=== PATIENT | female | born 1950 | race Caucasian/White ===

== ENCOUNTER 2017-02-08 12:56 | Emergency (ER) | payer MEDICARE, BC ==
[2017-02-08 13:14] VITALS: BP 122/64
--- NOTE | 2017-02-08 15:05 | UC ---
Nunu Hernandez Anna, scribed for Sumit Araujo MD on 02/08/17 at 1440 . Complaint Female HPI - HPI Summary HPI Summary: Patient is a 66 y/o female coming to [facility] presenting with pruritis that began several weeks ago. The pruritic area extends from her vulva to her navel. This has been accompanied by erythema, dryness, and pain. Per triage notes, she describes the severity of the symptoms as 4/10. The symptoms are somewhat alleviated by the use of Atarax, which she reports she has run out of. She was dx with a yeast infection in [place] when she was seen for these symptoms on 01/17. She had a vulvar biopsy on 01/17/2017, which revealed chronic perifolliculitis. It was negative for dysplasia, CA, fungal infections. She has had Diflucan before, most recently the beginning of this month. She additionally has an area of rough skin on her back. Patient medications were reviewed this visit. - History Of Current Complaint Chief Complaint: UCGeneralIllness Stated Complaint: UTI Time Seen by Provider: 02/08/17 13:44 Hx Obtained From: Patient ?: No Onset/Duration: Lasting Weeks, Still Present - Allergies/Home Medications Allergies/Adverse Reactions: Allergies Allergy/AdvReac Type Severity Reaction Status Date / Time Amoxicillin [From Augmentin] Allergy Intermediate Unknown Verified 02/08/17 13: 32 Reaction Details Bisacodyl Allergy Intermediate Headache Verified 02/08/17 13:32 [From HalfLytely Bowel Prep Kit] Clavulanic Acid Allergy Intermediate Unknown Verified 02/08/17 13:32 [From Augmentin] Reaction Details Dust Mite Extract Allergy Intermediate Sneezing Verified 02/08/17 13:32 Polyethylene Glycol Allergy Intermediate Headache Verified 02/08/17 13:32 [From HalfLytely Bowel Prep Kit] Sulfa Antibiotics Allergy Intermediate Hives Verified 02/08/17 13:32 Terconazole [From Terazol] Allergy Intermediate Rash Verified 02/08/17 13:32 Home Medications: Home Medications Canagliflozin (NF) [Invokana (NF)] 1 tab PO DAILY 02/08/17 [History Confirmed ] Cephalexin 500MG #6 TAB PREPAK 1 tab PO BID 02/08/17 [History Confirmed 02/08/17 ] Clobetasol 0.05% OINT* 1 applic TOPICAL SEE INSTRUCTIONS 02/08/17 [History Confirmed 02/08/17] Clotrimazole 1% CREAM* [Clotrimazole 1%*] 1 applic TOPICAL SEE INSTRUCTIONS [History Confirmed 02/08/17] Conjugated Estrogens VAG CM* [Premarin VAG CREAM*] 1 applic TOPICAL SEE INSTRUCTIONS 02/08/17 [History Confirmed 02/08/17] Cyanocobalamin TAB* [Vitamin B12 TAB*] 1 tab PO DAILY 02/08/17 [History Confirmed 02/08/17] Fluconazole 150 MG (NF) [Diflucan 150 mg (NF)] 1 tab PO ONCE 02/08/17 [History Confirmed 02/08/17] Lansoprazole [Prevacid] 1 tab PO DAILY 02/08/17 [History Confirmed 02/08/17] Omeprazole 1 tab PO DAILY 02/08/17 [History Confirmed 02/08/17] Pantoprazole Sodium [Protonix] 40 mg PO BID 02/08/17 [History Confirmed 02/08/17 ] Potassium Citrate (Alkalinizer [Potassium Citrate ER] 10 meq PO BID 02/08/17 [ History Confirmed 02/08/17] hydrOXYzine HCL TAB* [Atarax TAB 50 MG *] 1 tab PO DAILY 02/08/17 [History Confirmed 02/08/17] PMH/Surg Hx/FS Hx/Imm Hx Endocrine History: Diabetes Respiratory History: Asthma - Surgical History Surgical History: Yes Surgery Procedure, Year, and Place: PARTIAL HYSTERECTOMY - Family History Known Family History: Positive: Cardiac Disease, Hypertension, Diabetes - Social History Occupation: Retired Alcohol Use: Daily Alcohol Amount: 1 drink/day Substance Use Type: None Smoking Status (MU): Former Smoker Review of Systems Constitutional: Negative Skin: Other - Pruritic, erythematous area. See HPI. Area of rough skin on her back. Eyes: Negative ENT: Negative Respiratory: Negative Cardiovascular: Negative Gastrointestinal: Negative Genitourinary: Negative Motor: Negative Neurovascular: Negative Musculoskeletal: Negative Neurological: Negative Psychological: Negative All Other Systems Reviewed And Are Negative: Yes Physical Exam Triage Information Reviewed: Yes Appearance: Well-Appearing, No Pain Distress Vital Signs: Initial Vital Signs Temp 98.8 F 02/08/17 13:10 Pulse 78 02/08/17 13:10 Resp 16 02/08/17 13:10 BP 122/64 05/30/17 13:10 Pulse Ox 100 02/08/17 13:10 Elevated blood pressure noted. Vital Signs Reviewed: Yes Eyes: Positive: Other: - EOMI, VAMSI ENT Exam: Normal Neck: Positive: Supple, Nontender Respiratory: Positive: No respiratory distress Cardiovascular: Positive: RRR Musculoskeletal Exam: Normal Musculoskeletal: Positive: Strength Intact, ROM Intact Neurological Exam: Normal Neurological: Positive: Alert - & Ox3, Other: - sensory/motor intact, Psychological Exam: Other - affect/mood appropriate Skin Exam: Other - Mid-back over T4 one cm raised rough area, nonpigmented - Additional Comments Given extensive workup that the patient brought with her, she opted not to have a thorough examination. Complaint Female Dx - Differential Dx/Diagnosis Provider Diagnoses: RASH PERINEAL AND BACK Discharge - Discharge Plan Condition: Stable Disposition: HOME Prescriptions: Fluconazole 150 MG (NF) [Diflucan 150 mg (NF)] 150 mg PO ONCE #1 tab hydrOXYzine HCL TAB* [Atarax TAB 50 MG *] 50 mg PO QID PRN #30 tab PRN Reason: Itching Patient Education Materials: Acute Rash (ED) Referrals: [facility] [Provider Group] Haim Messer MD [Medical Doctor] - No Primary Care Phys,NOPCP [Primary Care Provider] - Additional Instructions: FOLLOW UP WITH YOUR DOCTOR. FOLLOW UP WITH DERMATOLOGY FOR YOU PERINEAL AND BACK RASH. GET REEVALUATED FOR ANY WORSENING OF YOUR CONDITION OR QUESTIONS OR CONCERNS. The documentation as recorded by the Nunu lin Anna accurately reflects the service I personally performed and the decisions made by me, Sumit Araujo MD.
== END 2017-02-08 15:24 | disposition home or self-care (01) ==
LOC: UCEAST 12:56
DX: R21 Rash and other nonspecific skin eruption (principal); L29.9 Pruritus, unspecified; Z87.891 Personal history of nicotine dependence
CPT/HCPCS: 99213; G0463

== ENCOUNTER 2018-02-08 12:36 | Emergency (ER) | payer MEDICARE, BC ==
[2018-02-08] MEDS ORDERED: Ondansetron ODT TAB* 4 MG PO ONE (13:26)
[2018-02-08] MEDS ORDERED: Morphine VIAL* 4 MG/ML VIAL (1 ml vial) IV ONE ×3 (13:26→15:19)
[2018-02-08 14:31] LABS: ABS Basophils 0 10^3/ul (0-0.2); ABS Eosinophils 0.4 10^3/ul (0-0.6); ABS Lymphocytes 1.1 10^3/ul (1.0-4.8); ABS Monocytes 0.2 10^3/ul (0-0.8); ABS Neutrophils 1.7 10^3/ul (1.5-7.7); ABS Nucleated RBC 0 10^3/ul; Eosinophil % 12.3 % (0-6); Hematocrit 33 % (35-47); Lymphocyte % 31.8 % (25-47); Mean Corpuscular HGB Conc 34 g/dl (31-36); Mean Corpuscular Hemoglobin 31 pg (27-31); Mean Corpuscular Volume 91 fL (80-97); Mean Platelet Volume 7.6 um3 (7.4-10.4); Nucleated Red Blood Cells % 0.1; Platelet Count 72 10^3/ul (150-450); Red Blood Count 3.57 10^6/ul (4.0-5.4); Red Cell Distribution Width 15 % (10.5-15); White Blood Count 3.5 10^3/ul (3.5-10.8)
--- NOTE | 2018-02-08 14:35 | RAD ---
INDICATION: Head injury. COMPARISON: Comparison is made with a prior CT of the brain from August 04, 2016. TECHNIQUE: Contiguous axial sections of the brain were obtained from the skull base to the vertex without contrast. FINDINGS: The ventricles, cisterns and sulci are enlarged consistent with age-related atrophy. No significant focal abnormality or mass effect is seen. There is no evidence for hemorrhage. There is a large hematoma in the scalp measuring approximately 9.6 x 1.7 cm in size adjacent to the left frontal bone. No fracture is seen. The visualized portion of the paranasal sinuses and mastoid air cells appear clear. IMPRESSION: 1. NO EVIDENCE FOR ACUTE INTRACRANIAL ABNORMALITY. 2. LARGE HEMATOMA IN THE SCALP ADJACENT TO THE LEFT FRONTAL BONE.
--- NOTE | 2018-02-08 14:37 | RAD ---
INDICATION: Fall with abrasion to the LEFT shoulder. Neck pain. Previous C6-C7 fusion. COMPARISON: No relevant prior exams available on the [facility] PACS for comparison. TECHNIQUE: Multidetector CT images foramen magnum to lung apices without contrast. Multiplanar reformation. REPORT: Normal vertebral alignment accounting for exam positioning without spondylolisthesis or subluxation at any level. Negative for cervical vertebral body or posterior element fracture. Negative for paravertebral hematoma. Post C6-C7 fusion with anterior cortical plate, screws, and bone graft at the disc space with solid osseous fusion. There is also solid osseous fusion at C5-C6 likely from a previous fusion procedure with subsequent removal of the fixation hardware. At C3-C4 there is a moderate dorsal disc osteophyte complex with only mild resulting impression on the ventral margin of the thecal sac. Uncinate process spurring and facet joint osteoarthritis results in only slight LEFT foraminal stenosis. Atherosclerotic calcification noted at the carotid bifurcations. IMPRESSION: No CT evidence for traumatic cervical spine injury.
[2018-02-08 14:47] LABS: EGFR Non-African American 80.3 (>60)
--- NOTE | 2018-02-08 15:17 | RAD ---
HISTORY: Left shoulder pain, injury COMPARISONS: None VIEWS: 4, Frontal internal rotation, external rotation, outlet, and axillary views of the left shoulder FINDINGS: BONE DENSITY: There is diffuse osteopenia. BONES: There is no displaced fracture. JOINTS: There is mild osteoarthritis of the a.c. and glenohumeral joints. ALIGNMENT: There is no dislocation. SOFT TISSUES: Unremarkable. OTHER FINDINGS: The patient is status post anterior cervical fusion. IMPRESSION: OSTEOPENIA. NO ACUTE OSSEOUS INJURY. THE DEGREE OF OSTEOPENIA MAY MAKE A NONDISPLACED FRACTURE RADIOGRAPHICALLY OCCULT. IF SYMPTOMS PERSIST, RECOMMEND REPEAT IMAGING.
--- NOTE | 2018-02-08 15:18 | RAD ---
Indication: Left knee injury. 4 views of left knee demonstrates internal fixation of the left knee patella. No joint effusion is noted. There is soft tissue swelling superficial to the patella which may represent superficial prepatellar bursitis. IMPRESSION: Internal fixation patellar fracture. Soft tissue swelling superficial to the patella is noted.
--- NOTE | 2018-02-08 15:19 | RAD ---
INDICATION: Left hand injury. TECHNIQUE: 2 views of the left hand were obtained. FINDINGS: The bones appear osteopenic in are in normal alignment. There is a faint radiolucent line which projects over the distal diaphysis of the fourth metacarpal possibly representing a nondisplaced fracture. This is best seen on the lateral image. IMPRESSION: POSSIBLE NONDISPLACED FRACTURE OF THE FOURTH METACARPAL. RECOMMEND CLINICAL CORRELATION FOR POINT TENDERNESS.
[2018-02-08 17:14] VITALS: BP 183/78
--- NOTE | 2018-02-08 17:29 | ED ---
Complex/Multi-Sys Presentation - HPI Summary HPI Summary: Patient is a 67-year-old female who presents emergency department for numerous injuries after fall that occurred is prior to arrival. Patient is present in the ER with her and family. Patient states that she was walking on the patio when she tripped on uneven ground and fell. She struck her head, left shoulder and left knee. She denies loss of consciousness. Patient's helped her off the ground immediately. Prior to falling she denies chest pain, shortness of breath, lightheadedness, dizziness, recent illness. Patient notes she broke her left patella several months ago and just finished a rehabilitation. She is not anticoagulated. Symptoms are moderate in severity. Movement makes symptoms worse. Nothing makes symptoms better. Patient and state her tetanus is up-to-date. - History Of Current Complaint Chief Complaint: EDTraumaMultiple Time Seen by Provider: 02/08/18 12:51 Hx Obtained From: Patient, Family/Renal Case Manager - Allergies/Home Medications Allergies/Adverse Reactions: Allergies Allergy/AdvReac Type Severity Reaction Status Date / Time amoxicillin Allergy Rash Verified 02/08/18 12:50 polyethylene glycol Allergy Headache Verified 02/08/18 12:50 Sulfa (Sulfonamide Allergy Rash Verified 02/08/18 12:50 Antibiotics) terconazole [From Terazol 3] Allergy Rash Verified 02/08/18 12:50 Home Medications: Home Medications Colesevelam(NF) [Welchol(NF)] 625 mg PO BID 02/08/18 [History Confirmed 02/08/18 ] Pantoprazole TAB (NF) [Protonix TAB (NF)] 40 mg PO BID 02/08/18 [History Confirmed 02/08/18] Potassium Citrate (NF) [Urocit-K 10 (NF)] 10 meq PO TID 02/08/18 [History Confirmed 02/08/18] SitaGLIPtin (NF) [Januvia (NF)] 100 mg PO DAILY 02/08/18 [History Confirmed ] PMH/Surg Hx/FS Hx/Imm Hx Previously Healthy: Yes Endocrine/Hematology History: Reports: Hx Diabetes Cardiovascular History: Denies: Hx Hypertension Respiratory History: Reports: Hx Asthma Denies: Hx Chronic Obstructive Pulmonary Disease (COPD) GI History: Denies: Hx Ulcer - Surgical History Surgery Procedure, Year, and Place: PARTIAL HYSTERECTOMY. Inner stem device for bladder incontinence. Knee surgery L. Cervical spine fusion - Immunization History Date of Influenza Vaccine: MAY 2013 Infectious Disease History: No Infectious Disease History: Denies: Hx Clostridium Difficile, Hx Hepatitis, Hx Human Immunodeficiency Virus (HIV), Hx of Known/Suspected MRSA, Hx Shingles, Hx Tuberculosis, Hx Known/ Suspected VRE, Hx Known/Suspected VRSA, History Other Infectious Disease, Traveled Outside the [place] in Last 30 Days - Family History Known Family History: Positive: Cardiac Disease, Hypertension, Diabetes - Social History Occupation: Retired Lives: With Family Alcohol Use: None Alcohol Amount: 1 drink/day Substance Use Type: Reports: None Hx Tobacco Use: No Smoking Status (MU): Former Smoker Review of Systems Constitutional: Negative Eyes: Negative ENT: Negative Cardiovascular: Negative Negative: Palpitations, Chest Pain Respiratory: Negative Negative: Shortness Of Breath, Cough Negative: Abdominal Pain, Vomiting, Diarrhea, Nausea Genitourinary: Negative Positive: Other - Left shoulder, hand and knee pain. Positive: Bruising Positive: Headache. Negative: Weakness, Paresthesia, Numbness, Syncope, Slurred Speech All Other Systems Reviewed And Are Negative: Yes Physical Exam Triage Information Reviewed: Yes Vital Signs On Initial Exam: Initial Vitals Temp Pulse Resp BP Pulse Ox 98.2 F 93 18 173/81 99 02/08/18 12:45 02/08/18 12:45 02/08/18 12:45 02/08/18 12:45 02/08/18 12:45 Vital Signs Reviewed: Yes Appearance: Positive: Pain Distress - Pt. sitting up in bed, appears uncomfortable but nontoxic. Family present. Skin: Positive: Warm, Dry Head/Face: Positive: Other - Large hematoma noted to the left side of anterior scalp with superficial abrasion. No active bleeding. Eyes: Positive: Normal, EOMI, VAMSI, Conjunctiva Clear ENT: Positive: Hearing grossly normal Neck: Positive: Supple, Nontender Respiratory/Lung Sounds: Positive: Clear to Auscultation, Breath Sounds Present Cardiovascular: Positive: Normal, RRR, Murmur Abdomen Description: Positive: Nontender, Soft Musculoskeletal: Positive: Other - Large contusion with superficial abrasion noted to the anterior aspect of the left shoulder with pain. Pain and bruising to the lateral aspect of the left hand. Arm is neurovascularly intact. Moderate edema and ecchymosis noted over the left patella with pain. No proximal hip or distal ankle or foot pain. Extremity is neurovascularly intact. Neurological: Positive: Normal, CN Intact II-III Psychiatric: Positive: Affect/Mood Appropriate Diagnostics - Vital Signs Vital Signs Temp Pulse Resp BP Pulse Ox 02/08/18 17:12 98.1 F 93 18 183/78 99 02/08/18 15:22 20 02/08/18 14:09 20 02/08/18 12:45 98.2 F 93 18 173/81 99 - Laboratory Lab Results: Lab Results 02/08/18 02/08/18 02/08/18 Range/Units 12:59 14:16 14:16 WBC 3.5 (3.5-10.8) 10^3/ul RBC 3.57 L (4.0-5.4) 10^6/ul Hgb 11.0 L (12.0-16.0) g/dl Hct 33 L (35-47) % MCV 91 (80-97) fL MCH 31 (27-31) pg MCHC 34 (31-36) g/dl RDW 15 (10.5-15) % Plt Count 72 L (150-450) 10^3/ul MPV 7.6 (7.4-10.4) um3 Neut % (Auto) 48.8 (38-83) % Lymph % (Auto) 31.8 (25-47) % Owsley % (Auto) 6.6 (0-7) % Eos % (Auto) 12.3 H (0-6) % Baso % (Auto) 0.5 (0-2) % Absolute Neuts (auto) 1.7 (1.5-7.7) 10^3/ul Absolute Lymphs (auto) 1.1 (1.0-4.8) 10^3/ul Absolute Monos (auto) 0.2 (0-0.8) 10^3/ul Absolute Eos (auto) 0.4 (0-0.6) 10^3/ul Absolute Basos (auto) 0 (0-0.2) 10^3/ul Absolute Nucleated RBC 0 10^3/ul Nucleated RBC % 0.1 APTT 32.3 (26.0-36.3) seconds Sodium (139-145) mmol/L Potassium (3.5-5.0) mmol/L Chloride (101-111) mmol/L Carbon Dioxide (22-32) mmol/L Anion Gap (2-11) mmol/L BUN (6-24) mg/dL Creatinine (0.51-0.95) mg/dL Est GFR ( Amer) (>60) Est GFR (Non-Af Amer) (>60) BUN/Creatinine Ratio (8-20) Glucose (70-100) mg/dL POC Glucose (mg/dL) 219 H (70-100) mg/dL Calcium (8.6-10.3) mg/dL Total Bilirubin (0.2-1.0) mg/dL AST (13-39) U/L ALT (7-52) U/L Alkaline Phosphatase (34-104) U/L Troponin I (<0.04) ng/mL Total Protein (6.4-8.9) g/dL Albumin (3.2-5.2) g/dL Globulin (2-4) g/dL Albumin/Globulin Ratio (1-3) 05//18 Range/Units 14:16 WBC (3.5-10.8) 10^3/ul RBC (4.0-5.4) 10^6/ul Hgb (12.0-16.0) g/dl Hct (35-47) % MCV (80-97) fL MCH (27-31) pg MCHC (31-36) g/dl RDW (10.5-15) % Plt Count (150-450) 10^3/ul MPV (7.4-10.4) um3 Neut % (Auto) (38-83) % Lymph % (Auto) (25-47) % Owsley % (Auto) (0-7) % Eos % (Auto) (0-6) % Baso % (Auto) (0-2) % Absolute Neuts (auto) (1.5-7.7) 10^3/ul Absolute Lymphs (auto) (1.0-4.8) 10^3/ul Absolute Monos (auto) (0-0.8) 10^3/ul Absolute Eos (auto) (0-0.6) 10^3/ul Absolute Basos (auto) (0-0.2) 10^3/ul Absolute Nucleated RBC 10^3/ul Nucleated RBC % APTT (26.0-36.3) seconds Sodium 143 (139-145) mmol/L Potassium 3.2 L (3.5-5.0) mmol/L Chloride 107 (101-111) mmol/L Carbon Dioxide 30 (22-32) mmol/L Anion Gap 6 (2-11) mmol/L BUN 5 L (6-24) mg/dL Creatinine 0.72 (0.51-0.95) mg/dL Est GFR ( Amer) 103.3 (>60) Est GFR (Non-Af Amer) 80.3 (>60) BUN/Creatinine Ratio 6.9 L (8-20) Glucose 139 H (70-100) mg/dL POC Glucose (mg/dL) (70-100) mg/dL Calcium 8.6 (8.6-10.3) mg/dL Total Bilirubin 0.90 (0.2-1.0) mg/dL AST 50 H (13-39) U/L ALT 23 (7-52) U/L Alkaline Phosphatase 115 H (34-104) U/L Troponin I 0.01 (<0.04) ng/mL Total Protein 6.0 L (6.4-8.9) g/dL Albumin 3.3 (3.2-5.2) g/dL Globulin 2.7 (2-4) g/dL Albumin/Globulin Ratio 1.2 (1-3) Result Diagrams: 02/08/18 14:16 02/08/18 14:16 Lab Statement: Any lab studies that have been ordered have been reviewed, and results considered in the medical decision making process. Complex Multi-Symp Course/Dx Course Of Treatment: Patient presenting for numerous injuries after a mechanical fall. She is afebrile with stable vital signs. Basic labs were ordered as well as imaging. Patient was given IV morphine for pain control. She scan of the brain shows a large hematoma without intracranial bleed or acute changes, reading per radiology. Cervical spine is negative for acute findings, reading per radiology. Hand x-ray shows questionable nondisplaced fracture of the left fourth metacarpal. Left knee x-ray shows surgical changes and soft tissue edema without acute fracture dislocation, reading per radiology. Left shoulder x-ray shows no obvious fracture by radiologist is concerned with the amount of osteoporosis there could be an occult fracture. Given patient's exam and direct impact suspect occult fracture. Results were discussed with patient and family. Hand was splinted and shoulder sling was placed. Patient has seen Dr. Hernandez in the past for orthopedics and the like to follow-up with him again. Advised to call orthopedics and family doctor today to schedule a close follow-up appointment. Patient for pain medication sent to pharmacy. MANUFACTURING SHIFT SUPERVISOR was queried and no red flags noted. Advised to ice and elevate areas intermittently. To return to the ER symptoms change or worsen. Pt. and family understand and agree with plan. She is discharged home stable with her family. - Diagnoses Provider Diagnoses: Fall, Scalp hematoma, Shoulder fracture, Metacarpal bone fracture, Knee contusion Discharge - Sign-Out/Discharge Documenting (check all that apply): Discharge/Admit/Transfer - Discharge Plan Condition: Good Disposition: HOME Prescriptions: oxyCODONE/Acetamin 5/325 MG* [Percocet 5/325 TAB*] 1 tab PO Q6H PRN #12 tab MDD 4 tablets PRN Reason: Pain Patient Education Materials: Hand Fracture (ED), Head Injury (ED), Knee Pain ( ED), Scalp Contusion in Adults (ED), Proximal Humerus Fracture (ED) Referrals: Haim Messer MD [Primary Care Provider] - Bakari Hernandez MD [Medical Doctor] - Additional Instructions: Schedule a close follow up appointment with orthopedics and your PCP Keep splint in place Ice and elevate Pain medication as directed Return to ER if symptoms change or worsen - Billing Disposition and Condition Condition: GOOD Disposition: HOME
== END 2018-02-08 17:12 | disposition home or self-care (01) ==
LOC: ED 12:36
DX: S00.03XA Contusion of scalp, initial encounter (principal); S42.92XA Fracture of left shoulder girdle, part unspecified, initial encounter for closed fracture; S62.305A Unspecified fracture of fourth metacarpal bone, left hand, initial encounter for closed fracture; S80.02XA Contusion of left knee, initial encounter; W01.0XXA Fall on same level from slipping, tripping and stumbling without subsequent striking against object, initial encounter; Y93.01 Activity, walking, marching and hiking; Y92.9 Unspecified place or not applicable; Z88.3 Allergy status to other anti-infective agents; Z88.8 Allergy status to other drugs, medicaments and biological substances; Z88.2 Allergy status to sulfonamides; Z87.891 Personal history of nicotine dependence
CPT/HCPCS: 36415; 70450; 72125; 80053; 84484; 85025; 85730; 96374; 96376; 99282; A9270-GY; J2270

== ENCOUNTER 2018-07-03 14:57 | Emergency (ER) | payer MEDICARE, BC ==
[2018-07-03 15:18] VITALS: BP 134/64
--- NOTE | 2018-07-03 15:23 | UC ---
Respiratory Complaint HPI - HPI Summary HPI Summary: 68 yo female presents accompanied by with complaints of a fever, fatigue , body aches, weakness, and generalized abdominal pain for the last 5 days. has been giving her ibuprofen with decrease of the fever, but her other symptoms have persisted. She has vomited once, but has no diarrhea. She endorses some mild non-specific chest "discomfort" and a decreased appetite. She is able to eat and drink, but her intake is significantly decreased. Denies sinus symptoms, cough, SOB, chest pain, diarrhea, constipation, dysuria, flank pain. Of note she did have a pessary inserted at her PCP's office 1.5-2 weeks ago. - History of Current Complaint Chief Complaint: UCGeneralIllness Stated Complaint: ACHES, FEVER, AND ABDOMINAL PAINS Time Seen by Provider: 07/03/18 15:23 Hx Obtained From: Patient Hx Last Menstrual Period: partial Hysterectomy Onset/Duration: Sudden Onset Severity Initially: Moderate Severity Currently: Severe Pain Intensity: 8 Pain Scale Used: 0-10 Numeric - Allergies/Home Medications Allergies/Adverse Reactions: Allergies Allergy/AdvReac Type Severity Reaction Status Date / Time amoxicillin Allergy Rash Verified 07/03/18 15:18 polyethylene glycol Allergy Headache Verified 07/03/18 15:18 Sulfa (Sulfonamide Allergy Rash Verified 07/03/18 15:18 Antibiotics) terconazole [From Terazol 3] Allergy Rash Verified 07/03/18 15:18 PMH/Surg Hx/FS Hx/Imm Hx - Additional Past Medical History Additional PMH: Heart murmur Endocrine History: Diabetes, Dyslipidemia Cardiovascular History: Cardiac Disease, Hypertension GI/ History: Gastroesophageal Reflux Psychological History: Anxiety, Depression - Surgical History Surgical History: Yes Surgery Procedure, Year, and Place: PARTIAL HYSTERECTOMY. Inner stem device for bladder incontinence. Knee surgery L. Cervical spine fusion - Family History Known Family History: Positive: Cardiac Disease, Hypertension, Diabetes - Social History Occupation: Retired Lives: With Family Alcohol Use: Daily Alcohol Amount: 1 drink/day Substance Use Type: None Smoking Status (MU): Former Smoker - Immunization History Most Recent Influenza Vaccination: fall 2016 Review of Systems Constitutional: Fatigue, Other - Body aches Skin: Negative Eyes: Negative ENT: Negative Respiratory: Negative Cardiovascular: Negative Gastrointestinal: Abdominal Pain Genitourinary: Negative Motor: Negative Neurovascular: Negative Musculoskeletal: Negative Neurological: Negative Psychological: Negative All Other Systems Reviewed And Are Negative: Yes Physical Exam - Summary Physical Exam Summary: GENERAL: NAD. Mildly ill appearing. Appears fatigued. SKIN: No rashes, sores, or open wounds. HEENT: Head: AT/NC Eyes: PERRLA. EOM intact. Conjunctiva clear without inflammation or discharge. Ears: Hearing grossly normal. TMs intact, no bulging, erythema, or edema. Nose: Nasal mucosa pink and moist. NTTP maxillary and frontal sinus. Throat: Posterior oropharynx without exudates, erythema, or tonsillar enlargement. Uvula midline. NECK: Supple. Nontender. No lymphadenopathy. CHEST: CTAB. No r/r/w. No accessory muscle use. Breathing comfortably and in no distress. CV: RRR. Audible murmur. Pulses intact. Brisk cap refill. ABDOMEN: Soft. Mild generalized TTP. No distention or guarding. No CVA tenderness. Bowel sounds present MSK: FROM and 5/5 strength throughout. No edema. NEURO: Alert. PSYCH: Age appropriate behavior. Triage Information Reviewed: Yes Vital Signs: Initial Vital Signs Temp 98.5 F 07/03/18 15:09 Pulse 85 07/03/18 15:09 Resp 16 07/03/18 15:09 BP 134/64 07/03/18 15:09 Pulse Ox 100 07/03/18 15:09 Laboratory Tests 07/03/18 07/03/18 15:41 15:51 POC Urine Color Yellow POC Urine Clarity Clear POC Urine pH 7.0 POC Ur Specif [place] 1.010 POC Urine Protein Negative POC Ur Glucose (UA) Negative POC Urine Ketones Negative POC Urine Blood 1+ A POC Urine Nitrite Negative POC Urine Bilirubin Negative POC Urine Urobilinogen 0.2 POC U Leukocyte Esteras 2+ A Influenza A (Rapid) Negative Influenza B (Rapid) Negative Vital Signs Reviewed: Yes UC Diagnostic Evaluation - Laboratory Result Diagrams: 07/03/18 16:41 O2 Sat by Pulse Oximetry: 100 Re-Evaluation - Re-Evaluation First Eval Re-Evaluation Time: 17:59 Change: Worse Comment: Now with headache, increased fatigue, and "I just dont feel well". Respiratory Course/Dx - Course Course Of Treatment: CXR: IMPRESSION: PATCHY AIRSPACE DISEASE OF THE RIGHT UPPER LUNG. RECOMMEND FOLLOW-UP UNTIL RESOLUTION TO. EXCLUDE UNDERLYING PULMONARY PARENCHYMAL PATHOLOGY. UA with signs of infection. At this time, discussed going to the ED with pt and as there is a suspicion of sepsis given her persistent fever, PNA, and UTI. They did not want to go to the ED. At this point a CBC and CMP was drawn and she was given 1L NS and 1gm of Ceftriaxone. On recheck after fluids and anbx, pt reported feeling worse. Now has a headache, increased fatigue, and increased weakness. Her exam remained unremarkable. I again discussed going to the ED for a further workup and pt and were agreeable to this. They elected to go by ambulance. They were transferred in stable condition. Report called to Felipa NICHOLS in the ED - Differential Dx/Diagnosis Provider Diagnoses: RUL PNA. UTI. Weakness. Fatigue Discharge - Sign-Out/Discharge Documenting (check all that apply): Patient Departure All imaging exams completed and their final reports reviewed: Yes - Discharge Plan Condition: Stable Disposition: TRANS HIGHER LVL OF CARE FAC - Billing Disposition and Condition Condition: STABLE Disposition: Trans Higher Lvl of Care Fac
--- NOTE | 2018-07-03 16:09 | RAD ---
HISTORY: cough COMPARISONS: CT dated June 17, 2013 VIEWS: 4: Frontal dual-energy and lateral views of the chest. FINDINGS: CARDIOMEDIASTINAL SILHOUETTE: The cardiomediastinal silhouette is normal. JUAN CARLOS: The juan carlos are normal. PLEURA: The costophrenic angles are sharp. No pleural abnormalities are noted. LUNG PARENCHYMA: There is patchy alveolar opacification of the right upper lung on the frontal view. ABDOMEN: The upper abdomen is clear. There is no subphrenic gas. BONES AND SOFT TISSUES: The patient is status post anterior cervical fusion. OTHER: None. IMPRESSION: PATCHY AIRSPACE DISEASE OF THE RIGHT UPPER LUNG. RECOMMEND FOLLOW-UP UNTIL RESOLUTION TO EXCLUDE UNDERLYING PULMONARY PARENCHYMAL PATHOLOGY.
[2018-07-03] MEDS ORDERED: cefTRIAXone VIAL(*) 1,000 MG VIAL IVPB ONE (16:30)
[2018-07-03] MEDS ORDERED: NS 0.9% 1000 ML* 1,000 ML IV ONE (16:30)
[2018-07-03 19:01] LABS: EGFR Non-African American 63.5 (>60)
[2018-07-03 19:23] LABS: Hematocrit 31 % (35-47); Hemoglobin 10.8 g/dl (12.0-16.0); Mean Corpuscular HGB Conc 35 g/dl (31-36); Mean Corpuscular Hemoglobin 32 pg (27-31); Mean Corpuscular Volume 93 fL (80-97); Red Blood Count 3.33 10^6/ul (4.00-5.40); Red Cell Distribution Width 14 % (10.5-15); White Blood Count 3.7 10^3/ul (3.5-10.8)
[2018-07-03 19:29] LABS: ABS Basophils 0 10^3/ul (0-0.2); ABS Eosinophils 0.1 10^3/ul (0-0.6); ABS Lymphocytes 0.7 10^3/ul (1.0-4.8); ABS Monocytes 0.3 10^3/ul (0-0.8); ABS Neutrophils 2.6 10^3/ul (1.5-7.7); ABS Nucleated RBC 0 10^3/ul; Eosinophil % 3.1 % (0-6); Lymphocyte % 18.2 % (25-47); Mean Platelet Volume 8.5 um3 (7.4-10.4); Nucleated Red Blood Cells % 0.1; Platelet Count 66 10^3/ul (150-450)
== END 2018-07-03 18:36 | disposition short-term general hospital (02) ==
LOC: UCEAST 14:57
DX: J18.9 Pneumonia, unspecified organism (principal); N39.0 Urinary tract infection, site not specified; R53.1 Weakness; E11.9 Type 2 diabetes mellitus without complications; E78.5 Hyperlipidemia, unspecified; I10 Essential (primary) hypertension; R53.83 Other fatigue; R10.9 Unspecified abdominal pain; Z88.0 Allergy status to penicillin; Z88.2 Allergy status to sulfonamides; Z88.8 Allergy status to other drugs, medicaments and biological substances; Z87.891 Personal history of nicotine dependence
CPT/HCPCS: 36415; 71046; 80053; 81003; 85025; 87086; 93005; 96360; 96365; 99213; G0463; J0696

== ENCOUNTER 2018-07-03 19:11 | Inpatient (IN) | payer MEDICARE, BC ==
[2018-07-03] MEDS ORDERED: NS 0.9% 1000 ML* 1,000 ML IV ONE ×2 (19:46→21:19)
[2018-07-03] MEDS ORDERED: Ketorolac INJ* 30 MG/ML 1 ML VIAL IV PUSH ONE (19:46)
[2018-07-03] MEDS ORDERED: Azithromycin IV(*) 500 MG in NS 0.9% 250 ML* 250 ML IVPB ONE (19:46)
--- NOTE | 2018-07-03 19:55 | ED ---
Sepsis HPI - HPI Summary HPI Summary: Pt is a 68 y/o female sent from the brought in by EMS who presents to the ED c/o fever. As per her , she began to have symptoms 5 days ago. It began with a mild fever of 99 degrees F and vomiting 1x with sharp RLQ pain. Her symptoms began to worsen, and she now c/o fever, body aches, chills, arthralgia , mild cough, sore throat, decreased appetite, nausea, and abdominal pain. This morning her fever spiked 102 degrees F so they went to the . There she was given 1 L fluids and 1 g of IV Rocephin, and was diagnosed with UTI and PNA with concern for sepsis. She felt worse after these treatments. As per she has lost 6 lbs in the past few days, and her sugar was 147 this morning. Pt denies any joint swelling, runny nose, SOB, or dysuria. PMHx DM, HLD, kidney stones, anemia, heart murmur. - History of Current Complaint Time Seen by Provider: 07/03/18 19:25 Stated Complaint: ACHES/FEVER/ABD PAIN Hx Obtained From: Patient, Family/Iron Assorter - Hx Last Menstrual Period: partial Hysterectomy Onset/Duration: Started Days Ago - 5, Worse Since Timing: Constant Current Severity: Severe Pain Intensity: 9 Pain Scale Used: 0-10 Numeric Alleviating Factor(s): Nothing Associated Signs & Symptoms: Cough, Nausea, Vomiting, Chills, Arthralgia - Allergy/Home Medications Allergies/Adverse Reactions: Allergies Allergy/AdvReac Type Severity Reaction Status Date / Time amoxicillin Allergy Rash Verified 07/03/18 15:18 polyethylene glycol Allergy Headache Verified 07/03/18 15:18 Sulfa (Sulfonamide Allergy Rash Verified 07/03/18 15:18 Antibiotics) terconazole [From Terazol 3] Allergy Rash Verified 07/03/18 15:18 Home Medications: Home Medications clonazePAM [Clonazepam] 0.25 mg PO BEDTIME 07/03/18 [History Confirmed 07/03/18] PMH/Surg Hx/FS Hx/Imm Hx Endocrine/Hematology History: Reports: Hx Diabetes, Hx Anemia Cardiovascular History: Reports: Hx Hypercholesterolemia, Other Cardiovascular Problems/Disorders - heart murmur Denies: Hx Hypertension Respiratory History: Reports: Hx Asthma Denies: Hx Chronic Obstructive Pulmonary Disease (COPD) GI History: Reports: Hx Gastroesophageal Reflux Disease Denies: Hx Ulcer History: Reports: Hx Kidney Stones Musculoskeletal History: Reports: Hx Back Problems, Other Musculoskeletal History - Neck problems - Surgical History Surgery Procedure, Year, and Place: PARTIAL HYSTERECTOMY. Inner stem device for bladder incontinence. Knee surgery L. Cervical spine fusion - Immunization History Date of Influenza Vaccine: MAY 2013 Infectious Disease History: No Infectious Disease History: Denies: Hx Clostridium Difficile, Hx Hepatitis, Hx Human Immunodeficiency Virus (HIV), Hx of Known/Suspected MRSA, Hx Shingles, Hx Tuberculosis, Hx Known/ Suspected VRE, Hx Known/Suspected VRSA, History Other Infectious Disease, Traveled Outside the [place] in Last 30 Days - Family History Known Family History: Positive: Cardiac Disease, Hypertension, Diabetes - Social History Alcohol Use: Daily Alcohol Amount: 1 drink/day Hx Substance Use: No Substance Use Type: Reports: None Hx Tobacco Use: Yes Smoking Status (MU): Former Smoker Review of Systems Positive: Fever, Chills, Other - Body aches Positive: Sore Throat. Negative: Nasal Discharge Positive: Cough. Negative: Shortness Of Breath Positive: Abdominal Pain, Vomiting, Nausea, Other - Decreased appetite Negative: dysuria Positive: Arthralgia. Negative: Edema All Other Systems Reviewed And Are Negative: Yes Physical Exam - Summary Physical Exam Summary: Appearance: Well appearing, moderate pain distress with rigors Skin: hot, dry, reflects adequate perfusion, no rash or lesions Head/face: normal Eyes: EOMI, VAMSI ENT: mucous membranes moist Neck: supple, non-tender Respiratory: CTA, breath sounds present Cardiovascular: tachycardic but regular rhythm, pulses symmetrical, 3-4/6 systolic murmur Abdomen: non-tender, soft, no CVA tenderness Bowel Sounds: hypoactive Musculoskeletal: normal, strength/ROM intact Neuro: normal, sensory motor intact, A&Ox3 Triage Information Reviewed: Yes Vital Signs On Initial Exam: Initial Vitals Pulse Pulse Ox 107 93 07/03/18 19:19 07/03/18 19:19 Vital Signs Reviewed: Yes Diagnostics - Vital Signs Vital Signs Temp Pulse Resp BP Pulse Ox 07/03/18 19:26 100.6 F 108 18 168/89 97 07/03/18 19:20 110 143/81 93 07/03/18 19:19 107 93 - Laboratory Result Diagrams: 07/03/18 20:44 07/03/18 20:44 Lab Statement: Any lab studies that have been ordered have been reviewed, and results considered in the medical decision making process. Course/Dx - Course Course Of Treatment: Patient with laboratories, IV Rocephin and IV fluids 1 L given prior to arrival at the urgent care. She has a right upper lobe pneumonia. Her urine does not appear infected. O2 sats around 94%. Placed on oxygen. Additional IV fluids, IV Zithromax given for this community-acquired pneumonia. She will require admission for severe sepsis syndrome. - Differential Dx/Clinical Impression Differential Diagnosis/HQI/PQRI: Other - Sepsis, severe sepsis, pneumonia, hypoxia Provider Diagnosis: Right upper lobe pneumonia, Severe sepsis - Provider Notifications Discussed Care Of Patient With: Ken Ivan Time Discussed With Above Provider: 17:55 Instructed by Provider To: Admit As Inpatient - [facility] accepts pt for admission. Discharge - Sign-Out/Discharge Documenting (check all that apply): Patient Departure - Admit - Discharge Plan Condition: Stable Disposition: ADMITTED TO [facility] Referrals: Haim Messer MD [Primary Care Provider] - - Billing Disposition and Condition Condition: STABLE Disposition: Admitted to [facility] - Attestation Statements Document Initiated by Scribe: Yes Documenting Scribe: Candi Alarcon Provider For Whom Ghassan is Documenting (Include Credential): Dillon Martin MD Scribe Attestation: Candi Hernandez, scribed for Dillon Martin MD on 07/03/18 at 2116. Scribe Documentation Reviewed: Yes Provider Attestation: The documentation as recorded by the Candi lin accurately reflects the service I personally performed and the decisions made by me, Dillon Martin MD
[2018-07-03 20:27] LABS: Urine Appearance Clear; Urine Blood Negative (Negative); Urine Color Yellow; Urine Ketones Negative (Negative); Urine Protein Negative (Negative); Urine Specific Gravity 1.006 (1.010-1.030); Urine Urobilinogen Negative (Negative)
[2018-07-03] MEDS ORDERED: Ondansetron INJ* 2 MG/ML VIAL IV PRN (20:46)
[2018-07-03] MEDS ORDERED: Dextrose 50% Syringe 50 ML* 25 GM/50 ML SYRINGE IV PUSH PRN (20:46)
[2018-07-03] MEDS ORDERED: cefTRIAXone(*) 1 GM in NS 0.9% 50 ML* 50 ML IVPB SCH (20:48)
[2018-07-03 20:56] LABS: ABS Basophils 0 10^3/ul (0-0.2); ABS Eosinophils 0.1 10^3/ul (0-0.6); ABS Lymphocytes 0.4 10^3/ul (1.0-4.8); ABS Monocytes 0.3 10^3/ul (0-0.8); ABS Neutrophils 2.7 10^3/ul (1.5-7.7); ABS Nucleated RBC 0 10^3/ul; Eosinophil % 3.1 % (0-6); Hematocrit 31 % (35-47); Hemoglobin 10.5 g/dl (12.0-16.0); Lymphocyte % 12.4 % (25-47); Mean Corpuscular HGB Conc 34 g/dl (31-36); Mean Corpuscular Hemoglobin 32 pg (27-31); Mean Corpuscular Volume 93 fL (80-97); Mean Platelet Volume 7.5 um3 (7.4-10.4); Nucleated Red Blood Cells % 0.1; Platelet Count 58 10^3/ul (150-450); Red Blood Count 3.28 10^6/ul (4.00-5.40); Red Cell Distribution Width 14 % (10.5-15); White Blood Count 3.6 10^3/ul (3.5-10.8)
[2018-07-03] MEDS ORDERED: NS 0.9% 1000 ML*IV.FLUID IV ONE (20:56)
[2018-07-03 21:00] LABS: INR 1.26 (0.77-1.02)
[2018-07-03] MEDS ORDERED: Azithromycin IV(*) 500 MG in NS 0.9% 250 ML* 250 ML IVPB SCH (21:00)
[2018-07-03] MEDS ORDERED: Acetaminophen TAB* 325 MG PO ONE (21:19)
[2018-07-03] MEDS: NS 0.9% 1000 ML* 1,000 ML IV SCH (22:39)
[2018-07-03] MEDS: cefTRIAXone(*) 1 GM in NS 0.9% 50 ML* 50 ML IVPB SCH (23:02)
[2018-07-03] MEDS: Heparin VIAL(*) 5000 UNITS/ML VIAL (FIVE THOUSAND) SUBCUT SCH (23:09)
[2018-07-03] MEDS: clonazePAM TAB(*) 0.5 MG PO SCH (23:11)
[2018-07-03] MEDS: predniSONE TAB* 20 MG PO SCH (23:12)
[2018-07-03] MEDS: traZODone TAB* 50 MG TAB PO SCH (23:13)
[2018-07-03] MEDS: Sucralfate TAB* 1 GM PO SCH (23:13)
[2018-07-03] MEDS: Sertraline* 50 MG TAB PO SCH (23:13)
[2018-07-03] MEDS: oxyCODONE/Acetamin 5/325 MG* TAB PO PRN (23:14)
[2018-07-03] MEDS: Venlafaxine EXT RELEASE CAP* 75 MG PO SCH (23:14)
[2018-07-03] MEDS: COLESEVELAM 625 MG PO SCH (23:15)
[2018-07-03] MEDS: Potassium Citrate (NF) 10 MEQ TAB PO SCH (23:15)
[2018-07-03] MEDS: Albuterol/Ipratropium NEB.SOL* Albuterol 2.5 MG/Ipratropium 0.5 MG 3 ML INH SCH (23:36)
[2018-07-03] MEDS: Mometasone/Formoter 200/5 MDI INH SCH (23:42)
[2018-07-04] MEDS: KCL 10 MEQ/50 ML IVPREMIX* 10 MEQ/50 ML BAG IV SCH ×3 (00:10→02:48)
[2018-07-04] MEDS: Albuterol/Ipratropium NEB.SOL* Albuterol 2.5 MG/Ipratropium 0.5 MG 3 ML INH SCH ×2 (03:20→06:08)
--- NOTE | 2018-07-04 04:42 | HP ---
AMENDED REPORT NOW INCLUDES DESIGNATED COSIGNER CC: Dr. Haim Messer * HISTORY AND PHYSICAL: DATE OF ADMISSION: 07/03/18 PRIMARY CARE PROVIDER: Dr. Haim Messer. ATTENDING PHYSICIAN WHILE IN THE HOSPITAL: Dr. Idalia Moody * (report dictated by Ken Ivan NP). CHIEF COMPLAINT: 1. Cough. 2. Weakness. 3. Fever. HISTORY OF PRESENT ILLNESS: Ms. Rodríguez is a 68-year-old female patient. She carries a history of diabetes, hyperlipidemia, depression, history of GERD, history of DVT in the left lower extremity, retinopathy, history of asthma, hypertension, and cervical spinal stenosis. She is coming into the ED today stating that since last week her , Quirino, has noted that she has not been eating well. Her appetite has been getting worse and worse. She has had temperature of 99. She was kind of aching all over. She was feeling fatigued, tired, slightly more confused than at her baseline. He was concerned though today because she spiked fever of 102. She has had a cough, which really has not been all that productive with the exception in the last 24 hours bringing up some clear sputum, although in the ED, she did bring up some mucopurulent- type sputum. She has been having some nausea, vomiting, and just overall not feeling well. She came into the Urgent Care. There was concern on chest x-ray there that she appeared to have pneumonia and was transferred to the ER. While here, it was noted that she had a fever of 100.6. She was tachycardic. There was concern for pneumonia and sepsis. We were asked to evaluate for admission. PAST MEDICAL HISTORY: Significant for: 1. Diabetes. 2. Hyperlipidemia. 3. Depression. 4. GERD. 5. Left lower extremity DVT. 6. Diabetic retinopathy. 7. Dementia. 8. Asthma. 9. Hypertension. 10. Cervical spinal stenosis. PAST SURGICAL HISTORY: She has had: 1. spinal surgery x2. 2. Patellar fracture repair. 3. Eye surgery. 4. Humerus fracture. 5. Carpal tunnel. 6. Knee arthroscopy. 7. Lumbar spinal surgery, which is a kyphoplasty. HOME MEDICATIONS: This is reviewed with the patient's include: 1. Clonazepam 0.25 mg at bedtime. 2. Effexor 75 mg p.o. t.i.d. 3. Protonix 40 mg p.o. b.i.d. 4. Ferrous sulfate 325 mg daily. 5. Aspirin 81 mg daily. 6. Trazodone 100 mg at bedtime. 7. Percocet 1 tablet every 6 hours as needed. 8. Carafate 1 g p.o. b.i.d. 9. Januvia 100 mg p.o. daily. 10. Simvastatin 40 mg daily. 11. Zoloft 50 mg at bedtime. 12. Potassium citrate 10 mEq p.o. t.i.d. 13. B12 1000 mcg p.o. daily. 14. WelChol 625 mg p.o. b.i.d. ALLERGIES TO MEDICATION: Include AMOXICILLIN, MIRALAX, SULFA, and TERCONAZOLE. FAMILY HISTORY: Her mother had COPD and CHF. Father had a history of Marfan's. SOCIAL HISTORY: She is a former smoker. She quit about 10 years ago. She does drink 7 and 7 daily one at night. Surrogate decision maker is her , Quirino. REVIEW OF SYSTEMS: There is a documented fever. She denied any significant weight change. There is no double vision. She denies having any ear discharge. There was no rhinorrhea. There was no sore throat, no thyroid enlargement. She denied having any chest pain. There is shortness of breath particularly with exertion. There is a cough. There is no dysuria, no frequency. There was nausea, 1 episode of vomiting. There is no abdominal discomfort reported. No chest pain. No loss of consciousness. No pruritus, and no skin ulcerations. Review of 14 systems completed, all others negative. PHYSICAL EXAMINATION GENERAL: At this time, Ms. Rodríguez is a 68-year-old female patient. She is sitting in the ED stretcher. She does not appear to be in any acute distress. VITAL SIGNS: Blood pressure 147/73, pulse of 109, respirations were 18, O2 sat 95%, temperature of 100.6. HEENT: Head: Atraumatic, normocephalic. Eyes: EOMs are intact. Sclerae were anicteric and not pale. Throat mucosa appears to be dry. No oropharyngeal erythema. NECK: Supple. LUNGS: She had rhonchi noted in the right upper and right middle lobe with wheezing as well. She had no rales. She had equal diaphragmatic expansion. HEART: Sounds S1, S2. She is tachycardic. She does have a grade 2 to 3 systolic murmur. ABDOMEN: Soft, flat, nontender. Bowel sounds are present. EXTREMITIES: Pulses are 2+ throughout. She had no peripheral edema. NEUROLOGIC: She is awake, she is alert, she is oriented x3. Her tongue is midline. Assistant Produce Manager were equal. She had no gross focal deficits. SKIN: Intact. DIAGNOSTIC STUDIES/LAB DATA: WBCs these were done over at urgent care of 3.7, RBC 3.33, hemoglobin 10.8, hematocrit of 31, platelet count of 66, baseline platelets are right around 80,000. She had INR on 06/19/18 of 1.03. Her sodium was 136, potassium of 3.4, chloride of 101, bicarb was 29, BUN 7, creatinine of 0.88, glucose 105, lactate is pending. Urine today was essentially negative. She had a chest x-ray done over at Urgent Care revealing patchy airspace disease in the right upper lung. Recommend followup until resolution to exclude underlying pulmonary parenchymal pathology. She had an EKG over at Urgent Care as well, which showed normal sinus rhythm, rate of 82. She had no ST elevations or T-wave inversions. Old medical records were reviewed. ASSESSMENT AND PLAN: Ms. Rodríguez is a 68-year-old female patient coming into the ED today with complaints of cough, fatigue, not feeling well. In evaluation , there was concern for sepsis and pneumonia. We were asked to evaluate for admission. She will be admitted under inpatient status for: 1. Sepsis secondary to pneumonia. Again, she has an elevated tachycardia. She is febrile. She is not showing signs of severe sepsis just yet, but she certainly does have significant infection. I am going to go ahead and put her on Rocephin and azithromycin. We will get legionella and Streptococcus pneumoniae antigens. We will, in addition to this, get sputum cultures and possible blood cultures. Lactic acid has been sent. I am going to go ahead and do a 30 cc/kg fluid bolus given the tachycardia and we will continue to follow her closely and await cultures. We will continue with flutter valve and pulmonary toileting. I did order nebs because of the wheezing and also her steroids as well. I will continue to monitor. 2. Thrombocytopenia. It is slightly worse than her baseline. This is probably secondary to the septic picture. We will monitor this. I have placed her on heparin and continue to follow if her counts drop consider stopping this. 3. Hyperlipidemia. Continue statin therapy. 4. Depression. Continue meds as prescribed. 5. Gastroesophageal reflux disease. Continue Carafate and PPI therapy. 6. History of DVT. Again, she is high risk of reoccurrence. I have her on prophylactic dosing. 7. History of retinopathy. Follow with PCP. 8. History of asthma. Again, I have her on nebs, steroids, and inhaled steroids as well, pulmonary toileting. 9. Hypertension. Her blood pressure here is 147/73. We will monitor this. If it is persistently elevated, we may consider adding an agent but in the setting with acute illness, I am going to let her run on the higher side. 10. Diabetes. She will be placed on lispro sliding scale. 11. DVT prophylaxis. Again, she will be placed on heparin subcu. 12. Code status. She actually wishes to be a DNR; however, she would be open to intubation should she need that in the setting of pneumonia. We will try to track down her DNR or we can always fill out. 13. Fluids, electrolytes, and nutrition. I will go ahead and place her on a consistent carb diet. TIME SPENT: Time spent on the admission 60 minutes, greater than half the time spent [id number] with the patient obtaining my history and physical, other half the time spent going over the plan of care with the patient and implementing plan of care. I did discuss the plan of care with my attending, Dr. Moody; she is in agreement. KEN IVAN, SHERI [id number]/[facility] #: [id number] JAKE
[2018-07-04] MEDS: Heparin VIAL(*) 5000 UNITS/ML VIAL (FIVE THOUSAND) SUBCUT SCH ×3 (05:32→20:26)
[2018-07-04 06:57] LABS: ABS Basophils 0 10^3/ul (0-0.2); ABS Eosinophils 0 10^3/ul (0-0.6); ABS Lymphocytes 0.6 10^3/ul (1.0-4.8); ABS Monocytes 0.1 10^3/ul (0-0.8); ABS Nucleated RBC 0 10^3/ul; Eosinophil % 0 % (0-6); Hematocrit 31 % (35-47); Hemoglobin 10.5 g/dl (12.0-16.0); Lymphocyte % 16.8 % (25-47); Mean Corpuscular HGB Conc 34 g/dl (31-36); Mean Corpuscular Hemoglobin 32 pg (27-31); Mean Corpuscular Volume 94 fL (80-97); Mean Platelet Volume 8.2 um3 (7.4-10.4); Nucleated Red Blood Cells % 0.1; Platelet Count 57 10^3/ul (150-450); Red Cell Distribution Width 14 % (10.5-15); White Blood Count 3.7 10^3/ul (3.5-10.8)
[2018-07-04 06:59] LABS: INR 1.29 (0.77-1.02)
[2018-07-04 07:01] LABS: EGFR Non-African American 66.1 (>60)
[2018-07-04] MEDS: Cyanocobalamin TAB* 500 MCG PO SCH (07:52)
[2018-07-04] MEDS: Venlafaxine EXT RELEASE CAP* 75 MG PO SCH ×3 (07:52→20:26)
[2018-07-04] MEDS: predniSONE TAB* 20 MG PO SCH (07:52)
[2018-07-04] MEDS: Omeprazole CAP* 20 MG PO SCH ×2 (07:53→17:01)
[2018-07-04] MEDS: Potassium Citrate (NF) 10 MEQ TAB PO SCH ×2 (07:53→12:53)
[2018-07-04] MEDS: oxyCODONE/Acetamin 5/325 MG* TAB PO PRN ×2 (07:53→17:01)
[2018-07-04] MEDS: Ferrous Sulfate TAB* 325 MG PO SCH (07:53)
[2018-07-04] MEDS: Sucralfate TAB* 1 GM PO SCH ×2 (07:53→20:26)
[2018-07-04] MEDS: Aspirin 81 mg CHEW TAB* 81 MG TAB.CHEW PO SCH (07:53)
[2018-07-04] MEDS: COLESEVELAM 625 MG PO SCH ×2 (07:53→20:27)
[2018-07-04] MEDS: Mometasone/Formoter 200/5 MDI INH SCH ×2 (08:07→20:45)
[2018-07-04] MEDS: Insulin LISPRO* 1 UNITS UNIT SUBCUT SCH ×3 (08:18→17:20)
[2018-07-04] MEDS: NS 0.9% 1000 ML* 1,000 ML IV SCH (09:58)
--- NOTE | 2018-07-04 15:28 | ECHO ---
Patient: KIMBERLEY KILLIAN [facility] Rec#: [id number] : 1950 Date: 07/04/2018 Age: 68y Height: 163 cm / 64.2 in Weight: 64.05 kg / 141.2 lbs Sex: F BSA: 1.69 Room#: [facility] Admit Date#: 07/03/2018 Type: Inpatient Referring: Zari Jolly MD Reading: Ady Morris MD Polisher Aluminum: Maribeth GreenwoodALIX CC: Haim Messer MD Transthoracic Echocardiogram Indication: Murmur, sepsis BP: 106/53 HR: 104 Rhythm: Tachycardia Findings History: DM, HLD, anemia, heart murmur, former smoker, dementia. Technical Comments: The study quality is fair. Completed at 1230. Left Ventricle: The left ventricular chamber size is normal. There is no left ventricular hypertrophy. Global left ventricular wall motion and contractility are within normal limits. There is normal left ventricular systolic function. The estimated ejection fraction is 55-60%. Abnormal left ventricular diastolic function is observed. Abnormal left ventricular diastolic filling is observed, consistent with impaired relaxation. Left Atrium: The left atrium is severely dilated. Right Ventricle: Moderator Band present. The right ventricular cavity size is normal. The right ventricular global systolic function is normal. Right Atrium: The right atrium is moderately dilated. Aortic Valve: The aortic valve is trileaflet. Mild aortic leaflet calcification is visualized. Systolic excursion of the aortic valve cusps is reduced. There is a trace of aortic regurgitation. There is mild aortic stenosis. The mean gradient of the aortic valve is 13 mmHg. The peak instantaneous gradient of the aortic valve is 23 mmHg. The aortic valve area, by peak velocities, is calculated at 1.6 cm2. Mitral Valve: Mild mitral annular calcification present. The mitral valve leaflets are mildly thickened. There is mild to moderate mitral regurgitation. There is mild mitral stenosis. Tricuspid Valve: The tricuspid valve leaflets are normal. There is mild tricuspid regurgitation. The right ventricular systolic pressure is estimated at 28 mmHg. No pulmonary hypertension is noted. There is no tricuspid stenosis. Pulmonic Valve: The pulmonic valve appears normal. There is a trace pulmonic regurgitation. There is no pulmonic stenosis. Pericardium: There is no significant pericardial effusion. A pericardial fat pad is visualized. Aorta: There is no dilatation of the ascending aorta. There is no dilatation of the aortic arch. The aortic root is normal in size. Pulmonary Artery: The main pulmonary artery is not well visualized. Venous: The inferior vena cava appears normal in size. There is a greater than 50% respiratory change in the inferior vena cava dimension. Summary: There was not any prior study for comparison. Conclusions Global left ventricular wall motion and contractility are within normal limits. There is normal left ventricular systolic function. The estimated ejection fraction is 55-60%. The right ventricular global systolic function is normal. Mild aortic leaflet calcification is visualized. There is a trace of aortic regurgitation. There is mild aortic stenosis. The mean gradient of the aortic valve is 13 mmHg. There is mild to moderate mitral regurgitation. There is mild tricuspid regurgitation. No pulmonary hypertension is noted. There is no significant pericardial effusion. Measurements Name Value Normal Range RVIDd (AP) 2D 2.8 cm (0.9 - 2.6) RVDdMajor (2D) 3.9 cm (2.2 - 4.4) RAd ISD 4CH 5.6 cm (3.4 - 4.9) RA (A4C)W 3.8 cm (2.9 - 4.6) IVSd (2D) 0.8 cm (0.6 - 1) LVPWd (2D) 0.9 cm (0.6 - 1) LVIDd (2D) 4.7 cm (3.6 - 5.4) LVIDs (2D) 3 cm - LV FS (2D) 37 % (25 - 45) Aortic Annulus 1.9 cm (1.4 - 2.6) Ao root diameter (2D) 3 cm (2.1 - 3.5) Ascending Ao 3.1 cm (2.1 - 3.4) Aortic arch 2.2 cm (1.8 - 3.4) LA dimension (AP) 2D 4.2 cm (2.3 - 3.8) LAd ISD 4CH 5.4 cm (2.9 - 5.3) LA ISD 4CH W 5.2 cm (2.5 - 4.5) Name Value Normal Range LA ESV BP (A/L) index 56 ml/m2 - Name Value Normal Range MV E-wave Vmax 1.4 m/sec - MV deceleration time 70 msec - MV A-wave Vmax 2 m/sec - MV E:A ratio 0.7 ratio - LV septal e' Vmax 0.08 m/sec - LV lateral e' Vmax 0.07 m/sec - LV E:e' septal ratio 17.5 ratio - LV E:e' lateral ratio 20 ratio - Name Value Normal Range AV Vmax 2.4 m/sec - AV VTI 50 cm - AV peak gradient 23 mmHg - AV mean gradient 13 mmHg - LVOT diameter 2 cm - LVOT Vmax 1.2 m/sec - LVOT VTI 24.9 cm - LVOT peak gradient 5 mmHg - LVOT mean gradient 3 mmHg - DOI (VTI) 0.5 ratio - CHARLES (continuity Vmax) 1.6 cm2 - CHARLES (continuity VTI) 1.6 cm2 - ANGELLA Vmax 1.7 m/sec - Name Value Normal Range MV Vmax 1.8 m/sec - MV VTI 34.3 cm - MV peak gradient 13 mmHg - MV mean gradient 6 mmHg - MV PHT 66 msec - MVA (PHT) 3.3 cm2 - MVA (continuity VTI) 2.2 cm2 - Name Value Normal Range TR Vmax 2.5 m/sec - TR peak gradient 25 mmHg - RAP 3 mmHg - RVSP 28 mmHg - IVC diameter 1.9 cm - Name Value Normal Range PV Vmax 1.4 m/sec - PV peak gradient 7 mmHg -
[2018-07-04] MEDS: Atorvastatin* 20 MG TAB PO SCH (17:01)
[2018-07-04] MEDS: Azithromycin IV(*) 500 MG in NS 0.9% 250 ML* 250 ML IVPB SCH (20:03)
[2018-07-04] MEDS: Acetaminophen TAB* 325 MG PO PRN (20:25)
[2018-07-04] MEDS: traZODone TAB* 50 MG TAB PO SCH (20:26)
[2018-07-04] MEDS: Sertraline* 50 MG TAB PO SCH (20:26)
[2018-07-04] MEDS: clonazePAM TAB(*) 0.5 MG PO SCH (20:29)
[2018-07-04] MEDS: POTASSIUM CITRATE 15 MEQ PO SCH (20:29)
[2018-07-04] MEDS: cefTRIAXone(*) 1 GM in NS 0.9% 50 ML* 50 ML IVPB SCH (23:54)
[2018-07-05] MEDS: oxyCODONE/Acetamin 5/325 MG* TAB PO PRN ×3 (02:00→18:26)
[2018-07-05] MEDS: Heparin VIAL(*) 5000 UNITS/ML VIAL (FIVE THOUSAND) SUBCUT SCH ×3 (05:33→21:13)
[2018-07-05] MEDS: Acetaminophen TAB* 325 MG PO PRN (05:36)
[2018-07-05 07:30] LABS: Hematocrit 29 % (35-47); Hemoglobin 10.3 g/dl (12.0-16.0); Mean Corpuscular HGB Conc 35 g/dl (31-36); Mean Corpuscular Hemoglobin 33 pg (27-31); Mean Corpuscular Volume 92 fL (80-97); Red Blood Count 3.18 10^6/ul (4.00-5.40); Red Cell Distribution Width 14 % (10.5-15); White Blood Count 5.7 10^3/ul (3.5-10.8)
[2018-07-05 07:48] LABS: EGFR Non-African American 82.7 (>60)
[2018-07-05 07:54] LABS: ABS Basophils 0 10^3/ul (0-0.2); ABS Eosinophils 0 10^3/ul (0-0.6); ABS Monocytes 0.3 10^3/ul (0-0.8); ABS Neutrophils 4.4 10^3/ul (1.5-7.7); ABS Nucleated RBC 0 10^3/ul; Eosinophil % 0.3 % (0-6); Lymphocyte % 18.3 % (25-47); Mean Platelet Volume 8.2 um3 (7.4-10.4); Nucleated Red Blood Cells % 0; Platelet Count 73 10^3/ul (150-450)
[2018-07-05] MEDS: Mometasone/Formoter 200/5 MDI INH SCH ×2 (08:13→19:57)
[2018-07-05] MEDS: predniSONE TAB* 20 MG PO SCH (09:05)
[2018-07-05] MEDS: Ferrous Sulfate TAB* 325 MG PO SCH (09:05)
[2018-07-05] MEDS: Cyanocobalamin TAB* 500 MCG PO SCH (09:05)
[2018-07-05] MEDS: Venlafaxine EXT RELEASE CAP* 75 MG PO SCH ×3 (09:05→21:12)
[2018-07-05] MEDS: Omeprazole CAP* 20 MG PO SCH ×2 (09:05→17:07)
[2018-07-05] MEDS: Aspirin 81 mg CHEW TAB* 81 MG TAB.CHEW PO SCH (09:05)
[2018-07-05] MEDS: Sucralfate TAB* 1 GM PO SCH ×2 (09:05→21:12)
[2018-07-05] MEDS: COLESEVELAM 625 MG PO SCH ×2 (09:06→21:12)
[2018-07-05] MEDS: POTASSIUM CITRATE 15 MEQ PO SCH ×2 (09:06→21:12)
[2018-07-05] MEDS ORDERED: Magnesium Sulfate 2 GM IV* 2 GM/50 ML BAG IVPB ONE (09:57)
[2018-07-05] MEDS: Insulin LISPRO* 1 UNITS UNIT SUBCUT SCH ×3 (10:22→18:19)
[2018-07-05] MEDS: NS 0.9% 1000 ML* 1,000 ML IV SCH ×2 (11:05)
[2018-07-05] MEDS: Potassium & Sodium Phos 250MG* = 1 PACKET PO SCH ×2 (13:24→21:13)
[2018-07-05] MEDS: Atorvastatin* 20 MG TAB PO SCH (17:07)
--- NOTE | 2018-07-05 17:22 | RAD ---
HISTORY: sob COMPARISONS: July 03, 2018 VIEWS: 1: frontal AP view of the chest at 5:12 PM FINDINGS: LINES AND TUBES: None. CARDIOMEDIASTINAL SILHOUETTE: The cardiomediastinal silhouette is normal for portable technique. PLEURA: The costophrenic angles are sharp. No pleural abnormalities are noted. LUNG PARENCHYMA: There is progressive patchy alveolar opacification of the right upper lung. ABDOMEN: The upper abdomen is clear. There is no subphrenic gas. BONES AND SOFT TISSUES: No bone or soft tissue abnormalities are noted. IMPRESSION: PROGRESSIVE PATCHY CONSOLIDATION OF THE RIGHT UPPER LUNG.
[2018-07-05] MEDS: Azithromycin IV(*) 500 MG in NS 0.9% 250 ML* 250 ML IVPB SCH (21:05)
[2018-07-05] MEDS: traZODone TAB* 50 MG TAB PO SCH (21:12)
[2018-07-05] MEDS: clonazePAM TAB(*) 0.5 MG PO SCH (21:12)
[2018-07-05] MEDS: Sertraline* 50 MG TAB PO SCH (21:12)
[2018-07-05] MEDS ORDERED: Melatonin 3 MG TAB PO PRN (22:06)
[2018-07-05] MEDS: diPHENhydraMINE PO* 25 MG PO PRN (22:31)
[2018-07-05] MEDS: cefTRIAXone(*) 1 GM in NS 0.9% 50 ML* 50 ML IVPB SCH (22:35)
[2018-07-06] MEDS: oxyCODONE/Acetamin 5/325 MG* TAB PO PRN (01:23)
[2018-07-06] MEDS: NS 0.9% 1000 ML* 1,000 ML IV SCH ×2 (03:03→13:00)
[2018-07-06] MEDS: Albuterol 2.5 MG/3 ML NEB.SOL* (0.083%) INH PRN ×2 (03:30→15:02)
[2018-07-06 04:59] LABS: ABS Basophils 0 10^3/ul (0-0.2); ABS Eosinophils 0 10^3/ul (0-0.6); ABS Lymphocytes 1.7 10^3/ul (1.0-4.8); ABS Monocytes 0.4 10^3/ul (0-0.8); ABS Neutrophils 5.1 10^3/ul (1.5-7.7); ABS Nucleated RBC 0 10^3/ul; Eosinophil % 0.1 % (0-6); Hematocrit 30 % (35-47); Hemoglobin 10.2 g/dl (12.0-16.0); Lymphocyte % 23.2 % (25-47); Mean Corpuscular HGB Conc 34 g/dl (31-36); Mean Corpuscular Hemoglobin 32 pg (27-31); Mean Corpuscular Volume 93 fL (80-97); Mean Platelet Volume 7.8 um3 (7.4-10.4); Nucleated Red Blood Cells % 0.1; Platelet Count 82 10^3/ul (150-450); Red Blood Count 3.19 10^6/ul (4.00-5.40); Red Cell Distribution Width 14 % (10.5-15); White Blood Count 7.2 10^3/ul (3.5-10.8)
[2018-07-06] MEDS: Heparin VIAL(*) 5000 UNITS/ML VIAL (FIVE THOUSAND) SUBCUT SCH ×3 (06:22→21:30)
[2018-07-06] MEDS: Mometasone/Formoter 200/5 MDI INH SCH ×2 (07:35→19:14)
[2018-07-06] MEDS: Acetaminophen TAB* 325 MG PO PRN (08:43)
[2018-07-06] MEDS ORDERED: LORazepam INJ* 2 MG/ML 1 ML VIAL ONE (09:24)
[2018-07-06] MEDS: Sucralfate TAB* 1 GM PO SCH ×2 (09:31→21:27)
[2018-07-06] MEDS: Ferrous Sulfate TAB* 325 MG PO SCH (09:31)
[2018-07-06] MEDS: Aspirin 81 mg CHEW TAB* 81 MG TAB.CHEW PO SCH (09:31)
[2018-07-06] MEDS: Venlafaxine EXT RELEASE CAP* 75 MG PO SCH ×3 (09:32→21:27)
[2018-07-06] MEDS: Omeprazole CAP* 20 MG PO SCH ×2 (09:32→16:04)
[2018-07-06] MEDS: predniSONE TAB* 20 MG PO SCH (09:32)
[2018-07-06] MEDS: Cyanocobalamin TAB* 500 MCG PO SCH (09:32)
[2018-07-06] MEDS: COLESEVELAM 625 MG PO SCH ×2 (09:33→21:25)
[2018-07-06] MEDS: POTASSIUM CITRATE 15 MEQ PO SCH ×2 (09:33→21:32)
[2018-07-06] MEDS: Potassium & Sodium Phos 250MG* = 1 PACKET PO SCH ×3 (09:42→21:30)
[2018-07-06] MEDS: Insulin LISPRO* 1 UNITS UNIT SUBCUT SCH ×3 (09:47→17:18)
[2018-07-06 10:45] LABS: EGFR Non-African American 80.1 (>60)
--- NOTE | 2018-07-06 11:37 | RAD ---
INDICATION: Pneumonia. COMPARISON: Comparison is made with a prior study from July 05, 2018. TECHNIQUE: A portable view of the chest was obtained. FINDINGS: The heart is within normal limits in size. There are diffuse prominence of the interstitial markings with more focal perihilar alveolar infiltrates and a infiltrate at the left lung base. These findings have progressed from the prior exam. There is a small left pleural effusion. IMPRESSION: FINDINGS MOST CONSISTENT WITH CONGESTIVE HEART FAILURE LESS LIKELY PNEUMONIA DEMONSTRATING INTERVAL PROGRESSION.
--- NOTE | 2018-07-06 12:48 | RAD ---
Indication: Shortness of breath. Duplex Doppler sonography of the deep venous system of both lower extremities was performed. Bilaterally the common femoral veins, proximal greater saphenous veins, proximal deep femoral veins, femoral veins, popliteal veins, posterior tibial veins and peroneal veins appear patent and compressible. IMPRESSION: NO EVIDENCE OF DEEP VENOUS THROMBOSIS OF EITHER LOWER EXTREMITY IS PRESENT.
[2018-07-06] MEDS: Meropenem 1 GM PREMIX(*) 1 GM/50 ML BAG IV SCH ×2 (13:04→19:40)
--- NOTE | 2018-07-06 13:45 | PN ---
Progress Note - Progress Note Date of Service: 07/06/18 Note: ADD: CXR today shows progressive infiltration in both lungs. ECH of veins in legs shows no evidence of DVT. Imp: Progressive community-acquired pneumonia.
[2018-07-06] MEDS ORDERED: Furosemide IV* 10 MG/ML VIAL (40 MG) IV ONE (15:53)
[2018-07-06] MEDS: Atorvastatin* 20 MG TAB PO SCH (16:04)
[2018-07-06] MEDS: LORazepam INJ* 2 MG/ML 1 ML VIAL IV PUSH PRN (17:18)
[2018-07-06] MEDS: Azithromycin IV(*) 500 MG in NS 0.9% 250 ML* 250 ML IVPB SCH (20:36)
--- NOTE | 2018-07-06 21:13 | CONS ---
CRITICAL CARE CONSULTATION: DATE OF CONSULT: 07/06/18 REASON FOR CONSULT: Pneumonia with progressive hypoxemia. HISTORY OF PRESENT ILLNESS: This patient is a 68-year-old female with a history of diabetes, hyperlipidemia, depression, GERD, DVT (left lower extremity ), retinopathy, asthma, hypertension, and cervical spinal stenosis, who was admitted from the emergency department on 07/03/18 with a presumed diagnosis of community- acquired pneumonia. The patient was admitted to the general medical floor and placed on empiric antibiotic treatment with azithromycin and ceftriaxone. She was transferred to the intensive care unit this morning because of progressive hypoxemia and increasing respiratory rate. According to the patient's , there has been a recent history of lassitude and a cough that has been largely nonproductive. Chest x-ray on admission showed a possible interstitial infiltrate mostly involving the right lung. The patient had a DVT in the left lower extremity approximately 5 years ago and received anticoagulation for approximately 6 months thereafter. MEDICATIONS: Meds on admission to the ICU include: 1. Albuterol 2.5 mg by nebulizer treatment q.2 hours p.r.n. wheezing. 2. Aspirin 81 mg daily. 3. Lipitor 20 mg daily. 4. Azithromycin 500 mg q.24 hours. 5. Clonazepam 0.25 mg at bedtime. 6. Colesevelam 625 mg p.o. b.i.d. 7. Diphenhydramine 25 mg q.6 hours p.r.n. agitation. 8. Heparin 5000 units subcutaneous q.8 hours. 9. Sliding scale insulin. 10. Dulera 2 puffs b.i.d. 11. Omeprazole 20 mg b.i.d. 12. Oxycodone 1 tab q.6 hours p.r.n. pain. 13. Prednisone 40 mg daily. 14. Zoloft 50 mg at bedtime. 15. Sucralfate 1 g twice daily. 16. Trazodone 100 mg p.o. at bedtime. 17. Venlafaxine (Effexor XR) TID. DRUG ALLERGIES: AMOXICILLIN, which produces a rash; POLYETHYLENE GLYCOL, which produces a headache; SULFA ANTIBIOTICS, which produce a rash; and TERCONAZOLE, which also produces a rash. REVIEW OF SYSTEMS: Noncontributory. PHYSICAL EXAM: GENERAL: Patient was alert and oriented, but was very anxious and tachypneic. Vital Signs: Temp 101 (temporal), heart rate 110, respirations 36, O2 sat 93% with oxygen at 15 L per minute, and blood pressure 170/80. HEENT: Conjunctivae were not injected. There was no facial asymmetry. Oropharynx was clear. There was no neck adenopathy. Lungs: There was occasional inspiratory wheeze, but otherwise unremarkable. Cardiac exam revealed no murmurs, rubs, or gallops. Abdomen was soft, nontender, and nondistended. Extremities were warm, not edematous, and not cyanotic. Neurologic exam was unrevealing. DIAGNOSTIC STUDIES/LAB DATA: Normal white count, hemoglobin of 10.2, platelet count of 82. C-reactive protein of 28.4. Electrolytes (sodium, potassium, chloride, bicarb) normal, glucose slightly elevated at 133. Phosphorus and magnesium were low at 1.5 each. Procalcitonin was normal at 0.2. Lactate on admission was 2.3 and repeat was 0.9. Other studies: Chest x-ray as described. Urine antigens for Legionella and pneumococcus negative. All cultures negative so far. Cardiac ultrasound revealed a normal left ventricular size and function, but an enlarged left atrium with mitral stenosis and mitral regurgitation. IMPRESSION: Hypoxemic respiratory failure. The working diagnosis is community acquired pneumonia, although the prior history of deep venous thrombosis creates the possibility for a venous thromboembolism. The thrombocytopenia supports the Dx of infection. The patient's underlying anxiety is certainly adding to the problem with oxygenation. MANAGEMENT PLAN: We will adjust antibiotics and provide more broad-spectrum coverage. Considering the patient is allergic to PENICILLIN, we will use meropenem and azithromycin. We will also order an ultrasound of the veins in both legs at the bedside (the patient probably unable to undergo CAT scan at this time because of agitation). The patient will also need more aggressive management of her anxiety and I have started Ativan at 1 mg IV q.6 p.r.n. We will, obviously, monitor the patient for possible intubation and mechanical ventilation, but at this time we are maintaining adequate oxygenation with high- flow nasal O2 (Vapotherm) system. CRITICAL CARE TIME: 60 minutes. I have discussed my impressions and plan with the patient and her as well as with Dr. Zari Jolly (covering for Dr. Haim Messer, the patient's PCP). [id number]/[facility] #: [id number] JAKE
[2018-07-06] MEDS: clonazePAM TAB(*) 0.5 MG PO SCH (21:25)
[2018-07-06] MEDS: Sertraline* 50 MG TAB PO SCH (21:26)
[2018-07-06] MEDS: traZODone TAB* 50 MG TAB PO SCH (21:28)
[2018-07-07] MEDS: Meropenem 1 GM PREMIX(*) 1 GM/50 ML BAG IV SCH ×3 (03:04→19:52)
[2018-07-07] MEDS: Acetaminophen TAB* 325 MG PO PRN ×3 (03:04→17:25)
[2018-07-07 04:22] LABS: Hematocrit 27 % (35-47); Hemoglobin 9.4 g/dl (12.0-16.0); Mean Corpuscular HGB Conc 35 g/dl (31-36); Mean Corpuscular Hemoglobin 32 pg (27-31); Mean Corpuscular Volume 92 fL (80-97); Mean Platelet Volume 7.9 um3 (7.4-10.4); Platelet Count 71 10^3/ul (150-450); Red Blood Count 2.94 10^6/ul (4.00-5.40); Red Cell Distribution Width 14 % (10.5-15); White Blood Count 5.8 10^3/ul (3.5-10.8)
[2018-07-07] MEDS: Heparin VIAL(*) 5000 UNITS/ML VIAL (FIVE THOUSAND) SUBCUT SCH ×3 (05:47→21:13)
[2018-07-07] MEDS: COLESEVELAM 625 MG PO SCH ×2 (07:35→21:36)
[2018-07-07] MEDS: POTASSIUM CITRATE 15 MEQ PO SCH ×2 (07:36→21:36)
[2018-07-07] MEDS: Potassium & Sodium Phos 250MG* = 1 PACKET PO SCH ×3 (07:37→21:11)
[2018-07-07] MEDS: predniSONE TAB* 20 MG PO SCH (07:39)
[2018-07-07] MEDS: Aspirin 81 mg CHEW TAB* 81 MG TAB.CHEW PO SCH (07:39)
[2018-07-07] MEDS: Venlafaxine EXT RELEASE CAP* 75 MG PO SCH ×3 (07:39→21:11)
[2018-07-07] MEDS: Omeprazole CAP* 20 MG PO SCH ×2 (07:39→17:20)
[2018-07-07] MEDS: Sucralfate TAB* 1 GM PO SCH (07:40)
[2018-07-07] MEDS: Insulin LISPRO* 1 UNITS UNIT SUBCUT SCH ×3 (07:50→17:20)
[2018-07-07] MEDS: Mometasone/Formoter 200/5 MDI INH SCH ×2 (07:53→19:41)
--- NOTE | 2018-07-07 07:53 | RAD ---
INDICATION: Pneumonia with respiratory failure. COMPARISON: Comparison is made with prior study from July 06, 2018. TECHNIQUE: A portable view of the chest was obtained. FINDINGS: Cardiac and mediastinal contours appear to be within normal limits. There is diffuse bilateral interstitial infiltrates with more focal patchy alveolar infiltrates in the upper lobes and perihilar regions which appears similar to the prior exam. There appears to be a trace left pleural effusion. IMPRESSION: FINDINGS MOST CONSISTENT WITH CONGESTIVE HEART FAILURE AND/OR PNEUMONIA UNCHANGED. R1F
[2018-07-07] MEDS ORDERED: Furosemide IV* 10 MG/ML VIAL (40 MG) IV SLOW PU ONE (08:33)
[2018-07-07] MEDS ORDERED: Magnesium Sulfate 2 GM IV* 2 GM/50 ML BAG IVPB ONE (10:30)
[2018-07-07] MEDS: Potassium Citrate (NF) 10 MEQ TAB PO SCH ×3 (10:34→21:13)
--- NOTE | 2018-07-07 12:37 | PN ---
Progress Note - Progress Note Date of Service: 07/07/18 - Pulmonary note Note: Pt seen and examined at bedside. Was anxious and tearful this morning. Reported breathing better. Denied cough. No acute events o/n. Having good UO through pantoja. Didnot appear to be in distress. Labs, vitals reviewed ROS is negative other than stated above. Active Medications Generic Name Dose Route Start Last Admin Trade Name Freq PRN Reason Stop Dose Admin Acetaminophen 650 mg 07/03/18 20:46 07/07/18 07:39 Tylenol Tab* PO 650 mg Q4H PRN Administration FEVER/PAIN Albuterol 2.5 mg 07/03/18 20:46 07/06/18 15:02 Ventolin 2.5 Mg/3 Ml Neb.Roxana* INH 2.5 mg Q2H PRN Administration SOB/WHEEZING Aspirin 81 mg 07/04/18 09:00 07/07/18 07:39 Aspirin 81 Mg Chew Tab* PO 81 mg DAILY ALMAS Administration Atorvastatin Calcium 20 mg 07/04/18 17:00 07/06/18 16:04 Lipitor* PO 20 mg DAILY@1700 ALMAS Administration Clonazepam 0.25 mg 07/03/18 21:00 07/06/18 21:25 Klonopin Tab(*) PO 0.25 mg BEDTIME ALMAS Administration Colesevelam HCl 625 mg 07/03/18 21:00 07/07/18 07:35 Welchol(Nf) PO 625 mg BID ALMAS Administration Dextrose 12.5 gm 07/03/18 20:46 D50w Syringe 50 Ml* IV PUSH .FOR FS < 60 - SS PRN FS < 60 Diphenhydramine HCl 25 mg 07/05/18 22:09 07/05/18 22:31 Benadryl Po* PO 25 mg Q6H PRN Administration ITCHING Heparin Sodium (Porcine) 5,000 units 07/03/18 22:00 07/07/18 05:47 Heparin Vial(*) SUBCUT 5,000 units Q8HR ALMAS Administration Azithromycin 500 mg/ Sodium 250 mls @ 250 mls/hr 07/04/18 20:00 07/06/18 20: 36 Chloride IVPB 250 mls/hr Q24HR@2000 ALMAS Administration Sodium Chloride 1,000 mls @ 50 mls/hr 07/06/18 10:37 07/06/18 13:00 Ns 0.9% 1000 Ml* IV 50 mls/hr PER RATE ALMAS Administration Meropenem 1 gm in 50 mls @ 100 mls/hr 07/06/18 11:00 07/07/18 10:30 Merrem 1 Gm Premix(*) IV 100 mls/hr Q8H ALMAS Administration Insulin Human Lispro 0 units 07/04/18 07:30 07/07/18 12:07 Humalog* SUBCUT 3 units AC ALMAS Administration Protocol Lorazepam 1 mg 07/06/18 10:34 07/06/18 17:18 Ativan Inj* IV PUSH 1 mg Q6H PRN Administration ANXIETY Mometasone Furoate/Formoterol Fumar 2 puff 07/03/18 21:00 07/07/18 07:53 Dulera 200/5 Mdi* INH 2 puff BID ALMAS Administration Pto: Potassium 2 dose 07/05/18 09:00 07/07/18 07:36 Citrate 15 Meq PO 2 dose QAM ALMAS Administration Omeprazole 20 mg 07/04/18 07:30 07/07/18 07:39 Prilosec Cap* PO 20 mg BID AC ALMAS Administration Ondansetron HCl 4 mg 07/03/18 20:46 Zofran Inj* IV Q6H PRN NAUSEA Oxycodone/Acetaminophen 1 tab 07/03/18 20:52 07/06/18 01:23 Percocet 5/325 Tab* PO 1 tab Q6H PRN Administration PAIN Potassium Citrate 15 meq 07/07/18 21:00 Potassium Citrate Tab (Nf) PO BEDTIME ALMAS Potassium Citrate 10 meq 07/07/18 09:00 07/07/18 10:34 Urocit-K 10 (Nf) PO Not Given TID ALMAS Potassium Phos/Sodium Phos 250 mg 07/05/18 14:00 07/07/18 07:37 Neutra Phos 250 Mg Asher* PO 250 mg TID ALMAS Administration Prednisone 40 mg 07/06/18 09:00 07/07/18 07:39 Deltasone Tab* PO 40 mg DAILY ALMAS Administration Sertraline HCl 50 mg 07/03/18 21:00 07/06/18 21:26 Zoloft* PO 50 mg BEDTIME ALMAS Administration Sucralfate 1 gm 07/07/18 21:00 Carafate* PO BID@0600,2100 ALMAS Trazodone HCl 100 mg 07/03/18 21:00 07/06/18 21:28 Desyrel Tab* PO 100 mg BEDTIME ALMAS Administration Venlafaxine HCl 75 mg 07/03/18 21:00 07/07/18 07:39 Effexor Xr Cap* PO 75 mg TID ALMAS Administration Vital Signs Temp Pulse Resp BP Pulse Ox 99.9 F 96 31 140/72 94 07/07/18 12:01 07/07/18 12:01 07/07/18 12:01 07/07/18 12:00 07/07/18 12:01 O/E: Pt in NAD, lying in bed HEENT: PERRLA, no JVD Lungs: Good air entry b/l, Crackles at bases b/l CVS: S1, S2+, regular Abd: Soft, BS+ Ext: No edema Neuro: No focal defecits, alert, awake, oriented x3 Skin: No rash Laboratory Results - last 24 hr 07/06/18 07/06/18 07/07/18 13:06 16:02 04:07 WBC 5.8 RBC 2.94 L Hgb 9.4 L Hct 27 L MCV 92 MCH 32 H MCHC 35 RDW 14 Plt Count 71 L MPV 7.9 POC Glucose (mg/dL) 222 H 223 H 07/07/18 07/07/18 07:48 11:54 WBC RBC Hgb Hct MCV MCH MCHC RDW Plt Count MPV POC Glucose (mg/dL) 99 258 H CXR: Prominence of interstitium b/l, small left pleural effusion A/P: 68 y o f with h/o DM, asthma, dyslipidemia, GERD, depression, dementia kortney in by for evaluation of AMS, SOB Pt being treated for CAP Community acquired PNA Acute hypoxic resp failure Pulmonary vascular congestion Anxiety/depression Normocytic anemia Hypomagenesemia, hypophosphatemia DM with elevated BS Hypoalbuminemia Thrombocytopenia Pt improving slowly Will wean off FiO2 as tolerated CXR suggestive of vascular congestion, administered Lasix Repleted magnesium Will rpt BMP today Poor oral intake, on diabetic diet Assisted feeding Sliding scale insulin c/w Meropenem day #4/7, Azithromycin day#4/5 Will d/c Azithromycin tomorrow Delirium precautions Venous duplex negative for DVT DVT px OOB to chair as tolerated PT/OT when more stable
[2018-07-07 16:47] LABS: EGFR Non-African American 74.1 (>60)
[2018-07-07] MEDS: Atorvastatin* 20 MG TAB PO SCH (17:20)
[2018-07-07] MEDS: NS 0.9% 1000 ML* 1,000 ML IV SCH (19:52)
[2018-07-07] MEDS: oxyCODONE/Acetamin 5/325 MG* TAB PO PRN (19:52)
[2018-07-07] MEDS: Azithromycin IV(*) 500 MG in NS 0.9% 250 ML* 250 ML IVPB SCH (21:03)
[2018-07-07] MEDS: clonazePAM TAB(*) 0.5 MG PO SCH (21:10)
[2018-07-07] MEDS: Sertraline* 50 MG TAB PO SCH (21:12)
[2018-07-07] MEDS: traZODone TAB* 50 MG TAB PO SCH (21:12)
[2018-07-08] MEDS: Sucralfate TAB* 1 GM PO SCH ×3 (00:49→20:30)
[2018-07-08] MEDS: Meropenem 1 GM PREMIX(*) 1 GM/50 ML BAG IV SCH ×3 (03:45→19:55)
[2018-07-08 05:19] LABS: Hematocrit 28 % (35-47); Hemoglobin 9.4 g/dl (12.0-16.0); Mean Corpuscular HGB Conc 34 g/dl (31-36); Mean Corpuscular Hemoglobin 31 pg (27-31); Mean Corpuscular Volume 91 fL (80-97); Mean Platelet Volume 8.1 um3 (7.4-10.4); Platelet Count 87 10^3/ul (150-450); Red Blood Count 3.02 10^6/ul (4.00-5.40); Red Cell Distribution Width 14 % (10.5-15); White Blood Count 6.3 10^3/ul (3.5-10.8)
[2018-07-08] MEDS: Heparin VIAL(*) 5000 UNITS/ML VIAL (FIVE THOUSAND) SUBCUT SCH ×3 (05:21→22:11)
[2018-07-08] MEDS: oxyCODONE/Acetamin 5/325 MG* TAB PO PRN (05:26)
[2018-07-08] MEDS: Acetaminophen TAB* 325 MG PO PRN ×2 (05:27→19:09)
[2018-07-08] MEDS: Insulin LISPRO* 1 UNITS UNIT SUBCUT SCH ×3 (08:03→18:10)
[2018-07-08] MEDS: Potassium & Sodium Phos 250MG* = 1 PACKET PO SCH ×3 (08:44→22:08)
[2018-07-08] MEDS: Aspirin 81 mg CHEW TAB* 81 MG TAB.CHEW PO SCH (08:47)
[2018-07-08] MEDS: Omeprazole CAP* 20 MG PO SCH ×2 (08:47→18:10)
[2018-07-08] MEDS: COLESEVELAM 625 MG PO SCH ×2 (08:47→22:17)
[2018-07-08] MEDS: Venlafaxine EXT RELEASE CAP* 75 MG PO SCH ×3 (08:47→22:09)
[2018-07-08] MEDS: predniSONE TAB* 20 MG PO SCH (08:47)
[2018-07-08] MEDS: POTASSIUM CITRATE 15 MEQ PO SCH ×2 (08:48→22:10)
[2018-07-08] MEDS: Potassium Citrate (NF) 10 MEQ TAB PO SCH ×3 (08:53→22:17)
[2018-07-08] MEDS: NS 0.9% 1000 ML* 1,000 ML IV SCH (09:02)
[2018-07-08] MEDS ORDERED: Magnesium Sulfate 2 GM IV* 2 GM/50 ML BAG IVPB ONE (09:50)
[2018-07-08] MEDS: Mometasone/Formoter 200/5 MDI INH SCH ×2 (10:39→22:08)
--- NOTE | 2018-07-08 10:50 | PN ---
Progress Note - Progress Note Date of Service: 07/08/18 - Pulm f/u note Note: Pt seen and examined at bedside. O/n events noted. Had cough productive of thick phleghm with streaks of blood last night. No active hemoptysis, no cough noted this am. pt asking when she could be transferred to medical floor Active Medications Generic Name Dose Route Start Last Admin Trade Name Freq PRN Reason Stop Dose Admin Acetaminophen 650 mg 07/03/18 20:46 07/08/18 05:27 Tylenol Tab* PO 325 mg Q4H PRN Administration FEVER/PAIN Albuterol 2.5 mg 07/03/18 20:46 07/06/18 15:02 Ventolin 2.5 Mg/3 Ml Neb.Roxana* INH 2.5 mg Q2H PRN Administration SOB/WHEEZING Aspirin 81 mg 07/04/18 09:00 07/08/18 08:47 Aspirin 81 Mg Chew Tab* PO 81 mg DAILY ALMAS Administration Atorvastatin Calcium 20 mg 07/04/18 17:00 07/07/18 17:20 Lipitor* PO 20 mg DAILY@1700 ALMAS Administration Clonazepam 0.25 mg 07/03/18 21:00 07/07/18 21:10 Klonopin Tab(*) PO 0.25 mg BEDTIME ALMAS Administration Colesevelam HCl 625 mg 07/03/18 21:00 07/08/18 08:47 Welchol(Nf) PO 625 mg BID ALMAS Administration Dextrose 12.5 gm 07/03/18 20:46 D50w Syringe 50 Ml* IV PUSH .FOR FS < 60 - SS PRN FS < 60 Diphenhydramine HCl 25 mg 07/05/18 22:09 07/05/18 22:31 Benadryl Po* PO 25 mg Q6H PRN Administration ITCHING Heparin Sodium (Porcine) 5,000 units 07/03/18 22:00 07/08/18 05:21 Heparin Vial(*) SUBCUT 5,000 units Q8HR ALMAS Administration Azithromycin 500 mg/ Sodium 250 mls @ 250 mls/hr 07/04/18 20:00 07/07/18 21: 03 Chloride IVPB 250 mls/hr Q24HR@2000 ALMAS Administration Sodium Chloride 1,000 mls @ 50 mls/hr 07/06/18 10:37 07/08/18 09:02 Ns 0.9% 1000 Ml* IV 50 mls/hr PER RATE ALMAS Administration Meropenem 1 gm in 50 mls @ 100 mls/hr 07/06/18 11:00 07/08/18 10:34 Merrem 1 Gm Premix(*) IV 100 mls/hr Q8H ALMAS Administration Magnesium Sulfate 2 gm in 50 mls @ 50 mls/hr 07/08/18 09:50 07/08/18 10:35 Magnesium Sulfate 2 Gm Iv* IVPB 07/08/18 10:49 50 mls/hr ONCE ONE Administration Insulin Human Lispro 0 units 07/04/18 07:30 07/08/18 08:03 Humalog* SUBCUT Not Given AC [facility] Protocol Lorazepam 1 mg 07/06/18 10:34 07/06/18 17:18 Ativan Inj* IV PUSH 1 mg Q6H PRN Administration ANXIETY Mometasone Furoate/Formoterol Fumar 2 puff 07/03/18 21:00 07/07/18 19:41 Dulera 200/5 Mdi* INH 2 puff BID ALMAS Administration Pto: Potassium 2 dose 07/05/18 09:00 07/08/18 08:48 Citrate 15 Meq PO 2 dose QAM ALMAS Administration Omeprazole 20 mg 07/04/18 07:30 07/08/18 08:47 Prilosec Cap* PO 20 mg BID AC ALMAS Administration Ondansetron HCl 4 mg 07/03/18 20:46 Zofran Inj* IV Q6H PRN NAUSEA Oxycodone/Acetaminophen 1 tab 07/03/18 20:52 07/08/18 05:26 Percocet 5/325 Tab* PO 1 tab Q6H PRN Administration PAIN Potassium Citrate 15 meq 07/07/18 21:00 07/07/18 21:36 Potassium Citrate Tab (Nf) PO 15 meq BEDTIME ALMAS Administration Potassium Citrate 10 meq 07/07/18 09:00 07/08/18 08:53 Urocit-K 10 (Nf) PO 10 meq TID ALMAS Administration Potassium Phos/Sodium Phos 250 mg 07/05/18 14:00 07/08/18 08:44 Neutra Phos 250 Mg Asher* PO 250 mg TID ALMAS Administration Prednisone 40 mg 07/06/18 09:00 07/08/18 08:47 Deltasone Tab* PO 40 mg DAILY ALMAS Administration Sertraline HCl 50 mg 07/03/18 21:00 07/07/18 21:12 Zoloft* PO 50 mg BEDTIME ALMAS Administration Sucralfate 1 gm 07/07/18 21:00 07/08/18 05:21 Carafate* PO 1 gm BID@0600,2100 ALMAS Administration Trazodone HCl 100 mg 07/03/18 21:00 07/07/18 21:12 Desyrel Tab* PO 100 mg BEDTIME ALMAS Administration Venlafaxine HCl 75 mg 07/03/18 21:00 07/08/18 08:47 Effexor Xr Cap* PO 75 mg TID ALMAS Administration Vital Signs Temp Pulse Resp BP Pulse Ox 100.0 F 98 33 117/71 93 07/08/18 09:30 07/08/18 10:03 07/08/18 10:03 07/08/18 10:03 07/08/18 10:03 O/E: Pt in NAD, alert, awake, sitting up in bed HEENT: PERRLA, NO JVD Lungs: Crackles at bases CVS: S1, S2+, murmur + Abd: Soft, BS+ Ext: Normal ROM Skin: No rash Neuro: AAOx3, no focal deficits Laboratory Results - last 24 hr 07/07/18 07/07/18 07/08/18 11:54 16:20 04:46 WBC 6.3 RBC 3.02 L Hgb 9.4 L Hct 28 L MCV 91 MCH 31 MCHC 34 RDW 14 Plt Count 87 L MPV 8.1 Sodium 135 Potassium 3.5 Chloride 102 Carbon Dioxide 27 Anion Gap 6 BUN 9 Creatinine 0.77 Est GFR ( Amer) 89.7 Est GFR (Non-Af Amer) 74.1 BUN/Creatinine Ratio 11.7 Glucose 336 H POC Glucose (mg/dL) 258 H Calcium 7.0 L Magnesium 1.8 L 07/08/18 07:58 WBC RBC Hgb Hct MCV MCH MCHC RDW Plt Count MPV Sodium Potassium Chloride Carbon Dioxide Anion Gap BUN Creatinine Est GFR ( Amer) Est GFR (Non-Af Amer) BUN/Creatinine Ratio Glucose POC Glucose (mg/dL) 121 H Calcium Magnesium I/R: 68 y o f with h/o anxiety/depression, DM, chronic pain with CAP and acute hypoxic resp failure Pt improving, albiet slowly Still requiring high FiO2 Titrate FiO2 as tolerated Will try metanebs today to mobilize secretions Had streaks of blood last night with sputum- sec to PNA On Meropenem day#5/7 and Azithromycin day#5/5 Was delirious on admission, mental status much improved Hemodynamically stable other than mild sinus tachycardia Had poor oral intake, reports improvement in appetite today Encourage po feeds Hypomagnesemia being repleted UO adequate Received Lasix x2 doses Will rpt CXR in am Pt on multiple medications Anxiety/depression- stable OOB to chair today DVT px D/w RN, RT, patients family
[2018-07-08 11:12] LABS: Urine Appearance Clear; Urine Blood 1+ (Negative); Urine Color Yellow; Urine Ketones Negative (Negative); Urine Protein 1+(30 mg/dL) (Negative); Urine Red Blood Cell 3+(>10/hpf) (Absent); Urine Specific Gravity 1.019 (1.010-1.030); Urine Urobilinogen Negative (Negative); Urine White Blood Cell 1+(6-10/hpf) (Absent)
[2018-07-08] MEDS: Albuterol 2.5 MG/3 ML NEB.SOL* (0.083%) INH PRN ×2 (11:23→15:05)
[2018-07-08] MEDS: Atorvastatin* 20 MG TAB PO SCH (18:10)
[2018-07-08] MEDS: LORazepam INJ* 2 MG/ML 1 ML VIAL IV PUSH PRN (19:08)
[2018-07-08] MEDS: clonazePAM TAB(*) 0.5 MG PO SCH (22:07)
[2018-07-08] MEDS: traZODone TAB* 50 MG TAB PO SCH (22:08)
[2018-07-08] MEDS: Sertraline* 50 MG TAB PO SCH (22:09)
[2018-07-08] MEDS ORDERED: Morphine VIAL* 4 MG/ML VIAL (1 ml vial) IV ONE (23:35)
[2018-07-08] MEDS ORDERED: Furosemide IV* 10 MG/ML VIAL (40 MG) ONE (23:46)
[2018-07-09] MEDS ORDERED: Phenazopyridine TAB* 100 MG PO ONE (00:15)
[2018-07-09] MEDS: Albuterol 2.5 MG/3 ML NEB.SOL* (0.083%) INH PRN ×3 (01:51→20:06)
[2018-07-09] MEDS: Meropenem 1 GM PREMIX(*) 1 GM/50 ML BAG IV SCH ×3 (03:14→19:45)
[2018-07-09] MEDS: Acetaminophen TAB* 325 MG PO PRN (03:15)
[2018-07-09] MEDS: Heparin VIAL(*) 5000 UNITS/ML VIAL (FIVE THOUSAND) SUBCUT SCH ×3 (06:04→21:51)
[2018-07-09] MEDS: Sucralfate TAB* 1 GM PO SCH ×2 (06:07→21:52)
[2018-07-09 06:52] LABS: Hematocrit 27 % (35-47); Hemoglobin 9.3 g/dl (12.0-16.0); Mean Corpuscular HGB Conc 35 g/dl (31-36); Mean Corpuscular Hemoglobin 32 pg (27-31); Mean Corpuscular Volume 91 fL (80-97); Mean Platelet Volume 7.8 um3 (7.4-10.4); Platelet Count 95 10^3/ul (150-450); Red Blood Count 2.95 10^6/ul (4.00-5.40); Red Cell Distribution Width 14 % (10.5-15); White Blood Count 6.2 10^3/ul (3.5-10.8)
[2018-07-09] MEDS: Mometasone/Formoter 200/5 MDI INH SCH ×2 (07:42→19:59)
--- NOTE | 2018-07-09 07:58 | RAD ---
INDICATION: Shortness of breath. COMPARISON: Comparison is made with prior study from July 07, 2018. TECHNIQUE: A single portable view of the chest was obtained. FINDINGS: The heart is within normal limits in size. There are bilateral diffuse interstitial and alveolar infiltrates with slight progression from the prior study. There are trace bilateral pleural effusions. IMPRESSION: DIFFUSE BILATERAL INFILTRATES AND TRACE BILATERAL PLEURAL EFFUSIONS DEMONSTRATING SLIGHT PROGRESSION. CONSIDER PNEUMONIA, CONGESTIVE HEART FAILURE OR ARDS. R1F
[2018-07-09] MEDS ORDERED: Potassium Phosphate IV* 5 MMOLE in NS 0.9% 250 ML* 250 ML IVPB ONE (08:30)
[2018-07-09] MEDS: COLESEVELAM 625 MG PO SCH ×2 (08:44→19:51)
[2018-07-09] MEDS: predniSONE TAB* 20 MG PO SCH (08:44)
[2018-07-09] MEDS: Potassium & Sodium Phos 250MG* = 1 PACKET PO SCH ×3 (08:45→19:52)
[2018-07-09] MEDS: Aspirin 81 mg CHEW TAB* 81 MG TAB.CHEW PO SCH (08:48)
[2018-07-09] MEDS: Venlafaxine EXT RELEASE CAP* 75 MG PO SCH ×3 (08:48→19:54)
[2018-07-09] MEDS: Omeprazole CAP* 20 MG PO SCH ×2 (08:48→18:14)
[2018-07-09 09:00] LABS: Hematocrit 29 % (35-47); Hemoglobin 9.9 g/dl (12.0-16.0); Mean Corpuscular HGB Conc 35 g/dl (31-36); Mean Corpuscular Hemoglobin 32 pg (27-31); Mean Corpuscular Volume 92 fL (80-97); Platelet Count 103 10^3/ul (150-450); Red Blood Count 3.14 10^6/ul (4.00-5.40); Red Cell Distribution Width 14 % (10.5-15); White Blood Count 5.8 10^3/ul (3.5-10.8)
[2018-07-09] MEDS: POTASSIUM CITRATE 15 MEQ PO SCH ×2 (09:16→19:53)
[2018-07-09 09:20] LABS: EGFR Non-African American 80.1 (>60)
[2018-07-09] MEDS: Insulin LISPRO* 1 UNITS UNIT SUBCUT SCH ×3 (11:26→18:14)
--- NOTE | 2018-07-09 12:56 | PN ---
Progress Note - Progress Note Date of Service: 07/09/18 - Pulm f/u note Note: Pt seen and examined at bedside. Overnight events noted. Pt had episode of desaturation last night that responded to Lasix. Pt had CXR at that time which showed worsening air space opacities. Pt reported feeling better this am. Appetite is improving. Asking when she would be able to go home. Has low grade fever Active Medications Generic Name Dose Route Start Last Admin Trade Name Freq PRN Reason Stop Dose Admin Acetaminophen 650 mg 07/03/18 20:46 07/09/18 03:15 Tylenol Tab* PO 650 mg Q4H PRN Administration FEVER/PAIN Albuterol 2.5 mg 07/03/18 20:46 07/09/18 07:42 Ventolin 2.5 Mg/3 Ml Neb.Roxana* INH 2.5 mg Q2H PRN Administration SOB/WHEEZING Aspirin 81 mg 07/04/18 09:00 07/09/18 08:48 Aspirin 81 Mg Chew Tab* PO 81 mg DAILY ALMAS Administration Atorvastatin Calcium 20 mg 07/04/18 17:00 07/08/18 18:10 Lipitor* PO 20 mg DAILY@1700 ALMAS Administration Clonazepam 0.25 mg 07/03/18 21:00 07/08/18 22:07 Klonopin Tab(*) PO 0.25 mg BEDTIME ALMAS Administration Colesevelam HCl 625 mg 07/03/18 21:00 07/09/18 08:44 Welchol(Nf) PO 625 mg BID ALMAS Administration Dextrose 12.5 gm 07/03/18 20:46 D50w Syringe 50 Ml* IV PUSH .FOR FS < 60 - SS PRN FS < 60 Diphenhydramine HCl 25 mg 07/05/18 22:09 07/05/18 22:31 Benadryl Po* PO 25 mg Q6H PRN Administration ITCHING Furosemide 40 mg 07/10/18 09:00 Lasix Tab* PO DAILY ALMAS Heparin Sodium (Porcine) 5,000 units 07/03/18 22:00 07/09/18 06:04 Heparin Vial(*) SUBCUT Not Given Q8HR ALMAS Sodium Chloride 1,000 mls @ 50 mls/hr 07/06/18 10:37 07/08/18 09:02 Ns 0.9% 1000 Ml* IV 50 mls/hr PER RATE ALMAS Administration Meropenem 1 gm in 50 mls @ 100 mls/hr 07/06/18 11:00 07/09/18 11:26 Merrem 1 Gm Premix(*) IV 100 mls/hr Q8H ALMAS Administration Potassium Phosphate 5 mmole/ 251.6667 mls @ 42 mls/hr 07/09/18 08:30 08:48 Sodium Chloride IVPB 07/09/18 14:29 42 mls/hr ONCE ONE Administration Insulin Human Lispro 0 units 07/04/18 07:30 07/09/18 11:26 Humalog* SUBCUT Not Given AC [facility] Protocol Lorazepam 1 mg 07/06/18 10:34 07/08/18 19:08 Ativan Inj* IV PUSH 1 mg Q6H PRN Administration ANXIETY Magnesium Oxide 400 mg 07/09/18 13:00 Magox 400 Tab* PO DAILY [facility] Mometasone Furoate/Formoterol Fumar 2 puff 07/03/18 21:00 07/09/18 07:42 Dulera 200/5 Mdi* INH Not Given BID [facility] Omeprazole 20 mg 07/04/18 07:30 07/09/18 08:48 Prilosec Cap* PO 20 mg BID AC [facility] Administration Ondansetron HCl 4 mg 07/03/18 20:46 Zofran Inj* IV Q6H PRN NAUSEA Oxycodone/Acetaminophen 1 tab 07/03/18 20:52 07/08/18 05:26 Percocet 5/325 Tab* PO 1 tab Q6H PRN Administration PAIN Potassium Citrate 15 meq 07/07/18 21:00 07/08/18 22:10 Potassium Citrate Tab (Nf) PO 15 meq BEDTIME ALMAS Administration Potassium Citrate 30 meq 07/09/18 09:00 07/09/18 09:16 Potassium Citrate Tab (Nf) PO 30 meq QAM ALMAS Administration Potassium Phos/Sodium Phos 250 mg 07/05/18 14:00 07/09/18 08:45 Neutra Phos 250 Mg Asher* PO 250 mg TID ALMAS Administration Prednisone 40 mg 07/06/18 09:00 07/09/18 08:44 Deltasone Tab* PO 40 mg DAILY ALMAS Administration Saliva Substitute 1 spray 07/09/18 00:13 Biotene Moisturizing Mouth (Nf) MT Q4H PRN dry mouth Protocol Sertraline HCl 50 mg 07/03/18 21:00 07/08/18 22:09 Zoloft* PO 50 mg BEDTIME ALMAS Administration Sucralfate 1 gm 07/07/18 21:00 07/09/18 06:07 Carafate* PO 1 gm BID@0600,2100 AL[facility] Administration Trazodone HCl 100 mg 07/03/18 21:00 07/08/18 22:08 Desyrel Tab* PO 100 mg BEDTIME ALMAS Administration Venlafaxine HCl 75 mg 07/03/18 21:00 07/09/18 08:48 Effexor Xr Cap* PO 75 mg TID ALMAS Administration Vital Signs Temp Pulse Resp BP Pulse Ox 100.8 F 94 29 156/76 97 07/09/18 11:00 07/09/18 11:00 07/09/18 11:00 07/09/18 11:00 07/09/18 11:00 O/E: Pt in NAD, sitting up in bed HEENT: PERRLA, no JVD Lungs: Crackles at bases CVS: S1, S2+, tachycardic Abd: Soft, BS+, regular Ext: Trace edema + Skin: No rash Neuro: No focal defecits Laboratory Results - last 24 hr 07/08/18 07/08/18 07/09/18 17:39 17:45 06:05 WBC 6.2 RBC 2.95 L Hgb 9.3 L Hct 27 L MCV 91 MCH 32 H MCHC 35 RDW 14 Plt Count 95 L MPV 7.8 Sodium 134 L Potassium 3.9 Chloride 104 Carbon Dioxide 26 Anion Gap 4 BUN 8 Creatinine 0.67 Est GFR ( Amer) 105.3 Est GFR (Non-Af Amer) 87.0 BUN/Creatinine Ratio 11.9 Glucose 241 H POC Glucose (mg/dL) 255 H Calcium 7.3 L Phosphorus 1.9 L Magnesium 2.0 07/09/18 07/09/18 08:21 08:21 WBC 5.8 RBC 3.14 L Hgb 9.9 L Hct 29 L MCV 92 MCH 32 H MCHC 35 RDW 14 Plt Count 103 L MPV 8.0 Sodium 137 Potassium 3.8 Chloride 102 Carbon Dioxide 28 Anion Gap 7 BUN 9 Creatinine 0.72 Est GFR ( Amer) 96.9 Est GFR (Non-Af Amer) 80.1 BUN/Creatinine Ratio 12.5 Glucose 107 H POC Glucose (mg/dL) Calcium 7.5 L Phosphorus 2.4 L Magnesium 1.7 L I/R: 68 y o f with h/o anxiety/depression, DM, chronic pain with CAP and acute hypoxic resp failure Had worsening hypoxia last night, CXR showed small effusions and worsening air space disease, responded to Lasix FiO2 requirement improved after Lasix Titrate FiO2 as tolerated, paln to transition to nasal cannula if tolerates c/w metanebs today to mobilize secretions Had streaks of blood with sputum- sec to PNA, platelets were held, will restart On Meropenem day#6/7 completed Azithromycin Hemodynamically stable other than mild sinus tachycardia Encourage po feeds Electrolytes being repleted UO good c/w Lasix daily Pt on multiple medications Anxiety/depression- stable Will rpt CXR in am OOB to chair today DVT px D/w RN, RT, patients family at bedside D/w Dr Jolly this am. Pt will be transferred to Dr Jolly`s service when medically stable
[2018-07-09] MEDS: Magnesium Oxide TAB* 400 MG PO SCH (14:12)
--- NOTE | 2018-07-09 16:03 | PN ---
Progress Note - Progress Note Date of Service: 07/09/18 - Progress note Note: Pt`s FiO2 requirement significantly improved since this am. She was transitioned to nasal cannula, was able to titrate to 5 litres. Pt was transitioned OOB to chair She looked very comfortable, electrolytes repleted Had low grade fever. On Meropenem Hemodynamically stable Isbell was d/angélica No bleeding, thrombocytopenia is improving H&H stable Pts and son were updated at bedside. Pt is stable to be transferred to [facility] medical floor under Dr Jolly`s service Dr Zari Jolly was paged to update, awaiting call back
[2018-07-09] MEDS: Atorvastatin* 20 MG TAB PO SCH (18:14)
[2018-07-09] MEDS: CMCS:Saliva Substitute (NF) 1 SPRAY BTL MT PRN ×2 (18:16→21:53)
[2018-07-09] MEDS: clonazePAM TAB(*) 0.5 MG PO SCH (19:50)
[2018-07-09] MEDS: Sertraline* 50 MG TAB PO SCH (19:54)
[2018-07-09] MEDS: traZODone TAB* 50 MG TAB PO SCH (19:54)
[2018-07-09] MEDS: diPHENhydraMINE PO* 25 MG PO PRN (20:07)
[2018-07-09] MEDS ORDERED: Furosemide IV* 10 MG/ML VIAL (40 MG) IV ONE (23:35)
[2018-07-10] MEDS: Meropenem 1 GM PREMIX(*) 1 GM/50 ML BAG IV SCH ×3 (02:18→21:04)
[2018-07-10] MEDS: Heparin VIAL(*) 5000 UNITS/ML VIAL (FIVE THOUSAND) SUBCUT SCH ×3 (04:48→21:36)
[2018-07-10] MEDS: Sucralfate TAB* 1 GM PO SCH ×2 (04:49→21:03)
[2018-07-10 06:09] LABS: ABS Basophils 0 10^3/ul (0-0.2); ABS Eosinophils 0.3 10^3/ul (0-0.6); ABS Lymphocytes 1.3 10^3/ul (1.0-4.8); ABS Monocytes 0.4 10^3/ul (0-0.8); ABS Neutrophils 4.6 10^3/ul (1.5-7.7); ABS Nucleated RBC 0 10^3/ul; Eosinophil % 4.9 % (0-6); Hematocrit 29 % (35-47); Hemoglobin 9.9 g/dl (12.0-16.0); Mean Corpuscular HGB Conc 34 g/dl (31-36); Mean Corpuscular Hemoglobin 32 pg (27-31); Mean Corpuscular Volume 92 fL (80-97); Mean Platelet Volume 7.7 um3 (7.4-10.4); Nucleated Red Blood Cells % 0; Platelet Count 118 10^3/ul (150-450); Red Blood Count 3.14 10^6/ul (4.00-5.40); Red Cell Distribution Width 14 % (10.5-15); White Blood Count 6.7 10^3/ul (3.5-10.8)
[2018-07-10 06:27] LABS: EGFR Non-African American 91.7 (>60)
[2018-07-10] MEDS: Mometasone/Formoter 200/5 MDI INH SCH ×2 (07:33→19:44)
[2018-07-10] MEDS: oxyCODONE/Acetamin 5/325 MG* TAB PO PRN (07:47)
[2018-07-10] MEDS: LORazepam INJ* 2 MG/ML 1 ML VIAL IV PUSH PRN (07:51)
[2018-07-10] MEDS: Insulin LISPRO* 1 UNITS UNIT SUBCUT SCH ×3 (07:54→17:59)
[2018-07-10] MEDS: COLESEVELAM 625 MG PO SCH ×2 (09:22→21:56)
[2018-07-10] MEDS: Magnesium Oxide TAB* 400 MG PO SCH (09:23)
[2018-07-10] MEDS: POTASSIUM CITRATE 15 MEQ PO SCH ×2 (09:23→21:56)
[2018-07-10] MEDS: Furosemide TAB* 40 MG PO SCH (09:23)
[2018-07-10] MEDS: Venlafaxine EXT RELEASE CAP* 75 MG PO SCH ×3 (09:23→21:35)
[2018-07-10] MEDS: Omeprazole CAP* 20 MG PO SCH ×2 (09:23→18:00)
[2018-07-10] MEDS: Potassium & Sodium Phos 250MG* = 1 PACKET PO SCH ×3 (09:24→21:35)
[2018-07-10] MEDS: predniSONE TAB* 20 MG PO SCH (09:24)
[2018-07-10] MEDS: Aspirin 81 mg CHEW TAB* 81 MG TAB.CHEW PO SCH (09:24)
[2018-07-10] MEDS ORDERED: Loperamide CAP* 2 MG PO PRN (10:46)
--- NOTE | 2018-07-10 16:35 | RAD ---
INDICATION: Pneumonia. COMPARISON: Comparison is made with a prior study from July 08, 2018. TECHNIQUE: Dual-energy PA and lateral views of the chest were obtained. FINDINGS: The heart is within normal limits in size. Mediastinal and hilar contours appear within normal limits. There are diffuse interstitial infiltrates which have improved from the prior exam and trace bilateral pleural effusions which are unchanged. In addition there is suggestion of a cavitary lesion in the right upper lobe. The results of this exam were called to the referring clinician. IMPRESSION: 1. BILATERAL INTERSTITIAL INFILTRATES IMPROVED FROM THE PRIOR EXAM. 2. POSSIBLE CAVITARY LESION IN THE RIGHT UPPER LOBE. RECOMMEND CT IMAGING OF THE CHEST FOR FURTHER EVALUATION.
[2018-07-10] MEDS: Atorvastatin* 20 MG TAB PO SCH (18:00)
[2018-07-10] MEDS: CMCS:Saliva Substitute (NF) 1 SPRAY BTL MT PRN (18:06)
[2018-07-10] MEDS ORDERED: Iodixanol* (CONTRAST) 320 MG/ML 100 ML SDV IV ONE (20:07)
--- NOTE | 2018-07-10 21:26 | RAD ---
EXAM: CT Chest With Intravenous Contrast EXAM DATE/TIME: 07/10/2018 8:45 PM CLINICAL HISTORY: 68 years old, female; Signs and symptoms; Other: Possible lesion on cxr; Additional info: Cavitary lesion on cxr TECHNIQUE: Axial computed tomography images of the chest with intravenous contrast. All CT scans at this facility use at least one of these dose optimization techniques: automated exposure control; mA and/or kV adjustment per patient size (includes targeted exams where dose is matched to clinical indication); or iterative reconstruction. Coronal and sagittal reformatted images were created and reviewed. CONTRAST: 80 ml of VISI 320 administered intravenously. COMPARISON: CTA CHEST CTA CHEST 06/17/2013 3:41 PM FINDINGS: Lungs: Mild patchy groundglass infiltrates which are greatest in the upper lobes bilaterally. Slight interstitial prominence with minimal scattered fibro-atelectatic change. Thickwalled cavitary lesion in the anterolateral right upper lobe measuring 2.7 x 1.6 x 2.0 cm. The wall thickness is mostly 4 mm. Pleural space: Minimal bilateral pleural effusions with some adjacent compressive atelectasis of the lower lobes. Heart: Coronary artery calcifications are present. Pulmonary arteries: The main pulmonary artery measures 29 mm. Aorta: The ascending thoracic aorta measures 31 mm. Lymph nodes: Unremarkable. No enlarged lymph nodes. Bones/joints: Lower cervical fusion with anterior plate. Soft tissues: Unremarkable. Liver: Liver attenuation is 60 Hounsfield units and the spleen is 91. Intraperitoneal space: Trace perihepatic ascites. IMPRESSION: 1. Thickwalled cavitary lesion in the anterolateral right upper lobe which contacts the pleural surface which is new since 06/17/2013. Findings may reflect an infectious or malignant etiology. 2. Mild patchy groundglass infiltrates which are greatest in the upper lobes bilaterally with slight interstitial prominence and minimal scattered fibro-atelectatic change which is new since the prior study. 3. Minimal bilateral pleural effusions which are new since the prior study with some adjacent compressive atelectasis of the lower lobes. 4. Trace perihepatic ascites. To contact [facility] with a general question: [facility] - [phone] For direct physician to physician contact: Physician Hotline - [phone] [facility] ([facility] Facility ID #[id number])
[2018-07-10] MEDS: traZODone TAB* 50 MG TAB PO SCH (21:35)
[2018-07-10] MEDS: Sertraline* 50 MG TAB PO SCH (21:36)
[2018-07-11] MEDS: Meropenem 1 GM PREMIX(*) 1 GM/50 ML BAG IV SCH ×3 (02:40→20:10)
[2018-07-11] MEDS: Heparin VIAL(*) 5000 UNITS/ML VIAL (FIVE THOUSAND) SUBCUT SCH ×3 (06:03→23:10)
[2018-07-11] MEDS: Sucralfate TAB* 1 GM PO SCH (06:03)
[2018-07-11 06:18] LABS: Hematocrit 29 % (35-47); Hemoglobin 9.7 g/dl (12.0-16.0); Mean Corpuscular HGB Conc 34 g/dl (31-36); Mean Corpuscular Hemoglobin 31 pg (27-31); Mean Corpuscular Volume 92 fL (80-97); Mean Platelet Volume 7.5 um3 (7.4-10.4); Platelet Count 117 10^3/ul (150-450); Red Blood Count 3.12 10^6/ul (4.00-5.40); Red Cell Distribution Width 14 % (10.5-15); White Blood Count 5.4 10^3/ul (3.5-10.8)
[2018-07-11 06:33] LABS: EGFR Non-African American 91.7 (>60)
[2018-07-11] MEDS: Mometasone/Formoter 200/5 MDI INH SCH ×2 (08:39→20:17)
[2018-07-11] MEDS: Omeprazole CAP* 20 MG PO SCH ×2 (08:47→17:26)
[2018-07-11] MEDS: Aspirin 81 mg CHEW TAB* 81 MG TAB.CHEW PO SCH (08:47)
[2018-07-11] MEDS: Magnesium Oxide TAB* 400 MG PO SCH (08:47)
[2018-07-11] MEDS: Venlafaxine EXT RELEASE CAP* 75 MG PO SCH ×3 (08:47→23:09)
[2018-07-11] MEDS: predniSONE TAB* 20 MG PO SCH (08:47)
[2018-07-11] MEDS: Furosemide TAB* 40 MG PO SCH (08:47)
[2018-07-11] MEDS: Insulin LISPRO* 1 UNITS UNIT SUBCUT SCH ×3 (08:47→17:27)
[2018-07-11] MEDS: Potassium & Sodium Phos 250MG* = 1 PACKET PO SCH ×3 (08:48→23:05)
[2018-07-11] MEDS: POTASSIUM CITRATE 15 MEQ PO SCH ×2 (10:13→23:42)
[2018-07-11] MEDS: COLESEVELAM 625 MG PO SCH ×2 (10:14→23:00)
[2018-07-11] MEDS: CMCS:Saliva Substitute (NF) 1 SPRAY BTL MT PRN (13:27)
[2018-07-11] MEDS: Atorvastatin* 20 MG TAB PO SCH (17:26)
[2018-07-11] MEDS: Nystatin SUSPENSION* 100000 UNITS/ML 5 ML UDC PO SCH ×2 (17:26→23:02)
--- NOTE | 2018-07-11 17:52 | PN ---
Progress Note - Progress Note Date of Service: 07/11/18 - Pulm f/u note Note: Pt seen and examined at bedside. Sitting up in chair 14 systems ROS was performed. Pt reported improvement in breathing. Did not use CPAP last night. Having intermittent cough, no hemoptysis. Fatigue+, no chest pain, palpitations. No constipation, hemorrhoids bothering. Oral trush+, LE selling+, improving. + headaches. No extremity pain. Active Medications Generic Name Dose Route Start Last Admin Trade Name Freq PRN Reason Stop Dose Admin Acetaminophen 650 mg 07/03/18 20:46 07/09/18 03:15 Tylenol Tab* PO 650 mg Q4H PRN Administration FEVER/PAIN Albuterol 2.5 mg 07/03/18 20:46 07/09/18 20:06 Ventolin 2.5 Mg/3 Ml Neb.Roxana* INH 2.5 mg Q2H PRN Administration SOB/WHEEZING Aspirin 81 mg 07/04/18 09:00 07/11/18 08:47 Aspirin 81 Mg Chew Tab* PO 81 mg DAILY ALMAS Administration Atorvastatin Calcium 20 mg 07/04/18 17:00 07/11/18 17:26 Lipitor* PO 20 mg DAILY@1700 ALMAS Administration Colesevelam HCl 625 mg 07/03/18 21:00 07/11/18 10:14 Welchol(Nf) PO 625 mg BID [facility]MAS Administration Dextrose 12.5 gm 07/03/18 20:46 D50w Syringe 50 Ml* IV PUSH .FOR FS < 60 - SS PRN FS < 60 Diphenhydramine HCl 25 mg 07/05/18 22:09 07/09/18 20:07 Benadryl Po* PO 25 mg Q6H PRN Administration ITCHING Furosemide 40 mg 07/10/18 09:00 07/11/18 08:47 Lasix Tab* PO 40 mg DAILY [facility] Administration Heparin Sodium (Porcine) 5,000 units 07/03/18 22:00 07/11/18 13:27 Heparin Vial(*) SUBCUT 5,000 units Q8HR [facility] Administration Meropenem 1 gm in 50 mls @ 100 mls/hr 07/06/18 11:00 07/11/18 12:27 Merrem 1 Gm Premix(*) IV 100 mls/hr Q8H [facility] Administration Insulin Human Lispro 0 units 07/04/18 07:30 07/11/18 17:27 Humalog* SUBCUT 4 units AC [facility] Administration Protocol Loperamide HCl 2 mg 07/10/18 10:46 Imodium Cap* PO .SEE DIRECTIONS PRN DIARRHEA Lorazepam 1 mg 07/06/18 10:34 07/10/18 07:51 Ativan Inj* IV PUSH 1 mg Q6H PRN Administration ANXIETY Magnesium Oxide 400 mg 07/09/18 13:00 07/11/18 08:47 Magox 400 Tab* PO 400 mg DAILY [facility] Administration Mometasone Furoate/Formoterol Fumar 2 puff 07/03/18 21:00 07/11/18 08:39 Dulera 200/5 Mdi* INH 2 puff BID [facility]MAS Administration Nystatin 500,000 units 07/11/18 17:00 07/11/18 17:26 Nystatin Suspension* PO 07/18/18 14:15 500,000 units QID ALMAS Administration Omeprazole 20 mg 07/04/18 07:30 07/11/18 17:26 Prilosec Cap* PO 20 mg BID AC ALMAS Administration Ondansetron HCl 4 mg 07/03/18 20:46 Zofran Inj* IV Q6H PRN NAUSEA Phenyleph/Shark Oil/Min Oil/Petrol 1 applic 07/11/18 21:00 Preparation H* UT BID ALMAS Potassium Citrate 15 meq 07/07/18 21:00 07/10/18 21:56 Potassium Citrate Tab (Nf) PO Not Given BEDTIME ALMAS Potassium Citrate 30 meq 07/09/18 09:00 07/11/18 10:13 Potassium Citrate Tab (Nf) PO Not Given QAM ALMAS Potassium Phos/Sodium Phos 250 mg 07/05/18 14:00 07/11/18 13:28 Neutra Phos 250 Mg Asher* PO 250 mg TID ALMAS Administration Prednisone 40 mg 07/06/18 09:00 07/11/18 08:47 Deltasone Tab* PO 40 mg DAILY ALMAS Administration Saliva Substitute 1 spray 07/09/18 00:13 07/11/18 13:27 Biotene Moisturizing Mouth (Nf) MT 1 spray Q4H PRN Administration dry mouth Protocol Sertraline HCl 50 mg 07/03/18 21:00 07/10/18 21:36 Zoloft* PO 50 mg BEDTIME ALMAS Administration Sucralfate 1 gm 10/28/18 22:00 07/11/18 06:03 Carafate* PO 1 gm BID@0600,2200 ALMAS Administration Trazodone HCl 100 mg 07/03/18 21:00 07/10/18 21:35 Desyrel Tab* PO 100 mg BEDTIME ALMAS Administration Venlafaxine HCl 75 mg 07/03/18 21:00 07/11/18 13:27 Effexor Xr Cap* PO 75 mg TID ALMAS Administration Vital Signs Temp Pulse Resp BP Pulse Ox 97.8 F 84 20 152/58 94 07/11/18 16:10 07/11/18 16:10 07/11/18 16:10 07/11/18 16:10 07/11/18 16:21 Laboratory Results - last 24 hr 07/11/18 07/11/18 07/11/18 05:50 05:50 07:33 WBC 5.4 RBC 3.12 L Hgb 9.7 L Hct 29 L MCV 92 MCH 31 MCHC 34 RDW 14 Plt Count 117 L MPV 7.5 Sodium 141 Potassium 3.6 Chloride 103 Carbon Dioxide 30 Anion Gap 8 BUN 10 Creatinine 0.64 Est GFR ( Amer) 111.0 Est GFR (Non-Af Amer) 91.7 BUN/Creatinine Ratio 15.6 Glucose 104 H POC Glucose (mg/dL) 114 H Calcium 8.1 L Phosphorus 3.3 Magnesium 1.8 L C-Reactive Protein 53.88 H 07/11/18 07/11/18 11:37 16:15 WBC RBC Hgb Hct MCV MCH MCHC RDW Plt Count MPV Sodium Potassium Chloride Carbon Dioxide Anion Gap BUN Creatinine Est GFR ( Amer) Est GFR (Non-Af Amer) BUN/Creatinine Ratio Glucose POC Glucose (mg/dL) 244 H 307 H Calcium Phosphorus Magnesium C-Reactive Protein O/E: Pt in chair in NAD HEENT: PERRLA, no JVD Lungs: Diminished air entry b/l, no wheeze, crackles in mid lungs R>L CVS: S1, S2+, regular Abd: Soft, BS+ Ext: Edema+, normal ROM Skin: No rash Neuro: No focal deficits CT chest and CXR from 07/11/18 were personally reviewed by me CXR: Cavitary lesion Rt upper lung zone CT chest showed cavitary lesion in periphery of RUL. GGO opacities also noted in RUL. Small effusions b/l I/R: 68 y o f with h/o anxiety/depression, DM, FRANCINE on CPAP, asthma, chronic pain admitted with CAP and acute hypoxic resp failure F/u cxr showed cavitary lesion in periphery of RUL Differentials- Infectious(Lung abscess versus Aspergilloma versus inflammatory( less likely) versus neoplastic) Pt clinically improving O2 requirement has decreased significantly She was saturating 94-95% on 3L during my evaluation Leucocytosis has resolved Dyspnea is improved CT chest from 2012 didnot reveal any pre-existing cavity She has h/o asthma, DM, aspergilloma is possible Given severe PNA recently, cavitation from necrotic infection is also likely Less atypical for lung abscess given no air fluid level. My clinical suspicion is for aspergillus PNA Lung cancer less likely to present this way unless superimposed PNA made cavitary lesion obvious She does not appear septic at this time ID consultation for recommendations regarding abx Will need 3 weeks if lung abscess On Meropenem, completed Azithromycin CPAP at night c/w Lasix daily Pt on multiple medications Anxiety/depression- stable OOB to chair DVT px PT/OT D/w RN, patients family at bedside D/w Dr Jolly Pt`s family had many questions that were answered to their satisfaction. Total time 35 min, more than 50% face to face
[2018-07-11] MEDS: Hemorrhoidal OINT PR SCH (23:02)
[2018-07-11] MEDS: Sertraline* 50 MG TAB PO SCH (23:08)
[2018-07-11] MEDS: traZODone TAB* 50 MG TAB PO SCH (23:08)
[2018-07-12] MEDS: Sucralfate TAB* 1 GM PO SCH ×3 (00:48→21:54)
[2018-07-12] MEDS: Meropenem 1 GM PREMIX(*) 1 GM/50 ML BAG IV SCH (03:36)
[2018-07-12] MEDS: Heparin VIAL(*) 5000 UNITS/ML VIAL (FIVE THOUSAND) SUBCUT SCH ×2 (05:51→14:17)
[2018-07-12] MEDS: Mometasone/Formoter 200/5 MDI INH SCH ×2 (07:25→19:47)
[2018-07-12] MEDS: Insulin LISPRO* 1 UNITS UNIT SUBCUT SCH ×3 (08:13→17:25)
[2018-07-12] MEDS: Nystatin SUSPENSION* 100000 UNITS/ML 5 ML UDC PO SCH ×4 (08:24→20:14)
[2018-07-12] MEDS: Furosemide TAB* 40 MG PO SCH (08:24)
[2018-07-12] MEDS: Aspirin 81 mg CHEW TAB* 81 MG TAB.CHEW PO SCH (08:25)
[2018-07-12] MEDS: Omeprazole CAP* 20 MG PO SCH ×2 (08:25→17:25)
[2018-07-12] MEDS: Venlafaxine EXT RELEASE CAP* 75 MG PO SCH ×3 (08:25→20:15)
[2018-07-12] MEDS: Magnesium Oxide TAB* 400 MG PO SCH (08:25)
[2018-07-12] MEDS: predniSONE TAB* 20 MG PO SCH (08:25)
[2018-07-12] MEDS: Potassium & Sodium Phos 250MG* = 1 PACKET PO SCH (08:25)
[2018-07-12] MEDS: POTASSIUM CITRATE 15 MEQ PO SCH ×2 (08:33→20:15)
--- NOTE | 2018-07-12 10:56 | CONS ---
CONSULTATION REPORT: DATE OF CONSULT: 07/12/18 REQUESTING PHYSICIAN: Dr. Jolly. CONSULTING SERVICE: Infectious Disease. REASON FOR CONSULTATION: Cavitary lung mass. IMPRESSION: 1. Right upper lobe cavitary lung mass, which is rather thick walled in an area where she had an infiltrate at the time of her presentation with a community- acquired pneumonia. I think most likely this is the result of a necrotizing pneumonia. These organisms include Staphylococcus and Pseudomonas. I agree that fungal organisms including Aspergillus are on the differential diagnosis. I think she has not had recent corticosteroid use, so I think those are a little bit less likely. In addition, she has been getting better without antifungal coverage. 2. Chronic obstructive pulmonary disease. 3. Acute hypoxemic respiratory failure was present on admission and resolved. 4. AMOXICILLIN allergy, unknown reaction many years ago. 5. Type 2 diabetes. RECOMMENDATIONS: Stop meropenem. We will start cefepime 1 g IV every 12 hours to complete a 3-week course of IV antibiotics with followup imaging to ensure resolution. During that time, she should have a weekly CBC, CMP, and CRP. I discussed with her the options, which include nursing rehabilitation versus home infusion. She favors nursing rehabilitation which we will look into and discuss with Dr. Jolly. HISTORY OF PRESENT ILLNESS: This is a 68-year-old woman with diabetes and COPD , no recent corticosteroid use that she can recall. She had a few days of progressive anorexia, malaise, fever, productive cough, so came to the hospital on the . Chest x-ray showed bilateral ground-glass opacification in the upper lobes. She was initially febrile. She was hypoxemic, requiring initially 2 to 3 L a minute and then as high as 40 L per minute of supplemental oxygen while in the intensive care unit. Over time, she has had gradual improvement in her symptoms. Initial Legionella and Pneumococcal urine antigens were negative. Influenza PCR negative, blood cultures negative. Sputum culture collected on the grew Viviane albicans. Urine culture on the was negative. C. difficile PCR on the was negative. Her cough is nearly gone. She has no chest pain or shortness of breath. She does have some chills and sweats at night, which have been persistent. A followup chest x- ray was done on the , which showed a possible cavitary lesion. A CT scan was obtained on the , which confirmed the same. She has not had recent hospitalization or corticosteroid use. Her white blood cell count on admission was 5, today it is 5; CRP initially was 25, peaked at 71, yesterday was 53. PAST MEDICAL HISTORY: 1. Type 2 diabetes. 2. COPD. 3. Hyperlipidemia. 4. Depression. 5. Gastroesophageal reflux disease. 6. DVT. 7. Diabetic retinopathy. 8. Dementia. 9. Asthma. 10. Hypertension. 11. Spinal stenosis, status post anterior cervical decompression and fusion. 12. Status post patellar fracture repair. 13. Reduction and fixation humerus fracture. 14. Carpal tunnel repair. 15. Status post knee arthroscopy. 16. Status post lumbar spine surgery. MEDICATIONS: 1. Tylenol. 2. Aspirin. 3. Lipitor. 4. Welchol. 5. Lasix. 6. Heparin subcutaneous injection. 7. Loperamide as needed. 8. Meropenem 1 g IV every 8 hours. 9. Omeprazole. 10. Prednisone 40 mg a day. 11. Sucralfate. 12. Trazodone. 13. Effexor. ALLERGIES: AMOXICILLIN unknown reaction, MIRALAX, SULFA, TERCONAZOLE. FAMILY HISTORY: No recurrent infections. No tuberculosis. SOCIAL HISTORY: She lives in [place] with her . She has no travel or sick contacts. She has a pet dog. REVIEW OF SYSTEMS: All negative except as noted above to a 14-point review of systems. PHYSICAL EXAM: Vital Signs: Temperature is 37, heart rate 90, respiratory rate 16, blood pressure 145/60, oxygen saturation 99% on room air. General: She is awake, not in distress. Neurological: She is oriented x3. Follows all commands. HEENT: There is no conjunctival hemorrhage. Oropharynx without lesions. There is no thrush. Neck: Supple without mass. Heart: Regular rate and rhythm. There is a 2/6 systolic murmur. Lungs: Coarse breath sounds bilaterally without wheeze or rale. Abdomen: Soft, nontender, nondistended. There are bowel sounds present. Skin: There is no rash or splinter hemorrhage. Musculoskeletal: There is no spine tenderness to palpation or joint synovitis. LABORATORY DATA: Creatinine 0.6, CRP 53. White blood cell count 5; hemoglobin 9; platelets 117,000, up from 71,000. Influenza PCR negative. Urinalysis shows blood, trace leukocyte esterase. Please see impressions and recommendations outlined above. Thanks for asking me to see Ms. Rodríguez in consultation. [id number]/CPS #: [id number] JAKE
[2018-07-12] MEDS: COLESEVELAM 625 MG PO SCH ×2 (11:51→20:15)
[2018-07-12] MEDS: Hemorrhoidal OINT PR SCH ×2 (13:18→20:16)
--- NOTE | 2018-07-12 16:55 | PN ---
Progress Note - Progress Note Date of Service: 07/12/18 - Pulm f/u note Note: Pt seen and examined at bedside. Has been offf O2, ambulated without any desaturation. Had diarrhea Active Medications Generic Name Dose Route Start Last Admin Trade Name Freq PRN Reason Stop Dose Admin Acetaminophen 650 mg 07/03/18 20:46 07/09/18 03:15 Tylenol Tab* PO 650 mg Q4H PRN Administration FEVER/PAIN Albuterol 2.5 mg 07/03/18 20:46 07/09/18 20:06 Ventolin 2.5 Mg/3 Ml Neb.Roxana* INH 2.5 mg Q2H PRN Administration SOB/WHEEZING Aspirin 81 mg 07/04/18 09:00 07/12/18 08:25 Aspirin 81 Mg Chew Tab* PO 81 mg DAILY ALMAS Administration Atorvastatin Calcium 20 mg 07/04/18 17:00 07/11/18 17:26 Lipitor* PO 20 mg DAILY@1700 ALMAS Administration Colesevelam HCl 625 mg 07/03/18 21:00 07/12/18 11:51 Welchol(Nf) PO 625 mg BID ALMAS Administration Dextrose 12.5 gm 07/03/18 20:46 D50w Syringe 50 Ml* IV PUSH .FOR FS < 60 - SS PRN FS < 60 Diphenhydramine HCl 25 mg 07/05/18 22:09 07/09/18 20:07 Benadryl Po* PO 25 mg Q6H PRN Administration ITCHING Furosemide 40 mg 07/10/18 09:00 07/12/18 08:24 Lasix Tab* PO 40 mg DAILY ALMAS Administration Cefepime HCl 1 gm in 50 mls @ 100 mls/hr 07/12/18 21:00 Maxipime 1 Gm In Dextrose Duplex (*) IV Q12H ALMAS Insulin Human Lispro 0 units 07/04/18 07:30 07/12/18 13:17 Humalog* SUBCUT 2 units AC ALMAS Administration Protocol Loperamide HCl 2 mg 07/10/18 10:46 Imodium Cap* PO .SEE DIRECTIONS PRN DIARRHEA Lorazepam 1 mg 07/06/18 10:34 07/10/18 07:51 Ativan Inj* IV PUSH 1 mg Q6H PRN Administration ANXIETY Magnesium Oxide 400 mg 07/09/18 13:00 07/12/18 08:25 Magox 400 Tab* PO 400 mg DAILY ALMAS Administration Mometasone Furoate/Formoterol Fumar 2 puff 07/03/18 21:00 07/12/18 07:25 Dulera 200/5 Mdi* INH 2 puff BID ALMAS Administration Nystatin 500,000 units 07/11/18 17:00 07/12/18 13:17 Nystatin Suspension* PO 07/18/18 14:15 500,000 units QID ALMAS Administration Omeprazole 20 mg 07/04/18 07:30 07/12/18 08:25 Prilosec Cap* PO 20 mg BID AC ALMAS Administration Ondansetron HCl 4 mg 07/03/18 20:46 Zofran Inj* IV Q6H PRN NAUSEA Phenyleph/Shark Oil/Min Oil/Petrol 1 applic 07/11/18 21:00 07/12/18 13:18 Preparation H* [place] 1 applic BID ALMAS Administration Potassium Citrate 15 meq 07/07/18 21:00 07/11/18 23:42 Potassium Citrate Tab (Nf) PO 15 meq BEDTIME ALMAS Administration Potassium Citrate 30 meq 07/09/18 09:00 07/12/18 08:33 Potassium Citrate Tab (Nf) PO 30 meq QAM ALMAS Administration Prednisone 40 mg 07/06/18 09:00 07/12/18 08:25 Deltasone Tab* PO 40 mg DAILY ALMAS Administration Saliva Substitute 1 spray 07/09/18 00:13 07/11/18 13:27 Biotene Moisturizing Mouth (Nf) MT 1 spray Q4H PRN Administration dry mouth Protocol Sertraline HCl 50 mg 07/03/18 21:00 07/11/18 23:08 Zoloft* PO 50 mg BEDTIME ALMAS Administration Sucralfate 1 gm 07/09/18 22:00 07/12/18 06:59 Carafate* PO 1 gm BID@0600,2200 ALMAS Administration Trazodone HCl 100 mg 07/03/18 21:00 07/11/18 23:08 Desyrel Tab* PO 100 mg BEDTIME ALMAS Administration Venlafaxine HCl 75 mg 07/03/18 21:00 07/12/18 13:17 Effexor Xr Cap* PO 75 mg TID ALMAS Administration Vital Signs Temp Pulse Resp BP Pulse Ox 97.6 F 104 16 144/56 97 07/12/18 12:01 07/12/18 12:01 07/12/18 12:01 07/12/18 12:01 07/12/18 12:01 O/E: Pt in chair in NAD HEENT: PERRLA, no JVD Lungs: Diminished air entry b/l, no wheeze, crackles in mid lungs R>L CVS: S1, S2+, regular Abd: Soft, BS+ Ext: Edema+, normal ROM Skin: No rash Neuro: No focal deficits CT chest and CXR from 07/11/18 were personally reviewed by me CXR: Cavitary lesion Rt upper lung zone CT chest showed cavitary lesion in periphery of RUL. GGO opacities also noted in RUL. Small effusions b/l I/R: 68 y o f with h/o anxiety/depression, DM, FRANCINE on CPAP, asthma, chronic pain admitted with CAP and acute hypoxic resp failure F/u cxr showed cavitary lesion in periphery of RUL Differentials- Infectious(Lung abscess versus Aspergilloma versus inflammatory( less likely) versus neoplastic) Pt clinically improving O2 requirement has decreased significantly, now on RA Leucocytosis has resolved Dyspnea is improved Given severe PNA recently, cavitation from necrotic infection is likely ID consultation appreciated Will need abx for 3 weeks Changed to Cefepime CPAP at night c/w Lasix daily OOB to chair DVT px PT/OT D/w RN, patients
[2018-07-12] MEDS: Atorvastatin* 20 MG TAB PO SCH (17:25)
[2018-07-12] MEDS: Sertraline* 50 MG TAB PO SCH (20:15)
[2018-07-12] MEDS: CMCS:Saliva Substitute (NF) 1 SPRAY BTL MT PRN (20:15)
[2018-07-12] MEDS: traZODone TAB* 50 MG TAB PO SCH (20:15)
[2018-07-12] MEDS: Cefepime 1 GM in Dextrose(*) 1 GM/50 ML BAG IV SCH (20:15)
[2018-07-12] MEDS: LORazepam INJ* 2 MG/ML 1 ML VIAL IV PUSH PRN (22:00)
[2018-07-13] MEDS: Sucralfate TAB* 1 GM PO SCH ×2 (05:06→21:40)
[2018-07-13 06:10] LABS: ABS Basophils 0 10^3/ul (0-0.2); ABS Eosinophils 0.1 10^3/ul (0-0.6); ABS Lymphocytes 1.1 10^3/ul (1.0-4.8); ABS Monocytes 0.3 10^3/ul (0-0.8); ABS Neutrophils 2.7 10^3/ul (1.5-7.7); ABS Nucleated RBC 0 10^3/ul; Eosinophil % 3.3 % (0-6); Hematocrit 26 % (35-47); Hemoglobin 9.1 g/dl (12.0-16.0); Lymphocyte % 26.1 % (25-47); Mean Corpuscular HGB Conc 35 g/dl (31-36); Mean Corpuscular Hemoglobin 32 pg (27-31); Mean Corpuscular Volume 91 fL (80-97); Mean Platelet Volume 7.2 um3 (7.4-10.4); Nucleated Red Blood Cells % 0.1; Platelet Count 133 10^3/ul (150-450); Red Blood Count 2.86 10^6/ul (4.00-5.40); Red Cell Distribution Width 14 % (10.5-15); White Blood Count 4.3 10^3/ul (3.5-10.8)
[2018-07-13 06:40] LABS: EGFR Non-African American 91.7 (>60)
[2018-07-13] MEDS: Mometasone/Formoter 200/5 MDI INH SCH ×2 (07:53→19:33)
[2018-07-13] MEDS: Insulin LISPRO* 1 UNITS UNIT SUBCUT SCH ×3 (08:48→18:36)
[2018-07-13] MEDS: Nystatin SUSPENSION* 100000 UNITS/ML 5 ML UDC PO SCH ×4 (09:07→21:35)
[2018-07-13] MEDS: Magnesium Oxide TAB* 400 MG PO SCH (09:08)
[2018-07-13] MEDS: predniSONE TAB* 20 MG PO SCH (09:08)
[2018-07-13] MEDS: COLESEVELAM 625 MG PO SCH ×2 (09:08→21:35)
[2018-07-13] MEDS: Furosemide TAB* 40 MG PO SCH (09:08)
[2018-07-13] MEDS: Aspirin 81 mg CHEW TAB* 81 MG TAB.CHEW PO SCH (09:08)
[2018-07-13] MEDS: Venlafaxine EXT RELEASE CAP* 75 MG PO SCH ×3 (09:08→21:36)
[2018-07-13] MEDS: Omeprazole CAP* 20 MG PO SCH ×2 (09:08→18:36)
[2018-07-13] MEDS: POTASSIUM CITRATE 15 MEQ PO SCH ×2 (09:08→21:35)
[2018-07-13] MEDS: Hemorrhoidal OINT PR SCH ×2 (09:09→21:36)
[2018-07-13] MEDS: Cefepime 1 GM in Dextrose(*) 1 GM/50 ML BAG IV SCH ×2 (09:11→21:41)
--- NOTE | 2018-07-13 10:40 | PN ---
Progress Note - Progress Note Date of Service: 07/13/18 SOAP: Subjective: CC: necrotizing pneumonia HPI: 68 year old woman with pneumonia which progressed to cavitary right upper lobe lesion. No cough, fever, supplemental oxygen. No BM yet today. Up with PT yesterday. Objective: Vital Signs Temp 37.2 C 07/13/18 07:31 Pulse 90 07/13/18 07:57 Resp 15 07/13/18 07:31 BP 147/63 07/13/18 07:31 Pulse Ox 94 07/13/18 07:31 Intake & Output 07/12/18 07/13/18 07/13/18 18:59 06:59 18:59 Intake Total 1300 60 Output Total 400 Balance 900 60 Intake: IVPB 60 ABX - CEFEPIME 60 Oral 1300 Output: Urine 400 Other: # Voids 1 Gen:awake, no distress HEENT: no thrush HEart:RRR no murmur Lungs:CTA BL Abd:+BS NTND soft Skin: no rash MSK: no joint synovitis Laboratory Results - last 24 hr 07/11/18 07/12/18 07/12/18 05:50 11:53 16:41 WBC RBC Hgb Hct MCV MCH MCHC RDW Plt Count MPV Neut % (Auto) Lymph % (Auto) [place] % (Auto) Eos % (Auto) Baso % (Auto) Absolute Neuts (auto) Absolute Lymphs (auto) Absolute Monos (auto) Absolute Eos (auto) Absolute Basos (auto) Absolute Nucleated RBC Nucleated RBC % Sodium Potassium Chloride Carbon Dioxide Anion Gap BUN Creatinine Est GFR ( Amer) Est GFR (Non-Af Amer) BUN/Creatinine Ratio Glucose POC Glucose (mg/dL) 250 H 181 H Calcium Total Bilirubin AST ALT Alkaline Phosphatase C-Reactive Protein Total Protein Albumin Globulin Albumin/Globulin Ratio A.fumigatus Allerg IgE <0.35 Aspergillus IgG Ab 7.8 A. galactomannan Ag <0.500 07/13/18 07/13/18 07/13/18 05:55 05:55 07:51 WBC 4.3 RBC 2.86 L Hgb 9.1 L Hct 26 L MCV 91 MCH 32 H MCHC 35 RDW 14 Plt Count 133 L MPV 7.2 L Neut % (Auto) 62.9 Lymph % (Auto) 26.1 [place] % (Auto) 7.6 H Eos % (Auto) 3.3 Baso % (Auto) 0.1 Absolute Neuts (auto) 2.7 Absolute Lymphs (auto) 1.1 Absolute Monos (auto) 0.3 Absolute Eos (auto) 0.1 Absolute Basos (auto) 0 Absolute Nucleated RBC 0 Nucleated RBC % 0.1 Sodium 142 Potassium 3.6 Chloride 107 Carbon Dioxide 29 Anion Gap 6 BUN 7 Creatinine 0.64 Est GFR ( Amer) 111.0 Est GFR (Non-Af Amer) 91.7 BUN/Creatinine Ratio 10.9 Glucose 107 H POC Glucose (mg/dL) 130 H Calcium 8.2 L Total Bilirubin 0.80 AST 77 H ALT 45 Alkaline Phosphatase 92 C-Reactive Protein 18.71 H Total Protein 5.4 L Albumin 2.7 L Globulin 2.7 Albumin/Globulin Ratio 1.0 A.fumigatus Allerg IgE Aspergillus IgG Ab A. galactomannan Ag Assessment: 1. necortizing PNA/lung abscess 2. elevated CRP, improving 3. amox allergy 4. Plan: 1. cefepime 1 gm IV Q12hrs day 05/02 w weekly cbc, cmp, crp; PICC ordered. Recheck chest imaging after antibiotics.
[2018-07-13] MEDS ORDERED: Iodixanol* (CONTRAST) 320 MG/ML 100 ML SDV IV ONE (16:37)
--- NOTE | 2018-07-13 18:21 | RAD ---
CLINICAL HISTORY: Abdominal pain and drop in H and H. Relevant surgical history includes partial hysterectomy. COMPARISON: None TECHNIQUE: Contrast enhanced CT examination of the abdomen and pelvis from the lung bases through the initial tuberosities. The patient received 80 mL of Visipaque 320 intravenously prior to imaging.The patient received oral contrast as well prior to imaging. FINDINGS: VISUALIZED LUNG BASES: The visualized lung bases are grossly clear. There is no pleural effusion. ABDOMEN AND PELVIS: The liver, pancreas and adrenal glands are grossly normal in appearance. The homogenously attenuating spleen is slightly enlarged measuring 12.5 cm in greatest dimension. The gallbladder is normal. The kidneys are normal in appearance without focal mass, calcification or signs of hydronephrosis. Neural contrast has progressed as far as the rectum. The small and large bowel are not distended. The patient's normal appendix is identified in the right lower quadrant with contrast in the lumen measuring 6 mm in diameter.. There is no gross retroperitoneal or mesenteric lymphadenopathy. A gynecologic pessary device is noted in position. There is coarse atherosclerotic calcification of the abdominal aorta extending into the bilateral common iliac arteries. Multilevel degenerative changes of the lower thoracic and lumbar spine includes loss of intervertebral disc height. The patient is status post kyphoplasty of the L1 vertebral body. IMPRESSION: 1. There is no obstruction, acute inflammatory change or other CT apparent abnormality of the gastrointestinal tract. 2. Mild splenomegaly of uncertain clinical significance. 3. Chronic, degenerative and iatrogenic findings described in body the report unlikely to be directly related to the patient's current clinical presentation.
[2018-07-13] MEDS: Atorvastatin* 20 MG TAB PO SCH (18:36)
--- NOTE | 2018-07-13 19:18 | PN ---
Progress Note - Progress Note Date of Service: 07/13/18 - Pulm f/u note Note: Pt seen and examined at bedside. Pt reports feeling better. She remains off O2. Had abd CT for evaluation of pain, no diarrhea Active Medications Generic Name Dose Route Start Last Admin Trade Name Kati PRN Reason Stop Dose Admin Acetaminophen 650 mg 07/03/18 20:46 07/09/18 03:15 Tylenol Tab* PO 650 mg Q4H PRN Administration FEVER/PAIN Albuterol 2.5 mg 07/03/18 20:46 07/09/18 20:06 Ventolin 2.5 Mg/3 Ml Neb.Roxana* INH 2.5 mg Q2H PRN Administration SOB/WHEEZING Aspirin 81 mg 07/04/18 09:00 07/13/18 09:08 Aspirin 81 Mg Chew Tab* PO 81 mg DAILY ALMAS Administration Atorvastatin Calcium 20 mg 07/04/18 17:00 07/13/18 18:36 Lipitor* PO 20 mg DAILY@1700 ALMAS Administration Colesevelam HCl 625 mg 07/03/18 21:00 07/13/18 09:08 Welchol(Nf) PO 625 mg BID ALMAS Administration Dextrose 12.5 gm 07/03/18 20:46 D50w Syringe 50 Ml* IV PUSH .FOR FS < 60 - SS PRN FS < 60 Diphenhydramine HCl 25 mg 07/05/18 22:09 07/09/18 20:07 Benadryl Po* PO 25 mg Q6H PRN Administration ITCHING Furosemide 40 mg 07/10/18 09:00 07/13/18 09:08 Lasix Tab* PO 40 mg DAILY ALMAS Administration Heparin Sodium (Porcine) 1 - 3 ml 07/14/18 06:00 Heparin Flush Picc/Ml/Cvc(*) FLUSH 0600,1800 ALMAS Protocol Cefepime HCl 1 gm in 50 mls @ 100 mls/hr 07/12/18 21:00 07/13/18 09:11 Maxipime 1 Gm In Dextrose Duplex (*) IV 100 mls/hr Q12H ALMAS Administration Insulin Human Lispro 0 units 07/04/18 07:30 07/13/18 18:36 Humalog* SUBCUT 3 units AC ALMAS Administration Protocol Loperamide HCl 2 mg 07/10/18 10:46 Imodium Cap* PO .SEE DIRECTIONS PRN DIARRHEA Magnesium Oxide 400 mg 07/09/18 13:00 07/13/18 09:08 Magox 400 Tab* PO 400 mg DAILY ALMAS Administration Mometasone Furoate/Formoterol Fumar 2 puff 07/03/18 21:00 07/13/18 07:53 Dulera 200/5 Mdi* INH 2 puff BID ALMAS Administration Nystatin 500,000 units 07/11/18 17:00 07/13/18 18:36 Nystatin Suspension* PO 07/18/18 14:15 500,000 units QID ALMAS Administration Omeprazole 20 mg 07/04/18 07:30 07/13/18 18:36 Prilosec Cap* PO 20 mg BID AC ALMAS Administration Ondansetron HCl 4 mg 07/03/18 20:46 Zofran Inj* IV Q6H PRN NAUSEA Phenyleph/Shark Oil/Min Oil/Petrol 1 applic 07/11/18 21:00 07/13/18 09:09 Preparation H* [place] 1 applic BID ALMAS Administration Potassium Citrate 15 meq 07/07/18 21:00 07/12/18 20:15 Potassium Citrate Tab (Nf) PO 15 meq BEDTIME ALMAS Administration Potassium Citrate 30 meq 07/09/18 09:00 07/13/18 09:08 Potassium Citrate Tab (Nf) PO 30 meq QAM ALMAS Administration Prednisone 40 mg 07/06/18 09:00 07/13/18 09:08 Deltasone Tab* PO 40 mg DAILY ALMAS Administration Saliva Substitute 1 spray 07/09/18 00:13 07/12/18 20:15 Biotene Moisturizing Mouth (Nf) MT 1 spray Q4H PRN Administration dry mouth Protocol Sertraline HCl 50 mg 07/03/18 21:00 07/12/18 20:15 Zoloft* PO 50 mg BEDTIME ALMAS Administration Sucralfate 1 gm 07/09/18 22:00 07/13/18 05:06 Carafate* PO 1 gm BID@0600,2200 ALMAS Administration Trazodone HCl 100 mg 07/03/18 21:00 07/12/18 20:15 Desyrel Tab* PO 100 mg BEDTIME ALMAS Administration Venlafaxine HCl 75 mg 07/03/18 21:00 07/13/18 12:41 Effexor Xr Cap* PO 75 mg TID ALMAS Administration Vital Signs Temp Pulse Resp BP Pulse Ox 99.1 F 84 18 140/55 97 07/13/18 11:41 07/13/18 11:41 07/13/18 11:41 07/13/18 11:41 07/13/18 11:41 Active Medications O/E: Pt in chair in NAD HEENT: PERRLA, no JVD Lungs: Diminished air entry b/l, no wheeze, crackles in mid lungs R>L CVS: S1, S2+, regular Abd: Soft, BS+ Ext: Edema+, normal ROM Skin: No rash Neuro: No focal deficits Laboratory Results - last 24 hr 07/11/18 07/13/18 07/13/18 05:50 05:55 05:55 WBC 4.3 RBC 2.86 L Hgb 9.1 L Hct 26 L MCV 91 MCH 32 H MCHC 35 RDW 14 Plt Count 133 L MPV 7.2 L Neut % (Auto) 62.9 Lymph % (Auto) 26.1 [place] % (Auto) 7.6 H Eos % (Auto) 3.3 Baso % (Auto) 0.1 Absolute Neuts (auto) 2.7 Absolute Lymphs (auto) 1.1 Absolute Monos (auto) 0.3 Absolute Eos (auto) 0.1 Absolute Basos (auto) 0 Absolute Nucleated RBC 0 Nucleated RBC % 0.1 Sodium 142 Potassium 3.6 Chloride 107 Carbon Dioxide 29 Anion Gap 6 BUN 7 Creatinine 0.64 Est GFR ( Amer) 111.0 Est GFR (Non-Af Amer) 91.7 BUN/Creatinine Ratio 10.9 Glucose 107 H POC Glucose (mg/dL) Calcium 8.2 L Total Bilirubin 0.80 AST 77 H ALT 45 Alkaline Phosphatase 92 C-Reactive Protein 18.71 H Total Protein 5.4 L Albumin 2.7 L Globulin 2.7 Albumin/Globulin Ratio 1.0 Aspergillus IgG Ab 7.8 A. galactomannan Ag <0.500 07/13/18 07/13/18 07/13/18 07:51 12:13 16:42 WBC RBC Hgb Hct MCV MCH MCHC RDW Plt Count MPV Neut % (Auto) Lymph % (Auto) [place] % (Auto) Eos % (Auto) Baso % (Auto) Absolute Neuts (auto) Absolute Lymphs (auto) Absolute Monos (auto) Absolute Eos (auto) Absolute Basos (auto) Absolute Nucleated RBC Nucleated RBC % Sodium Potassium Chloride Carbon Dioxide Anion Gap BUN Creatinine Est GFR ( Amer) Est GFR (Non-Af Amer) BUN/Creatinine Ratio Glucose POC Glucose (mg/dL) 130 H 285 H 265 H Calcium Total Bilirubin AST ALT Alkaline Phosphatase C-Reactive Protein Total Protein Albumin Globulin Albumin/Globulin Ratio Aspergillus IgG Ab A. galactomannan Ag CXR: Cavitary lesion Rt upper lung zone CT chest showed cavitary lesion in periphery of RUL. GGO opacities also noted in RUL. Small effusions b/l CT abdomen: No acute abnormality noted I/R: 68 y o f with h/o anxiety/depression, DM, FRANCINE on CPAP, asthma, chronic pain admitted with CAP and acute hypoxic resp failure F/u cxr showed cavitary lesion in periphery of RUL Differentials- Infectious(Lung abscess versus Aspergilloma versus inflammatory( less likely) versus neoplastic) Pt clinically improving Is now on RA Leucocytosis has resolved Dyspnea is improved Given severe PNA recently, cavitation from necrotic infection is likely Had PICC line placed Will need abx for [address] abdomen didnot show any acute abnormality c/w CPAP at night c/w Lasix daily OOB to chair DVT px PT/OT D/w RN, patients
[2018-07-13] MEDS: Sertraline* 50 MG TAB PO SCH (21:36)
[2018-07-13] MEDS: traZODone TAB* 50 MG TAB PO SCH (21:36)
[2018-07-14] MEDS: Sucralfate TAB* 1 GM PO SCH (05:35)
[2018-07-14] MEDS: Mometasone/Formoter 200/5 MDI INH SCH (08:00)
[2018-07-14] MEDS: Insulin LISPRO* 1 UNITS UNIT SUBCUT SCH (08:11)
[2018-07-14] MEDS: Venlafaxine EXT RELEASE CAP* 75 MG PO SCH (08:27)
[2018-07-14] MEDS: Magnesium Oxide TAB* 400 MG PO SCH (08:27)
[2018-07-14] MEDS: POTASSIUM CITRATE 15 MEQ PO SCH (08:27)
[2018-07-14] MEDS: Aspirin 81 mg CHEW TAB* 81 MG TAB.CHEW PO SCH (08:27)
[2018-07-14] MEDS: Omeprazole CAP* 20 MG PO SCH (08:27)
[2018-07-14] MEDS: Furosemide TAB* 40 MG PO SCH (08:27)
[2018-07-14] MEDS: COLESEVELAM 625 MG PO SCH (08:29)
[2018-07-14] MEDS: Hemorrhoidal OINT PR SCH (08:29)
[2018-07-14] MEDS: Nystatin SUSPENSION* 100000 UNITS/ML 5 ML UDC PO SCH (08:36)
[2018-07-14 09:01] LABS: ABS Basophils 0 10^3/ul (0-0.2); ABS Eosinophils 0.1 10^3/ul (0-0.6); ABS Lymphocytes 1.2 10^3/ul (1.0-4.8); ABS Monocytes 0.4 10^3/ul (0-0.8); ABS Neutrophils 3.7 10^3/ul (1.5-7.7); ABS Nucleated RBC 0 10^3/ul; Eosinophil % 1.8 % (0-6); Hematocrit 29 % (35-47); Hemoglobin 9.7 g/dl (12.0-16.0); Lymphocyte % 22.6 % (25-47); Mean Corpuscular HGB Conc 34 g/dl (31-36); Mean Corpuscular Hemoglobin 31 pg (27-31); Mean Corpuscular Volume 92 fL (80-97); Mean Platelet Volume 7.5 um3 (7.4-10.4); Nucleated Red Blood Cells % 0; Platelet Count 144 10^3/ul (150-450); Red Cell Distribution Width 14 % (10.5-15); White Blood Count 5.4 10^3/ul (3.5-10.8)
[2018-07-14] MEDS: Cefepime 1 GM in Dextrose(*) 1 GM/50 ML BAG IV SCH (10:12)
--- NOTE | 2018-07-14 11:08 | TRS ---
CC: [facility]; Dr. Messer; Dr. Rizo TRANSFER SUMMARY: DATE OF ADMISSION: 07/03/18 DATE OF TRANSFER: 07/14/18 She is going to [facility] today. TRANSFER DIAGNOSES: 1. Necrotizing pneumonia with lung abscess. 2. Type 2 diabetes mellitus. 3. Sepsis. 4. Hyperlipidemia. 5. History of depression. 6. History of gastroesophageal reflux disease. 7. History of deep venous thrombosis. 8. History of diabetic retinopathy. 9. Neurocognitive impairment. 10. History of asthma. 11. History of hypertension. 12. Anemia of acute illness. 13. Diarrhea due to antibiotics. 14. Hemorrhoids. 15. Thrush. 16. Hypophosphatemia. 17. Hypomagnesemia. 18. Thrombocytopenia, improving. 19. Hypokalemia, resolved. 20. Ecchymosis of the abdominal wall due to heparin. 21. Mild aortic stenosis and regurgitation. HISTORY: Mrs. Rodríguez is a 68-year-old woman admitted with fever, cough, nausea and vomiting. She presented to urgent care where she was found to have pneumonia, transferred to the emergency room. She was felt to be septic. Please see dictated admission note for details of the present illness, past medical history, family history, social and personal history, review of systems and physical examination. LABORATORY DATA: Initial CBC: WBC 3.6, H and H 10.5/31, MCV 93, PLC 58,000. CBC prior to discharge pending. H and H on 07/13/18 was 9.1/26. Platelet count came up to 133,000. INR 1.26 on 07/03/18, 1.29 on 07/04/18. Chemistries on admission: Sodium 136, potassium 3.3, chloride 106, CO2 of 25, BUN and creatinine 6/0.83, lactic acid 2.3, calcium 7.3, AST 51. Chemistries prior to discharge: Sodium 142, potassium 3.6, chloride 107, CO2 of 29, BUN and creatinine 7/0.64, glucose 107, calcium 8.2, AST 77. CRP started at 25.52, went up to 71.10 on 07/10/18, was down to 18.71 on 07/13/18. Phosphorus was as low as 1.5 on 07/05/18, was up to 3.3 on 07/11/18. Magnesium was as low as 1.5 on 07/06/18, came up to 2 on 07/08/18, was 1.8 on 07/11/18. Total protein and albumin were 5.4/2.7 on 07/13/18. Glucoses were monitored throughout her hospitalization, ranged from 99 to 422. Procalcitonin was 0.1 on 07/04/18, 0.2 on 07/06/18. Aspergillus fumigatus allergen IgE was less than 0.35. Urinalysis on 07/03/18, yellow, clear, specific gravity 1.006, pH 7, dipsticks negative. Influenza testing was negative on 07/04/18, Aspergillus IgA antibody and Aspergillus Galactomannan antigen were both normal. Blood cultures were no growth. Legionella and Streptococcal antigens were negative. Sputum showed normal jaylen and Viviane albicans on 07/06/18. Urine culture was no growth on 07/08/18. Stool for C. diff was negative x2. Stool for lactoferrin was positive on 07/12/18. IMAGING: Initial chest x-ray on 07/03/18 showed patchy airspace disease of the right upper lung. Chest x-ray on 07/05/18 showed progressive infiltrate on the right upper lobe. Chest x-ray portable on 07/06/18 showed findings suggestive of congestive heart failure. Venous Duplex study on 07/06/18 showed no evidence of DVT of either leg. Chest x-ray on 07/07/18 showed congestive changes. Chest x-ray on 07/08/18 showed diffuse bilateral infiltrates, trace bilateral pleural effusions, progression. Chest x-ray 07/10/18 showed bilateral interstitial infiltrates, cavitary lesion in the right upper lobe. Chest CT on 07/10/18 showed a cavitary lesion of the right upper lobe, mild patchy ground- glass infiltrates, minimal bilateral pleural effusions, trace perihepatic ascites. Abdomen and pelvis CT 07/13/18 showed mild splenomegaly, pessary noted. Atherosclerotic calcification of the abdominal aorta, multilevel degenerative changes of the lower thoracic and lumbar spine, and kyphoplasty of the L1 vertebral body. EKG on 07/03/18 showed sinus rhythm, abnormal R-wave progression, early transition, otherwise normal. Echocardiogram 07/04/18 showed global left ventricular wall motion and contractility within normal limits. EF 55% to 60%, mild calcification of the aortic leaflets with trace aortic regurgitation, mild aortic stenosis, mild-to- moderate mitral regurgitation. CONSULTATION: Intensive care, Dr. Salazar felt the patient had hypoxic respiratory failure. Prescribed meropenem and azithromycin, Ativan p.r.n. Vapotherm. Infectious Disease consultation, Dr. Rizo, 07/12/18 felt the patient had a cavitary lung lesion, lung abscess due to necrotizing pneumonia which could be due to Staphylococcus or Pseudomonas. He recommended treating with stopping meropenem, starting cefepime 1 g every 12 hours to complete a 3-week course of IV antibiotics with followup imaging to ensure resolution and should have a weekly CBC, CMP, CRP. HOSPITAL COURSE: The patient was initially admitted. She was treated for sepsis. She was placed on antibiotics, azithromycin and ceftriaxone.She was continued on statin therapy for her hyperlipidemia, depression meds were continued. She was given heparin prophylaxis for DVT. She was ordered nebulizers, steroids for her asthma, although the patient tells me that she had not been using anything for asthma recently. She had some difficulty swallowing at first, but by the time of discharge, was able to eat a consistent carbohydrate diet. Over the course of her hospitalization, she was hypokalemic , hypomagnesemic, hypophosphatemic and these were all repleted. Her low platelet counts came up. She developed respiratory failure and had to be transferred to the ICU on 07/06/18. She was on steroids for bronchospasm. During her ICU stay, she was on Vapotherm. She had quite a bit of anxiety throughout her ICU stay. She was given Lasix for vascular congestion. She was on sliding scale insulin for her diabetes. She exhibited delirium. She was transferred back to the floor. She continued to be somewhat anxious, but this improved. She was found to have a lung abscess and was seen in consultation by Dr. Rizo and Dr. Matias (see above). Dr. Matias, Pulmonary, felt the patient was improving and agreed with treatment as recommended by Dr. Rizo. Her physical exam improved. She decided she wanted to go to senior care for rehab. At the time of discharge, blood pressure 131/60, pulse 76, respirations 16, temperature afebrile, O2 sat is 99% on 2 L. She will be discharged to [facility]. She should follow up with Dr. Rizo in 2 weeks. Prior to seeing him, she should have a CT scan of the chest. At the time of discharge, she is to get weekly CBC, CRP, CMP. She is to see Dr. Rizo in [address] scan of the chest without contrast. She is to see Dr. Messer after she is discharged from the senior care. MEDIATIONS AT THE TIME OF DISCHARGE: At the time of discharge her medications are: 1. Cefepime 1 g IV q.12 for 13 days. 2. Clonazepam 0.25 mg at bedtime. 3. Venlafaxine 75 mg t.i.d. 4. Pantoprazole 40 mg twice a day. 5. Ferrous sulfate 325 mg daily. 6. Aspirin 81 mg daily. 7. Trazodone 100 mg at bedtime. 8. Percocet 1 every 6 hours p.r.n. pain. 9. Sucralfate 1 g b.i.d. 10. Januvia 100 mg daily. 11. Simvastatin 40 mg in the evening. 12. Sertraline 50 mg at bedtime. 13. Potassium citrate 10 mEq 2 to 3 times a day. 14. Cyanocobalamin B12 1000 mcg daily. 15. Welchol 625 mg twice a day. 16. Moisturizing saliva spray every 4 hours as needed. 17. Nystatin 500,000 units p.o. 4 times a day for 2 weeks as long as she is on the antibiotic. 18. Loperamide 2 mg p.o. p.r.n. diarrhea 4 times a day. 19. Hemorrhoidal ointment as needed twice a day. 20. Cefepime 1 g IV q. 12h. 21. Acetaminophen 650 p.o. q. 4h. p.r.n. pain. 22. She is to have a PICC line with standard PICC line care. [id number]/[facility] #: [id number] [facility]
[2018-07-14 13:11] VITALS: BP 123/61
== END 2018-07-14 13:00 | DRG 871 ==
LOC: ED 19:11 → MED 20:32 → ICU 07-06 09:17 → MEDTELE 07-09 16:13
PROVIDERS: ADMIT Internal Medicine; ATTEND Internal Medicine
PROC: 02HV33Z Insertion of Infusion Device into Superior Vena Cava, Percutaneous Approach (ICD-10-PCS; principal; 2018-07-13)
DX: A41.9 Sepsis, unspecified organism (principal); J85.1 Abscess of lung with pneumonia; J96.01 Acute respiratory failure with hypoxia; N39.0 Urinary tract infection, site not specified; K52.1 Toxic gastroenteritis and colitis; K21.9 Gastro-esophageal reflux disease without esophagitis; E78.5 Hyperlipidemia, unspecified; F32.9 Major depressive disorder, single episode, unspecified; E11.319 Type 2 diabetes mellitus with unspecified diabetic retinopathy without macular edema; J45.909 Unspecified asthma, uncomplicated; I10 Essential (primary) hypertension; D64.9 Anemia, unspecified; K64.9 Unspecified hemorrhoids; B37.9 Candidiasis, unspecified; I08.0 Rheumatic disorders of both mitral and aortic valves; E87.6 Hypokalemia; M48.02 Spinal stenosis, cervical region; Z83.6 Family history of other diseases of the respiratory system; D69.6 Thrombocytopenia, unspecified; E83.51 Hypocalcemia; R13.10 Dysphagia, unspecified; F03.90 Unspecified dementia, unspecified severity, without behavioral disturbance, psychotic disturbance, mood disturbance, and anxiety; G89.29 Other chronic pain; E83.39 Other disorders of phosphorus metabolism; E83.42 Hypomagnesemia; R58 Hemorrhage, not elsewhere classified; T45.515A Adverse effect of anticoagulants, initial encounter; Y92.239 Unspecified place in hospital as the place of occurrence of the external cause; T36.95XA Adverse effect of unspecified systemic antibiotic, initial encounter; Z82.49 Family history of ischemic heart disease and other diseases of the circulatory system; Z83.3 Family history of diabetes mellitus; Z98.1 Arthrodesis status; Z90.710 Acquired absence of both cervix and uterus; Z87.442 Personal history of urinary calculi; Z88.0 Allergy status to penicillin; Z88.2 Allergy status to sulfonamides; Z79.82 Long term (current) use of aspirin; Z88.8 Allergy status to other drugs, medicaments and biological substances; Z87.891 Personal history of nicotine dependence; Y92.9 Unspecified place or not applicable; Z86.718 Personal history of other venous thrombosis and embolism; Z99.81 Dependence on supplemental oxygen
CPT/HCPCS: 36415; 71045; 71046; 71260; 74177; 80048; 80053; 81003; 81015; 82272; 82947; 83605; 83630; 83735; 84100; 84145; 85025; 85027; 85610; 86003; 86140; 87040; 87070; 87086; 87106; 87205; 87305; 87493; 87899; 93005; 93306; 93970; 94640; 94667; 94668; 96360; 96365; 99213; 99284; A9270-GY; C1751; G0463; G8978-GP-CK; G8979-GP-CI; G8987-GO-CK; G8988-GO-CJ; J0456; J0692; J0696; J1644; J1885; J1940; J2060; J2185; J2270; J2405; J3475; J3480; J7512; Q9967

== ENCOUNTER 2019-06-10 17:27 | Emergency (ER) | payer MEDICARE, BC ==
--- OUTSIDE RECORDS SUMMARY | 2019-06-10 17:36 | XMS REPORT | Continuity of Care Document ---
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 Onset: 04/18/2017 Moderate recurrent major depression Cassius Giron M.D. Onset: 04/18/2017 Generalized anxiety disorder Cassius Giron M.D. Onset: 04/18/2017 Chronic fatigue syndrome Cassius Giron M.D. Onset: 05/19/2017 Displaced transverse fracture of left Bakari Hernandez MD Onset: 2016 patella, subsequent encounter for closed fracture with routine healing Social History Type Date Description Comments Sex Unknown Tobacco Use Start: Unknown End: Former Cigarette Smoker Smoked 1PPD for 30 Unknown years Smoking Status Reviewed: 05/04/19 Former Cigarette Smoker Smoked 1PPD for 30 years ETOH Use Currently consumes 1 per day alcohol Tobacco Use Start: Unknown End: Patient is a former Unknown smoker Recreational Drug Use Never Used Drugs Exercise Type/Frequency Exercises regularly Allergies, Adverse Reactions, Alerts Active Allergies Reaction Severity Comments Date Sulfa Antibiotics 04/18/2017 Terconazole 04/18/2017 Bisacodyl 04/18/2017 Halflytely Bowel Prep 04/18/2017 Medications Active Medications SIG Qnty Indications Ordering Provider Date Venlafaxine HCL 1 tab by mouth Cassius Giron, 12/26/2018 75mg twice daily with M.D. Tablets an additional 1 in the afternoon as needed Cetirizine HCL 1 by mouth every Unknown 09/12/2018 10mg day as needed Chewtabs Cyclobenzaprine HCL 1 tab every 8 20tabs Bakari 05/04/2018 5mg hours as needed MD David Tablets for muscle spasm Cane one cane re: s/p 1units S82.032D Bakari 08[place]18[place]2017 [facility] [place] fracture Voltaren apply 4gm 300gm S82.032D Bakari 08/18/2017 1% Gel topically to MD David affected knee up to four times a day as needed Steroid Injection done at hospital Unknown Myrbetriq Take 1 Tablet By Unknown 25mg Tablets ER Mouth Every Day 24HR Vitamin D High Potency 1 by mouth every Unknown day 1000Unit Capsules Benadryl Allergy 1 cap daily prn Unknown 25mg by mouth Capsules Gabapentin 1 by mouth twice Unknown 300mg Capsules daily Calcium 1 tab by mouth Unknown once daily Aspir-81 1 tab by mouth Unknown every morning Clobetasol Propionate topical every day Unknown as needed 0.05% Ointment Pantoprazole Sodium 1 by mouth twice Unknown 40mg daily Tablets DR Sertraline HCL 1 by mouth every Unknown 100mg day Tablets Simvastatin take one tablet Unknown 40mg Tablets by mouth at bedtime Potassium Citrate ER 2 tabs by mouth Unknown in the morning 10Meq (1080 mg) and 1 tab in the Tablets ER evening Januvia 1 by mouth every Unknown 100mg Tablets day Ferrous Sulfate 1 by mouth every Unknown 325mg day Tablets Trazodone HCL 1 by mouth every Unknown 100mg night at bedtime Tablets Sucralfate 1 by mouth two Unknown 1gm Tablets times a day Welchol 1 by mouth twice Unknown 625mg Tablets daily Vitamin B12 1 by mouth every Unknown 1000 Tablets day Medications Administered in Office Medication SIG Qnty Indications Ordering Provider Date Depomedrol 40MG Bakari Hernandez MD 12/26/2018 Injection Depomedrol 40MG Bakari Hernandez MD 11/02/2018 Injection Depomedrol 40MG Bakari Hernandez MD 02/27/2018 Injection Immunizations Description No Information Available Vital Signs Date Vital Result Comment 05/04/2019 1:37pm Height 64 inches 5'4" Weight 138.00 lb BP Systolic 122 mmHg BP Diastolic 80 mmHg Pain Level 6 BMI (Body Mass Index) 23.7 kg/m2 03/05/2019 2:29pm Height 64 inches 5'4" Weight 138.00 lb Heart Rate 96 /min BP Systolic 130 mmHg BP Diastolic 72 mmHg Respiratory Rate 20 /min Pain Level 3 BMI (Body Mass Index) 23.7 kg/m2 Results Test Date Facility Test Result H/L Range Note Laboratory test [facility] Blood Urea 6 mg/dL Normal 6-24 finding [address] [place] [address] [phone] Creatinine [facility] Creatinine 0.84 mg/dL Normal 0.51-0.[address] [place] [address] [phone] Egfr Non- 67.0 >60 Egfr 81.1 >60 1 1 Because ethnic data is not always readily available, this report includes an eGFR for both -Americans and non- Americans. The National Kidney Disease Education Program (NKDEP) does not endorse the use of the MDRD equation for patients that are not between the ages of 18 and 70, are , have extremes of body size, muscle mass, or nutritional status, or are non- or non-. According to the National Kidney Foundation, irrespective of diagnosis, the stage of the disease is based on the level of kidney function: Stage Description GFR(mL/min/1.73 m(2)) 1 Kidney damage with normal or decreased GFR 90 2 Kidney damage with mild decrease in GFR 60-89 3 Moderate decrease in GFR 30-59 4 Severe decrease in GFR 15-29 5 Kidney failure <15 (or dialysis) Procedures Date Code Description Status 12/26/2018 11995 Inject/Drain Joint/Bursa Major W/O US Completed Medical Devices Description No Information Available Encounters Type Date Location Provider Dx Diagnosis Office Visit 03/05/2019 [facility] Bakari Levine M75.52 Bursitis of left 2:30p Of Chloé Hernandez MD shoulder M75.42 Impingement syndrome of left shoulder S42.125K Nondisp fx of acromial pro, l shldr, subs for fx w nonunion Office Visit 01/29/2019 1:45p [facility] Bakari Levine M75.52 Bursitis of Services Of MD David left shoulder [facility] M75.42 Impingement syndrome of left shoulder M75.51 Bursitis of right shoulder Office Visit 12/26/2018 10:30a [facility] Bakari Levine M75.52 Bursitis of Services [facility] MD David left shoulder [facility] M75.42 Impingement syndrome of left shoulder M47.22 Other spondylosis with radiculopathy, cervical region Assessments Date Code Description Provider 05/04/2019 M47.22 Other spondylosis with radiculopathy, Michael Fields MD cervical region 05/04/2019 G62.9 Polyneuropathy, unspecified Michael Fields MD 05/04/2019 M40.202 Unspecified kyphosis, cervical region Michael Fields MD 03/05/2019 M75.52 Bursitis of left shoulder Bakari Hernandez MD 03/05/2019 M75.42 Impingement syndrome of left shoulder Bakari Hernandez MD 03/05/2019 S42.125K Nondisp fx of acromial pro, l shldr, Bakari Hernandez MD subs for fx w nonunion 01/29/2019 M75.52 Bursitis of left shoulder Bakari Hernandez MD 01/29/2019 M75.42 Impingement syndrome of left shoulder Bakari Hernandez MD 01/29/2019 M75.51 Bursitis of right shoulder Bakari Hernandez MD 12/26/2018 M75.52 Bursitis of left shoulder Bakari Hernandez MD 12/26/2018 M75.42 Impingement syndrome of left shoulder Bakari Hernandez MD 12/26/2018 M47.22 Other spondylosis with radiculopathy, Bakari Hernandez MD cervical region Plan of Treatment Future Appointment(s):09/10/2019 2:00 pm - Bak[facility]07/24/2019 10:30 am - Cassius Giron M.D. at [facility]05/04/2019 - Vassilios Dimopoulos, MDM47.22 Other spondylosis with radiculopathy, cervical regionFollow up:RV prnG62.9 Polyneuropathy, gkbblqpptclD98.202 Unspecified kyphosis, cervical region Functional Status Description No Information Available Mental Status Description No Information Available Referrals Refer to Dr Reason for Referral Status Appt Date Cassius Giron M.D. Sent 07/24/[address] [place] [address] [address] [place] [address] [phone]
--- OUTSIDE RECORDS SUMMARY | 2019-06-10 17:36 | XMS REPORT | Continuity of Care Document ---
:1950 External Reference #:[id number] Author Name Evaristo Albarado M.D. Address 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 Onset: 11/18/2017 Postsurgical chorioretinal scar Evaristo Albarado M.D. Onset: 11/18/2017 Social History Type Date Description Comments Sex Unknown ETOH Use Occasionally consumes alcohol Tobacco Use Start: Unknown End: Patient is a former smoker Quit 10 years ago Unknown Smoking Status Reviewed: 06/01/19 Patient is a former smoker Quit 10 years ago Allergies, Adverse Reactions, Alerts Active Allergies Reaction Severity Comments Date Sulfa Antibiotics 11/18/2017 Medications Active Medications SIG Qnty Indications Ordering Provider Date Nitrofurantoin Kath Mccollum, Monohydrate/Macrocrysta [facility] ls 100mg Capsules Myrbetriq Take 1 Tablet By Unknown 50mg Tablets ER Mouth Every Day 24HR Gabapentin Unknown 600mg Tablets Venlafaxine HCL ER Haim Messer MD 75mg Caps ER 24HR Clotrimazole/Betamethas Kath Mccollum, one Dipropionate [facility] 1-0.05% Cream Clobetasol Propionate Kath Mccollum, 0.05% [facility] Ointment Nystatin-Triamcinolone Kath Mccollum, [facility] 247368-0.1Unit/GM-% Cream Estradiol Kath Mccollum, 10mcg Tablets [facility] Oxycodone HCL Haim Messer MD 5mg Tablets Diclofenac Sodium Unknown 1% Gel Sumit Lara, 100mg Tablets SANIPRACTIC PHYSICIAN Pantoprazole Sodium Kath Mccollum, 40mg [facility] Tablets Sumit Vo, 40mg Tablets SANIPRACTIC PHYSICIAN Trazodone HCL Unknown 150mg Tablets Welchol Take 2 Tablets By Unknown 625mg Tablets Mouth Every Day Potassium Citrate ER Take 3 Tablets By Unknown 15Meq Mouth Every Day (1620 mg) Tablets ER Leatha Microlet Lancets Test Blood Sugar Unknown One Time Daily Or Misc as Directed Sertraline HCL Take 1 Tablet By Unknown 50mg Tablets Mouth Every Day Fluconazole Take 1 Tablet By Unknown 150mg Tablets Mouth Every Day For 2 Days Sucralfate Haim Messer MD 1gm Tablets Immunizations Description No Information Available Vital Signs Date Vital Result Comment 06/01/2019 2:35pm Intraocular Pressure Right Eye 14 mmHg Intraocular Pressure Left Eye 14 mmHg 11/24/2018 12:57pm Intraocular Pressure Right Eye 13 mmHg Intraocular Pressure Left Eye 13 mmHg Results Description No Information Available Procedures Date Code Description Status 06/01/2019 27052 Ophthalmoscopy Subsequent Completed 06/01/2019 30251 Oct Retina Completed 06/01/2019 53581 Refraction Completed 06/01/2019 41265 Eye Exam Est Intermediate Completed 01/11/2019 21857 Remove Secondary Cataract, Laser (Yag) Completed Medical Devices Description No Information Available Encounters Description No Information Available Assessments Date Code Description Provider 06/01/2019 H35.371 Puckering of macula, right eye Evaristo Albarado M.D. 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 06/01/2019 Z96.1 Presence of intraocular lens Evaristo Albarado M.D. 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 Plan of Treatment Future Appointment(s):06/22/2019 2:45 pm - Evaristo Albarado M.D. at [facility]/01/2019 - Evaristo Albarado M.D.H35.371 Puckering of macula, right eyeH43.822 Vitreomacular adhesion, left eyeZ96.1 Presence of intraocular lensFollow up:6 mos full Functional Status Description No Information Available Mental Status Description No Information Available Referrals Description No Information Available
[2019-06-10 17:45] VITALS: BP 153/75
[2019-06-10] MEDS ORDERED: Azithromycin TAB* 250 MG PO ONE (18:09)
--- NOTE | 2019-06-10 18:14 | UC ---
Throat Pain/Nasal Bhargav HPI - HPI Summary HPI Summary: head congestion, and sore throat for almost 1 week---no fevers chills swollen glands or cough - History of Current Complaint Chief Complaint: UCGeneralIllness Stated Complaint: SINUS PROBLEM Time Seen by Provider: 06/10/19 17:50 Hx Obtained From: Patient Hx Last Menstrual Period: partial Hysterectomy ?: No Onset/Duration: Sudden Onset, Lasting Weeks - 1 Pain Intensity: 9 Pain Scale Used: 0-10 Numeric Cough: None Associated Signs & Symptoms: Positive: Sinus Discomfort, Nasal Discharge - Allergies/Home Medications Allergies/Adverse Reactions: Allergies Allergy/AdvReac Type Severity Reaction Status Date / Time amoxicillin Allergy Rash Verified 06/10/19 17:46 polyethylene glycol Allergy Headache Verified 06/10/19 17:46 Sulfa (Sulfonamide Allergy Rash Verified 06/10/19 17:46 Antibiotics) terconazole [From Terazol 3] Allergy Rash Verified 06/10/19 17:46 Home Medications: Home Medications traMADol TAB* [Ultram*] 25 mg PO Q6HR PRN 06/10/19 [History Confirmed 06/10/19] PMH/Surg Hx/FS Hx/Imm Hx Endocrine History: Dyslipidemia Cardiovascular History: Hypertension Psychological History: Depression Other History Of: Anticoagulant Therapy - s/t DVT on plane - Surgical History Surgical History: Yes Surgery Procedure, Year, and Place: PARTIAL HYSTERECTOMY. Inner stem device for bladder incontinence. Knee surgery L. [place]bar [place]ph[place] ([place] ACDF (x2) , 20 years apart. Rt humerus UE after fall - Family History Known Family History: Positive: Cardiac Disease, Hypertension, Diabetes - Social History Occupation: Retired Lives: With Family Alcohol Use: Daily Alcohol Amount: 1 drink/day Substance Use Type: None Smoking Status (MU): Former Smoker - Immunization History Most Recent Influenza Vaccination: fall 2017 Most Recent Pneumonia Vaccination: 2014 Review of Systems All Other Systems Reviewed And Are Negative: Yes Constitutional: Positive: Negative Skin: Positive: Negative Eyes: Positive: Negative ENT: Positive: Sore Throat, Nasal Discharge, Sinus Congestion, Sinus Pain/ Tenderness Respiratory: Positive: Negative Cardiovascular: Positive: Negative Gastrointestinal: Positive: Negative Genitourinary: Positive: Negative Motor: Positive: Negative Neurovascular: Positive: Negative Musculoskeletal: Positive: Negative Neurological: Positive: Negative Psychological: Positive: Negative Is Patient Immunocompromised?: No Physical Exam Triage Information Reviewed: Yes Appearance: Well-Appearing, No Pain Distress, Well-Nourished Vital Signs: Initial Vital Signs Temp 98.8 F 06/10/19 17:37 Pulse 89 06/10/19 17:37 Resp 18 06/10/19 17:37 BP 153/75 06/10/19 17:37 Pulse Ox 98 06/10/19 17:37 Vital Signs Reviewed: Yes Eye Exam: Normal Eyes: Positive: Conjunctiva Clear ENT Exam: Normal ENT: Positive: Normal ENT inspection, Hearing grossly normal, Pharynx normal, Nasal congestion, Nasal drainage, TMs normal, Sinus tenderness, Uvula midline. Negative: Tonsillar swelling, Tonsillar exudate, Trismus, Hoarse voice, Dental tenderness Dental Exam: Normal Neck exam: Normal Neck: Positive: Supple, Nontender, No Lymphadenopathy Respiratory Exam: Normal Respiratory: Positive: Chest non-tender, Lungs clear, Normal breath sounds, No respiratory distress, No accessory muscle use Cardiovascular Exam: Normal Cardiovascular: Positive: RRR, No Murmur, Pulses Normal, Brisk Capillary Refill Musculoskeletal Exam: Normal Musculoskeletal: Positive: Strength Intact, ROM Intact, No Edema Neurological Exam: Normal Neurological: Positive: Alert, Muscle Tone Normal Psychological Exam: Normal Skin Exam: Normal Diagnostics - Laboratory Lab Results: RST(-) Throat Pain/Nasal Course/Dx - Course Course Of Treatment: increase fluids, flonase nasal spray, zithromax foloww sinus c/o and bp with pcp - Differential Dx/Diagnosis Provider Diagnosis: Sinusitis, Hypertension Discharge ED - Sign-Out/Discharge Documenting (check all that apply): Patient Departure All imaging exams completed and their final reports reviewed: No Studies - Discharge Plan Condition: Stable Disposition: HOME Prescriptions: Azithromycin TAB* [Zithromax TAB (Z-BELL) 250 mg #6 tabs] 250 mg PO DAILY #4 tab Fluticasone NASAL SPRAY 50MCG* [Flonase NASAL SPRAY 50MCG*] 2 spray BOTH NARES DAILY #1 btl Patient Education Materials: Sinusitis (ED) Referrals: Haim Messer MD [Primary Care Provider] - 1 Week - Billing Disposition and Condition Condition: STABLE Disposition: Home
== END 2019-06-10 18:26 | disposition home or self-care (01) ==
LOC: UCEAST 17:27
DX: J32.9 Chronic sinusitis, unspecified (principal); I10 Essential (primary) hypertension; Z88.0 Allergy status to penicillin; Z88.2 Allergy status to sulfonamides; Z88.8 Allergy status to other drugs, medicaments and biological substances; Z88.1 Allergy status to other antibiotic agents; Z87.891 Personal history of nicotine dependence
CPT/HCPCS: 87651; 99212; A9270-GY; G0463

== ENCOUNTER 2019-08-27 16:26 | Inpatient (IN) | payer MEDICARE, BC ==
[2019-08-27] MEDS ORDERED: cefTRIAXone(*) 1 GM in NS 0.9% 50 ML* 50 ML IVPB ONE (17:24)
[2019-08-27] MEDS ORDERED: Acetaminophen TAB* 325 MG PO ONE (17:24)
[2019-08-27] MEDS ORDERED: NS 0.9% 1000 ML** 1,000 ML IV.FLUID IV ONE (17:25)
--- NOTE | 2019-08-27 17:31 | ED ---
HPI Febrile Illness - HPI Summary HPI Summary: This patient is a 69 year old F presenting to [facility] accompanied by with a chief complaint of disorientation since today 08/27/19 at 1130. Symptoms aggravated by nothing. Symptoms alleviated by nothing. Per pt had new onset of cough, CP(center) that happened since arrival to [facility]. Per , pt was brought to ER for unusual fidgety, disorientation, and fever. Denies runny nose, chills, erythema of eyes, sore throat, SOB, abdominal pain, N/V, dysuria, hematuria, myalgia, edema, rash, or dizziness. Pt has had trouble urinating in ER. - History of Current Complaint Chief Complaint: EDChestPainROMI Time Seen by Provider: 08/27/19 16:58 Hx Obtained From: Patient, Family/Lumber Loader - Hx Last Menstrual Period: partial Hysterectomy Onset/Duration: Started Hours Ago, Still Present Timing: Constant Current Severity: Mild Pain Intensity: 3 Pain Scale Used: 0-10 Numeric Aggravating Factors: Nothing Alleviating Factors: Nothing Associated Signs and Symptoms: Cough, Other: - disorientation, fever, CP, "fidgety"; Denies runny nose, chills, erythema of eyes, sore throat, SOB, abdominal pain, N/V, dysuria, hematuria, myalgia, edema, rash, or dizziness. - Additional Pertinent History Primary Care Physician: [id number] - Allergy/Home Medications Allergies/Adverse Reactions: Allergies Allergy/AdvReac Type Severity Reaction Status Date / Time amoxicillin Allergy Rash Verified 08/27/19 16:44 polyethylene glycol Allergy Headache Verified 08/27/19 16:44 Sulfa (Sulfonamide Allergy Rash Verified 08/27/19 16:44 Antibiotics) terconazole [From Terazol 3] Allergy Rash Verified 08/27/19 16:44 Home Medications: Home Medications Hemorrhoidal OINT* [Preparation H*] 1 applic TN BID PRN 08/27/19 [History Confirmed 08/27/19] Mirabegron (NF) [Myrbetriq (NF)] 25 mg PO DAILY 08/27/19 [History Confirmed ] Nystatin SUSPENSION* 500,000 units PO QID PRN 08/27/19 [History Confirmed ] Potassium Citrate [Urocit-K] 45 meq PO DAILY 08/27/19 [History Confirmed ] Venlafaxine EXT RELEASE CAP* [Effexor Xr CAP*] 75 mg PO TID 08/27/19 [History Confirmed 08/27/19] traZODone TAB* [Desyrel TAB*] 100 mg PO BEDTIME 08/27/19 [History Confirmed ] PMH/Surg Hx/FS Hx/Imm Hx Endocrine/Hematology History: Reports: Hx Anticoagulant Therapy - s/t DVT on plane, Hx Diabetes - TYPE 2, Hx Anemia Denies: Hx Thyroid Disease Cardiovascular History: Reports: Hx Deep Vein Thrombosis - on plane ride, was on coumadin, now on LD ASA, Hx Hypercholesterolemia, Hx Hypertension, Other Cardiovascular Problems/Disorders - heart murmur Respiratory History: Reports: Hx Asthma Denies: Hx Chronic Obstructive Pulmonary Disease (COPD) GI History: Reports: Hx Gastroesophageal Reflux Disease Denies: Hx Ulcer History: Reports: Hx Kidney Stones Musculoskeletal History: Reports: Hx Back Problems, Other Musculoskeletal History - multiple fx s/t falls Sensory History: Reports: Hx Contacts or Glasses Denies: Hx Hearing Aid Opthamlomology History: Reports: Hx Contacts or Glasses Neurological History: Reports: Hx Dementia - probably d/t depression, Hx Migraine Comment Only: Other Neuro Impairments/Disorders - PAIN CLINIC PT. Psychiatric History: Reports: Hx Anxiety, Hx Depression - mod to severe as of - Cancer History Hx Chemotherapy: No Hx Radiation Therapy: No - Surgical History Surgery Procedure, Year, and Place: PARTIAL HYSTERECTOMY. Inner stem device for bladder incontinence. Knee surgery [place]. [place]ph[place] ([place] ACDF (x2) , 20 years apart. Rt humerus UE after fall - Immunization History Date of Influenza Vaccine: MAY 2013 Infectious Disease History: No Infectious Disease History: Denies: Hx Clostridium Difficile, Hx Hepatitis, Hx Human Immunodeficiency Virus (HIV), Hx of Known/Suspected MRSA, Hx Shingles, Hx Tuberculosis, Hx Known/ Suspected VRE, Hx Known/Suspected VRSA, History Other Infectious Disease, Traveled Outside the [place] in Last 30 Days - Family History Known Family History: Positive: Cardiac Disease, Hypertension, Diabetes - Social History Alcohol Use: Daily Alcohol Amount: 1 drink/day Hx Substance Use: No Substance Use Type: Reports: None Hx Tobacco Use: Yes Smoking Status (MU): Former Smoker Review of Systems Positive: Fever. Negative: Chills Negative: Erythema Positive: Other - denies runny nose. Negative: Sore Throat Positive: Chest Pain Positive: Cough. Negative: Shortness Of Breath Negative: Abdominal Pain, Vomiting, Nausea Negative: dysuria, hematuria Negative: Myalgia, Edema Negative: Rash Neurological: Other - disorientation, "fidgety"; denies dizziness All Other Systems Reviewed And Are Negative: Yes Physical Exam - Summary Physical Exam Summary: Constitutional: Well-developed, Well-nourished, Alert. febrile, rigoring Skin: Warm, Dry HENT: Normocephalic; Atraumatic Eyes: Conjunctiva normal Neck: Musculoskeletal ROM normal neck. (-) JVD, (-) Stridor, (-) Tracheal deviation Cardio: Rhythm regular, rate normal, Heart sounds normal; Intact distal pulses; The pedal pulses are 2+ and symmetric. Radial pulses are 2+ and symmetric. (-) Murmur Pulmonary/Chest wall: Effort normal. (-) Respiratory distress, (-) Wheezes, (-) Rales Abd: suprapubic tenderness, (-) Distension, (-) Guarding, (-) Rebound Musculoskeletal: (-) Edema Lymph: (-) Cervical adenopathy Neuro: Alert, Oriented x3 Psych: Mood and affect Normal Triage Information Reviewed: Yes Vital Signs On Initial Exam: Initial Vitals Temp Pulse Resp BP Pulse Ox 101.9 F 149 26 175/123 96 08/27/19 16:29 08/27/19 16:29 08/27/19 16:29 08/27/19 16:29 08/27/19 16:29 Vital Signs Reviewed: Yes Procedures - Sedation Patient Received Moderate/Deep Sedation with Procedure: No Diagnostics - Vital Signs Vital Signs Temp Pulse Resp BP Pulse Ox 08/27/19 16:29 101.9 F 149 26 175/123 96 - Laboratory Result Diagrams: 08/27/19 17:00 08/27/19 17:00 Lab Statement: Any lab studies that have been ordered have been reviewed, and results considered in the medical decision making process. - Radiology Chest X-Ray Radiology Interpretation Completed By: Radiologist Summary of Radiographic Findings: Per radiologist,. A 7.3 cm density in the right upper lung zone should BE further characterized by chest CT. ED physician has reviewed this imaging report. - EKG 1654 Cardiac Rate: NL - 140 BPM Summary of EKG Findings: An EKG taken at 165 reveals atrial fibrillation at 140 BPM. Course/Dx - Course Assessment/Plan: This patient is a 69 year old F presenting to [facility] accompanied by with a chief complaint of disorientation since today at 1130. Per pt had new onset of cough, CP(center) that happened since arrival to [facility]. Per , pt was brought to ER for unusual fidgety , disorientation, and fever. Denies runny nose, chills, erythema of eyes, sore throat, SOB, abdominal pain, N/V, dysuria, hematuria, myalgia, edema, rash, or dizziness. Physical Exam Findings reveal no abnormalities except for febrile, rigoring, suprapubic tenderness. An EKG taken at 165 reveals atrial fibrillation at 140 BPM. CXR reveals A 7.3 cm density in the right upper lung zone should BE further characterized by chest CT. ED physician has reviewed this radiology report and agrees. Test results with no significant abnormalities expect for WBC 11.2 H, Plt Count 97 L, Absolute Neuts 10.3 H, Absolute Lymphs 0.4 L, INR 1.33 H, Potassium 3.1 L, BUN 5 , BUN/Creatinine Ratio 6.9 L, Glucose 198 H, Alkaline Phosphatase 137 H, Troponin I 0.03 H, Ur Specific [place] 1.009 L. In the ED course the patient was given 975 mg Acetaminophen PO, 100 mls/hr Ceftriaxone Sodium 1 gm in Sodium Chloride, 1,[address] Clemente signs out pt to Dr. Marinelli at 08/27/19 1900 with dx sepsis and lung mass pending CT. - Diagnoses Provider Diagnoses: Sepsis, Lung mass Discharge ED - Sign-Out/Discharge Documenting (check all that apply): Sign-Out Patient Signing out patient TO: Melissa Marinelli Receiving patient FROM: Leonel Clemente - Discharge Plan Referrals: Haim Messer MD [Primary Care Provider] - - Attestation Statements Document Initiated by Scribe: Yes Documenting Scribe: Flavia Greenberg Provider For Whom Jeetibe is Documenting (Include Credential): Dr. Leonel Clemente MD Scribe Attestation: Flavia Hernandez, scribed for Dr. Leonel Clemente MD on 08/27/19 at 1918. Status of Scribe Document: Ready
--- OUTSIDE RECORDS SUMMARY | 2019-08-27 17:35 | XMS REPORT | Continuity of Care Document ---
:1950 External Reference #:[id number] Author Name Cassius Giron M.D. 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 Onset: 04/18/2017 Moderate recurrent major depression Cassius Giron M.D. Onset: 04/18/2017 Generalized anxiety disorder Cassius Giron M.D. Onset: 04/18/2017 Chronic fatigue syndrome Cassius Giron M.D. Onset: 05/19/2017 Displaced transverse fracture of left Bakari Hernandez MD Onset: 2016 patella, subsequent encounter for closed fracture with routine healing Malaise and fatigue Cassius Giron M.D. Onset: 07/24/2019 Mild cognitive disorder Cassius Giron M.D. Onset: 07/24/2019 Social History Type Date Description Comments Sex Unknown Tobacco Use Start: Unknown End: Former Cigarette Smoker Smoked 1PPD for 30 Unknown years Smoking Status Reviewed: 07/24/19 Former Cigarette Smoker Smoked 1PPD for 30 [...] Medications SIG Qnty Indications Ordering Provider Date Medrol take as directed 21tabs M54.2 Bakari Levine 07/08/2019 4mg Tablets per dosepak MD David instructions Venlafaxine HCL 1 tab by mouth Cassius Giron, 12/26/2018 75mg twice daily with M.D. Tablets an additional 1 in the afternoon as needed Cetirizine HCL 1 by mouth every Unknown 09/12/2018 10mg day as needed Chewtabs Cyclobenzaprine HCL 1 tab every 8 20tabs Bakari Levine 05/04/2018 5mg hours as needed MD David Tablets for muscle spasm Cane one cane re: s/p l 1units S82.032D Bakari Levine 08/18/2017 Misc patellar fracture MD David Steroid Injection done at hospital Unknown Myrbetriq Take 1 Tablet By Unknown 25mg Tablets Mouth Every Day ER 24HR Vitamin D High 1 by mouth every Unknown Potency day 1000Unit Capsules Benadryl Allergy 1 cap daily prn by Unknown 25mg mouth Capsules Gabapentin 1 by mouth twice Unknown 300mg daily Capsules Calcium 1 tab by mouth Unknown once daily Aspir-81 1 tab by mouth Unknown every morning Clobetasol Propionate topical every day Unknown as needed 0.05% Ointment Pantoprazole Sodium 1 by mouth twice Unknown daily 40mg Tablets DR Sertraline HCL 1 by mouth every Unknown 100mg day Tablets Simvastatin take one tablet by Unknown 40mg mouth at bedtime Tablets Potassium Citrate ER 2 tabs by mouth in Unknown the morning and 1 10Meq (1080 mg) tab in the evening Tablets ER Januvia 1 by mouth every Unknown 100mg Tablets day Ferrous Sulfate 1 by mouth every Unknown 325mg day Tablets Trazodone HCL 1 by mouth every Unknown 100mg night at bedtime Tablets Sucralfate 1 by mouth two Unknown 1gm Tablets times a day Welchol 1 by mouth twice Unknown 625mg Tablets daily Vitamin B12 1 by mouth every Unknown 1000 day Tablets Medications Administered in Office Medication SIG Qnty Indications Ordering Provider Date Depomedrol 40MG Bakari Hernandez MD 12/26/2018 Injection Depomedrol 40MG Bakari Hernandez MD 11/02/2018 Injection Depomedrol 40MG Bakari Hernandez MD 02/27/2018 Injection Immunizations Description No Information Available Vital Signs Date Vital Result Comment 07/24/2019 10:37am Height 64 inches 5'4" Weight 137.00 lb Heart Rate 72 /min BP Systolic Sitting 140 mmHg BP Diastolic Sitting 90 mmHg Respiratory Rate 18 /min BMI (Body Mass Index) 23.5 kg/m2 07/03/2019 8:41am Height 64 inches 5'4" Weight 138.00 lb Heart Rate 70 /min BP Systolic 146 mmHg BP Diastolic 82 mmHg Respiratory Rate 12 /min Pain Level 6 BMI (Body Mass Index) 23.7 kg/m2 Results Test Acquired Date Facility Test Result H/L Range Note Laboratory test 02/02/2019 [facility] Blood Urea 6 mg/dL Normal 6-[address] [place] [address] [phone] Creatinine 02/02/2019 [facility] Creatinine 0.84 mg/dL Normal 0.51-0.[address] [place] [address] [phone] Egfr Non- 67.0 >60 Egfr 81.1 >60 [...] 5 Kidney failure <15 (or dialysis) Procedures Description No Information Available Medical Devices Description No Information Available Encounters Type Date Location Provider Dx Diagnosis Office Visit 07/24/2019 [facility] Cassius Giron, G31.84 Mild cognitive 10:30a [facility] impairment, so stated F41.1 Generalized anxiety disorder R53.1 Weakness F33.1 Major depressive disorder, recurrent, moderate R53.82 Chronic fatigue, unspecified Office Visit 07/03/2019 8:30a [facility] Bakari Levine M75.52 Bursitis of at Hannah Hernandez MD left shoulder M75.42 Impingement syndrome of left shoulder S42.125K Nondisp fx of acromial pro, l shldr, subs for fx w nonunion M54.2 Cervicalgia Office 05/04/2019 [facility] M47.22 Other spondylosis Visit 1:30p [facility] MD with radiculopathy, cervical region G62.9 Polyneuropathy, unspecified M40.202 Unspecified kyphosis, cervical region Office Visit 03/05/2019 2:30p [facility] M75.52 Bursitis of at Hannah Hernandez MD left shoulder M75.42 Impingement syndrome of left shoulder S42.125K Nondisp fx of acromial pro, l shldr, subs for fx w nonunion Office Visit 01/29/2019 1:45p [facility] Bakari Levine M75.52 Bursitis of at Hannah Hernandez MD left shoulder M75.42 Impingement syndrome of left shoulder M75.51 Bursitis of right shoulder Assessments Date Code Description Provider 07/24/2019 G31.84 Mild cognitive impairment, so stated Cassius Giron M.D. 07/24/2019 F41.1 Generalized anxiety disorder Cassius Giron M.D. 07/24/2019 R53.1 Weakness Cassius Giron M.D. 07/24/2019 F33.1 Major depressive disorder, recurrent, Cassius Giron M.D. moderate 07/24/2019 R53.82 Chronic fatigue, unspecified Cassius Giron M.D. 07/03/2019 M75.52 Bursitis of left shoulder Bakari Hernandez MD 07/03/2019 M75.42 Impingement syndrome of left shoulder Bakari Hernandez MD 07/03/2019 S42.125K Nondisplaced fracture of acromial Bakari Hernandez MD process, left shoulder, subsequent encounter for fracture with nonunion 07/03/2019 M54.2 Cervicalgia Bakari Hernandez MD 05/04/2019 M47.22 Other spondylosis with radiculopathy, Michael [...] Bursitis of right shoulder Bakari Hernandez MD Plan of Treatment Future Appointment(s):09/10/2019 2:00 pm - Bakari Hernandez MD at [facility] at Jncekg8307/24/2019 - Cassius Giron M.D.G31.84 Mild cognitive impairment, so statedNew Orders:Neuropsychological Testing, Ordered: Referral:David Vaughn, PHD, Clinical NeuropsychologstFollow up:Follow up after neurocognitive testingRecommendations:Call me in one week to review the MRI results Call me after the neurocognitive aosgdiyH54.1 Generalized anxiety slgukylaS99.1 DeyxuomlU30.1 Major depressive disorder, recurrent, zcbfevqxG68.82 Chronic fatigue, unspecified Functional Status Description No Information Available Mental Status Description No Information Available Referrals Refer to Dr Reason for Referral Status Appt Date David Vaughn, PHD Created [address] [address] [phone]
--- OUTSIDE RECORDS SUMMARY | 2019-08-27 17:35 | XMS REPORT | Continuity of Care Document ---
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 Diabetes & Metabolism Problems Active Problems Provider [...] for 30 Unknown years Smoking Status Reviewed: 07/03/19 Former Cigarette Smoker Smoked 1PPD for 30 [...] cane re: s/p 1units S82.032D Bakari 08/18/2017 [facility] l walter Hernandez MD fracture Voltaren apply [...] Available Vital Signs Date Vital Result Comment 07/03/2019 8:41am Height 64 inches 5'4" Weight 138.00 lb Heart Rate 70 /min BP Systolic 146 mmHg BP Diastolic 82 mmHg Respiratory Rate 12 /min Pain Level 6 BMI (Body Mass Index) 23.7 kg/m2 05/04/2019 1:37pm Height 64 inches 5'4" Weight 138.00 lb BP Systolic 122 mmHg BP Diastolic 80 mmHg Pain Level 6 BMI (Body Mass Index) 23.7 kg/m2 Results Test Date Facility Test Result H/L Range Note Laboratory test [facility] Blood Urea 6 mg/dL Normal 6-24 finding [address] [place] [address] [phone] Creatinine [facility] Creatinine 0.84 mg/dL Normal 0.51-0.[address] [place] [address] [phone] Egfr Non- 67.0 >60 Egfr 81.1 >60 [...] Date Location Provider Dx Diagnosis Office Visit 05/04/2019 [facility] M47.22 Other spondylosis 1:30p [facility] MD with radiculopathy, cervical region G62.9 Polyneuropathy, unspecified M40.202 Unspecified kyphosis, cervical region Office Visit 03/05/2019 2:30p [facility] Bakari Levine M75.52 Bursitis of at Hannah Hernandez MD left shoulder M75.42 Impingement syndrome of left shoulder S42.125K Nondisp fx of acromial pro, l shldr, subs for fx w nonunion Office Visit 01/29/2019 1:45p [facility] Bakari Levine M75.52 Bursitis of at Hannah Hernandez MD left shoulder M75.42 Impingement syndrome of left shoulder M75.51 Bursitis of right shoulder Assessments Date Code Description Provider 07/03/2019 M75.52 Bursitis of left shoulder Bakari Hernandez MD 07/03/2019 M75.42 Impingement syndrome of left shoulder Bakari Hernandez MD 07/03/2019 S42.125K Nondisplaced fracture of acromial Bakari Hernandez MD process, left shoulder, subsequent encounter for fracture with nonunion 07/03/2019 M75.51 Bursitis of right shoulder Bakari Hernandez MD 05/04/2019 M47.22 Other spondylosis with radiculopathy, Michael Fields MD cervical region 05/04/2019 G62.9 Polyneuropathy, unspecified Michael Fields MD 05/04/2019 M40.202 Unspecified kyphosis, cervical region Michael Fields MD 03/05/2019 M75.52 Bursitis of left shoulder Bakari Hernandez MD 03/05/2019 M75.42 Impingement syndrome of left shoulder Bakari Hernandez MD 03/05/2019 S42.125K Nondisp fx of acromial pro l shldr, Bakari Hernandez MD subs for fx w nonunion 01/29/2019 M75.52 Bursitis of left shoulder Bakari Hernandez MD 01/29/2019 M75.42 Impingement syndrome of left shoulder Bakari Hernandez MD 01/29/2019 M75.51 Bursitis of right shoulder Bakari Hernandez MD Plan of Treatment Future Appointment(s):09/10/2019 2:00 pm - Bakari Hernandez MD at [facility] at Ldvmor0907/24/2019 10:30 am - Cassius Giron M.D. at [facility]07/03/2019 - Bakari Hernandez, MDM75.52 Bursitis of left shoulderNew Therapy:Physical TherapyFollow up:Follow up: as sibhizG28.42 Impingement syndrome of left bhwllgwiO62.125K Nondisplaced fracture of acromial process, left shoulder, subsequent encounter for fracturewith mnrirjicI23.51 Bursitis of right shoulder Functional Status Description No Information Available Mental Status Description No Information Available Referrals Refer to Dr Reason for Referral Status Appt Date Cassius Giron M.D. Sent 07/24/2019 [address] [place] [address] [phone]
[2019-08-27 17:47] LABS: Hematocrit 35 % (35-47); Mean Corpuscular HGB Conc 34 g/dL (31-36); Mean Corpuscular Hemoglobin 31 pg (27-31); Mean Corpuscular Volume 90 fL (80-97); Red Blood Count 3.92 10^6 /uL (3.70-4.87); Red Cell Distribution Width 14 % (10-15); White Blood Count 11.2 10^3/uL (3.5-10.8)
[2019-08-27 17:48] LABS: Urine Appearance Clear; Urine Bilirubin Negative (Negative); Urine Blood Negative (Negative); Urine Color Straw; Urine Glucose Negative (Negative); Urine Ketones Negative (Negative); Urine Nitrite Negative (Negative); Urine Protein Negative (Negative); Urine Specific Gravity 1.009 (1.010-1.030); Urine Urobilinogen Negative (Negative)
[2019-08-27 17:55] LABS: Activated Partial Thrombo Time 34.3 seconds (26.0-38.0); INR 1.33 (0.82-1.09)
[2019-08-27 18:05] LABS: ABS Eosinophils 0.1 10^3/ul (0-0.6); ABS Lymphocytes 0.4 10^3/ul (1.0-4.8); ABS Monocytes 0.3 10^3/ul (0-0.8); ABS Neutrophils 10.3 10^3/ul (1.5-7.7); Lymphocyte % 3.9 %; Nucleated Red Blood Cells % 0.1; Platelet Count 97 10^3/uL (150-450)
[2019-08-27 18:09] LABS: ALT 15 U/L (7-52); AST 35 U/L (13-39); Albumin 3.4 g/dL (3.2-5.2); Albumin/Globulin Ratio 1.1 (1-3); Alkaline Phosphatase 137 U/L (34-104); Anion Gap 8 mmol/L (2-11); BUN/Creatinine Ratio 6.9 (8-20); Blood Urea Nitrogen 5 mg/dL (6-24); CO2 Carbon Dioxide 27 mmol/L (22-32); Calcium 8.9 mg/dL (8.6-10.3); Chloride 102 mmol/L (101-111); EGFR African American 96.6 (>60); EGFR Non-African American 79.9 (>60); Globulin 3.2 g/dL (2-4); Glucose 198 mg/dL (70-100); Potassium 3.1 mmol/L (3.5-5.0); Sodium 137 mmol/L (135-145); Total Protein 6.6 g/dL (6.4-8.9)
[2019-08-27 18:14] LABS: Troponin I 0.03 ng/mL (<0.03)
[2019-08-27 18:17] LABS: Influenza A Molecular NEGATIVE (Negative); Influenza B Molecular NEGATIVE (Negative)
[2019-08-27] MEDS ORDERED: Iodixanol* (CONTRAST) 320 MG/ML 100 ML SDV IV ONE (19:03)
--- NOTE | 2019-08-27 19:17 | ED ---
Progress - Progress Note Progress Note: Patient signed out from Dr. Hernandez upon shift change 08/27/19 19:[address] and pending disposition. Chest CT per radiologist: 1. Lobulated 5.6 x 4.8 x 4.6 cm mass now present in the anterior aspect of the right lung apex, corresponding to location of previous small cavitary lesion. Primary differential considerations include infectious and malignant entities. Recommend correlation with tissue sampling and/or PET-CT. 2. New foci of ground-glass and consolidative density in the left upper lobe suggesting additional areas of involvement. 3. Mildly enlarged lower right paratracheal lymph nodes, increased since prior. 4. Mild cardiomegaly. Coronary artery disease. 5. Moderate compression deformity at L1, unchanged. 6. Other nonemergent findings as above. ED physician has reviewed this report. Re-Evaluation - Re-Evaluation First Eval Re-Evaluation Time: 20:30 Change: Unchanged Comment: patient is still febrile. ordered ibuprofen 400 mg PO. blood work shows that patient is hypokalemic. ordered potassium Course/Dx - Course Course Of Treatment: Patient remains febrile in ED for which she was given ibuprofen. Patient is also hypokalemic for which she was given potassium. - Diagnoses Provider Diagnoses: Sepsis, Lung mass, Hypokalemia, Elevated troponin - Provider Notifications Discussed Care Of Patient With: Tavon Chao Time Discussed With Above Provider: 20:58 Instructed by Provider To: Admit As Inpatient Discharge ED - Sign-Out/Discharge Documenting (check all that apply): Patient Departure - Discharge Plan Condition: Fair Disposition: ADMITTED TO [facility] Referrals: Haim Messer MD [Primary Care Provider] - - Billing Disposition and Condition Condition: FAIR Disposition: Admitted to [facility] - Attestation Statements Document Initiated by Jeetibe: Yes Documenting Scribe: Kellie Carais Provider For Whom Ghassan is Documenting (Include Credential): Melissa Marinelli MD Scribe Attestation: Kellie Hernandez, scribed for Melissa Marinelli MD on 08/27/19 at 2113. Scribe Documentation Reviewed: Yes Provider Attestation: The documentation as recorded by the Kellie lin accurately reflects the service I personally performed and the decisions made by me, Melissa Marinelli MD Status of Scribe Document: Viewed
[2019-08-27] MEDS ORDERED: Ibuprofen TAB* 400 MG PO ONE (20:32)
[2019-08-27 20:49] LABS: Troponin I 0.05 ng/mL (<0.03)
[2019-08-27] MEDS ORDERED: KCL 10 MEQ/50 ML IVPREMIX* 10 MEQ/50 ML BAG IV ONE (20:56)
[2019-08-27] MEDS ORDERED: CMCS: Saliva Substitute (NF) 1 SPRAY BTL MT PRN (21:20)
[2019-08-27] MEDS ORDERED: Nystatin SUSPENSION* 100000 UNITS/ML 5 ML UDC PO PRN (21:20)
[2019-08-27 21:54] LABS: Magnesium 1.2 mg/dL (1.9-2.7)
[2019-08-27] MEDS ORDERED: Vancomycin(*) 1,000 MG in NS 0.9% 250 ML* 250 ML IVPB ONE (22:00)
[2019-08-27] MEDS ORDERED: Vancomycin per Pharmacy* NOTE FOLLOW UP SCH (22:00)
[2019-08-27] MEDS ORDERED: NS 0.9% 250 ML* 250 ML ONE (22:07)
[2019-08-27] MEDS ORDERED: Magnesium Sulfate 2 GM IV* 2 GM/50 ML BAG IVPB ONE (22:15)
[2019-08-27] MEDS ORDERED: Potassium Chlor TAB* 20 MEQ TAB.ER PO ONE (22:23)
[2019-08-27] MEDS ORDERED: NS 0.9% w/ 20 Meq KCL 1000 ML* 1,000 ML IV SCH (23:00)
[2019-08-28] MEDS: Enoxaparin(*) 40 MG/0.4 ML SYR SUBCUT SCH ×2 (00:14→21:00)
[2019-08-28] MEDS: Magnesium Oxide TAB* 400 MG PO SCH ×3 (00:14→21:02)
[2019-08-28 00:15] LABS: Troponin I 0.06 ng/mL (<0.03)
[2019-08-28] MEDS ORDERED: Dextrose 50% VIAL 50 ml IV PUSH PRN (00:30)
[2019-08-28] MEDS: DOXYcycline IV* 100 MG in NS 0.9% 250 ML* 250 ML IVPB SCH ×3 (00:45→22:11)
[2019-08-28 02:24] LABS: Troponin I 0.05 ng/mL (<0.03)
[2019-08-28] MEDS: Acetaminophen TAB* 325 MG PO PRN ×3 (03:53→13:55)
[2019-08-28] MEDS: traMADol TAB* 50 MG PO PRN ×3 (05:59→21:01)
--- NOTE | 2019-08-28 06:12 | HP ---
CC: Dr. Messer * ADMISSION HISTORY AND PHYSICAL: DATE OF ADMISSION: 08/27/19 CHIEF COMPLAINT: Confusion. HISTORY OF PRESENT ILLNESS: Ms. Rodríguez is a 69-year-old woman with history of a lung abscess, who presents to the emergency department today with her family. The family is concerned that she has increasing disorientation since around noon today. They have also noticed a cough and some chest pain was noted this evening. The cough is nonproductive and the chest pain is without any radiation. The family is also concerned that the patient has fevers at home, but they could not find their thermometer. The patient herself reports that she felt unsteady getting out of bed this morning. She was nauseated all day, but had no vomiting. Review of the medical history shows that she was admitted to this hospital from 07/03/18 to 07/14/18. During the hospital stay, she was treated for necrotizing lung abscess and this was treated with inpatient meropenem and then discharged on IV cefepime to [facility]. The family reports that after this hospital stay, she has been quite healthy for the last year. PAST MEDICAL HISTORY: Includes type 2 diabetes, hypertension, hyperlipidemia, depression, GERD, history of DVT, neurocognitive impairment/dementia, asthma, mild aortic stenosis and aortic insufficiency, anemia, thrombocytopenia, diabetes that was complicated by retinopathy and neuropathy. PAST SURGICAL HISTORY: She has had sinus surgery, stimulator implanted for overactive bladder, C-spine fusion, left knee ORIF. MEDICATIONS: On admission are: 1. Aspirin 81 mg p.o. daily. 2. WelChol 625 mg daily. 3. Vitamin B12 of 1000 mcg p.o. daily. 4. Cyclobenzaprine 5 mg p.o. t.i.d. p.r.n. spasm. 5. Iron sulfate 325 mg p.o. daily. 6. Gabapentin 600 mg p.o. nightly. 7. Preparation H as needed. 8. Myrbetriq 25 mg p.o. daily. 9. Nystatin suspension 500,000 units by mouth 4 times a day as needed. 10. Pantoprazole 40 mg p.o. b.i.d. 11. Potassium citrate 45 mEq p.o. daily. 12. Sertraline 50 mg p.o. nightly. 13. Simvastatin 40 mg p.o. q.p.m. 14. Januvia 100 mg p.o. daily. 15. Sucralfate 1 g p.o. b.i.d. 16. Tramadol 25 mg p.o. q.6 hours p.r.n. pain. 17. Trazodone 100 mg p.o. nightly. 18. Venlafaxine XR 75 mg p.o. t.i.d. 19. Acetaminophen as needed. 20. Flonase nasal spray 2 sprays both nostrils daily. 21. Biotene saliva substitute 1 spray in mouth q.4 hours p.r.n. dry mouth. ALLERGIES: AMOXICILLIN, POLYETHYLENE GLYCOL, SULFA, TERCONAZOLE. FAMILY HISTORY: Notable for father and 3 brothers who have Marfan syndrome. Mother of complications to COPD. 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 She is . She has 2 children. She quit tobacco 10 years ago. She drinks alcohol about 1 drink per day. No recreational drugs. REVIEW OF SYSTEMS: The patient denies any anorexia or weight loss. The patient denies any chest pain or palpitations. The patient denies any hemoptysis or shortness of breath. The patient denies any diarrhea or abdominal pain. She does report constipation. On her skin, she has some precancerous lesions on her chest and back. Dr. Boogie is planning on doing incisional biopsy. Remainder of 14- point review of systems is negative other than mentioned in the HPI. PHYSICAL EXAMINATION GENERAL: She is an elderly woman, in no acute distress. VITAL SIGNS: Temperature is 39.7, pulse 121 to 126, respirations 28, blood pressure 130/67, O2 sat is 89 to 93%. HEENT: Head is normocephalic and atraumatic. Sclerae anicteric. Pupils are equal, round, and reactive to light and accommodation. Oropharynx: She is edentulous in the upper and has 4 teeth in the lower. Her mouth is dry. NECK: No adenopathy. No carotid bruit. No thyromegaly. LUNGS: Clear to auscultation and percussion bilaterally. HEART: There is a 2/6 high-pitched systolic murmur in the left upper sternal border. ABDOMEN: Soft. Nontender. Positive bowel sounds. No hepatosplenomegaly. EXTREMITIES: No peripheral edema. Dorsalis pedis pulses 1+ bilaterally. NEUROLOGIC: Cranial nerves II through XII are intact. Motor strength is 5/5 throughout. Deep tendon reflexes are symmetric. PSYCH: She is alert and oriented x3. DIAGNOSTIC STUDIES/LAB DATA: Laboratory Data: Sodium 137, potassium 3.1, chloride 102, bicarb 27, BUN 5, creatinine 0.72, glucose 198, calcium 8.9, INR 1.33, PTT 34.3, lactic acid 1.7. AST of 35, ALT 15. White count is 11.2, hemoglobin 12.0, hematocrit 35%, platelets are 97. Troponin was 0.03 and elena to 0.05 on repeat. Influenza nasal swab was negative. Urinalysis was normal except for a specific gravity of 1.009. EKG shows sinus tachycardia at a rate of 140. Chest x-ray shows a right upper lobe density. Chest CT shows a 5 x 4.5 cm mass in the apex of the right lung. There is a right paratracheal nerve which is enlarged and a left upper lobe ground-glass appearing infiltrate. ASSESSMENT AND PLAN: A 69-year-old woman with a history of lung abscess presenting with sepsis. The apparent source of sepsis is a lung lesion, which could be a cavitating abscess versus a neoplasm with some postobstructive pneumonia. Other sources actually could include endocarditis. The patient will be admitted to the hospital and after her initial 30 mL/kg infusion, she will have to continue the IV fluids to bring her heart rate down. We will treat her with ceftriaxone, vancomycin, and doxycycline to cover typical Haemophilus influenzae, strep pneumoniae as well as MRSA, which could cause a lung abscess and doxycycline to cover atypicals and double cover MRSA. The patient will need a pulmonology consultation and probable bronchoscopy. The patient has hypokalemia and hypomagnesemia, supplement this orally and IV and recheck in the morning. Code status is full, but the patient would not allow long-term dependent from the ventilator. DVT prophylaxis, she will use sequential compression devices and subcutaneous Lovenox as long as her platelets stay around 100. [id number]/[facility] #: [id number] [facility]
[2019-08-28 06:29] LABS: ABS Eosinophils 0.1 10^3/ul (0-0.6); ABS Lymphocytes 1.2 10^3/ul (1.0-4.8); ABS Monocytes 0.7 10^3/ul (0-0.8); ABS Neutrophils 11.6 10^3/ul (1.5-7.7); Hematocrit 31 % (35-47); Hemoglobin 10.4 g/dL (12.0-16.0); Lymphocyte % 8.5 %; Mean Corpuscular HGB Conc 34 g/dL (31-36); Mean Corpuscular Hemoglobin 31 pg (27-31); Mean Corpuscular Volume 90 fL (80-97); Mean Platelet Volume 8.3 fL (7.4-10.4); Platelet Count 69 10^3/uL (150-450); Red Blood Count 3.42 10^6 /uL (3.70-4.87); Red Cell Distribution Width 14 % (10-15); White Blood Count 13.6 10^3/uL (3.5-10.8)
[2019-08-28 06:47] LABS: Troponin I 0.05 ng/mL (<0.03)
[2019-08-28 07:02] LABS: C Reactive Protein 50.42 mg/L (<8.01); Calcium 7.8 mg/dL (8.6-10.3); EGFR African American 92.2 (>60); EGFR Non-African American 76.2 (>60); Magnesium 1.7 mg/dL (1.9-2.7); Potassium 3.2 mmol/L (3.5-5.0)
[2019-08-28] MEDS ORDERED: Sucralfate TAB* 1 GM PO SCH (08:00)
--- NOTE | 2019-08-28 08:39 | PN ---
Subjective - Subjective Reason for Note: Progress Note History: Selma Rodríguez is a primary care patient at my medical office. 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 She has a history of an admission in June 2018 with a right upper lobe pneumonia that turned into lung abscess. Her current presentation, according to the patient, was a sudden onset yesterday morning of cough, chills and shakes and altered mental state. This morning she is alert and oriented x 3. She has some upper chest pain and has a non-productive cough. She denies dyspnea. She has a good appetite. I note she has a Isbell catheter. On direct questioning - she has a headache, but no neck stiffness. Active Problems: Active Problems History of lung abscess (Acute) Z87.09 Lung mass (Acute) R91.8 Pneumonia (Acute) J18.9 Asthma (Chronic) J45.909 Chronic pain syndrome (Chronic) G89.4 Depression (Chronic) F32.9 GERD (gastroesophageal reflux disease) (Chronic) K21.9 History of DVT (deep vein thrombosis) (Chronic) Z86.718 History of falling (Chronic) Z91.81 History of renal calculi (Chronic) Z87.442 Memory impairment (Chronic) R41.3 Osteoporosis (Chronic) M81.0 Peripheral neuropathy (Chronic) G62.9 Sleep apnea (Chronic) G47.30 Type 2 diabetes mellitus (Chronic) Current Medications: Current Medications Acetaminophen (Tylenol Tab*) 650 mg PO Q4H PRN PRN Reason: FEVER/PAIN Last Admin: 08/28/19 03:53 Dose: 650 mg Aspirin (Aspirin 81 Mg Chew Tab*) 81 mg PO DAILY [facility] Atorvastatin Calcium (Lipitor*) 20 mg PO 1700 [facility] Cyanocobalamin (Vitamin B12 Tab*) 1,000 mcg PO DAILY [facility] Dextrose (Dextrose 50% Vial 50 Ml*) 25 ml IV PUSH .FOR FS < 60 - SS PRN PRN Reason: FS < 60 Enoxaparin Sodium (Lovenox(*)) 40 mg SUBCUT Q24H [facility] Last Admin: 08/28/19 00:14 Dose: 40 mg Ferrous Sulfate (Ferrous Sulfate Tab*) 325 mg PO DAILY [facility] Gabapentin (Neurontin Cap(*)) 600 mg PO BEDTIME [facility] Doxycycline Hyclate 100 mg/ (Sodium Chloride) 250 mls @ 250 mls/hr IVPB Q12H [facility] Last Admin: 08/28/19 00:45 Dose: 250 mls/hr Potassium Chloride/Sodium Chloride (Ns 0.9% W/ 20 Meq Kcl 1000 Ml*) 1,000 mls @ 150 mls/hr IV PER RATE [facility] Vancomycin HCl 1,000 mg/ (Sodium Chloride) 250 mls @ 166.667 mls/hr IV Q12H [facility] Insulin Human Lispro (Humalog*) 0 units SUBCUT ACHS [facility]; Protocol Magnesium Oxide (Magox 400 Tab*) 400 mg PO BID [facility] Last Admin: 08/28/19 00:14 Dose: 400 mg Mirabegron (Myrbetriq (Nf)) 25 mg PO DAILY [facility] Nystatin (Nystatin Suspension*) 500,000 units PO QID PRN PRN Reason: PER PROTOCOL Pantoprazole Sodium (Protonix Tab*) 40 mg PO BID [facility] Pharmacy Consult (Vancomycin Per Pharmacy*) 1 note FOLLOW UP .VANC PER PHARMACY [facility]; Protocol Pharmacy Profile Note (Vancomycin Trough Check) 1 note FOLLOW UP 1030 ONE Stop: 08/29/19 10:31 Potassium Chloride (Klor Con Er Tab*) 20 meq PO DAILY [facility] Saliva Substitute (Biotene Moisturizing Mouth (Nf)) 1 spray MT Q4H PRN; Protocol PRN Reason: dry mouth Sertraline HCl (Zoloft*) 50 mg PO BEDTIME [facility] Sucralfate (Carafate*) 1 gm PO BID WITH MEALS [facility] Tramadol HCl (Ultram*) 25 mg PO Q6HR PRN PRN Reason: PAIN - MILD Last Admin: 08/28/19 05:59 Dose: 25 mg Trazodone HCl (Desyrel Tab*) 100 mg PO BEDTIME [facility] Venlafaxine HCl (Effexor Xr Cap*) 75 mg PO TID [facility] Home Medications: Home Medications Medication Instructions Recorded Confirmed Type Simvastatin TAB(NF) [Zocor 20 MG 40 mg PO 1700 06/15/13 08/27/19 History (NF)] Sucralfate TAB* [Carafate*] 1 gm PO BID 06/15/13 08/27/19 History Aspirin 81 mg CHEW TAB* 1 tab PO DAILY 08/04/16 08/27/19 History Ferrous Sulfate TAB* 325 mg PO DAILY 08/04/16 08/27/19 History Sertraline* [Zoloft*] 50 mg PO BEDTIME 08/04/16 08/27/19 History Cyanocobalamin TAB* [Vitamin B12 1,000 mcg PO DAILY 02/08/17 08/27/19 History TAB*] Colesevelam(NF) [Welchol(NF)] 625 mg PO DAILY 02/08/18 08/27/19 History Pantoprazole TAB * [Protonix TAB*] 40 mg PO BID 02/08/18 08/27/19 History SitaGLIPtin (NF) [Januvia (NF)] 100 mg PO DAILY 02/08/18 08/27/19 History Acetaminophen TAB* [Tylenol TAB*] 650 mg PO Q4H PRN tab 07/14/18 08/27/19 Rx Saliva Substitute (NF) [Biotene 1 spray MT Q4H PRN btl 07/14/18 08/27/19 Rx Moisturizing Mouth (NF)] Cyclobenzaprine (NF) 5 mg PO TID PRN 12/20/18 08/27/19 History [Cyclobenzaprine 5 MG (NF)] Gabapentin CAP(*) [Neurontin 300 600 mg PO BEDTIME 12/20/18 08/27/19 History CAP(*)] Fluticasone NASAL SPRAY 50MCG* 2 spray BOTH NARES DAILY #1 btl 06/10/19 Rx [Flonase NASAL SPRAY 50MCG*] traMADol TAB* [Ultram*] 25 mg PO Q6HR PRN 06/10/19 08/27/19 History Hemorrhoidal OINT* [Preparation H*] 1 applic NM BID PRN 08/27/19 08/27/19 History Mirabegron (NF) [Myrbetriq (NF)] 25 mg PO DAILY 08/27/19 08/27/19 History Nystatin SUSPENSION* 500,000 units PO QID PRN 08/27/19 08/27/19 History Potassium Citrate [Urocit-K] 45 meq PO DAILY 08/27/19 08/27/19 History Venlafaxine EXT RELEASE CAP* 75 mg PO TID 08/27/19 08/27/19 History [Effexor Xr CAP*] traZODone TAB* [Desyrel TAB*] 100 mg PO BEDTIME 08/27/19 08/27/19 History Allergies: Allergies Allergy/AdvReac Type Severity Reaction Status Date / Time amoxicillin Allergy Rash Verified 08/27/19 16:44 polyethylene glycol Allergy Headache Verified 08/27/19 16:44 Sulfa (Sulfonamide Allergy Rash Verified 08/27/19 16:44 Antibiotics) terconazole [From Terazol 3] Allergy Rash Verified 08/27/19 16:44 Objective - Vital Signs Vital Signs: Vital Signs 08/27/19 08/27/19 08/27/19 16:29 16:55 17:00 Temperature 101.9 F Pulse Rate 149 141 140 Respiratory 26 13 19 Rate Blood Pressure 175/123 (mmHg) O2 Sat by Pulse 96 92 97 Oximetry 08/27/19 08/27/19 08/27/19 17:06 17:21 17:35 Temperature 103.1 F Pulse Rate 139 Respiratory 22 15 17 Rate Blood Pressure 173/106 149/127 157/107 (mmHg) O2 Sat by Pulse 95 Oximetry 08/27/19 08/27/19 08/27/19 17:50 18:00 18:05 Temperature 104.5 F 104.5 F 104.5 F Pulse Rate 138 134 132 Respiratory 18 22 22 Rate Blood Pressure 176/102 172/86 (mmHg) O2 Sat by Pulse 94 92 93 Oximetry 08/27/19 08/27/19 08/27/19 18:21 18:35 18:51 Temperature 104.2 F 104.0 F 104.0 F Pulse Rate 130 133 134 Respiratory 23 25 Rate Blood Pressure 127/86 151/73 114/55 (mmHg) O2 Sat by Pulse 92 91 93 Oximetry 08/27/19 08/27/19 08/27/19 19:00 19:05 19:36 Temperature 103.8 F 103.8 F 103.1 F Pulse Rate 135 133 125 Respiratory 21 26 Rate Blood Pressure 132/70 142/59 (mmHg) O2 Sat by Pulse 92 91 91 Oximetry 08/27/19 08/27/19 08/27/19 19:51 20:00 20:05 Temperature 102.9 F 102.9 F 102.7 F Pulse Rate 126 125 126 Respiratory 17 26 27 Rate Blood Pressure 127/67 133/66 (mmHg) O2 Sat by Pulse 90 91 90 Oximetry 08/27/19 08/27/19 08/27/19 20:21 20:35 20:51 Temperature 102.7 F 102.7 F 102.2 F Pulse Rate 123 122 118 Respiratory 19 28 27 Rate Blood Pressure 119/63 130/67 129/66 (mmHg) O2 Sat by Pulse 92 89 91 Oximetry 08/27/19 08/27/19 08/27/19 21:00 21:06 21:21 Temperature 102.0 F 101.8 F 101.7 F Pulse Rate 118 116 119 Respiratory 18 22 19 Rate Blood Pressure 126/72 111/60 (mmHg) O2 Sat by Pulse 90 90 91 Oximetry 08/27/19 08/27/19 08/27/19 21:36 21:51 22:00 Temperature 101.8 F 101.7 F 101.7 F Pulse Rate 116 114 115 Respiratory 20 14 22 Rate Blood Pressure 116/57 114/59 (mmHg) O2 Sat by Pulse 91 93 92 Oximetry 08/27/19 08/27/19 08/27/19 22:06 22:21 22:34 Temperature 101.7 F 101.7 F 101.5 F Pulse Rate 114 114 109 Respiratory 17 12 18 Rate Blood Pressure 119/63 121/62 121/62 (mmHg) O2 Sat by Pulse 93 93 97 Oximetry 08/27/19 08/28/19 08/28/19 22:58 04:04 05:59 Temperature 99.3 F 98.2 F Pulse Rate 107 107 Respiratory 18 16 16 Rate Blood Pressure 103/51 103/52 (mmHg) O2 Sat by Pulse 96 99 Oximetry - Intake and Output Intake and Output: Intake & Output 08/25/19 08/26/19 08/27/19 08/28/19 11:59 11:59 11:59 11:59 Intake Total 2740.2 Output Total 1300 Balance 1440.2 Weight 145 lb 12.8 oz Intake: IV Fluids 2140.2 ABX - DOXYCYCLINE 250 Magnesium 50 NS (0.9%) 20.2 Oral 600 Output: Urine 700 Isbell 600 ADLs: Meal Record Start: 08/27/19 22: 07 Freq: DAILY@0900,1400,1800 Status: Active Protocol: Created 08/27/19 22:07 System (Rec: 08/27/19 22:07 System [email or web address]) Intake and Output Start: 08/27/19 16: 36 Freq: Status: Active Protocol: Created 08/27/19 16:36 System (Rec: 08/27/19 16:36 System [id number]) Document 08/27/19 22:37 [id number] (Rec: 08/27/19 22:37 [id number]) Intake and Output Start: 08/27/19 22: 07 Freq: DAILY@0600,1400,2200 Status: Active Protocol: Created 08/27/19 22:07 System (Rec: 08/27/19 22:07 System [email or web address]) Document 08/28/19 06:00 [id number] (Rec: 08/28/19 06:35 [id number]) - Physical Exam General Physical Exam Comment: She is warm and perfused, and in no acute distress. She is conversational and can follow complex commands General: No Cyanosis, No Anemia, No Jaundice, No Clubbing Eye Exam: bilateral: EOMI - normal Skin: Normal: Rash Lungs and Chest: Yes: Chest Expansion Full, Chest Expansion Symetrica, Percussion Note Resonant. No: Vessicular Breath Sounds - diminished right lung , Crackles, Wheezes, Respiratory Distress, Use of Accessory Muscles Heart Rate and Rhythm: Regular Additional Cardiovascular: Yes: Normal Heart Sounds. No: Heart Murmur, Pedal Edema Abdominal Exam: Yes: Soft, Bowel Sounds Present. No: Distention, Abdominal Mass , Hepatomegaly, Abdominal Tenderness - Neuro Orientation: A/O x3 Psychiatric: Normal Speech: Normal Results - Results Lab Results: Laboratory Results - last 24 hr 08/27/19 08/27/19 08/27/19 17:00 17:00 17:00 WBC 11.2 H RBC 3.92 Hgb 12.0 Hct 35 MCV 90 MCH 31 MCHC 34 RDW 14 Plt Count 97 L MPV 8.0 Neut % (Auto) 92.1 Lymph % (Auto) 3.9 Kenton % (Auto) 2.8 Eos % (Auto) 1.0 Baso % (Auto) 0.2 Absolute Neuts (auto) 10.3 H Absolute Lymphs (auto) 0.4 L Absolute Monos (auto) 0.3 Absolute Eos (auto) 0.1 Absolute Basos (auto) 0.0 Absolute Nucleated RBC 0.0 Nucleated RBC % 0.1 INR (Anticoag Therapy) 1.33 H APTT 34.3 Sodium 137 Potassium 3.1 L Chloride 102 Carbon Dioxide 27 Anion Gap 8 BUN 5 L Creatinine 0.72 Est GFR ( Amer) 96.6 Est GFR (Non-Af Amer) 79.9 BUN/Creatinine Ratio 6.9 L Glucose 198 H POC Glucose (mg/dL) Lactic Acid Calcium 8.9 Magnesium 1.2 L Total Bilirubin 1.00 AST 35 ALT 15 Alkaline Phosphatase 137 H Troponin I 0.03 H* C-Reactive Protein 4.80 Total Protein 6.6 Albumin 3.4 Globulin 3.2 Albumin/Globulin Ratio 1.1 Urine Color Urine Appearance Urine pH Ur Specific Hobson Urine Protein Urine Ketones Urine Blood Urine Nitrate Urine Bilirubin Urine Urobilinogen Ur Leukocyte Esterase Urine Glucose Influenza A (Rapid) Influenza B (Rapid) 08/27/19 08/27/19 08/27/19 17:35 17:47 20:12 WBC RBC Hgb Hct MCV MCH MCHC RDW Plt Count MPV Neut % (Auto) Lymph % (Auto) Kenton % (Auto) Eos % (Auto) Baso % (Auto) Absolute Neuts (auto) Absolute Lymphs (auto) Absolute Monos (auto) Absolute Eos (auto) Absolute Basos (auto) Absolute Nucleated RBC Nucleated RBC % INR (Anticoag Therapy) APTT Sodium Potassium Chloride Carbon Dioxide Anion Gap BUN Creatinine Est GFR ( Amer) Est GFR (Non-Af Amer) BUN/Creatinine Ratio Glucose POC Glucose (mg/dL) Lactic Acid Calcium Magnesium Total Bilirubin AST ALT Alkaline Phosphatase Troponin I 0.05 H* C-Reactive Protein Total Protein Albumin Globulin Albumin/Globulin Ratio Urine Color Straw Urine Appearance Clear Urine pH 7.0 Ur Specific Hobson 1.009 L Urine Protein Negative Urine Ketones Negative Urine Blood Negative Urine Nitrate Negative Urine Bilirubin Negative Urine Urobilinogen Negative Ur Leukocyte Esterase Negative Urine Glucose Negative Influenza A (Rapid) Negative Influenza B (Rapid) Negative 08/27/19 08/27/19 08/27/19 20:12 23:33 23:33 WBC RBC Hgb Hct MCV MCH MCHC RDW Plt Count MPV Neut % (Auto) Lymph % (Auto) Kenton % (Auto) Eos % (Auto) Baso % (Auto) Absolute Neuts (auto) Absolute Lymphs (auto) Absolute Monos (auto) Absolute Eos (auto) Absolute Basos (auto) Absolute Nucleated RBC Nucleated RBC % INR (Anticoag Therapy) APTT Sodium Potassium Chloride Carbon Dioxide Anion Gap BUN Creatinine Est GFR ( Amer) Est GFR (Non-Af Amer) BUN/Creatinine Ratio Glucose POC Glucose (mg/dL) Lactic Acid 1.7 1.8 Calcium Magnesium Total Bilirubin AST ALT Alkaline Phosphatase Troponin I 0.06 H* C-Reactive Protein Total Protein Albumin Globulin Albumin/Globulin Ratio Urine Color Urine Appearance Urine pH Ur Specific Hobson Urine Protein Urine Ketones Urine Blood Urine Nitrate Urine Bilirubin Urine Urobilinogen Ur Leukocyte Esterase Urine Glucose Influenza A (Rapid) Influenza B (Rapid) 08/28/19 08/28/19 08/28/19 01:56 06:00 06:00 WBC 13.6 H RBC 3.42 L Hgb 10.4 L Hct 31 L MCV 90 MCH 31 MCHC 34 RDW 14 Plt Count 69 L MPV 8.3 Neut % (Auto) 85.2 Lymph % (Auto) 8.5 Kenton % (Auto) 5.2 Eos % (Auto) 1.0 Baso % (Auto) 0.1 Absolute Neuts (auto) 11.6 H Absolute Lymphs (auto) 1.2 Absolute Monos (auto) 0.7 Absolute Eos (auto) 0.1 Absolute Basos (auto) 0.0 Absolute Nucleated RBC 0.0 Nucleated RBC % 0.0 INR (Anticoag Therapy) APTT Sodium Potassium Chloride Carbon Dioxide Anion Gap BUN Creatinine Est GFR ( Amer) Est GFR (Non-Af Amer) BUN/Creatinine Ratio Glucose POC Glucose (mg/dL) Lactic Acid Calcium Magnesium Total Bilirubin AST ALT Alkaline Phosphatase Troponin I 0.05 H* 0.05 H* C-Reactive Protein Total Protein Albumin Globulin Albumin/Globulin Ratio Urine Color Urine Appearance Urine pH Ur Specific Hobson Urine Protein Urine Ketones Urine Blood Urine Nitrate Urine Bilirubin Urine Urobilinogen Ur Leukocyte Esterase Urine Glucose Influenza A (Rapid) Influenza B (Rapid) 08/28/19 08/28/19 06:00 07:41 WBC RBC Hgb Hct MCV MCH MCHC RDW Plt Count MPV Neut % (Auto) Lymph % (Auto) Kenton % (Auto) Eos % (Auto) Baso % (Auto) Absolute Neuts (auto) Absolute Lymphs (auto) Absolute Monos (auto) Absolute Eos (auto) Absolute Basos (auto) Absolute Nucleated RBC Nucleated RBC % INR (Anticoag Therapy) APTT Sodium 137 Potassium 3.2 L Chloride 106 Carbon Dioxide 22 Anion Gap 9 BUN 6 Creatinine 0.75 Est GFR ( Amer) 92.2 Est GFR (Non-Af Amer) 76.2 BUN/Creatinine Ratio 8.0 Glucose 243 H POC Glucose (mg/dL) 238 H Lactic Acid Calcium 7.8 L Magnesium 1.7 L Total Bilirubin AST ALT Alkaline Phosphatase Troponin I C-Reactive Protein 50.42 H Total Protein Albumin Globulin Albumin/Globulin Ratio Urine Color Urine Appearance Urine pH Ur Specific Hobson Urine Protein Urine Ketones Urine Blood Urine Nitrate Urine Bilirubin Urine Urobilinogen Ur Leukocyte Esterase Urine Glucose Influenza A (Rapid) Influenza B (Rapid) Radiology Results: Patient Name: KIMBERLEY RODRÍGUEZ Medical Record#: [id number] Ordering Physician: Leonel Clemente MD Acct.#: [id number] : 1950 Age: 69 Sex: F Location: EMERGENCY DEPARTMENT Exam Date: 08/27/191657 ADM Status: REG ER Order Information: CHEST AP OR PORT Accession Number: [id number] CPT: 77764 INDICATION: Chest pain COMPARISON: August 16, [address] TECHNIQUE: A portable view of the chest was obtained. FINDINGS: Overlying leads obscure the [id number]. There is no abnormal 7.3 x 4.4 cm density in the right upper lung zone (same region as previously described cavitary lesion). There is no pleural effusion. The cardiomediastinal silhouette is within normal limits. The upper abdominal contents are normal. A cervical ACDF is partially imaged. IMPRESSION: A 7.3 cm density in the right upper lung zone should BE further characterized by chest CT. <Electronically signed by Evaristo Lira MD in [place]> 08/27/191829 Dictated By: Evaristo Lira MD Dictated Date/Time: 08/27/191826 Transcribed Date/Time: 08/27/191826 Copy to: Patient Name: KIMBERLEY RODRÍGUEZ Medical Record#: [id number] Ordering Physician: Leonel Clemente MD Acct.#: [id number] : 1950 Age: 69 Sex: F Location: EMERGENCY DEPARTMENT Exam Date: 08/27/191849 ADM Status: REG ER Order Information: CT CHEST W Accession Number: [id number] CPT: 68218 PROCEDURE INFORMATION: Exam: CT Chest With Contrast Exam date and time: 08/27/2019 7:24 PM Age: 69 years old Clinical history: Abnormal findings; Abnormal radiologic exam of lung or chest; Patient HX: Mass found on xray 08/27/2019; Additional info: Lung mass, sepsis TECHNIQUE: Imaging protocol: Computed tomography of the chest with intravenous contrast. Radiation optimization: All CT scans at this facility use at least one of these dose optimization techniques: automated exposure control; mA and/or kV adjustment per patient size (includes targeted exams where dose is matched to clinical indication); or iterative reconstruction. Contrast material: VISIPAQUE 320; Contrast volume: 80 ml; Contrast route: IV; COMPARISON: CHEST W CT CHEST W 07/10/2018 8:48 PM FINDINGS: Limitations: Image quality is degraded by motion artifact. Lungs: A lobulated low-density mass measuring approximately 5.6 x 4.8 x 4.6 cm AP, laterally, and cranial caudad, is now present in the anterior aspect of the right lung apex with broad base of contact with the anterior pleural surface and suggestion of spiculation more inferiorly (series 3, image 21). The mass corresponds to location of previous cavitary right upper lobe lesion. New foci of ground-glass density are now present in apical posterior segment of the left upper lobe, contiguous with new consolidation in the central aspect of the left upper lobe. No evidence of mediastinal invasion. No cavitary lesions currently identified. Pleural space: No pleural effusion or pneumothorax. Heart: The heart is mildly enlarged. Multi-vessel coronary artery calcifications are present. Aorta: Normal. No aortic aneurysm. Lymph nodes: Mildly enlarged right tracheobronchial angle lymph node measures 1.3 cm short axis. Subcentimeter AP window nodes measuring to 8 mm. Liver: There is a diffuse decrease in hepatic parenchymal density, consistent with fatty infiltration. Bones/joints: No acute fracture or aggressive osseous lesion identified. Moderate compression deformity and high density material noted in the L1 vertebral body suggesting prior vertebroplasty. No aggressive lytic or blastic osseous lesions identified. Anterior spinal surgical hardware at cervicothoracic junction. Soft tissues: Unremarkable. IMPRESSION: 1. Lobulated 5.6 x 4.8 x 4.6 cm mass now present in the anterior aspect of the right lung apex, corresponding to location of previous small cavitary lesion. Primary differential considerations include infectious and malignant entities. Recommend correlation with tissue sampling and/or PET-CT. 2. New foci of ground-glass and consolidative density in the left upper lobe suggesting additional areas of involvement. [facility] Patient Name:KIMBERLEY RODRÍGUEZ MR:[id number] : 1950 3. Mildly enlarged lower right paratracheal lymph nodes, increased since prior.. 4. Mild cardiomegaly. Coronary artery disease. 5. Moderate compression deformity at L1, unchanged. 6. Other nonemergent findings as above To contact [facility] with a general question: [facility] - [phone] For direct physician to physician contact: Physician Hotline - [phone] [facility] ([facility] Facility ID #[id number]) <Electronically signed by Serenity Son MD in [place]> 08/27/192032 Dictated By: Serenity Son MD Dictated Date/Time: 08/27/191923 Transcribed Date/Time: 08/27/191923 Copy to: 1 of 2 EKG Report: Sinus tachycardia 140 QTc 515 QRS 42 Assessment - Problem List Assessment: Patient Problems History of lung abscess (Acute) Lung mass (Acute) Pneumonia (Acute) Asthma (Chronic) Chronic pain syndrome (Chronic) Depression (Chronic) GERD (gastroesophageal reflux disease) (Chronic) History of DVT (deep vein thrombosis) (Chronic) History of falling (Chronic) History of renal calculi (Chronic) Memory impairment (Chronic) Osteoporosis (Chronic) Peripheral neuropathy (Chronic) Sleep apnea (Chronic) Type 2 diabetes mellitus (Chronic) Plan: Acute medical problems Pneumonia (Acute) Lung mass (Acute) History of lung abscess (Acute) Altered mental state (Acute) She presents with an acute onset of fever, non productive cough, altered mental status. She has some chest pain. Her CT scan chest suggests that the former cavity from her lung abscess is replaced by a mass that may be a new abscess or alternatively a lung cancer. We are currently treating her with cetriaxone, doxycycline and vancomycin. I will obtain a pulmonology consultation. Her mental state is improved this morning - she is fully oriented, but she doesn't feel completely normal mentally. I will obtain consultations from Dr. Matias and Dr. Rizo. Elevated troponin I - she has a mildly elevated troponin I and this may be due to demand ischemia. She is having a transthoracic echocardiogram to assess this. Comorbidities: Asthma (Chronic) She has no signs of wheezing on examination Type 2 diabetes mellitus (Chronic) She has tight glycemic control as an outpatient. She currently has hyperglycemia likely secondary to stress. I will treat this with insulin therapy during the hospitalization. History of urinary retention/incontinence - she has a Isbell inserted. Peripheral neuropathy (Chronic) She is complaining of this pain in her legs - to continue gabapentin Secondary diagnoses Chronic pain syndrome (Chronic) Depression (Chronic) GERD (gastroesophageal reflux disease) (Chronic) History of DVT (deep vein thrombosis) (Chronic) History of falling (Chronic) History of renal calculi (Chronic) Memory impairment (Chronic) Osteoporosis (Chronic Sleep apnea (Chronic) I discussed the above with Selma Rodríguez and I called her Musa Rodríguez - I left a message I called.
[2019-08-28] MEDS ORDERED: Potassium Citrate TAB (NF) 15 MEQ TABLET.ER PO SCH (09:00)
[2019-08-28] MEDS: Aspirin 81 mg CHEW TAB* 81 MG TAB.CHEW PO SCH (09:00)
[2019-08-28] MEDS: Pantoprazole TAB * 40 MG TAB PO SCH ×2 (09:00→21:02)
[2019-08-28] MEDS: Ferrous Sulfate TAB* 325 MG PO SCH (09:00)
[2019-08-28] MEDS ORDERED: Venlafaxine EXT RELEASE CAP* 37.5 MG PO SCH (09:00)
[2019-08-28] MEDS: Insulin LISPRO* 1 UNITS UNIT SUBCUT SCH ×4 (09:01→21:00)
[2019-08-28] MEDS: Potassium Chlor TAB* 20 MEQ TAB.ER PO SCH (09:01)
[2019-08-28] MEDS: Cyanocobalamin TAB* 500 MCG PO SCH (09:01)
[2019-08-28] MEDS ORDERED: NS 0.9% w/ 20 Meq KCL 1000 ML* 1,000 ML IV SCH (09:36)
[2019-08-28] MEDS ORDERED: Insulin GLARGINE(*) 1 UNITS UNIT SUBCUT SCH (10:00)
[2019-08-28] MEDS: Mirabegron (NF) 25 MG TAB PO SCH (10:36)
[2019-08-28] MEDS: Vancomycin(*) 1,000 MG in NS 0.9% 250 ML* 250 ML IV SCH ×2 (11:44→23:56)
--- NOTE | 2019-08-28 12:38 | CONS ---
PULMONARY CONSULTATION REPORT: DATE OF CONSULT: 08/28/19 CONSULTATION REQUESTED BY: Dr. Haim Messer. REASON FOR CONSULTATION: Evaluation of abnormal CT chest. HISTORY OF PRESENT ILLNESS: The patient is a 69-year-old female with history of type 2 diabetes, hypertension, dyslipidemia, depression, GERD, DVT, aortic stenosis, thrombocytopenia, previous history of lung abscess in 2018 when she was treated with antibiotics. She was hospitalized in June of 2018 with fever and was found to have a cavitating mass in the right upper lobe. The patient was treated with broad spectrum antibiotics and was discharged to [facility] for rehab. She had been doing well up until the past few days. She was brought into the emergency department by her family for evaluation of increasing disorientation 1 day prior to admission. She also was having fevers , and chills. The patient also had been having cough, which is nonproductive associated with chest discomfort. The patient also has been feeling tired and weak. She also had nausea with no vomiting prior to the presentation. Further evaluation in the emergency room included chest x-ray and CT scan of the chest. I personally reviewed chest x- ray and CT scan of the chest in comparison with prior CT from 2018. Chest x-ray revealed airspace density in the right upper lobe. CT scan of the chest showed evidence of large mass in the right upper lobe with some extension to the pleural surface located peripherally in the right upper lobe area. Mass was measuring 5.6 x 4.8. It was seen to be present in the same area of previous cavitary lesion in the right upper lobe. The cavitary lesion on prior CT was much smaller than the current mass lesion. The patient also with ground glass opacities in the left upper lobe and also near the right lung mass. No evidence of pleural effusion noted. The patient is also with mildly enlarged right pretracheal and subcarinal lymph node. The patient is also with prominent AP window nodes. The patient is seen and examined at bedside. The patient reports feeling fatigued and tired. She has recognized me by name. She did not appear to be confused. The patient denied significant cough today. She was started on broad spectrum antibiotics. She has had fevers during this hospitalization. She has very low-grade fevers this morning. PAST MEDICAL HISTORY: 1. Type 2 diabetes. 2. Hypertension. 3. Dyslipidemia. 4. Depression. 5. GERD. 6. DVT. 7. Neurocognitive impairment/dementia. 8. Asthma. 9. Mild aortic stenosis. 10. Aortic insufficiency. 11. Anemia. 12. Thrombocytopenia. 13. Diabetic complications of retinopathy and neuropathy. PAST SURGICAL HISTORY: 1. Sinus surgery. 2. Stimulator implanted for overactive bladder. 3. C-spine fusion. 4. Left knee ORIF. MEDICATIONS: 1. Aspirin. 2. Welchol. 3. Vitamin B12. 4. Cyclobenzaprine. 5. Iron sulfate. 6. Gabapentin. 7. Preparation H. 8. Myrbetriq. 9. Nystatin. 10. Pantoprazole. 11. Potassium citrate. 12. Sertraline. 13. Simvastatin. 14. Januvia. 15. Sucralfate. 16. Tramadol. 17. Trazodone. 18. Venlafaxine. 19. Acetaminophen. 20. Flonase. 21. Biotene. ALLERGIES: AMOXICILLIN, POLYETHYLENE GLYCOL, SULFA, TERCONAZOLE. FAMILY HISTORY: Notable for father and 3 brothers with Marfan syndrome. Mother of complications of COPD. 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 She is a former smoker and quit tobacco 10 years ago. Drinks alcohol about 1 drink per day. No recreational drug use. REVIEW OF SYSTEMS: All 14 systems reviewed and as per HPI. PHYSICAL EXAM: The patient is in bed, in no apparent distress. Vital Signs: Temperature 99.2, pulse 94 beats per minute, respiratory rate 16 per minute, O2 sat 95%, blood pressure 114/57. HEENT: Pupils equal and reactive to light. Mucous membranes moist. Lungs: Diminished air entry bilaterally at bases, clear to auscultation otherwise. Cardiovascular: S1, S2 present. Systolic murmur present. Abdomen: Soft, nontender, nondistended. Bowel sounds present. Extremities: Normal range of motion. Neurologic: Alert, awake, oriented x3. No focal deficits noted. Psych: No issues, not found to be anxious or depressed. DIAGNOSTIC STUDIES/LAB DATA: WBC count 13.6, hemoglobin 10.4, hematocrit 31, platelet count 69. Sodium 137, potassium 3.2, chloride 106, bicarb 22, BUN 6, creatinine 0.75. Troponin slightly elevated. CRP elevated at 50. UA was negative. Influenza A and B negative. CT x-ray and CT scan as described above in HPI. IMPRESSION AND RECOMMENDATIONS: 69-year-old female with remote history of smoking, treated for cavitating pneumonia 1 year ago with evidence of mass lesion in the same area in the right upper lobe. Findings could be infectious versus neoplastic.The patient is with history of diabetes and is also at risk for fungal pneumonia; however, I suspect that is less likely in her case. I do not suspect she would have inflammatory lung disease at this age. Given recurrence in the same area, suspect endobronchial obstruction and resulting postobstructive pneumonia and possible mass lesion underlying. Mass is peripheral and close to the pleural surface. Mass can be reached easily with a CT-guided biopsy approach. I have discussed the case and reviewed CT findings with Dr. Drake. He is agreeable to doing a CT-guided biopsy. The patient is on Lovenox for DVT prophylaxis, which would be held for 24 hours prior to the procedure. ASA will be held. I have discussed CT findings and diagnostic options with the patient today. The patient is agreeable to undergoing the biopsy as long as she is comfortable during the procedure. Further recommendations pending biopsy results. Thank you for allowing me to participate in the care of your patient. Will follow up with you. [id number]/[facility] #: [id number] JAKE
--- NOTE | 2019-08-28 13:22 | ECHO ---
*[facility]* [place] [address] Fax #: [phone] Transthoracic Echocardiogram Patient: Verónica Rodríguez : 1950 Study Date: 08/28/2019 Age: 69 Gender: F HR: 92 bpm Height: 64 in /162.6 cm BSA: 1.63 m^2 Weight: 129.7 lb /59 kg BMI: 22.3 kg/m^2 *Juice Standardizer: * Maribeth Greenwood RDCS *Referring Physician: * Tavon Chao *Reading Physician: * Ady Morris MD Indications: Valvular Disease. Chest Pain, unspecified. History: Aortic stenosis. Lung abscess, DVT. Risk factors: Former tobacco use. Hypertension. Diabetes mellitus. Dyslipidemia. Conclusions Summary: - Left ventricle: Systolic function is normal. The estimated ejection fraction is 55-60%. Wall motion is normal; there are no regional wall motion abnormalities. - Right ventricle: Systolic function is normal. Systolic pressure is within the normal range. - Left atrium: The atrium is severely dilated. - Mitral valve: There is mild to moderate regurgitation. - Aortic valve: The findings are consistent with mild to moderate stenosis. There is mild to moderate regurgitation. - Tricuspid valve: There is trace to mild regurgitation. - Compared to study of 07/04/18, there is little change. Study data: Transthoracic echocardiogram. Procedure: Transthoracic echocardiography was performed. Image quality was fair. Complete 2D, spectral Doppler, and color flow Doppler. Location: Bedside. Patient status: Inpatient. Patient room number: 446-01. Rhythm: Normal sinus rhythm. Findings Left ventricle: The cavity size is normal. Wall thickness is mildly increased. Systolic function is normal. The estimated ejection fraction is 55-60%. Wall motion is normal; there are no regional wall motion abnormalities. Features are consistent with a pseudonormal left ventricular filling pattern, with concomitant abnormal relaxation and increased filling pressure (grade 2 diastolic dysfunction). Right ventricle: The cavity size is normal. Systolic function is normal. Systolic pressure is within the normal range. Left atrium: The atrium is severely dilated. Right atrium: The atrium is normal in size. Mitral valve: The Mitral valve annulus appears mildly calcified. The leaflets are mildly thickened. There is no evidence of stenosis. There is mild to moderate regurgitation. Aortic valve: The valve is trileaflet. The leaflets are moderately thickened. The findings are consistent with mild to moderate stenosis. There is mild to moderate regurgitation. Tricuspid valve: The leaflets are normal thickness. There is no evidence of stenosis. There is trace to mild regurgitation. Pulmonic valve: The leaflets are normal thickness. There is no evidence of stenosis. There is trace regurgitation. Aorta: Aortic root: The aortic root is appears normal. Ascending aorta: The ascending aorta is appears normal. Aortic arch: The aortic arch is appears normal. Pericardium: There is no significant pericardial effusion. Pulmonary arteries: The main pulmonary artery is normal-sized. Systolic pressure is within the normal range. Systemic veins: Inferior vena cava: The vessel is normal in size. There is (>= 50%) respiratory change in the IVC dimension. Measurements Left ventricle Value Ref Aortic valve continued Value Ref TUCKER, LAX 4.3 cm 3.8 - 5.2 Peak v, S 2.5 m/sec ----- ESD, LAX 3.0 cm 2.2 - 3.5 VTI, S 52.7 cm ----- FS, LAX 31 % 45 Mean grad, S 13.0 mm Hg ----- PW, ED, LAX (H) 1.2 cm 0.6 - 0.9 Peak grad, S 25.0 mm Hg ----- FS 31 % - 45 LVOT/AV, VTI ratio 0.42 ----- PW, ED (H) 1.2 cm 0.6 - 0.9 CHARLES, VTI 1.31 cm^2 ----- E', lat stephanie, TDI (L) 6.9 cm/sec >=10.0 CHARLES, Vmax 1.23 cm^2 - ---- E/e', lat stephanie, 15 AR peak v 3.5 m/sec ---- - TDI AR PHT 336 ms ----- E', med stephanie, TDI (L) 6.3 cm/sec >=7.0 AR peak grad 49 mm Hg - ---- E/e', med stephanie, 16 TDI Mitral valve Value Ref E', avg, TDI 6.6 cm/sec Peak E 1.03 m/sec ---- - E/e', avg, TDI (H) 16 <=14 Peak A 1.22 m/sec - ---- Decel time 194 ms ----- LVOT Value Ref Peak grad, D 4.2 mm Hg ----- Diam, S 2.00 cm Peak E/A ratio 0.8 ----- Area 3.1 cm^2 Peak denilson, S 0.98 m/sec Pulmonic valve Value Ref VTI, S 22.0 cm Peak v, S 1.47 m/sec ----- Mean grad, S 2 mm Hg Peak grad, S 9.0 mm Hg ----- SV 68 ml SV/bsa 42 ml/m^2 Tricuspid valve Value Ref TR peak v 2.5 m/sec <=2.8 Ventricular septum Value Ref Peak RV-RA grad, S 25 mm Hg ----- IVS, ED (H) 1.1 cm 0.6 - 0.9 Aortic root Value Ref Right ventricle Value Ref Root diam 3.0 cm <3.9 TUCKER, LAX 3.6 cm TUCKER minor ax, A4C 3.1 cm 1.9 - 3.5 Ascending aorta Value Ref mid AAo AP diam, S 3.1 cm ----- Pressure, S 28 mm Hg Aortic arch Value Ref Left atrium Value Ref Arch diam 2.7 cm ----- AP dim, ES (H) 4.30 cm 2.70 - 3.80 Decending aorta Value Ref ML dim, A4C 4.6 cm Taya peak denilson 1.33 m/sec ----- SI dim, A4C 5.4 cm Vol/bsa, ES, 1-p (H) 46 ml/m^2 11 - 40 Pulmonary artery Value Ref A4C Pressure, S 19.0 mm Hg ----- Vol/bsa, ES, A/L (H) 55 ml/m^2 16 - 34 Inferior vena cava Value Ref Right atrium Value Ref Diam 1.6 cm ----- SI dim, ES 4.5 cm 3.4 - 5.3 ML dim, ES, A4C 3.0 cm 2.6 - 4.4 Estimated RAP 3 mm Hg Aortic valve Value Ref Stephanie diam, ED 2.0 cm Legend: (L) and (H) ashley values outside specified reference range. Prepared and electronically signed by Ady Morris MD 08/28/2019 13:22
[2019-08-28] MEDS: Venlafaxine EXT RELEASE CAP* 75 MG PO SCH ×2 (13:55→21:02)
[2019-08-28] MEDS: Sucralfate TAB* 1 GM PO SCH (16:06)
[2019-08-28] MEDS: ALPRAZolam TAB* 0.5 MG PO PRN (17:21)
[2019-08-28] MEDS: Atorvastatin* 20 MG TAB PO SCH (17:21)
[2019-08-28] MEDS: Gabapentin CAP(*) 300 MG PO SCH (21:01)
[2019-08-28] MEDS: traZODone TAB* 100 MG PO SCH (21:02)
[2019-08-28] MEDS: Sertraline* 50 MG TAB PO SCH (21:02)
--- NOTE | 2019-08-28 23:37 | CONS ---
CONSULTATION REPORT: DATE OF ADMISSION: 08/27/19 DATE OF CONSULTATION: 08/28/19 PRIMARY CARE PROVIDER: Dr. Haim Messer. PROVIDER REQUESTING CONSULTATION: Dr. Haim Messer. CONSULTING SERVICE: Infectious Disease. PROVIDER: Annemarie Ricardo NP. ATTENDING PROVIDER: Dr. Myles Rizo.* (DICTATED BY ANNEMARIE RICARDO NP) REASON FOR CONSULTATION: Lobulated mass in the right lung apex. IMPRESSION: 1. Fever and leukocytosis with abnormalities seen on chest x-ray and CT scan. CT scan shows "a lobulated 5.6 x 4.6 cm mass present in the anterior aspect of the right lung apex, corresponding to location of a previous small cavitary lesion. Additionally, there is a ground-glass and consolidative density in the left upper lobe suggestive of additional areas of involvement. There was mildly enlarged lower right paratracheal lymph nodes increased in size". Chest x-ray with "a 7.3 cm density in the right upper lung zone". Upon arrival to the hospital, she had a fever of 103.1, which peaked at 104.5 while in the emergency room. She received fluids and antibiotics per sepsis protocol. Additionally, she was noted to be tachycardic with heart rates in the 120s to 140s. Blood cultures were obtained in the ER. They are still pending at this time. She is negative for influenza A and B. Urinalysis was negative. Differential diagnosis would include a lung infection such as pneumonia versus an abscess. Additionally, the findings could be secondary to an endotracheal obstruction and a mass secondary to neoplasm. The patient continues to have leukocytosis. CRP on admission 4.80 and she is currently afebrile with last fever late yesterday overnight. Additionally, the differential could include endocarditis and UTI. She did have a transthoracic echocardiogram showing no signs of vegetation, blood cultures are pending at this time. She denies urinary symptoms and her urinalysis was unremarkable. She has been continued on doxycycline and vancomycin. Plans have been arranged with Radiology to perform a CT-guided biopsy on August 31. The patient's lungs are clear to auscultation. There are no adventitious lung sounds. 2. Diabetes mellitus type 2 with diabetic neuropathy and peripheral neuropathy. 3. History of DVT. 4. History of cavitary lung abscess in 2018, previously treated with an extended course of IV antibiotics. 5. AMOXICILLIN allergy causes rash, SULFA allergy causes rash, and TERCONAZOLE caused rash. PLAN/RECOMMENDATIONS: Recommend continuing current antibiotics at this time. I recommend obtaining a sputum culture if possible additionally obtaining urine antigens for Legionella and S. pneumoniae. Further recommendations will be based once biopsy results have been obtained and returned. We will continue to follow along. HISTORY OF PRESENT ILLNESS: Ms. Rodríguez is a 69-year-old female with past medical history significant for diabetes mellitus type 2, hypertension, hyperlipidemia, depression, GERD, history of DVT, dementia, asthma, anemia, thrombocytopenia, diabetic retinopathy, and peripheral neuropathy, history of previous small cavitary lung lesion in 2018, mild aortic stenosis, and aortic insufficiency, who states that she was in her usual state of health and when she went to bed on August 26, she woke on August 27 and had felt warm at home. Her monitored her and her mental status became altered. The patient reports generally feeling unwell with nausea and no vomiting. She denied any cough or chest pain. She states that she is typically very observant for any cough due to her past history. Denies any diarrhea, constipation, abdominal pain, but due to her feeling she had a fever, he brought her to the emergency room for further evaluation. While in the emergency room, she was found to have a fever of 104.5 max, had mild leukocytosis with a white blood cell count of 11.2. CRP of 4.80. She was also noted to be tachycardic with her heart rate in the 120s to 140s. She had a chest x- ray showing a 7.3-cm density in the right upper lung zone. She underwent a chest CT showing a lobulated mass present in the anterior aspect of the right lung apex corresponding to the location of a previous small cavitary lesion with new foci of ground-glass and consolidative density in the left upper lobe suggestive of additional areas of involvement. A mildly enlarged lower right paratracheal lymph nodes increased in size, cardiomegaly. She was started on IV antibiotics and was referred to the hospitalist service for admission. She was admitted with sepsis with the source felt to be secondary to a lung lesion that could be a cavitating abscess versus neoplasm with postobstructive pneumonia. She received IV fluids per sepsis protocol, ceftriaxone, vancomycin, and doxycycline to cover the possibilities of Haemophilus influenzae, Strep pneumoniae as well as MRSA, and doxycycline to cover atypicals. During her hospitalization, she was seen in consultation by Dr. Krystin Matias with Pulmonology, who felt that the findings could be infectious versus neoplastic including the possibility of fungal pneumonia, but felt that that was less likely the cause. It was felt that the mass due to being peripheral inclusive of pleural surface could be easily reached with a CT-guided biopsy. This was discussed with Radiology and plans were made for a CT-guided biopsy on August 31. While in the hospital, the patient states that she continues to have low-grade fevers. Last fever was 101.5 overnight. She has been afebrile today. Her tachycardia has resolved. Blood cultures with no growth. The patient continues to be on vancomycin and doxycycline. She reports chills. She denies cough. She reports nausea with eating. Denies vomiting, diarrhea, constipation, abdominal pain. She has a urinary catheter in place. Denies any urinary symptoms. PAST MEDICAL HISTORY: 1. Diabetes mellitus type 2. 2. Hypertension. 3. Hyperlipidemia. 4. Depression. 5. GERD. 6. History of DVT. 7. Dementia. 8. Asthma. 9. Mild aortic stenosis and aortic insufficiency. 10. Anemia. 11. Thrombocytopenia. 12. Diabetic retinopathy. 13. Diabetic peripheral neuropathy. 14. History of cavitary lung abscess, June 2018. PAST SURGICAL HISTORY: 1. Status post sinus surgery. 2. Status post implantation of stimulator for overactive bladder. 3. Status post C-spine fusion. 4. Status post left knee ORIF. MEDICATIONS: Home medications include: 1. Welchol 625 mg by mouth daily. 2. Vitamin B12 1000 mcg by mouth daily. 3. Aspirin 81 mg by mouth daily. 4. Acetaminophen 650 mg by mouth every 4 hours as needed for fever or pain. 5. Gabapentin 600 mg by mouth daily at bedtime. 6. Flonase nasal spray 50 mcg 2 sprays to both nares daily. 7. Ferrous sulfate 325 mg by mouth daily. 8. Cyclobenzaprine 5 mg by mouth 3 times daily as needed for muscle spasms. 9. Preparation H apply per rectum twice daily as needed for hemorrhoids. 10. Mirabegron 25 mg by mouth daily. 11. Nystatin suspension 500,000 units by mouth 4 times daily as needed. 12. Trazodone 100 mg by mouth daily at bedtime. 13. Potassium citrate 45 mEq by mouth daily. 14. Pantoprazole 40 mg by mouth twice daily. 15. Simvastatin 40 mg by mouth daily. 16. Biotene moisturizing mouth 1 spray in the mouth every 4 hours as needed for dry mouth. 17. Sertraline 50 mg by mouth daily at bedtime. 18. Januvia 100 mg by mouth daily. 19. Effexor XR 75 mg by mouth 3 times daily. 20. Carafate 1 g by mouth twice daily. 21. Tramadol 25 mg by mouth every 6 hours as needed for pain. Hospital medications: 1. Acetaminophen 650 mg by mouth every 4 hours as needed for fever or pain. 2. Xanax 0.5 mg by mouth 8 hours as needed for anxiety. 3. Aspirin 81 mg by mouth daily. 4. Atorvastatin 20 mg by mouth daily. 5. Vitamin B12 1000 mcg by mouth daily. 6. Dextrose 25 mL IV push as needed for glucose less than 60. 7. Doxycycline 100 mg IV every 12 hours. 8. Lovenox 40 mg subcutaneous daily. 9. Ferrous sulfate 325 mg by mouth daily. 10. Gabapentin 600 mg by mouth at bedtime. 11. Lantus 12 units subcutaneous daily. 12. Humalog sliding scale subcutaneous with meals and at bedtime. 13. Magnesium oxide 400 mg by mouth twice daily. 14. Mirabegron 25 mg by mouth daily. 15. Nystatin 500,000 units by mouth 4 times daily as needed. 16. Pantoprazole 40 mg by mouth twice daily. 17. Potassium chloride 20 mEq by mouth daily. 18. Sodium chloride 70 mL intravenously an hour. 19. Biotene moisturizing mouth 1 spray to the mouth every 4 hours as needed for dry mouth. 20. Zoloft 50 mg by mouth daily. 21. Carafate 1 g by mouth twice daily. 22. Tramadol 25 mg by mouth every 6 hours as needed for pain. 23. Trazodone 100 mg by mouth daily at bedtime. 24. Vancomycin 1000 mg IV every 12 hours. 25. Venlafaxine 75 mg by mouth 3 times daily. ALLERGIES: 1. AMOXICILLIN caused rash. 2. POLYETHYLENE GLYCOL. 3. SULFA caused rash. 5. TERCONAZOLE caused rash. FAMILY HISTORY: Brother passed from complication due to MRSA infection. Father and 3 brothers with a history of heart disease. They have all have Marfan syndrome. Denies family history of diabetes. Mother with a history of COPD. Brother with a history of lung cancer. He was a smoker. Sister with a history of breast cancer, currently in remission and multiple cousins with a history of breast cancer. SOCIAL HISTORY: She drinks 1 alcoholic beverage daily. She is a former smoker , quitting approximately 10 years ago, prior to that she had a 40-year 1-pack a day smoking history. She denies any recreational drugs. REVIEW OF SYSTEMS: I performed a 10-point review of systems. All the pertinent positives and negatives are mentioned in the history of present illness. The remaining review of systems are negative. She reports going to [employer] in May. PHYSICAL EXAM: Vital Signs: Temperature 98.4, heart rate 98, respiratory rate 16, O2 sat 99% on room air, blood pressure 117/62. General Appearance: She is alert, appears to be in no acute distress. Head: Normocephalic, atraumatic. EENT: Extraocular movements are intact. No subconjunctival hemorrhage. Moist mucous membranes. Neck: Supple. No lymphadenopathy. Neurological: Alert and oriented. Cranial nerves II through XII are grossly intact. She moves all extremities. Cardiovascular: Regular rate and rhythm. S1 and S2 are present. She is noted to have a 3/6 systolic murmur heard best over the left upper sternal border. Respiratory: Lungs are clear to auscultation bilaterally. There is no accessory muscle use. Abdomen: Bowel sounds present x4. Abdomen is soft, nontender, nondistended. Extremities: No lower extremity edema. Musculoskeletal: No clubbing or cyanosis noted. The patient exhibits good strength in all extremities. Psychological: Calm and cooperative. Skin: No rashes or abnormalities seen. She is noted to have a dark erythema discoloration to the tip of her nose that she states is secondary to excision of skin cancer. She also has 3 bandages to her chest, 2 to the upper sternum and 1 to the right breast. She reports that this is secondary to recent skin biopsies. DIAGNOSTIC STUDIES/LAB DATA: Sodium 137, potassium 3.2, chloride 106, CO2 22, BUN 6, creatinine 0.75, glucose 243. White blood cell count 13.6, hemoglobin 10.4, hematocrit 31, platelet count 69, CRP 50.42. Blood cultures are pending at this time. She is noted to have elevated troponins, repeat to 0.06. Urinalysis unremarkable. Influenza A and B negative. Please see impression and recommendations outlined above. Thank you for asking us to see Ms. Rodríguez in consultation. The case has been reviewed with my attending, Dr. Myles Rizo, who agrees with the plan of care. Reviewed by ANNEMARIE RICARDO, JOHNNY-C 08/29/19 1624 [id number]/[facility] #: [id number] JAKE
[2019-08-29] MEDS: Sucralfate TAB* 1 GM PO SCH ×2 (05:32→16:43)
[2019-08-29 06:07] LABS: ABS Eosinophils 0.5 10^3/ul (0-0.6); ABS Monocytes 0.4 10^3/ul (0-0.8); ABS Neutrophils 7.1 10^3/ul (1.5-7.7); Eosinophil % 5.9 %; Hematocrit 29 % (35-47); Lymphocyte % 10.6 %; Mean Corpuscular HGB Conc 35 g/dL (31-36); Mean Corpuscular Hemoglobin 31 pg (27-31); Mean Corpuscular Volume 89 fL (80-97); Mean Platelet Volume 8.2 fL (7.4-10.4); Nucleated Red Blood Cells % 0.1; Platelet Count 65 10^3/uL (150-450); Red Blood Count 3.24 10^6 /uL (3.70-4.87); Red Cell Distribution Width 14 % (10-15)
[2019-08-29 06:23] LABS: Albumin 2.5 g/dL (3.2-5.2); BUN/Creatinine Ratio 10.3 (8-20); C Reactive Protein 83.07 mg/L (<8.01); Calcium 7.8 mg/dL (8.6-10.3); EGFR Non-African American 102.5 (>60); Globulin 2.5 g/dL (2-4); Indirect Bilirubin 0.2 mg/dL (0.3-1.0); Potassium 3.7 mmol/L (3.5-5.0); Total Bilirubin 0.4 mg/dL (0.2-1.0)
--- NOTE | 2019-08-29 08:09 | PN ---
Subjective - Subjective Reason for Note: Progress Note History: She has paroxysms of non-productive cough - this causes her chest pain. She is not dyspneic. She has a headache - she attributes this to her sinuses, but the location of the headache is parietal/occipital. She has no appetite, she has had no diarrhea. Her glycemic control improved. Active Problems: Active Problems Headache (Acute) R51 History of lung abscess (Acute) Z87.09 Lung mass (Acute) R91.8 Pneumonia (Acute) J18.9 Thrombocytopenia (Acute) D69.6 Troponin I above reference range (Acute) R79.89 Asthma (Chronic) J45.909 Chronic pain syndrome (Chronic) G89.4 Depression (Chronic) F32.9 GERD (gastroesophageal reflux disease) (Chronic) K21.9 History of DVT (deep vein thrombosis) (Chronic) Z86.718 History of falling (Chronic) Z91.81 History of renal calculi (Chronic) Z87.442 History of urinary retention (Chronic) Z87.898 Memory impairment (Chronic) R41.3 Osteoporosis (Chronic) M81.0 Peripheral neuropathy (Chronic) G62.9 Sleep apnea (Chronic) G47.30 Type 2 diabetes mellitus (Chronic) Current Medications: Current Medications Acetaminophen (Tylenol Tab*) 650 mg PO Q4H PRN PRN Reason: FEVER/PAIN Last Admin: 08/28/19 13:55 Dose: 650 mg Alprazolam (Xanax Tab*) 0.5 mg PO Q8H PRN PRN Reason: ANXIETY Last Admin: 08/28/19 17:21 Dose: 0.5 mg Aspirin (Aspirin 81 Mg Chew Tab*) 81 mg PO DAILY [facility] Stop: 08/30/19 11:00 Last Admin: 08/28/19 09:00 Dose: 81 mg Atorvastatin Calcium (Lipitor*) 20 mg PO 1700 [facility] Last Admin: 08/28/19 17:21 Dose: 20 mg Cyanocobalamin (Vitamin B12 Tab*) 1,000 mcg PO DAILY [facility] Last Admin: 08/28/19 09:01 Dose: 1,000 mcg Dextrose (Dextrose 50% Vial 50 Ml*) 25 ml IV PUSH .FOR FS < 60 - SS PRN PRN Reason: FS < 60 Enoxaparin Sodium (Lovenox(*)) 40 mg SUBCUT Q24H [facility] Stop: 08/30/19 23:00 Last Admin: 08/28/19 21:00 Dose: 40 mg Ferrous Sulfate (Ferrous Sulfate Tab*) 325 mg PO DAILY [facility] Last Admin: 08/28/19 09:00 Dose: 325 mg Gabapentin (Neurontin Cap(*)) 600 mg PO BEDTIME [facility] Last Admin: 08/28/19 21:01 Dose: 600 mg Doxycycline Hyclate 100 mg/ (Sodium Chloride) 250 mls @ 250 mls/hr IVPB Q12H [facility] Last Admin: 08/28/19 22:11 Dose: 250 mls/hr Vancomycin HCl 1,000 mg/ (Sodium Chloride) 250 mls @ 166.667 mls/hr IV Q12H [facility] Last Admin: 08/28/19 23:56 Dose: 166.667 mls/hr Potassium Chloride/Sodium Chloride (Ns 0.9% W/ 20 Meq Kcl 1000 Ml*) 1,000 mls @ 70 mls/hr IV PER RATE [facility] Last Admin: 08/28/19 13:55 Dose: 70 mls/hr Insulin Glargine (Lantus(*)) 12 units SUBCUT Q24H [facility] Last Admin: 08/28/19 11:08 Dose: 12 unit Insulin Human Lispro (Humalog*) 0 units SUBCUT ACHS [facility]; Protocol Last Admin: 08/28/19 21:00 Dose: 2 unit Magnesium Oxide (Magox 400 Tab*) 400 mg PO BID [facility] Last Admin: 08/28/19 21:02 Dose: 400 mg Mirabegron (Myrbetriq (Nf)) 25 mg PO DAILY [facility] Last Admin: 08/28/19 10:36 Dose: Not Given Nystatin (Nystatin Suspension*) 500,000 units PO QID PRN PRN Reason: PER PROTOCOL Pantoprazole Sodium (Protonix Tab*) 40 mg PO BID [facility] Last Admin: 08/28/19 21:02 Dose: 40 mg Pharmacy Consult (Vancomycin Per Pharmacy*) 1 note FOLLOW UP .VANC PER PHARMACY [facility]; Protocol Pharmacy Profile Note (Vancomycin Trough Check) 1 note FOLLOW UP 1030 ONE Stop: 08/29/19 10:31 Potassium Chloride (Klor Con Er Tab*) 20 meq PO DAILY [facility] Last Admin: 08/28/19 09:01 Dose: 20 meq Saliva Substitute (Biotene Moisturizing Mouth (Nf)) 1 spray MT Q4H PRN; Protocol PRN Reason: dry mouth Sertraline HCl (Zoloft*) 50 mg PO BEDTIME [facility] Last Admin: 08/28/19 21:02 Dose: 50 mg Sucralfate (Carafate*) 1 gm PO 0630,1600 [facility] Last Admin: 08/29/19 05:32 Dose: 1 gm Tramadol HCl (Ultram*) 25 mg PO Q6HR PRN PRN Reason: PAIN - MILD Last Admin: 08/28/19 21:01 Dose: 25 mg Trazodone HCl (Desyrel Tab*) 100 mg PO BEDTIME [facility] Last Admin: 08/28/19 21:02 Dose: 100 mg Venlafaxine HCl (Effexor Xr Cap*) 75 mg PO TID [facility] Last Admin: 08/28/19 21:02 Dose: 75 mg Home Medications: Home Medications Medication Instructions Recorded Confirmed Type Simvastatin TAB(NF) [Zocor 20 MG 40 mg PO 1700 06/15/13 08/27/19 History (NF)] Sucralfate TAB* [Carafate*] 1 gm PO BID 06/15/13 08/27/19 History Aspirin 81 mg CHEW TAB* 1 tab PO DAILY 08/04/16 08/27/19 History Ferrous Sulfate TAB* 325 mg PO DAILY 08/04/16 08/27/19 History Sertraline* [Zoloft*] 50 mg PO BEDTIME 08/04/16 08/27/19 History Cyanocobalamin TAB* [Vitamin B12 1,000 mcg PO DAILY 02/08/17 08/27/19 History TAB*] Colesevelam(NF) [Welchol(NF)] 625 mg PO DAILY 02/08/18 08/27/19 History Pantoprazole TAB * [Protonix TAB*] 40 mg PO BID 02/08/18 08/27/19 History SitaGLIPtin (NF) [Januvia (NF)] 100 mg PO DAILY 02/08/18 08/27/19 History Acetaminophen TAB* [Tylenol TAB*] 650 mg PO Q4H PRN tab 07/14/18 08/27/19 Rx Saliva Substitute (NF) [Biotene 1 spray MT Q4H PRN btl 07/14/18 08/27/19 Rx Moisturizing Mouth (NF)] Cyclobenzaprine (NF) 5 mg PO TID PRN 12/20/18 08/27/19 History [Cyclobenzaprine 5 MG (NF)] Gabapentin CAP(*) [Neurontin 300 600 mg PO BEDTIME 12/20/18 08/27/19 History CAP(*)] Fluticasone NASAL SPRAY 50MCG* 2 spray BOTH NARES DAILY #1 btl 06/10/19 Rx [Flonase NASAL SPRAY 50MCG*] traMADol TAB* [Ultram*] 25 mg PO Q6HR PRN 06/10/19 08/27/19 History Hemorrhoidal OINT* [Preparation H*] 1 applic GA BID PRN 08/27/19 08/27/19 History Mirabegron (NF) [Myrbetriq (NF)] 25 mg PO DAILY 08/27/19 08/27/19 History Nystatin SUSPENSION* 500,000 units PO QID PRN 08/27/19 08/27/19 History Potassium Citrate [Urocit-K] 45 meq PO DAILY 08/27/19 08/27/19 History Venlafaxine EXT RELEASE CAP* 75 mg PO TID 08/27/19 08/27/19 History [Effexor Xr CAP*] traZODone TAB* [Desyrel TAB*] 100 mg PO BEDTIME 08/27/19 08/27/19 History Allergies: Allergies Allergy/AdvReac Type Severity Reaction Status Date / Time amoxicillin Allergy Rash Verified 08/27/19 16:44 polyethylene glycol Allergy Headache Verified 08/27/19 16:44 Sulfa (Sulfonamide Allergy Rash Verified 08/27/19 16:44 Antibiotics) terconazole [From Terazol 3] Allergy Rash Verified 08/27/19 16:44 Objective - Vital Signs Vital Signs: Vital Signs 08/28/19 08/28/19 08/28/19 08:13 09:14 11:34 Temperature 99.2 F 98.4 F Pulse Rate 94 98 Respiratory 16 20 16 Rate Blood Pressure 114/57 117/62 (mmHg) O2 Sat by Pulse 95 99 Oximetry 08/28/19 08/28/19 08/28/19 12:27 14:27 15:18 Temperature 98 F Pulse Rate 90 Respiratory 22 18 18 Rate Blood Pressure 124/59 (mmHg) O2 Sat by Pulse 98 Oximetry 08/28/19 08/28/19 08/28/19 17:21 19:10 19:22 Temperature 97.8 F Pulse Rate 92 Respiratory 18 19 22 Rate Blood Pressure 117/62 (mmHg) O2 Sat by Pulse 97 Oximetry 08/28/19 08/28/19 08/28/19 20:23 21:01 23:12 Temperature 98.3 F Pulse Rate 105 Respiratory 17 18 16 Rate Blood Pressure 114/52 (mmHg) O2 Sat by Pulse 95 Oximetry 08/28/19 08/29/19 23:40 03:19 Temperature 98.3 F Pulse Rate 102 Respiratory 18 16 Rate Blood Pressure 155/86 (mmHg) O2 Sat by Pulse 92 Oximetry - Intake and Output Intake and Output: Intake & Output 08/26/19 08/27/19 08/28/19 08/29/19 11:59 11:59 11:59 11:59 Intake Total 3180.2 2283 Output Total 1300 1450 Balance 1880.2 833 Weight 145 lb 12.8 oz Intake: IV Fluids 2140.2 582 ABX - DOXYCYCLINE 250 275 Magnesium 50 NS (0.9%) 20.2 NS (0.9%) 20 meq KCL 307 IVPB 781 ABX - DOXYCYCLINE 255 ABX - VANCOMYCIN 526 Oral 1040 920 Output: Urine 700 Isbell 600 1450 ADLs: Meal Record Start: 08/27/19 22: 07 Freq: DAILY@0900,1400,1800 Status: Active Protocol: Created 08/27/19 22:07 System (Rec: 08/27/19 22:07 System [id number]) Document 08/28/19 09:00 [id number] (Rec: 08/28/19 15:27 [id number] TELE-C07) Document 08/28/19 14:00 [id number] (Rec: 08/28/19 15:28 [id number] TELE-C07) Document 08/28/19 18:00 [id number] (Rec: 08/28/19 18:18 [id number] TELE-C09) Intake and Output Start: 08/27/19 16: 36 Freq: Status: Active Protocol: Created 08/27/19 16:36 System (Rec: 08/27/19 16:36 System [id number]) Document 08/27/19 22:37 [id number] (Rec: 08/27/19 22:37 [id number] ED-C31) Intake and Output Start: 08/27/19 22: 07 Freq: DAILY@0600,1400,2200 Status: Active Protocol: Created 08/27/19 22:07 System (Rec: 08/27/19 22:07 System TELE-C05) Document 08/28/19 06:00 [id number] (Rec: 08/28/19 06:35 [id number] TELE-C11) Document 08/28/19 14:00 [id number] (Rec: 08/28/19 15:28 [id number] TELE-C07) Document 08/28/19 22:00 [id number] (Rec: 08/28/19 22:02 [id number] TELE-C09) Document 08/29/19 06:00 [id number] (Rec: 08/29/19 06:01 [id number] TELE-C09) - Physical Exam General Physical Exam Comment: She is anxious. She is hemodynamically stable and has no respiratory distress General: No Cyanosis, No Anemia, No Jaundice, No Clubbing Lungs and Chest: Yes: Chest Expansion Full, Chest Expansion Symetrica, Percussion Note Resonant, Crackles - right sided. No: Vessicular Breath Sounds - right upper thorax - decreased breath sounds, Wheezes, Respiratory Distress, Use of Accessory Muscles Heart Rate and Rhythm: Regular Additional Cardiovascular: Yes: Normal Heart Sounds, Heart Murmur - 3/6 systolic ejection murmur. No: Pedal Edema Abdominal Exam: Yes: Soft, Bowel Sounds Present. No: Distention, Rigidity, Abdominal Tenderness - Extremities Cranial Nerves II-XII Intact: Yes Limbs: Normal Power, Normal Coordination - Neuro Orientation: A/O x3 Psychiatric: Anxious Speech: Normal Results - Results Lab Results: Laboratory Results - last 24 hr 08/28/19 08/28/19 08/28/19 11:47 16:45 20:21 WBC RBC Hgb Hct MCV MCH MCHC RDW Plt Count MPV Neut % (Auto) Lymph % (Auto) Pickett % (Auto) Eos % (Auto) Baso % (Auto) Absolute Neuts (auto) Absolute Lymphs (auto) Absolute Monos (auto) Absolute Eos (auto) Absolute Basos (auto) Absolute Nucleated RBC Nucleated RBC % Sodium Potassium Chloride Carbon Dioxide Anion Gap BUN Creatinine Est GFR ( Amer) Est GFR (Non-Af Amer) BUN/Creatinine Ratio Glucose POC Glucose (mg/dL) 291 H 183 H 239 H Calcium Total Bilirubin Direct Bilirubin Indirect Bilirubin AST ALT Alkaline Phosphatase C-Reactive Protein Total Protein Albumin Globulin Albumin/Globulin Ratio 08/29/19 08/29/19 08/29/19 05:26 05:26 07:18 WBC 9.0 RBC 3.24 L Hgb 10.0 L Hct 29 L MCV 89 MCH 31 MCHC 35 RDW 14 Plt Count 65 L MPV 8.2 Neut % (Auto) 78.5 Lymph % (Auto) 10.6 Pickett % (Auto) 4.7 Eos % (Auto) 5.9 Baso % (Auto) 0.3 Absolute Neuts (auto) 7.1 Absolute Lymphs (auto) 1.0 Absolute Monos (auto) 0.4 Absolute Eos (auto) 0.5 Absolute Basos (auto) 0.0 Absolute Nucleated RBC 0.0 Nucleated RBC % 0.1 Sodium 139 Potassium 3.7 Chloride 112 H Carbon Dioxide 24 Anion Gap 3 BUN 6 Creatinine 0.58 Est GFR ( Amer) 124.0 Est GFR (Non-Af Amer) 102.5 BUN/Creatinine Ratio 10.3 Glucose 107 H POC Glucose (mg/dL) 129 H Calcium 7.8 L Total Bilirubin 0.40 Direct Bilirubin 0.20 H Indirect Bilirubin 0.2 L AST 40 H ALT 15 Alkaline Phosphatase 113 H C-Reactive Protein 83.07 H Total Protein 5.0 L Albumin 2.5 L Globulin 2.5 Albumin/Globulin Ratio 1.0 Other Results/Reports: *[facility]* [place] [address] Fax #: [phone] Transthoracic Echocardiogram Conclusions Summary: - Left ventricle: Systolic function is normal. The estimated ejection fraction is 55-60%. Wall motion is normal; there are no regional wall motion abnormalities. - Right ventricle: Systolic function is normal. Systolic pressure is within the normal range. - Left atrium: The atrium is severely dilated. - Mitral valve: There is mild to moderate regurgitation. - Aortic valve: The findings are consistent with mild to moderate stenosis. There is mild to moderate regurgitation. - Tricuspid valve: There is trace to mild regurgitation. - Compared to study of 07/04/18, there is little change. Assessment - Problem List Assessment: Patient Problems Headache (Acute) History of lung abscess (Acute) Lung mass (Acute) Pneumonia (Acute) Thrombocytopenia (Acute) Troponin I above reference range (Acute) Asthma (Chronic) Chronic pain syndrome (Chronic) Depression (Chronic) GERD (gastroesophageal reflux disease) (Chronic) History of DVT (deep vein thrombosis) (Chronic) History of falling (Chronic) History of renal calculi (Chronic) History of urinary retention (Chronic) Memory impairment (Chronic) Osteoporosis (Chronic) Peripheral neuropathy (Chronic) Sleep apnea (Chronic) Type 2 diabetes mellitus (Chronic) Plan: Acute medical problems Pneumonia (Acute) History of lung abscess (Acute) Lung mass (Acute) I have reviewed Dr. Krystin Matias and Maribeth Fay's consultation notes. We are awaiting the lung biopsy on 08/31/2019 - giving her platelets a chance to recover from aspirin therapy. I note her WBC and %neutrophils are coming down and her CRP is increasing. The CRP lags behind the more rapidly responding neutrophils. I will maintain her antibacterial coverage. I doubt this is infective endocarditis - her blood cultures are negative, her transthoracic echo shows no vegetations and she has clear lung pathology Troponin I above reference range (Acute) This was likely due to demand ischemia. I will stop telemetry. Headache (Acute) This is troubling her and may result from her inflammatory state. Thrombocytopenia: I will stop her lovenox in case this is exacerbated by heparin. However, this is longstanding. Comorbidities Type 2 diabetes mellitus (Chronic) improved control Depression (Chronic) and anxiety - I have treated her with alprazolam and this has given some relief Secondary diagnoses Asthma (Chronic) Chronic pain syndrome (Chronic) GERD (gastroesophageal reflux disease) (Chronic) History of DVT (deep vein thrombosis) (Chronic) History of falling (Chronic) History of renal calculi (Chronic) History of urinary retention (Chronic) Memory impairment (Chronic) Osteoporosis (Chronic) Peripheral neuropathy (Chronic) Sleep apnea (Chronic) I explained the above to Selma Rodríguez and called Musa Rodríguez to inform him.
[2019-08-29] MEDS: Insulin LISPRO* 1 UNITS UNIT SUBCUT SCH ×4 (08:12→21:06)
[2019-08-29] MEDS ORDERED: Calcium Carbonate CHEW TAB* 500 MG (TUMS) PO PRN (08:28)
[2019-08-29] MEDS ORDERED: [UNRECOGNIZED DRUG - REMARK] PO PRN (08:31)
[2019-08-29] MEDS: Insulin GLARGINE(*) 1 UNITS UNIT SUBCUT SCH (10:00)
[2019-08-29] MEDS: Ferrous Sulfate TAB* 325 MG PO SCH (10:00)
[2019-08-29] MEDS: Cyanocobalamin TAB* 500 MCG PO SCH (10:00)
[2019-08-29] MEDS: Aspirin 81 mg CHEW TAB* 81 MG TAB.CHEW PO SCH (10:00)
[2019-08-29] MEDS: Magnesium Oxide TAB* 400 MG PO SCH ×2 (10:00→21:02)
[2019-08-29] MEDS: Venlafaxine EXT RELEASE CAP* 75 MG PO SCH ×3 (10:01→21:01)
[2019-08-29] MEDS: Potassium Chlor TAB* 20 MEQ TAB.ER PO SCH (10:01)
[2019-08-29] MEDS: Mirabegron (NF) 25 MG TAB PO SCH (10:01)
[2019-08-29] MEDS: Pantoprazole TAB * 40 MG TAB PO SCH ×2 (10:01→21:03)
[2019-08-29] MEDS: ALPRAZolam TAB* 0.5 MG PO PRN ×2 (10:01→21:03)
[2019-08-29] MEDS ORDERED: Vancomycin Trough Check NOTE FOLLOW UP ONE (10:30)
[2019-08-29] MEDS: DOXYcycline IV* 100 MG in NS 0.9% 250 ML* 250 ML IVPB SCH ×2 (12:02→21:38)
[2019-08-29] MEDS: Vancomycin(*) 1,000 MG in NS 0.9% 250 ML* 250 ML IV SCH (13:18)
[2019-08-29] MEDS: Hydrocodone/Acetamin 10/325 MG 1 TAB PO PRN ×2 (13:18→21:02)
[2019-08-29] MEDS: Atorvastatin* 20 MG TAB PO SCH (16:43)
[2019-08-29] MEDS: Gabapentin CAP(*) 300 MG PO SCH (21:02)
[2019-08-29] MEDS: traZODone TAB* 100 MG PO SCH (21:03)
[2019-08-29] MEDS: Sertraline* 50 MG TAB PO SCH (21:03)
[2019-08-30] MEDS: Vancomycin(*) 1,250 MG in NS 0.9% 250 ML* 250 ML IV SCH ×3 (00:12→22:40)
[2019-08-30] MEDS: Sucralfate TAB* 1 GM PO SCH ×2 (05:27→17:32)
[2019-08-30 05:35] LABS: ABS Eosinophils 0.7 10^3/ul (0-0.6); ABS Lymphocytes 1.2 10^3/ul (1.0-4.8); ABS Monocytes 0.4 10^3/ul (0-0.8); ABS Neutrophils 3.9 10^3/ul (1.5-7.7); Eosinophil % 11.1 %; Hematocrit 30 % (35-47); Hemoglobin 10.1 g/dL (12.0-16.0); Lymphocyte % 19.1 %; Mean Corpuscular HGB Conc 34 g/dL (31-36); Mean Corpuscular Hemoglobin 31 pg (27-31); Mean Corpuscular Volume 90 fL (80-97); Platelet Count 78 10^3/uL (150-450); Red Blood Count 3.28 10^6 /uL (3.70-4.87); Red Cell Distribution Width 14 % (10-15); White Blood Count 6.1 10^3/uL (3.5-10.8)
[2019-08-30 05:45] LABS: BUN/Creatinine Ratio 8.8 (8-20); C Reactive Protein 47.43 mg/L (<8.01); Calcium 7.9 mg/dL (8.6-10.3); EGFR African American 126.5 (>60); EGFR Non-African American 104.6 (>60); Potassium 3.7 mmol/L (3.5-5.0)
[2019-08-30] MEDS: Insulin LISPRO* 1 UNITS UNIT SUBCUT SCH ×4 (07:35→21:46)
--- NOTE | 2019-08-30 07:38 | PN ---
Subjective - Subjective Reason for Note: Progress Note History: She feels better no longer having telemetry or a Isbell catheter and has walked this morning with a walker. She has had no fever or sweats. She had a single paroxysm of non-productive coughing last night. Her headache is worse in the early mornings. Her appetite is low, but she is drinking fluids. Active Problems: Active Problems Headache (Acute) R51 History of lung abscess (Acute) Z87.09 Lung mass (Acute) R91.8 Pneumonia (Acute) J18.9 Thrombocytopenia (Acute) D69.6 Asthma (Chronic) J45.909 Chronic pain syndrome (Chronic) G89.4 Depression (Chronic) F32.9 GERD (gastroesophageal reflux disease) (Chronic) K21.9 History of DVT (deep vein thrombosis) (Chronic) Z86.718 History of falling (Chronic) Z91.81 History of renal calculi (Chronic) Z87.442 History of urinary retention (Chronic) Z87.898 Memory impairment (Chronic) R41.3 Osteoporosis (Chronic) M81.0 Peripheral neuropathy (Chronic) G62.9 Sleep apnea (Chronic) G47.30 Type 2 diabetes mellitus (Chronic) Current Medications: Current Medications Acetaminophen (Tylenol Tab*) 650 mg PO Q4H PRN PRN Reason: FEVER/PAIN Last Admin: 08/28/19 13:55 Dose: 650 mg Hydrocodone Bitart/Acetaminophen ([place] 10/325 (Nf)) 1 tab PO Q6H PRN PRN Reason: PAIN - MODERATE Last Admin: 08/29/19 21:02 Dose: 1 tab Alprazolam (Xanax Tab*) 0.5 mg PO Q8H PRN PRN Reason: ANXIETY Last Admin: 08/29/19 21:03 Dose: 0.5 mg Aspirin (Aspirin 81 Mg Chew Tab*) 81 mg PO DAILY [facility] Stop: 08/30/19 11:00 Last Admin: 08/29/19 10:00 Dose: 81 mg Atorvastatin Calcium (Lipitor*) 20 mg PO 1700 [facility] Last Admin: 08/29/19 16:43 Dose: 20 mg Calcium Carbonate (Tums*) 500 mg PO Q4H PRN PRN Reason: INDIGESTION Cyanocobalamin (Vitamin B12 Tab*) 1,000 mcg PO DAILY [facility] Last Admin: 08/29/19 10:00 Dose: 1,000 mcg Dextrose (Dextrose 50% Vial 50 Ml*) 25 ml IV PUSH .FOR FS < 60 - SS PRN PRN Reason: FS < 60 Ferrous Sulfate (Ferrous Sulfate Tab*) 325 mg PO DAILY [facility] Last Admin: 08/29/19 10:00 Dose: 325 mg Gabapentin (Neurontin Cap(*)) 600 mg PO BEDTIME [facility] Last Admin: 08/29/19 21:02 Dose: 600 mg Doxycycline Hyclate 100 mg/ (Sodium Chloride) 250 mls @ 250 mls/hr IVPB Q12H [facility] Last Admin: 08/29/19 21:38 Dose: 250 mls/hr Vancomycin HCl 1,250 mg/ (Sodium Chloride) 250 mls @ 166.667 mls/hr IV 1100, 2300 [facility] Last Admin: 08/30/19 00:12 Dose: 166.667 mls/hr Insulin Glargine (Lantus(*)) 8 units SUBCUT Q24H [facility] Last Admin: 08/29/19 10:00 Dose: 8 unit Insulin Human Lispro (Humalog*) 0 units SUBCUT ACHS [facility]; Protocol Last Admin: 08/29/19 21:06 Dose: 1 unit Magnesium Oxide (Magox 400 Tab*) 400 mg PO BID [facility] Last Admin: 08/29/19 21:02 Dose: 400 mg Mirabegron (Myrbetriq (Nf)) 25 mg PO DAILY [facility] Last Admin: 08/29/19 10:01 Dose: Not Given Nystatin (Nystatin Suspension*) 500,000 units PO QID PRN PRN Reason: PER PROTOCOL Pantoprazole Sodium (Protonix Tab*) 40 mg PO BID [facility] Last Admin: 08/29/19 21:03 Dose: 40 mg Pharmacy Consult (Vancomycin Per Pharmacy*) 1 note FOLLOW UP .VANC PER PHARMACY [facility]; Protocol Pharmacy Profile Note (Vancomycin Trough Check) 1 note FOLLOW UP 1030 ONE Stop: 08/31/19 10:31 Potassium Chloride (Klor Con Er Tab*) 20 meq PO DAILY [facility] Last Admin: 08/29/19 10:01 Dose: 20 meq Saliva Substitute (Biotene Moisturizing Mouth (Nf)) 1 spray MT Q4H PRN; Protocol PRN Reason: dry mouth Sertraline HCl (Zoloft*) 50 mg PO BEDTIME [facility] Last Admin: 08/29/19 21:03 Dose: 50 mg Sucralfate (Carafate*) 1 gm PO 0630,1600 [facility] Last Admin: 08/30/19 05:27 Dose: 1 gm Tramadol HCl (Ultram*) 25 mg PO Q6HR PRN PRN Reason: PAIN - MILD Last Admin: 08/28/19 21:01 Dose: 25 mg Trazodone HCl (Desyrel Tab*) 100 mg PO BEDTIME [facility] Last Admin: 08/29/19 21:03 Dose: 100 mg Venlafaxine HCl (Effexor Xr Cap*) 75 mg PO TID [facility] Last Admin: 08/29/19 21:01 Dose: 75 mg Home Medications: Home Medications Medication Instructions Recorded Confirmed Type Simvastatin TAB(NF) [Zocor 20 MG 40 mg PO 1700 06/15/13 08/27/19 History (NF)] Sucralfate TAB* [Carafate*] 1 gm PO BID 06/15/13 08/27/19 History Aspirin 81 mg CHEW TAB* 1 tab PO DAILY 08/04/16 08/27/19 History Ferrous Sulfate TAB* 325 mg PO DAILY 08/04/16 08/27/19 History Sertraline* [Zoloft*] 50 mg PO BEDTIME 08/04/16 08/27/19 History Cyanocobalamin TAB* [Vitamin B12 1,000 mcg PO DAILY 02/08/17 08/27/19 History TAB*] Colesevelam(NF) [Welchol(NF)] 625 mg PO DAILY 02/08/18 08/27/19 History Pantoprazole TAB * [Protonix TAB*] 40 mg PO BID 02/08/18 08/27/19 History SitaGLIPtin (NF) [Januvia (NF)] 100 mg PO DAILY 02/08/18 08/27/19 History Acetaminophen TAB* [Tylenol TAB*] 650 mg PO Q4H PRN tab 07/14/18 08/27/19 Rx Saliva Substitute (NF) [Biotene 1 spray MT Q4H PRN btl 07/14/18 08/27/19 Rx Moisturizing Mouth (NF)] Cyclobenzaprine (NF) 5 mg PO TID PRN 12/20/18 08/27/19 History [Cyclobenzaprine 5 MG (NF)] Gabapentin CAP(*) [Neurontin 300 600 mg PO BEDTIME 12/20/18 08/27/19 History CAP(*)] Fluticasone NASAL SPRAY 50MCG* 2 spray BOTH NARES DAILY #1 btl 06/10/19 Rx [Flonase NASAL SPRAY 50MCG*] traMADol TAB* [Ultram*] 25 mg PO Q6HR PRN 06/10/19 08/27/19 History Hemorrhoidal OINT* [Preparation H*] 1 applic [place] BID PRN 08/27/19 08/27/19 History Mirabegron (NF) [Myrbetriq (NF)] 25 mg PO DAILY 08/27/19 08/27/19 History Nystatin SUSPENSION* 500,000 units PO QID PRN 08/27/19 08/27/19 History Potassium Citrate [Urocit-K] 45 meq PO DAILY 08/27/19 08/27/19 History Venlafaxine EXT RELEASE CAP* 75 mg PO TID 08/27/19 08/27/19 History [Effexor Xr CAP*] traZODone TAB* [Desyrel TAB*] 100 mg PO BEDTIME 08/27/19 08/27/19 History Allergies: Allergies Allergy/AdvReac Type Severity Reaction Status Date / Time amoxicillin Allergy Rash Verified 08/27/19 16:44 polyethylene glycol Allergy Headache Verified 08/27/19 16:44 Sulfa (Sulfonamide Allergy Rash Verified 08/27/19 16:44 Antibiotics) terconazole [From Terazol 3] Allergy Rash Verified 08/27/19 16:44 Objective - Vital Signs Vital Signs: Vital Signs 08/29/19 08/29/19 08/29/19 08:00 08:12 10:01 Temperature 98.5 F Pulse Rate 104 Respiratory 16 16 18 Rate Blood Pressure 144/76 (mmHg) O2 Sat by Pulse 92 Oximetry 08/29/19 08/29/19 08/29/19 11:29 12:01 13:18 Temperature 98.6 F Pulse Rate 103 Respiratory 16 18 16 Rate Blood Pressure 132/69 (mmHg) O2 Sat by Pulse 94 Oximetry 08/29/19 08/29/19 08/29/19 15:18 15:51 19:15 Temperature 98.2 F 98.3 F Pulse Rate 96 94 Respiratory 18 20 20 Rate Blood Pressure 132/66 163/73 (mmHg) O2 Sat by Pulse 92 92 Oximetry 08/29/19 08/29/19 08/29/19 20:00 21:02 21:03 Temperature Pulse Rate Respiratory 18 20 20 Rate Blood Pressure (mmHg) O2 Sat by Pulse Oximetry 08/29/19 08/29/19 08/30/19 23:10 23:15 03:15 Temperature 98.2 F 97.8 F Pulse Rate 91 91 Respiratory 18 16 20 Rate Blood Pressure 135/74 131/69 (mmHg) O2 Sat by Pulse 93 96 Oximetry 08/30/19 07:14 Temperature Pulse Rate Respiratory 16 Rate Blood Pressure (mmHg) O2 Sat by Pulse Oximetry - Intake and Output Intake and Output: Intake & Output 08/27/19 08/28/19 08/29/19 08/30/19 11:59 11:59 11:59 11:59 Intake Total 3180.2 2403 630 Output Total 1300 2050 Balance 1880.2 353 630 Weight 145 lb 12.8 oz Intake: IV Fluids 2140.2 582 ABX - DOXYCYCLINE 250 275 Magnesium 50 NS (0.9%) 20.2 NS (0.9%) 20 meq KCL 307 IVPB 781 ABX - DOXYCYCLINE 255 ABX - VANCOMYCIN 526 Oral 1040 1040 630 Output: Urine 700 Isbell 600 2050 Other: # Voids 1 ADLs: Meal Record Start: 08/27/19 22: 07 Freq: DAILY@0900,1400,1800 Status: Active Protocol: Created 08/27/19 22:07 System (Rec: 08/27/19 22:07 System [id number]) Document 08/28/19 09:00 [id number] (Rec: 08/28/19 15:27 [id number] TELE-C07) Document 08/28/19 14:00 [id number] (Rec: 08/28/19 15:28 [id number] TELE-C07) Document 08/28/19 18:00 [id number] (Rec: 08/28/19 18:18 [id number] TELE-C09) Document 08/29/19 09:00 [id number] (Rec: 08/29/19 10:18 [id number] TELE-C08) Document 08/29/19 14:00 [id number] (Rec: 08/29/19 14:07 [id number] TELE-C07) Document 08/29/19 18:00 [id number] (Rec: 08/29/19 20:14 [id number] TELE-C07) Intake and Output Start: 08/27/19 16: 36 Freq: Status: Active Protocol: Created 08/27/19 16:36 System (Rec: 08/27/19 16:36 System ED-C24) Document 08/27/19 22:37 [id number] (Rec: 08/27/19 22:37 [id number] ED-C31) Intake and Output Start: 08/27/19 22: 07 Freq: DAILY@0600,1400,2200 Status: Active Protocol: Created 08/27/19 22:07 System (Rec: 08/27/19 22:07 System TELE-C05) Document 08/28/19 06:00 [id number] (Rec: 08/28/19 06:35 [id number] TELE-C11) Document 08/28/19 14:00 [id number] (Rec: 08/28/19 15:28 [id number] TELE-C07) Document 08/28/19 22:00 [id number] (Rec: 08/28/19 22:02 [id number] TELE-C09) Document 08/29/19 06:00 [id number] (Rec: 08/29/19 06:01 [id number] TELE-C09) Document 08/29/19 14:00 [id number] (Rec: 08/29/19 14:07 [id number] TELE-C07) Document 08/29/19 22:00 [id number] (Rec: 08/30/19 03:00 [id number] TELE-C06) Document 08/30/19 06:00 [id number] (Rec: 08/30/19 06:15 [id number] TELE-C07) - Physical Exam General Physical Exam Comment: She is conversational and engaged in her medical process, asking relevent questions. Warm and well perfused, no acute distress. General: No Cyanosis, No Anemia, No Jaundice, No Clubbing Lungs and Chest: Yes: Chest Expansion Full, Chest Expansion Symetrica, Percussion Note Resonant, Vessicular Breath Sounds. No: Crackles, Wheezes, Respiratory Distress, Use of Accessory Muscles Heart Rate and Rhythm: Regular Additional Cardiovascular: Yes: Normal Heart Sounds, Heart Murmur. No: Pedal Edema Abdominal Exam: Yes: Soft, Bowel Sounds Present. No: Distention, Abdominal Tenderness, Guarding, Rebound Tenderness Results - Results Lab Results: Laboratory Results - last 24 hr 08/29/19 08/29/19 08/29/19 07:18 10:32 12:06 WBC RBC Hgb Hct MCV MCH MCHC RDW Plt Count MPV Neut % (Auto) Lymph % (Auto) [place] % (Auto) Eos % (Auto) Baso % (Auto) Absolute Neuts (auto) Absolute Lymphs (auto) Absolute Monos (auto) Absolute Eos (auto) Absolute Basos (auto) Absolute Nucleated RBC Nucleated RBC % Sodium Potassium Chloride Carbon Dioxide Anion Gap BUN Creatinine Est GFR ( Amer) Est GFR (Non-Af Amer) BUN/Creatinine Ratio Glucose POC Glucose (mg/dL) 129 H 203 H Calcium C-Reactive Protein Vancomycin Trough 9.4 08/29/19 08/29/19 08/30/19 16:46 20:22 05:13 WBC 6.1 RBC 3.28 L Hgb 10.1 L Hct 30 L MCV 90 MCH 31 MCHC 34 RDW 14 Plt Count 78 L MPV 8.0 Neut % (Auto) 62.7 Lymph % (Auto) 19.1 [place] % (Auto) 6.8 Eos % (Auto) 11.1 Baso % (Auto) 0.3 Absolute Neuts (auto) 3.9 Absolute Lymphs (auto) 1.2 Absolute Monos (auto) 0.4 Absolute Eos (auto) 0.7 H Absolute Basos (auto) 0.0 Absolute Nucleated RBC 0.0 Nucleated RBC % 0.0 Sodium Potassium Chloride Carbon Dioxide Anion Gap BUN Creatinine Est GFR ( Amer) Est GFR (Non-Af Amer) BUN/Creatinine Ratio Glucose POC Glucose (mg/dL) 162 H 193 H Calcium C-Reactive Protein Vancomycin Trough 08/30/19 05:13 WBC RBC Hgb Hct MCV MCH MCHC RDW Plt Count MPV Neut % (Auto) Lymph % (Auto) [place] % (Auto) Eos % (Auto) Baso % (Auto) Absolute Neuts (auto) Absolute Lymphs (auto) Absolute Monos (auto) Absolute Eos (auto) Absolute Basos (auto) Absolute Nucleated RBC Nucleated RBC % Sodium 140 Potassium 3.7 Chloride 112 H Carbon Dioxide 25 Anion Gap 3 BUN 5 L Creatinine 0.57 Est GFR ( Amer) 126.5 Est GFR (Non-Af Amer) 104.6 BUN/Creatinine Ratio 8.8 Glucose 110 H POC Glucose (mg/dL) Calcium 7.9 L C-Reactive Protein 47.43 H Vancomycin Trough Assessment - Problem List Assessment: Patient Problems Headache (Acute) History of lung abscess (Acute) Lung mass (Acute) Pneumonia (Acute) Thrombocytopenia (Acute) Asthma (Chronic) Chronic pain syndrome (Chronic) Depression (Chronic) GERD (gastroesophageal reflux disease) (Chronic) History of DVT (deep vein thrombosis) (Chronic) History of falling (Chronic) History of renal calculi (Chronic) History of urinary retention (Chronic) Memory impairment (Chronic) Osteoporosis (Chronic) Peripheral neuropathy (Chronic) Sleep apnea (Chronic) Type 2 diabetes mellitus (Chronic) Plan: History of lung abscess (Acute) Lung mass (Acute) Pneumonia (Acute)Headache ( Acute) She is responding well to her antibacterial treatment and has had no adverse effects. Comorbidities Thrombocytopenia (Acute) She has a minor improvement after stopping the lovenox. I will restart this after her lung biopsy tomorrow. Headache - this is being controlled - it has a diurnal pattern, worse in the orthopedics nurse. Anxiety This remains an issue - she has some alprazolam Type 2 diabetes mellitus (Chronic) controlled Secondary diagnoses Asthma (Chronic) Chronic pain syndrome (Chronic) Depression (Chronic) GERD (gastroesophageal reflux disease) (Chronic) History of DVT (deep vein thrombosis) (Chronic) History of falling (Chronic) History of renal calculi (Chronic) History of urinary retention (Chronic) Memory impairment (Chronic) Osteoporosis (Chronic) Peripheral neuropathy (Chronic) Sleep apnea (Chronic) I discussed the above with Selma Rodríguez. I called Musa Rodríguez - didn't cone picker.
[2019-08-30] MEDS: Cyanocobalamin TAB* 500 MCG PO SCH (09:10)
[2019-08-30] MEDS: Venlafaxine EXT RELEASE CAP* 75 MG PO SCH ×3 (09:10→20:31)
[2019-08-30] MEDS: Aspirin 81 mg CHEW TAB* 81 MG TAB.CHEW PO SCH (09:11)
[2019-08-30] MEDS: Ferrous Sulfate TAB* 325 MG PO SCH (09:11)
[2019-08-30] MEDS: Potassium Chlor TAB* 20 MEQ TAB.ER PO SCH (09:12)
[2019-08-30] MEDS: Magnesium Oxide TAB* 400 MG PO SCH ×2 (09:12→20:31)
[2019-08-30] MEDS: Pantoprazole TAB * 40 MG TAB PO SCH ×2 (09:12→20:31)
[2019-08-30] MEDS: Insulin GLARGINE(*) 1 UNITS UNIT SUBCUT SCH (09:13)
[2019-08-30] MEDS: Hydrocodone/Acetamin 10/325 MG 1 TAB PO PRN (09:24)
[2019-08-30] MEDS: Mirabegron (NF) 25 MG TAB PO SCH (09:24)
[2019-08-30] MEDS: DOXYcycline IV* 100 MG in NS 0.9% 250 ML* 250 ML IVPB SCH (09:25)
[2019-08-30] MEDS: Atorvastatin* 20 MG TAB PO SCH (17:35)
[2019-08-30] MEDS: Gabapentin CAP(*) 300 MG PO SCH (20:31)
[2019-08-30] MEDS: Sertraline* 50 MG TAB PO SCH (20:32)
[2019-08-30] MEDS: traZODone TAB* 100 MG PO SCH (20:32)
--- NOTE | 2019-08-30 20:44 | PN ---
Progress Note - Progress Note Date of Service: 08/30/19 SOAP: Subjective: CC: abnormal chest CT HPI: 69 year old woman admitted with encephalopathy and chest pain, treated for right sided pulmonary abscess June 2019. No recent cough or shortness of breath. Chest CT showed peripheral right lung mass in similar location to prior abnormality. Will have a biopsy tomorrow. Objective: Vital Signs Temp 36.6 C 08/30/19 15:26 Pulse 92 08/30/19 15:26 Resp 20 08/30/19 20:31 BP 154/81 08/30/19 15:26 Pulse Ox 95 08/30/19 15:26 Intake & Output 08/30/19 08/30/19 08/31/19 06:59 18:59 06:59 Intake Total 150 780 Balance 150 780 Intake: IV Fluids 40 ABX - DOXYCYCLINE 20 ABX - VANCOMYCIN 20 IVPB 500 ABX - DOXYCYCLINE 250 ABX - VANCOMYCIN 250 Oral 150 240 Other: Estimated Void Medium # Voids 1 Gen:awake, no distress Neuro: AAOx3 HEENT: no thrush Heart:Regular no murmur Lungs: no wheeze or rale Abd:+BS NTND soft Skin: no rash Laboratory Results - last 24 hr 08/30/19 08/30/19 08/30/19 05:13 05:13 07:22 WBC 6.1 RBC 3.28 L Hgb 10.1 L Hct 30 L MCV 90 MCH 31 MCHC 34 RDW 14 Plt Count 78 L MPV 8.0 Neut % (Auto) 62.7 Lymph % (Auto) 19.1 [place] % (Auto) 6.8 Eos % (Auto) 11.1 Baso % (Auto) 0.3 Absolute Neuts (auto) 3.9 Absolute Lymphs (auto) 1.2 Absolute Monos (auto) 0.4 Absolute Eos (auto) 0.7 H Absolute Basos (auto) 0.0 Absolute Nucleated RBC 0.0 Nucleated RBC % 0.0 Sodium 140 Potassium 3.7 Chloride 112 H Carbon Dioxide 25 Anion Gap 3 BUN 5 L Creatinine 0.57 Est GFR ( Amer) 126.5 Est GFR (Non-Af Amer) 104.6 BUN/Creatinine Ratio 8.8 Glucose 110 H POC Glucose (mg/dL) 133 H Calcium 7.9 L C-Reactive Protein 47.43 H 08/30/19 08/30/19 11:22 17:02 WBC RBC Hgb Hct MCV MCH MCHC RDW Plt Count MPV Neut % (Auto) Lymph % (Auto) [place] % (Auto) Eos % (Auto) Baso % (Auto) Absolute Neuts (auto) Absolute Lymphs (auto) Absolute Monos (auto) Absolute Eos (auto) Absolute Basos (auto) Absolute Nucleated RBC Nucleated RBC % Sodium Potassium Chloride Carbon Dioxide Anion Gap BUN Creatinine Est GFR ( Amer) Est GFR (Non-Af Amer) BUN/Creatinine Ratio Glucose POC Glucose (mg/dL) 206 H 142 H Calcium C-Reactive Protein Microbiology 08/27/19 17:47 Aerobic Blood Culture - Preliminary Blood Venous No Growth Day 3 Anaerobic Blood Culture - Preliminary No Growth Day 3 08/27/19 17:47 Aerobic Blood Culture - Preliminary Blood Venous No Growth Day 3 Anaerobic Blood Culture - Preliminary No Growth Day 3 Assessment: 1. right lung mass, could be infectious including bacterial or fungal but WBC and CRP improving on antibiotics so seems some component of bacterial infection in the mix. The lung abnormality may not be the only process. 2. T2DM 3. Aortic stenosis Plan: 1. continue vancomycin, please restart ceftriaxone 1 gm daily after the biopsy 2. Lung mass biopsy; infectious workup to include bacterial, fungal, acid fast cultures; I ordered Urine Histoplasma Antigen and CrAg.
[2019-08-30] MEDS: ALPRAZolam TAB* 0.5 MG PO PRN (21:46)
[2019-08-30] MEDS ORDERED: D5W 1/2 NS KCl 20 Meq 1000 ML* 1,000 ML IV SCH (23:30)
[2019-08-31] MEDS: Acetaminophen TAB* 325 MG PO PRN ×2 (01:54→23:44)
[2019-08-31] MEDS: Sucralfate TAB* 1 GM PO SCH ×2 (05:38→16:36)
[2019-08-31 06:49] LABS: Mean Platelet Volume 7.5 fL (7.4-10.4); Platelet Count 87 10^3/uL (150-450)
[2019-08-31 06:54] LABS: INR 1.34 (0.82-1.09)
[2019-08-31] MEDS: Insulin LISPRO* 1 UNITS UNIT SUBCUT SCH ×4 (07:20→21:16)
--- NOTE | 2019-08-31 07:58 | PN ---
Subjective - Subjective Reason for Note: Progress Note History: She has had no fevers or chills and is in no pain. She has occasional paroxysms of non-productive coughing. She has no diarrhea from antibacterial therapy. She walked yesterday and was out in a chair. I reviewed Dr. Rizo's consultation note. She is NPO prior to her lung mass biopsy today. Active Problems: Active Problems History of lung abscess (Acute) Z87.09 Lung mass (Acute) R91.8 Pneumonia (Acute) J18.9 Thrombocytopenia (Acute) D69.6 Asthma (Chronic) J45.909 Chronic pain syndrome (Chronic) G89.4 Depression (Chronic) F32.9 GERD (gastroesophageal reflux disease) (Chronic) K21.9 Headache (Chronic) R51 History of DVT (deep vein thrombosis) (Chronic) Z86.718 History of falling (Chronic) Z91.81 History of renal calculi (Chronic) Z87.442 History of urinary retention (Chronic) Z87.898 Memory impairment (Chronic) R41.3 Osteoporosis (Chronic) M81.0 Peripheral neuropathy (Chronic) G62.9 Sleep apnea (Chronic) G47.30 Type 2 diabetes mellitus (Chronic) Current Medications: Current Medications Acetaminophen (Tylenol Tab*) 650 mg PO Q4H PRN PRN Reason: FEVER/PAIN Last Admin: 08/31/19 01:54 Dose: 650 mg Hydrocodone Bitart/Acetaminophen ([place] 10/325 (Nf)) 1 tab PO Q6H PRN PRN Reason: PAIN - MODERATE Last Admin: 08/30/19 09:24 Dose: 1 tab Alprazolam (Xanax Tab*) 0.5 mg PO Q8H PRN PRN Reason: ANXIETY Last Admin: 08/30/19 21:46 Dose: 0.5 mg Atorvastatin Calcium (Lipitor*) 20 mg PO 1700 ALMAS Last Admin: 08/30/19 17:35 Dose: 20 mg Calcium Carbonate (Tums*) 500 mg PO Q4H PRN PRN Reason: INDIGESTION Cyanocobalamin (Vitamin B12 Tab*) 1,000 mcg PO DAILY ALMAS Last Admin: 08/30/19 09:10 Dose: 1,000 mcg Dextrose (Dextrose 50% Vial 50 Ml*) 25 ml IV PUSH .FOR FS < 60 - SS PRN PRN Reason: FS < 60 Ferrous Sulfate (Ferrous Sulfate Tab*) 325 mg PO DAILY [facility] Last Admin: 08/30/19 09:11 Dose: 325 mg Gabapentin (Neurontin Cap(*)) 600 mg PO BEDTIME [facility] Last Admin: 08/30/19 20:31 Dose: 600 mg Vancomycin HCl 1,250 mg/ (Sodium Chloride) 250 mls @ 166.667 mls/hr IV 1100, 2300 [facility] Last Admin: 08/30/19 22:40 Dose: 166.667 mls/hr Potassium Chloride/Dextrose (D5w 1/2 Ns Kcl 20 Meq 1000 Ml*) 1,000 mls @ 50 mls /hr IV PER RATE [facility] Insulin Glargine (Lantus(*)) 8 units SUBCUT Q24H [facility] Last Admin: 08/30/19 09:13 Dose: 8 unit Insulin Human Lispro (Humalog*) 0 units SUBCUT ACHS [facility]; Protocol Last Admin: 08/31/19 07:20 Dose: Not Given Magnesium Oxide (Magox 400 Tab*) 400 mg PO BID [facility] Last Admin: 08/30/19 20:31 Dose: 400 mg Mirabegron (Myrbetriq (Nf)) 25 mg PO DAILY [facility] Last Admin: 08/30/19 09:24 Dose: Not Given Nystatin (Nystatin Suspension*) 500,000 units PO QID PRN PRN Reason: PER PROTOCOL Pantoprazole Sodium (Protonix Tab*) 40 mg PO BID [facility] Last Admin: 08/30/19 20:31 Dose: 40 mg Pharmacy Consult (Vancomycin Per Pharmacy*) 1 note FOLLOW UP .VANC PER PHARMACY [facility]; Protocol Pharmacy Profile Note (Vancomycin Trough Check) 1 note FOLLOW UP 1030 ONE Stop: 08/31/19 10:31 Potassium Chloride (Klor Con Er Tab*) 20 meq PO DAILY [facility] Last Admin: 08/30/19 09:12 Dose: 20 meq Saliva Substitute (Biotene Moisturizing Mouth (Nf)) 1 spray MT Q4H PRN; Protocol PRN Reason: dry mouth Sertraline HCl (Zoloft*) 50 mg PO BEDTIME [facility] Last Admin: 08/30/19 20:32 Dose: 50 mg Sucralfate (Carafate*) 1 gm PO 0630,1600 [facility] Last Admin: 08/31/19 05:38 Dose: 1 gm Tramadol HCl (Ultram*) 25 mg PO Q6HR PRN PRN Reason: PAIN - MILD Last Admin: 08/28/19 21:01 Dose: 25 mg Trazodone HCl (Desyrel Tab*) 100 mg PO BEDTIME [facility] Last Admin: 08/30/19 20:32 Dose: 100 mg Venlafaxine HCl (Effexor Xr Cap*) 75 mg PO TID [facility] Last Admin: 08/30/19 20:31 Dose: 75 mg Home Medications: Home Medications Medication Instructions Recorded Confirmed Type Simvastatin TAB(NF) [Zocor 20 MG 40 mg PO 1700 06/15/13 08/27/19 History (NF)] Sucralfate TAB* [Carafate*] 1 gm PO BID 06/15/13 08/27/19 History Aspirin 81 mg CHEW TAB* 1 tab PO DAILY 08/04/16 08/27/19 History Ferrous Sulfate TAB* 325 mg PO DAILY 08/04/16 08/27/19 History Sertraline* [Zoloft*] 50 mg PO BEDTIME 08/04/16 08/27/19 History Cyanocobalamin TAB* [Vitamin B12 1,000 mcg PO DAILY 02/08/17 08/27/19 History TAB*] Colesevelam(NF) [Welchol(NF)] 625 mg PO DAILY 02/08/18 08/27/19 History Pantoprazole TAB * [Protonix TAB*] 40 mg PO BID 02/08/18 08/27/19 History SitaGLIPtin (NF) [Januvia (NF)] 100 mg PO DAILY 02/08/18 08/27/19 History Acetaminophen TAB* [Tylenol TAB*] 650 mg PO Q4H PRN tab 07/14/18 08/27/19 Rx Saliva Substitute (NF) [Biotene 1 spray MT Q4H PRN btl 07/14/18 08/27/19 Rx Moisturizing Mouth (NF)] Cyclobenzaprine (NF) 5 mg PO TID PRN 12/20/18 08/27/19 History [Cyclobenzaprine 5 MG (NF)] Gabapentin CAP(*) [Neurontin 300 600 mg PO BEDTIME 12/20/18 08/27/19 History CAP(*)] Fluticasone NASAL SPRAY 50MCG* 2 spray BOTH NARES DAILY #1 btl 06/10/19 Rx [Flonase NASAL SPRAY 50MCG*] traMADol TAB* [Ultram*] 25 mg PO Q6HR PRN 06/10/19 08/27/19 History Hemorrhoidal OINT* [Preparation H*] 1 applic KS BID PRN 08/27/19 08/27/19 History Mirabegron (NF) [Myrbetriq (NF)] 25 mg PO DAILY 08/27/19 08/27/19 History Nystatin SUSPENSION* 500,000 units PO QID PRN 08/27/19 08/27/19 History Potassium Citrate [Urocit-K] 45 meq PO DAILY 08/27/19 08/27/19 History Venlafaxine EXT RELEASE CAP* 75 mg PO TID 08/27/19 08/27/19 History [Effexor Xr CAP*] traZODone TAB* [Desyrel TAB*] 100 mg PO BEDTIME 08/27/19 08/27/19 History Allergies: Allergies Allergy/AdvReac Type Severity Reaction Status Date / Time amoxicillin Allergy Rash Verified 08/27/19 16:44 polyethylene glycol Allergy Headache Verified 08/27/19 16:44 Sulfa (Sulfonamide Allergy Rash Verified 08/27/19 16:44 Antibiotics) terconazole [From Terazol 3] Allergy Rash Verified 08/27/19 16:44 Objective - Vital Signs Vital Signs: Vital Signs 08/30/19 08/30/19 08/30/19 09:24 12:04 12:17 Temperature 97.7 F Pulse Rate 94 Respiratory 18 20 16 Rate Blood Pressure 150/82 (mmHg) O2 Sat by Pulse 96 Oximetry 08/30/19 08/30/19 08/30/19 15:26 20:00 20:31 Temperature 97.9 F 99.5 F Pulse Rate 92 113 Respiratory 20 16 20 Rate Blood Pressure 154/81 164/87 (mmHg) O2 Sat by Pulse 95 100 Oximetry 08/30/19 08/30/19 08/30/19 21:46 22:31 23:14 Temperature 100.3 F Pulse Rate 115 Respiratory 18 18 16 Rate Blood Pressure 149/83 (mmHg) O2 Sat by Pulse 93 Oximetry 08/30/19 08/31/19 08/31/19 23:46 01:54 03:17 Temperature 100.5 F 98.6 F Pulse Rate 94 Respiratory 18 16 Rate Blood Pressure 133/73 (mmHg) O2 Sat by Pulse 93 Oximetry - Intake and Output Intake and Output: Intake & Output 08/28/19 08/29/19 08/30/19 08/31/19 11:59 11:59 11:59 11:59 Intake Total 3180.2 2403 750 1410 Output Total 1300 2050 2200 Balance 1880.2 353 750 -790 Weight 145 lb 12.8 oz Intake: IV Fluids 2140.2 582 40 ABX - DOXYCYCLINE 250 275 20 ABX - VANCOMYCIN 20 Magnesium 50 NS (0.9%) 20.2 NS (0.9%) 20 meq KCL 307 IVPB 781 500 ABX - DOXYCYCLINE 255 250 ABX - VANCOMYCIN 526 250 Oral 1040 1040 750 870 Output: Urine 700 2200 [place]bell 600 2050 Other: Estimated Void Medium # Voids 1 ADLs: Meal Record Start: 08/27/19 22: 07 Freq: DAILY@0900,1400,1800 Status: Active Protocol: Created 08/27/19 22:07 System (Rec: 08/27/19 22:07 System TELE-C05) Document 08/28/19 09:00 [id number] (Rec: 08/28/19 15:27 [id number] TELE-C07) Document 08/28/19 14:00 [id number] (Rec: 08/28/19 15:28 [id number] TELE-C07) Document 08/28/19 18:00 [id number] (Rec: 08/28/19 18:18 [id number] TELE-C09) Document 08/29/19 09:00 [id number] (Rec: 08/29/19 10:18 [id number] TELE-C08) Document 08/29/19 14:00 [id number] (Rec: 08/29/19 14:07 [id number] TELE-C07) Document 08/29/19 18:00 [id number] (Rec: 08/29/19 20:14 [id number] TELE-C07) Document 08/30/19 09:00 [id number] (Rec: 08/30/19 13:23 [id number] MED-M26) Document 08/30/19 14:00 [id number] (Rec: 08/30/19 14:08 [id number] TELE-C09) Document 08/30/19 18:00 [id number] (Rec: 08/30/19 18:36 [id number] TELE-C09) Intake and Output Start: 08/27/19 16: 36 Freq: Status: Active Protocol: Created 08/27/19 16:36 System (Rec: 08/27/19 16:36 System ED-C24) Document 08/27/19 22:37 [id number] (Rec: 08/27/19 22:37 [id number] ED-C31) Intake and Output Start: 08/27/19 22: 07 Freq: DAILY@0600,1400,2200 Status: Active Protocol: Created 08/27/19 22:07 System (Rec: 08/27/19 22:07 System TELE-C05) Document 08/28/19 06:00 [id number] (Rec: 08/28/19 06:35 [id number] TELE-C11) Document 08/28/19 14:00 [id number] (Rec: 08/28/19 15:28 [id number] TELE-C07) Document 08/28/19 22:00 [id number] (Rec: 08/28/19 22:02 [id number] TELE-C09) Document 08/29/19 06:00 [id number] (Rec: 08/29/19 06:01 [id number] TELE-C09) Document 08/29/19 14:00 [id number] (Rec: 08/29/19 14:07 [id number] TELE-C07) Document 08/29/19 22:00 [id number] (Rec: 08/30/19 03:00 [id number] TELE-C06) Document 08/30/19 06:00 [id number] (Rec: 08/30/19 06:15 [id number] TELE-C07) Document 08/30/19 14:00 [id number] (Rec: 08/30/19 14:08 [id number] TELE-C09) Document 08/30/19 22:00 [id number] (Rec: 08/31/19 00:36 [id number] TELE-C07) Document 08/31/19 06:00 [id number] (Rec: 08/31/19 06:03 [id number] TELE-C07) - Physical Exam General Physical Exam Comment: Warm and well perfused, alert and oriented General: No Cyanosis, No Anemia, No Jaundice, No Clubbing Lungs and Chest: Yes: Chest Expansion Full, Chest Expansion Symetrica, Percussion Note Resonant, Vessicular Breath Sounds. No: Crackles, Wheezes, Respiratory Distress, Use of Accessory Muscles Heart Rate and Rhythm: Regular Additional Cardiovascular: Yes: Normal Heart Sounds, Heart Murmur - 3/6 aortic systolic ejection murmur in aortic area and LSE. No: Pedal Edema Abdominal Exam: Yes: Soft, Bowel Sounds Present. No: Distention, Abdominal Tenderness Results - Results Lab Results: Laboratory Results - last 24 hr 08/30/19 08/30/19 08/30/19 11:22 17:02 20:28 Plt Count MPV INR (Anticoag Therapy) POC Glucose (mg/dL) 206 H 142 H 160 H 08/31/19 08/31/19 08/31/19 06:34 06:34 07:17 Plt Count 87 L MPV 7.5 INR (Anticoag Therapy) 1.34 H POC Glucose (mg/dL) 113 H Assessment - Problem List Assessment: Patient Problems History of lung abscess (Acute) Lung mass (Acute) Pneumonia (Acute) Thrombocytopenia (Acute) Asthma (Chronic) Chronic pain syndrome (Chronic) Depression (Chronic) GERD (gastroesophageal reflux disease) (Chronic) Headache (Chronic) History of DVT (deep vein thrombosis) (Chronic) History of falling (Chronic) History of renal calculi (Chronic) History of urinary retention (Chronic) Memory impairment (Chronic) Osteoporosis (Chronic) Peripheral neuropathy (Chronic) Sleep apnea (Chronic) Type 2 diabetes mellitus (Chronic) Plan: Pneumonia (Acute) History of lung abscess (Acute) Lung mass (Acute) She is responding well to antibacterial treatment. Today we will determine if there is another pathology in her right lung with a percutaneous biopsy Thrombocytopenia (Acute) Her platelets are at baseline. We have stopped aspirin therapy. We will proceed with the biopsy. comorbidities: Type 2 diabetes mellitus (Chronic) Well controlled. Secondary diagnoses Asthma (Chronic) Chronic pain syndrome (Chronic) Depression (Chronic) GERD (gastroesophageal reflux disease) (Chronic) Headache (Chronic) History of DVT (deep vein thrombosis) (Chronic) History of falling (Chronic) History of renal calculi (Chronic) History of urinary retention (Chronic) Memory impairment (Chronic) Osteoporosis (Chronic) Peripheral neuropathy (Chronic) Sleep apnea (Chronic) I discussed the above with Selma Rodríguez. She feels comfortable, but anxious.
[2019-08-31] MEDS: Magnesium Oxide TAB* 400 MG PO SCH ×2 (08:16→21:20)
[2019-08-31] MEDS: Ferrous Sulfate TAB* 325 MG PO SCH (08:16)
[2019-08-31] MEDS: Cyanocobalamin TAB* 500 MCG PO SCH (08:16)
[2019-08-31] MEDS: Insulin GLARGINE(*) 1 UNITS UNIT SUBCUT SCH (08:16)
[2019-08-31] MEDS: Pantoprazole TAB * 40 MG TAB PO SCH ×2 (08:17→21:20)
[2019-08-31] MEDS: Mirabegron (NF) 25 MG TAB PO SCH (08:17)
[2019-08-31] MEDS: Venlafaxine EXT RELEASE CAP* 75 MG PO SCH ×3 (08:17→21:20)
[2019-08-31] MEDS: Potassium Chlor TAB* 20 MEQ TAB.ER PO SCH (08:17)
[2019-08-31] MEDS: ALPRAZolam TAB* 0.5 MG PO PRN (08:48)
[2019-08-31] MEDS ORDERED: Vancomycin Trough Check NOTE FOLLOW UP ONE (10:30)
[2019-08-31 10:44] LABS: EGFR Non-African American 102.5 (>60)
[2019-08-31 11:27] LABS: Vancomycin Trough 13.5 mcg/mL
[2019-08-31] MEDS: Vancomycin(*) 1,250 MG in NS 0.9% 250 ML* 250 ML IV SCH ×2 (11:40→23:09)
[2019-08-31] MEDS ORDERED: LORazepam INJ* 2 MG/ML 1 ML VIAL IV PUSH ONE (12:30)
--- NOTE | 2019-08-31 14:48 | PN ---
Progress Note - Progress Note Date of Service: 08/31/19 - Pulm f/u note Note: Pt seen and examined at bedside. o new complaints. Awaiting biopsy today Active Medications Generic Name Dose Route Start Last Admin Trade Name Kati PRN Reason Stop Dose Admin Acetaminophen 650 mg 08/27/19 21:20 08/31/19 01:54 Tylenol Tab* PO 650 mg Q4H PRN Administration FEVER/PAIN Hydrocodone Bitart/Acetaminophen 1 tab 08/29/19 10:36 08/30/19 09:24 [place] 10/325 (Nf) PO 1 tab Q6H PRN Administration PAIN - MODERATE Alprazolam 0.5 mg 08/28/19 16:00 08/31/19 08:48 Xanax Tab* PO 0.5 mg Q8H PRN Administration ANXIETY Atorvastatin Calcium 20 mg 08/28/19 17:00 08/30/19 17:35 Lipitor* PO 20 mg 1700 ALMAS Administration Calcium Carbonate 500 mg 08/29/19 08:28 Tums* PO Q4H PRN INDIGESTION Cyanocobalamin 1,000 mcg 08/28/19 09:00 08/31/19 08:16 Vitamin B12 Tab* PO 1,000 mcg DAILY AL[facility] Administration Dextrose 25 ml 08/28/19 00:30 Dextrose 50% Vial 50 Ml* IV PUSH .FOR FS < 60 - SS PRN FS < 60 Ferrous Sulfate 325 mg 08/28/19 09:00 08/31/19 08:16 Ferrous Sulfate Tab* PO 325 mg DAILY [facility] Administration Gabapentin 600 mg 08/28/19 21:00 08/30/19 20:31 Neurontin Cap(*) PO 600 mg BEDTIME AL[facility] Administration Vancomycin HCl 1,250 mg/ 250 mls @ 166.667 mls/hr 08/29/19 23:00 08/31/19 11: 40 Sodium Chloride IV 166.667 mls/hr 1100,2300 [facility] Administration Potassium Chloride/Dextrose 1,000 mls @ 50 mls/hr 08/30/19 23:30 08/31/19 08: 14 D5w 1/2 Ns Kcl 20 Meq 1000 Ml* IV 50 mls/hr PER RATE [facility] Administration Insulin Glargine 8 units 08/29/19 08:29 08/31/19 08:16 Lantus(*) SUBCUT 8 unit Q24H [facility] Administration Insulin Human Lispro 0 units 08/28/19 07:30 08/31/19 11:45 Humalog* SUBCUT Not Given ACHS [facility] Protocol Magnesium Oxide 400 mg 08/27/19 22:30 08/31/19 08:16 Magox 400 Tab* PO 400 mg BID [facility] Administration Mirabegron 25 mg 08/28/19 09:00 08/31/19 08:17 Myrbetriq (Nf) PO Not Given DAILY [facility] Nystatin 500,000 units 08/27/19 21:20 Nystatin Suspension* PO QID PRN PER PROTOCOL Pantoprazole Sodium 40 mg 08/28/19 09:00 08/31/19 08:17 Protonix Tab* PO 40 mg BID [facility] Administration Pharmacy Consult 1 note 08/27/19 22:00 Vancomycin Per Pharmacy* FOLLOW UP .VANC PER PHARMACY [facility] Protocol Potassium Chloride 20 meq 08/28/19 09:00 08/31/19 08:17 Klor Con Er Tab* PO 20 meq DAILY [facility] Administration Saliva Substitute 1 spray 08/27/19 21:20 Biotene Moisturizing Mouth (Nf) MT Q4H PRN dry mouth Protocol Sertraline HCl 50 mg 08/28/19 21:00 08/30/19 20:32 Zoloft* PO 50 mg BEDTIME [facility] Administration Sucralfate 1 gm 08/28/19 16:00 08/31/19 05:38 Carafate* PO 1 gm 0630,1600 [facility] Administration Tramadol HCl 25 mg 08/27/19 21:20 08/28/19 21:01 Ultram* PO 25 mg Q6HR PRN Administration PAIN - MILD Trazodone HCl 100 mg 08/28/19 21:00 08/30/19 20:32 Desyrel Tab* PO 100 mg BEDTIME [facility] Administration Venlafaxine HCl 75 mg 08/28/19 14:00 08/31/19 13:49 Effexor Xr Cap* PO 75 mg TID [facility] Administration Vital Signs Temp Pulse Resp BP Pulse Ox 98.1 F 88 16 170/87 96 08/31/19 11:45 08/31/19 11:45 08/31/19 13:52 08/31/19 11:45 08/31/19 11:45 O/E: Pt in NAD HEENT: PERRLA Lungs: Clear to auscultation CVS: S1, S2+ Abd: Soft, BS+ Ext: Normal ROM Neuro: No focal deficits Ski: No rash Laboratory Results - last 24 hr 08/30/19 08/30/19 08/31/19 17:02 20:28 06:34 Plt Count 87 L MPV 7.5 INR (Anticoag Therapy) BUN Creatinine Est GFR ( Amer) Est GFR (Non-Af Amer) POC Glucose (mg/dL) 142 H 160 H Vancomycin Trough 08/31/19 08/31/19 08/31/19 06:34 07:17 10:13 Plt Count MPV INR (Anticoag Therapy) 1.34 H BUN 5 L Creatinine 0.58 Est GFR ( Amer) 124.0 Est GFR (Non-Af Amer) 102.5 POC Glucose (mg/dL) 113 H Vancomycin Trough 13.5 08/31/19 11:25 Plt Count MPV INR (Anticoag Therapy) BUN Creatinine Est GFR ( Amer) Est GFR (Non-Af Amer) POC Glucose (mg/dL) 99 Vancomycin Trough I/R: 69 year old woman admitted with AMS and chest pain. Chest CT showed peripheral lung mass in RUL in same location of previously noted abnormality when she was treated for PNA in 2018. Pt with no signs of infection Is empirically being treated with abx Given recurrence of PNA in same location, need to r/o endobronchial lesion from malignant process Given h/o DM, fungal PNA also considered Pt to have CT guided biospy today Further recommendations pending biopsy results D/w Pts
[2019-08-31] MEDS ORDERED: fentaNYL* 50 MCG/ML 2 ML VIAL (100 MCG VIAL) ONE (15:06)
[2019-08-31] MEDS ORDERED: Naloxone* 0.4 MG/ML 1 ML VIAL ONE (15:06)
[2019-08-31] MEDS: Atorvastatin* 20 MG TAB PO SCH (16:36)
[2019-08-31] MEDS: Sertraline* 50 MG TAB PO SCH (21:20)
[2019-08-31] MEDS: Gabapentin CAP(*) 300 MG PO SCH (21:29)
[2019-08-31] MEDS: traZODone TAB* 100 MG PO SCH (21:29)
[2019-09-01] MEDS: traMADol TAB* 50 MG PO PRN ×2 (05:39→12:32)
[2019-09-01] MEDS: Sucralfate TAB* 1 GM PO SCH ×2 (05:40→16:33)
[2019-09-01 06:52] LABS: ABS Eosinophils 0.5 10^3/ul (0-0.6); ABS Monocytes 0.7 10^3/ul (0-0.8); ABS Neutrophils 3.1 10^3/ul (1.5-7.7); Eosinophil % 9.8 %; Hematocrit 30 % (35-47); Hemoglobin 10.5 g/dL (12.0-16.0); Lymphocyte % 19.2 %; Mean Corpuscular HGB Conc 35 g/dL (31-36); Mean Corpuscular Hemoglobin 31 pg (27-31); Mean Corpuscular Volume 88 fL (80-97); Mean Platelet Volume 7.7 fL (7.4-10.4); Platelet Count 92 10^3/uL (150-450); Red Blood Count 3.42 10^6 /uL (3.70-4.87); Red Cell Distribution Width 14 % (10-15); White Blood Count 5.4 10^3/uL (3.5-10.8)
[2019-09-01 06:55] LABS: BUN/Creatinine Ratio 7.3 (8-20); C Reactive Protein 34.5 mg/L (<8.01); EGFR African American 131.8 (>60); Potassium 3.1 mmol/L (3.5-5.0)
[2019-09-01] MEDS: Insulin LISPRO* 1 UNITS UNIT SUBCUT SCH ×4 (08:14→22:07)
[2019-09-01] MEDS: Venlafaxine EXT RELEASE CAP* 75 MG PO SCH ×3 (08:54→21:27)
[2019-09-01] MEDS: Pantoprazole TAB * 40 MG TAB PO SCH ×2 (08:54→21:27)
[2019-09-01] MEDS: Ferrous Sulfate TAB* 325 MG PO SCH (08:54)
[2019-09-01] MEDS: Potassium Chlor TAB* 20 MEQ TAB.ER PO SCH (08:54)
[2019-09-01] MEDS: Cyanocobalamin TAB* 500 MCG PO SCH (08:54)
[2019-09-01] MEDS: Magnesium Oxide TAB* 400 MG PO SCH ×2 (08:54→21:27)
[2019-09-01] MEDS: Mirabegron (NF) 25 MG TAB PO SCH (08:58)
[2019-09-01] MEDS: Insulin GLARGINE(*) 1 UNITS UNIT SUBCUT SCH (08:58)
[2019-09-01] MEDS: Vancomycin(*) 1,250 MG in NS 0.9% 250 ML* 250 ML IV SCH ×2 (12:49→23:23)
--- NOTE | 2019-09-01 12:49 | PN ---
Subjective - Subjective Reason for Note: Progress Note History: She is 1 day post guided aspiration from right upper lung. She had altered mental state after the procedure. A CXR was normal. She was eating her lunch independently when I entered and was conversational. She tells me she doesn't feel well and has some sore cervical lymph nodes. She has had diarrhea x 3 today. Active Problems: Active Problems History of lung abscess (Acute) Z87.09 Lung mass (Acute) R91.8 Pneumonia (Acute) J18.9 Thrombocytopenia (Acute) D69.6 Asthma (Chronic) J45.909 Chronic pain syndrome (Chronic) G89.4 Depression (Chronic) F32.9 GERD (gastroesophageal reflux disease) (Chronic) K21.9 Headache (Chronic) R51 History of DVT (deep vein thrombosis) (Chronic) Z86.718 History of falling (Chronic) Z91.81 History of renal calculi (Chronic) Z87.442 History of urinary retention (Chronic) Z87.898 Memory impairment (Chronic) R41.3 Osteoporosis (Chronic) M81.0 Peripheral neuropathy (Chronic) G62.9 Sleep apnea (Chronic) G47.30 Type 2 diabetes mellitus (Chronic) Current Medications: Current Medications Acetaminophen (Tylenol Tab*) 650 mg PO Q4H PRN PRN Reason: FEVER/PAIN Last Admin: 08/31/19 23:44 Dose: 650 mg Hydrocodone Bitart/Acetaminophen ([place] 10/325 (Nf)) 1 tab PO Q6H PRN PRN Reason: PAIN - MODERATE Last Admin: 08/30/19 09:24 Dose: 1 tab Alprazolam (Xanax Tab*) 0.5 mg PO Q8H PRN PRN Reason: ANXIETY Last Admin: 08/31/19 08:48 Dose: 0.5 mg Atorvastatin Calcium (Lipitor*) 20 mg PO 1700 [facility] Last Admin: 08/31/19 16:36 Dose: 20 mg Calcium Carbonate (Tums*) 500 mg PO Q4H PRN PRN Reason: INDIGESTION Cyanocobalamin (Vitamin B12 Tab*) 1,000 mcg PO DAILY [facility] Last Admin: 09/01/19 08:54 Dose: 1,000 mcg Dextrose (Dextrose 50% Vial 50 Ml*) 25 ml IV PUSH .FOR FS < 60 - SS PRN PRN Reason: FS < 60 Ferrous Sulfate (Ferrous Sulfate Tab*) 325 mg PO DAILY [facility] Last Admin: 09/01/19 08:54 Dose: 325 mg Gabapentin (Neurontin Cap(*)) 600 mg PO BEDTIME [facility] Last Admin: 08/31/19 21:29 Dose: Not Given Vancomycin HCl 1,250 mg/ (Sodium Chloride) 250 mls @ 166.667 mls/hr IV 1100, 2300 [facility] Last Admin: 08/31/19 23:09 Dose: 166.667 mls/hr Ceftriaxone Sodium 1 gm/ (Sodium Chloride) 50 mls @ 100 mls/hr IVPB Q24H [facility] Insulin Glargine (Lantus(*)) 8 units SUBCUT Q24H [facility] Last Admin: 09/01/19 08:58 Dose: 8 unit Insulin Human Lispro (Humalog*) 0 units SUBCUT ACHS [facility]; Protocol Last Admin: 09/01/19 12:33 Dose: 2 unit Magnesium Oxide (Magox 400 Tab*) 400 mg PO BID [facility] Last Admin: 09/01/19 08:54 Dose: 400 mg Mirabegron (Myrbetriq (Nf)) 25 mg PO DAILY [facility] Last Admin: 09/01/19 08:58 Dose: Not Given Nystatin (Nystatin Suspension*) 500,000 units PO QID PRN PRN Reason: PER PROTOCOL Pantoprazole Sodium (Protonix Tab*) 40 mg PO BID [facility] Last Admin: 09/01/19 08:54 Dose: 40 mg Pharmacy Consult (Vancomycin Per Pharmacy*) 1 note FOLLOW UP .VANC PER PHARMACY [facility]; Protocol Potassium Chloride (Klor Con Er Tab*) 20 meq PO DAILY [facility] Last Admin: 09/01/19 08:54 Dose: 20 meq Saliva Substitute (Biotene Moisturizing Mouth (Nf)) 1 spray MT Q4H PRN; Protocol PRN Reason: dry mouth Sertraline HCl (Zoloft*) 50 mg PO BEDTIME [facility] Last Admin: 08/31/19 21:20 Dose: 50 mg Sucralfate (Carafate*) 1 gm PO 0630,1600 [facility] Last Admin: 09/01/19 05:40 Dose: 1 gm Tramadol HCl (Ultram*) 25 mg PO Q6HR PRN PRN Reason: PAIN - MILD Last Admin: 09/01/19 12:32 Dose: 25 mg Trazodone HCl (Desyrel Tab*) 100 mg PO BEDTIME [facility] Last Admin: 08/31/19 21:29 Dose: Not Given Venlafaxine HCl (Effexor Xr Cap*) 75 mg PO TID [facility] Last Admin: 09/01/19 08:54 Dose: 75 mg Home Medications: Home Medications Medication Instructions Recorded Confirmed Type Simvastatin TAB(NF) [Zocor 20 MG 40 mg PO 1700 06/15/13 08/27/19 History (NF)] Sucralfate TAB* [Carafate*] 1 gm PO BID 06/15/13 08/27/19 History Aspirin 81 mg CHEW TAB* 1 tab PO DAILY 08/04/16 08/27/19 History Ferrous Sulfate TAB* 325 mg PO DAILY 08/04/16 08/27/19 History Sertraline* [Zoloft*] 50 mg PO BEDTIME 08/04/16 08/27/19 History Cyanocobalamin TAB* [Vitamin B12 1,000 mcg PO DAILY 02/08/17 08/27/19 History TAB*] Colesevelam(NF) [Welchol(NF)] 625 mg PO DAILY 02/08/18 08/27/19 History Pantoprazole TAB * [Protonix TAB*] 40 mg PO BID 02/08/18 08/27/19 History SitaGLIPtin (NF) [Januvia (NF)] 100 mg PO DAILY 02/08/18 08/27/19 History Acetaminophen TAB* [Tylenol TAB*] 650 mg PO Q4H PRN tab 07/14/18 08/27/19 Rx Saliva Substitute (NF) [Biotene 1 spray MT Q4H PRN btl 07/14/18 08/27/19 Rx Moisturizing Mouth (NF)] Cyclobenzaprine (NF) 5 mg PO TID PRN 12/20/18 08/27/19 History [Cyclobenzaprine 5 MG (NF)] Gabapentin CAP(*) [Neurontin 300 600 mg PO BEDTIME 12/20/18 08/27/19 History CAP(*)] Fluticasone NASAL SPRAY 50MCG* 2 spray BOTH NARES DAILY #1 btl 06/10/19 Rx [Flonase NASAL SPRAY 50MCG*] traMADol TAB* [Ultram*] 25 mg PO Q6HR PRN 06/10/19 08/27/19 History Hemorrhoidal OINT* [Preparation H*] 1 applic SC BID PRN 08/27/19 08/27/19 History Mirabegron (NF) [Myrbetriq (NF)] 25 mg PO DAILY 08/27/19 08/27/19 History Nystatin SUSPENSION* 500,000 units PO QID PRN 08/27/19 08/27/19 History Potassium Citrate [Urocit-K] 45 meq PO DAILY 08/27/19 08/27/19 History Venlafaxine EXT RELEASE CAP* 75 mg PO TID 08/27/19 08/27/19 History [Effexor Xr CAP*] traZODone TAB* [Desyrel TAB*] 100 mg PO BEDTIME 08/27/19 08/27/19 History Allergies: Allergies Allergy/AdvReac Type Severity Reaction Status Date / Time amoxicillin Allergy Rash Verified 08/27/19 16:44 polyethylene glycol Allergy Headache Verified 08/27/19 16:44 Sulfa (Sulfonamide Allergy Rash Verified 08/27/19 16:44 Antibiotics) terconazole [From Terazol 3] Allergy Rash Verified 08/27/19 16:44 Objective - Vital Signs Vital Signs: Vital Signs 08/31/19 08/31/19 08/31/19 13:52 13:55 16:10 Temperature 100.0 F 99 F Pulse Rate 106 106 Respiratory 16 19 22 Rate Blood Pressure 169/62 159/87 (mmHg) O2 Sat by Pulse 97 Oximetry 08/31/19 08/31/19 08/31/19 16:13 19:20 19:28 Temperature 100.2 F 101.1 F 100.4 F Pulse Rate 108 110 110 Respiratory 17 28 20 Rate Blood Pressure 168/90 169/85 164/88 (mmHg) O2 Sat by Pulse 94 95 Oximetry 08/31/19 08/31/19 08/31/19 20:00 21:15 23:34 Temperature 99.9 F 101.9 F Pulse Rate 109 110 Respiratory 28 16 Rate Blood Pressure 157/82 (mmHg) O2 Sat by Pulse 96 96 Oximetry 09/01/19 09/01/19 09/01/19 03:18 05:39 07:15 Temperature 99.7 F 99.3 F Pulse Rate 95 95 Respiratory 18 18 16 Rate Blood Pressure 122/97 156/72 (mmHg) O2 Sat by Pulse 98 98 Oximetry 09/01/19 09/01/19 09/01/19 07:28 11:15 12:32 Temperature 98.5 F Pulse Rate 101 Respiratory 20 18 18 Rate Blood Pressure 153/78 (mmHg) O2 Sat by Pulse 97 Oximetry - Intake and Output Intake and Output: Intake & Output 08/30/19 08/31/19 09/01/19 09/02/19 11:59 11:59 11:59 11:59 Intake Total 750 1410 900 Output Total 2200 4000 Balance 750 -790 -3100 Intake: IV Fluids 40 40 ABX - DOXYCYCLINE 20 ABX - VANCOMYCIN 20 20 NS (0.9%) 20 IVPB 500 500 ABX - DOXYCYCLINE 250 ABX - VANCOMYCIN 250 500 Oral 750 870 360 Output: Urine 2200 4000 Other: Estimated Void Medium Large # Bowel Movements 1 Estimated Stool Amount Large # Voids 1 4 ADLs: Meal Record Start: 08/27/19 22: 07 Freq: DAILY@0900,1400,1800 Status: Active Protocol: Created 08/27/19 22:07 System (Rec: 08/27/19 22:07 System TELE-C05) Document 08/28/19 09:00 [id number] (Rec: 08/28/19 15:27 [id number] TELE-C07) Document 08/28/19 14:00 [id number] (Rec: 08/28/19 15:28 [id number] TELE-C07) Document 08/28/19 18:00 [id number] (Rec: 08/28/19 18:18 [id number] TELE-C09) Document 08/29/19 09:00 [id number] (Rec: 08/29/19 10:18 [id number] TELE-C08) Document 08/29/19 14:00 SYO7414 (Rec: 08/29/19 14:07 [id number] TELE-C07) Document 08/29/19 18:00 [id number] (Rec: 08/29/19 20:14 [id number] TELE-C07) Document 08/30/19 09:00 HFZ9454 (Rec: 08/30/19 13:23 KES2925 MED-M26) Document 08/30/19 14:00 PIQ2040 (Rec: 08/30/19 14:08 [id number] TELE-C09) Document 08/30/19 18:00 JLU0360 (Rec: 08/30/19 18:36 [id number] TELE-C09) Document 08/31/19 09:00 BWS4300 (Rec: 08/31/19 14:33 CAO5095 TELE-C13) Document 08/31/19 14:00 BZK1331 (Rec: 08/31/19 14:34 [id number] TELE-C13) Document 08/31/19 18:00 PBV0434 (Rec: 08/31/19 22:25 [id number] TELE-C07) Document 09/01/19 09:00 BNL8517 (Rec: 09/01/19 09:29 MAS3213 TELE-C01) Intake and Output Start: 08/27/19 16: 36 Freq: Status: Active Protocol: Created 08/27/19 16:36 System (Rec: 08/27/19 16:36 System ED-C24) Document 08/27/19 22:37 [id number] (Rec: 08/27/19 22:37 [id number] ED-C31) Intake and Output Start: 08/27/19 22: 07 Freq: DAILY@0600,1400,2200 Status: Active Protocol: Created 08/27/19 22:07 System (Rec: 08/27/19 22:07 System TELE-C05) Document 08/28/19 06:00 [id number] (Rec: 08/28/19 06:35 WTC1155 TELE-C11) Document 08/28/19 14:00 KVU4412 (Rec: 08/28/19 15:28 RSF3164 TELE-C07) Document 08/28/19 22:00 ISQ8877 (Rec: 08/28/19 22:02 AGL3305 TELE-C09) Document 08/29/19 06:00 QMH2780 (Rec: 08/29/19 06:01 [id number] TELE-C09) Document 08/29/19 14:00 JJN0536 (Rec: 08/29/19 14:07 [id number] TELE-C07) Document 08/29/19 22:00 IIC3741 (Rec: 08/30/19 03:00 BXD6352 TELE-C06) Document 08/30/19 06:00 NBE1956 (Rec: 08/30/19 06:15 [id number] TELE-C07) Document 08/30/19 14:00 KZR7177 (Rec: 08/30/19 14:08 GUH7332 TELE-C09) Document 08/30/19 22:00 UWM1310 (Rec: 08/31/19 00:36 [id number] TELE-C07) Document 08/31/19 06:00 BOC9585 (Rec: 08/31/19 06:03 FEG5781 TELE-C07) Document 08/31/19 14:00 HJY3984 (Rec: 08/31/19 14:36 NHL6900 TELE-C13) Document 08/31/19 22:00 REN8760 (Rec: 08/31/19 22:43 DAO5220 TELE-C34) Document 09/01/19 00:43 QKS8948 (Rec: 09/01/19 00:43 MHF3232 TELE-C34) Document 09/01/19 02:36 RDN0445 (Rec: 09/01/19 02:36 KCQ7460 TELE-C34) Document 09/01/19 04:45 [id number] (Rec: 09/01/19 04:45 [id number] TELE-C34) Document 09/01/19 05:58 [id number] (Rec: 09/01/19 05:59 [id number] MED-M02) - Physical Exam General: No Cyanosis, No Anemia, No Jaundice, No Clubbing Lungs and Chest: Yes: Chest Expansion Full, Chest Expansion Symetrica, Percussion Note Resonant, Vessicular Breath Sounds. No: Crackles, Wheezes Heart Rate and Rhythm: Regular Additional Cardiovascular: Yes: Normal Heart Sounds. No: Heart Murmur, Pedal Edema Abdominal Exam: Yes: Soft, Bowel Sounds Present. No: Distention, Abdominal Tenderness Results - Results Lab Results: Laboratory Results - last 24 hr 08/31/19 08/31/19 09/01/19 16:35 19:42 06:30 WBC 5.4 RBC 3.42 L Hgb 10.5 L Hct 30 L MCV 88 MCH 31 MCHC 35 RDW 14 Plt Count 92 L MPV 7.7 Neut % (Auto) 57.7 Lymph % (Auto) 19.2 [place] % (Auto) 13.0 Eos % (Auto) 9.8 Baso % (Auto) 0.3 Absolute Neuts (auto) 3.1 Absolute Lymphs (auto) 1.0 Absolute Monos (auto) 0.7 Absolute Eos (auto) 0.5 Absolute Basos (auto) 0.0 Absolute Nucleated RBC 0.0 Nucleated RBC % 0.0 Sodium Potassium Chloride Carbon Dioxide Anion Gap BUN Creatinine Est GFR ( Amer) Est GFR (Non-Af Amer) BUN/Creatinine Ratio Glucose POC Glucose (mg/dL) 117 H 238 H Calcium C-Reactive Protein 09/01/19 09/01/19 09/01/19 06:30 07:22 11:29 WBC RBC Hgb Hct MCV MCH MCHC RDW Plt Count MPV Neut % (Auto) Lymph % (Auto) [place] % (Auto) Eos % (Auto) Baso % (Auto) Absolute Neuts (auto) Absolute Lymphs (auto) Absolute Monos (auto) Absolute Eos (auto) Absolute Basos (auto) Absolute Nucleated RBC Nucleated RBC % Sodium 136 Potassium 3.1 L Chloride 105 Carbon Dioxide 26 Anion Gap 5 BUN 4 L Creatinine 0.55 Est GFR ( Amer) 131.8 Est GFR (Non-Af Amer) 109.0 BUN/Creatinine Ratio 7.3 L Glucose 128 H POC Glucose (mg/dL) 147 H 250 H Calcium 8.0 L C-Reactive Protein 34.50 H Other Results/Reports: RUN DATE: 09/01/19 [facility] LAB LIVE PAGE 1 RUN TIME: [address] [place] [address] Specimen Inquiry Name: VERÓNICA RODRÍGUEZ : [address]: Haim Messer MD Acct: [id number] Unit: [id number] AGE: 69 Location: [place] [address] Re08/27/19 SEX: F Status: ADM IN SPEC: [id number] CONSTANTINE: 08/31/19-[address]:Haim Messer MD REQ: [id number] RECD: 08/31/19-1834 STATUS: RES OTHR DR:Myles Chao MD _ Krystin Matias MD SOURCE: BODY FLUID SPDESC:OTHER ORDERED: BF Cult/GS, AFB Cult&Smear QUERIES: Provider Requisition # [id number] LUNG Procedure Result Reported Site Body Fluid Gram Stain Final 09/01/19- 0804 ML 1+ Nucleated Cells No Neutrophils Observed No Organisms Seen Body Fluid Culture Preliminary 09/01/19- 1039 ML No Growth Day 1 Acid Fast Stain - Direct Final 09/01/19- 0851 ML AFB Smear Result No Acid Fast Bacillus Present (Negative) Due to limited sensitivity of the smear, results should be used as an adjunct in evaluating the patient's status. This specimen has been sent to referral laboratory for mycobacterial culture. * ML - Main Lab . Assessment - Problem List Assessment: Patient Problems History of lung abscess (Acute) Lung mass (Acute) Pneumonia (Acute) Thrombocytopenia (Acute) Asthma (Chronic) Chronic pain syndrome (Chronic) Depression (Chronic) GERD (gastroesophageal reflux disease) (Chronic) Headache (Chronic) History of DVT (deep vein thrombosis) (Chronic) History of falling (Chronic) History of renal calculi (Chronic) History of urinary retention (Chronic) Memory impairment (Chronic) Osteoporosis (Chronic) Peripheral neuropathy (Chronic) Sleep apnea (Chronic) Type 2 diabetes mellitus (Chronic) Plan: History of lung abscess (Acute) Lung mass (Acute) Preliminary results from aspiration shows no bacterial or AFBs. I have asked for histopath to look for aspergillus (fungal cultures have been sent). Pending cytology/ histopathology Pneumonia (Acute) I restarted ceftriazone as ordered by Dr. Rizo Thrombocytopenia (Acute) Her platelets are higher. We need to start anticoagulation once more with fondaparinux as her platetelets are rising after stopping the lovenox comorbidities: Diarrhea: This is antibacterial related. Type 2 diabetes mellitus (Chronic) Stable Secondary diagnoses: Asthma (Chronic) Chronic pain syndrome (Chronic) Depression (Chronic) GERD (gastroesophageal reflux disease) (Chronic) Headache (Chronic) History of DVT (deep vein thrombosis) (Chronic) History of falling (Chronic) History of renal calculi (Chronic) History of urinary retention (Chronic) Memory impairment (Chronic) Osteoporosis (Chronic) Peripheral neuropathy (Chronic) Sleep apnea (Chronic) I discussed this with Verónica Rodríguez and also called Musa Rodríguez - didn't hot die picker.
--- NOTE | 2019-09-01 13:40 | PN ---
Progress Note - Progress Note Date of Service: 09/01/19 - Pulm f/u note Note: Pt seen and examined at bedside. Pt denies SOB or pain at biopsy site. Pt reports that she could not sleep well last night Active Medications Generic Name Dose Route Start Last Admin Trade Name Freq PRN Reason Stop Dose Admin Acetaminophen 650 mg 08/27/19 21:20 08/31/19 23:44 Tylenol Tab* PO 650 mg Q4H PRN Administration FEVER/PAIN Hydrocodone Bitart/Acetaminophen 1 tab 08/29/19 10:36 08/30/19 09:24 [place] 10/325 (Nf) PO 1 tab Q6H PRN Administration PAIN - MODERATE Alprazolam 0.5 mg 08/28/19 16:00 08/31/19 08:48 Xanax Tab* PO 0.5 mg Q8H PRN Administration ANXIETY Atorvastatin Calcium 20 mg 08/28/19 17:00 08/31/19 16:36 Lipitor* PO 20 mg 1700 [facility] Administration Calcium Carbonate 500 mg 08/29/19 08:28 Tums* PO Q4H PRN INDIGESTION Cyanocobalamin 1,000 mcg 08/28/19 09:00 09/01/19 08:54 Vitamin B12 Tab* PO 1,000 mcg DAILY [facility] Administration Dextrose 25 ml 08/28/19 00:30 Dextrose 50% Vial 50 Ml* IV PUSH .FOR FS < 60 - SS PRN FS < 60 Ferrous Sulfate 325 mg 08/28/19 09:00 09/01/19 08:54 Ferrous Sulfate Tab* PO 325 mg DAILY [facility] Administration Fondaparinux 2.5 mg 09/02/19 09:00 Arixtra* SUBCUT DAILY [facility] Gabapentin 600 mg 08/28/19 21:00 08/31/19 21:29 Neurontin Cap(*) PO Not Given BEDTIME [facility] Vancomycin HCl 1,250 mg/ 250 mls @ 166.667 mls/hr 08/29/19 23:00 09/01/19 12: 49 Sodium Chloride IV 166.667 mls/hr 1100,2300 [facility] Administration Ceftriaxone Sodium 1 gm/ 50 mls @ 100 mls/hr 09/01/19 13:00 Sodium Chloride IVPB Q24H [facility] Insulin Glargine 8 units 08/29/19 08:29 09/01/19 08:58 Lantus(*) SUBCUT 8 unit Q24H [facility] Administration Insulin Human Lispro 0 units 08/28/19 07:30 09/01/19 12:33 Humalog* SUBCUT 2 unit ACHS [facility] Administration Protocol Magnesium Oxide 400 mg 08/27/19 22:30 09/01/19 08:54 Magox 400 Tab* PO 400 mg BID [facility] Administration Mirabegron 25 mg 08/28/19 09:00 09/01/19 08:58 Myrbetriq (Nf) PO Not Given DAILY [facility] Nystatin 500,000 units 08/27/19 21:20 Nystatin Suspension* PO QID PRN PER PROTOCOL Pantoprazole Sodium 40 mg 08/28/19 09:00 09/01/19 08:54 Protonix Tab* PO 40 mg BID [facility] Administration Pharmacy Consult 1 note 08/27/19 22:00 Vancomycin Per Pharmacy* FOLLOW UP .VANC PER PHARMACY [facility] Protocol Potassium Chloride 20 meq 08/28/19 09:00 09/01/19 08:54 Klor Con Er Tab* PO 20 meq DAILY [facility] Administration Saliva Substitute 1 spray 08/27/19 21:20 Biotene Moisturizing Mouth (Nf) MT Q4H PRN dry mouth Protocol Sertraline HCl 50 mg 08/28/19 21:00 08/31/19 21:20 Zoloft* PO 50 mg BEDTIME [facility] Administration Sucralfate 1 gm 08/28/19 16:00 09/01/19 05:40 Carafate* PO 1 gm 0630,1600 [facility] Administration Tramadol HCl 25 mg 08/27/19 21:20 09/01/19 12:32 Ultram* PO 25 mg Q6HR PRN Administration PAIN - MILD Trazodone HCl 100 mg 08/28/19 21:00 08/31/19 21:29 Desyrel Tab* PO Not Given BEDTIME [facility] Venlafaxine HCl 75 mg 08/28/19 14:00 09/01/19 08:54 Effexor Xr Cap* PO 75 mg TID [facility] Administration Vital Signs Temp Pulse Resp BP Pulse Ox 98.5 F 101 18 153/78 97 09/01/19 11:15 09/01/19 11:15 09/01/19 12:32 09/01/19 11:15 09/01/19 11:15 O/E: Pt in NAD HEENT: PERRLA Lungs: Clear to auscultation CVS: S1, S2+ Abd: Soft, BS+ Ext: Normal ROM Neuro: No focal deficits Skin: No rash Laboratory Results - last 24 hr 08/30/19 08/31/19 08/31/19 05:13 16:35 19:42 WBC RBC Hgb Hct MCV MCH MCHC RDW Plt Count MPV Neut % (Auto) Lymph % (Auto) [place] % (Auto) Eos % (Auto) Baso % (Auto) Absolute Neuts (auto) Absolute Lymphs (auto) Absolute Monos (auto) Absolute Eos (auto) Absolute Basos (auto) Absolute Nucleated RBC Nucleated RBC % Sodium Potassium Chloride Carbon Dioxide Anion Gap BUN Creatinine Est GFR ( Amer) Est GFR (Non-Af Amer) BUN/Creatinine Ratio Glucose POC Glucose (mg/dL) 117 H 238 H Calcium C-Reactive Protein Cryptococcus Ag Negative 09/01/19 09/01/19 09/01/19 06:30 06:30 07:22 WBC 5.4 RBC 3.42 L Hgb 10.5 L Hct 30 L MCV 88 MCH 31 MCHC 35 RDW 14 Plt Count 92 L MPV 7.7 Neut % (Auto) 57.7 Lymph % (Auto) 19.2 [place] % (Auto) 13.0 Eos % (Auto) 9.8 Baso % (Auto) 0.3 Absolute Neuts (auto) 3.1 Absolute Lymphs (auto) 1.0 Absolute Monos (auto) 0.7 Absolute Eos (auto) 0.5 Absolute Basos (auto) 0.0 Absolute Nucleated RBC 0.0 Nucleated RBC % 0.0 Sodium 136 Potassium 3.1 L Chloride 105 Carbon Dioxide 26 Anion Gap 5 BUN 4 L Creatinine 0.55 Est GFR ( Amer) 131.8 Est GFR (Non-Af Amer) 109.0 BUN/Creatinine Ratio 7.3 L Glucose 128 H POC Glucose (mg/dL) 147 H Calcium 8.0 L C-Reactive Protein 34.50 H Cryptococcus Ag 09/01/19 11:29 WBC RBC Hgb Hct MCV MCH MCHC RDW Plt Count MPV Neut % (Auto) Lymph % (Auto) [place] % (Auto) Eos % (Auto) Baso % (Auto) Absolute Neuts (auto) Absolute Lymphs (auto) Absolute Monos (auto) Absolute Eos (auto) Absolute Basos (auto) Absolute Nucleated RBC Nucleated RBC % Sodium Potassium Chloride Carbon Dioxide Anion Gap BUN Creatinine Est GFR ( Amer) Est GFR (Non-Af Amer) BUN/Creatinine Ratio Glucose POC Glucose (mg/dL) 250 H Calcium C-Reactive Protein Cryptococcus Ag I/R: 69 year old woman admitted with AMS and chest pain. Chest CT showed peripheral lung mass in RUL in same location of previously noted abnormality when she was treated for PNA in 2018. Pt with no signs of infection Is empirically being treated with abx Given recurrence of PNA in same location, need to r/o endobronchial lesion from malignant process Pt underwent CT guided biospy 08/31/19, results pending CT at time of biopsy showed progression of GGO opacities Further recommendations pending biopsy results
[2019-09-01] MEDS: cefTRIAXone(*) 1 GM in NS 0.9% 50 ML* 50 ML IVPB SCH (16:20)
[2019-09-01] MEDS: Atorvastatin* 20 MG TAB PO SCH (16:33)
[2019-09-01] MEDS: Hydrocodone/Acetamin 10/325 MG 1 TAB PO PRN (19:53)
[2019-09-01] MEDS: Gabapentin CAP(*) 300 MG PO SCH (21:26)
[2019-09-01] MEDS: traZODone TAB* 100 MG PO SCH (21:27)
[2019-09-01] MEDS: Sertraline* 50 MG TAB PO SCH (21:27)
[2019-09-02] MEDS: Sucralfate TAB* 1 GM PO SCH ×2 (06:04→16:10)
[2019-09-02] MEDS: Insulin LISPRO* 1 UNITS UNIT SUBCUT SCH ×4 (07:57→21:37)
[2019-09-02] MEDS: Pantoprazole TAB * 40 MG TAB PO SCH ×2 (08:00→21:39)
[2019-09-02] MEDS: Venlafaxine EXT RELEASE CAP* 75 MG PO SCH ×3 (08:00→21:39)
[2019-09-02] MEDS: Ferrous Sulfate TAB* 325 MG PO SCH (08:01)
[2019-09-02] MEDS: Magnesium Oxide TAB* 400 MG PO SCH ×2 (08:01→21:39)
[2019-09-02] MEDS: Potassium Chlor TAB* 20 MEQ TAB.ER PO SCH (08:01)
[2019-09-02] MEDS: Cyanocobalamin TAB* 500 MCG PO SCH (08:02)
[2019-09-02] MEDS: Hydrocodone/Acetamin 10/325 MG 1 TAB PO PRN (08:02)
[2019-09-02] MEDS: Fondaparinux* 2.5 MG/0.5 ML SYRINGE SUBCUT SCH (08:03)
[2019-09-02] MEDS: Mirabegron (NF) 25 MG TAB PO SCH (08:03)
[2019-09-02] MEDS: Insulin GLARGINE(*) 1 UNITS UNIT SUBCUT SCH (09:57)
--- NOTE | 2019-09-02 10:25 | PN ---
Subjective - Subjective Reason for Note: Progress Note History: Patient in the shower managing independently. She has no new symptoms. She denies dsypnea and pain. Active Problems: Active Problems History of lung abscess (Acute) Z87.09 Lung mass (Acute) R91.8 Pneumonia (Acute) J18.9 Thrombocytopenia (Acute) D69.6 Asthma (Chronic) J45.909 Chronic pain syndrome (Chronic) G89.4 Depression (Chronic) F32.9 GERD (gastroesophageal reflux disease) (Chronic) K21.9 Headache (Chronic) R51 History of DVT (deep vein thrombosis) (Chronic) Z86.718 History of falling (Chronic) Z91.81 History of renal calculi (Chronic) Z87.442 History of urinary retention (Chronic) Z87.898 Memory impairment (Chronic) R41.3 Osteoporosis (Chronic) M81.0 Peripheral neuropathy (Chronic) G62.9 Sleep apnea (Chronic) G47.30 Type 2 diabetes mellitus (Chronic) Current Medications: Current Medications Acetaminophen (Tylenol Tab*) 650 mg PO Q4H PRN PRN Reason: FEVER/PAIN Last Admin: 08/31/19 23:44 Dose: 650 mg Hydrocodone Bitart/Acetaminophen ([place] 10/325 (Nf)) 1 tab PO Q6H PRN PRN Reason: PAIN - MODERATE Last Admin: 09/02/19 08:02 Dose: 1 tab Alprazolam (Xanax Tab*) 0.5 mg PO Q8H PRN PRN Reason: ANXIETY Last Admin: 08/31/19 08:48 Dose: 0.5 mg Atorvastatin Calcium (Lipitor*) 20 mg PO 1700 [facility] Last Admin: 09/01/19 16:33 Dose: 20 mg Calcium Carbonate (Tums*) 500 mg PO Q4H PRN PRN Reason: INDIGESTION Cyanocobalamin (Vitamin B12 Tab*) 1,000 mcg PO DAILY [facility] Last Admin: 09/02/19 08:02 Dose: 1,000 mcg Dextrose (Dextrose 50% Vial 50 Ml*) 25 ml IV PUSH .FOR FS < 60 - SS PRN PRN Reason: FS < 60 Ferrous Sulfate (Ferrous Sulfate Tab*) 325 mg PO DAILY [facility] Last Admin: 09/02/19 08:01 Dose: 325 mg Fondaparinux (Arixtra*) 2.5 mg SUBCUT DAILY [facility] Last Admin: 09/02/19 08:03 Dose: 2.5 mg Gabapentin (Neurontin Cap(*)) 600 mg PO BEDTIME [facility] Last Admin: 09/01/19 21:26 Dose: 600 mg Vancomycin HCl 1,250 mg/ (Sodium Chloride) 250 mls @ 166.667 mls/hr IV 1100, 2300 [facility] Last Admin: 09/01/19 23:23 Dose: 166.667 mls/hr Ceftriaxone Sodium 1 gm/ (Sodium Chloride) 50 mls @ 100 mls/hr IVPB Q24H [facility] Last Admin: 09/01/19 16:20 Dose: 100 mls/hr Insulin Glargine (Lantus(*)) 8 units SUBCUT Q24H [facility] Last Admin: 09/02/19 09:57 Dose: 8 unit Insulin Human Lispro (Humalog*) 0 units SUBCUT ACHS [facility]; Protocol Last Admin: 09/02/19 07:57 Dose: Not Given Magnesium Oxide (Magox 400 Tab*) 400 mg PO BID [facility] Last Admin: 09/02/19 08:01 Dose: 400 mg Mirabegron (Myrbetriq (Nf)) 25 mg PO DAILY [facility] Last Admin: 09/02/19 08:03 Dose: Not Given Nystatin (Nystatin Suspension*) 500,000 units PO QID PRN PRN Reason: PER PROTOCOL Pantoprazole Sodium (Protonix Tab*) 40 mg PO BID [facility] Last Admin: 09/02/19 08:00 Dose: 40 mg Pharmacy Consult (Vancomycin Per Pharmacy*) 1 note FOLLOW UP .VANC PER PHARMACY [facility]; Protocol Potassium Chloride (Klor Con Er Tab*) 20 meq PO DAILY [facility] Last Admin: 09/02/19 08:01 Dose: 20 meq Saliva Substitute (Biotene Moisturizing Mouth (Nf)) 1 spray MT Q4H PRN; Protocol PRN Reason: dry mouth Sertraline HCl (Zoloft*) 50 mg PO BEDTIME [facility] Last Admin: 09/01/19 21:27 Dose: 50 mg Sucralfate (Carafate*) 1 gm PO 0630,1600 [facility] Last Admin: 09/02/19 06:04 Dose: 1 gm Tramadol HCl (Ultram*) 25 mg PO Q6HR PRN PRN Reason: PAIN - MILD Last Admin: 12/21/19 12:32 Dose: 25 mg Trazodone HCl (Desyrel Tab*) 100 mg PO BEDTIME [facility] Last Admin: 09/01/19 21:27 Dose: 100 mg Venlafaxine HCl (Effexor Xr Cap*) 75 mg PO TID [facility] Last Admin: 09/02/19 08:00 Dose: 75 mg Home Medications: Home Medications Medication Instructions Recorded Confirmed Type Simvastatin TAB(NF) [Zocor 20 MG 40 mg PO 1700 06/15/13 08/27/19 History (NF)] Sucralfate TAB* [Carafate*] 1 gm PO BID 06/15/13 08/27/19 History Aspirin 81 mg CHEW TAB* 1 tab PO DAILY 08/04/16 08/27/19 History Ferrous Sulfate TAB* 325 mg PO DAILY 08/04/16 08/27/19 History Sertraline* [Zoloft*] 50 mg PO BEDTIME 08/04/16 08/27/19 History Cyanocobalamin TAB* [Vitamin B12 1,000 mcg PO DAILY 02/08/17 08/27/19 History TAB*] Colesevelam(NF) [Welchol(NF)] 625 mg PO DAILY 02/08/18 08/27/19 History Pantoprazole TAB * [Protonix TAB*] 40 mg PO BID 02/08/18 08/27/19 History SitaGLIPtin (NF) [Januvia (NF)] 100 mg PO DAILY 02/08/18 08/27/19 History Acetaminophen TAB* [Tylenol TAB*] 650 mg PO Q4H PRN tab 07/14/18 08/27/19 Rx Saliva Substitute (NF) [Biotene 1 spray MT Q4H PRN btl 07/14/18 08/27/19 Rx Moisturizing Mouth (NF)] Cyclobenzaprine (NF) 5 mg PO TID PRN 12/20/18 08/27/19 History [Cyclobenzaprine 5 MG (NF)] Gabapentin CAP(*) [Neurontin 300 600 mg PO BEDTIME 12/20/18 08/27/19 History CAP(*)] Fluticasone NASAL SPRAY 50MCG* 2 spray BOTH NARES DAILY #1 btl 06/10/19 Rx [Flonase NASAL SPRAY 50MCG*] traMADol TAB* [Ultram*] 25 mg PO Q6HR PRN 06/10/19 08/27/19 History Hemorrhoidal OINT* [Preparation H*] 1 applic IA BID PRN 08/27/19 08/27/19 History Mirabegron (NF) [Myrbetriq (NF)] 25 mg PO DAILY 08/27/19 08/27/19 History Nystatin SUSPENSION* 500,000 units PO QID PRN 08/27/19 08/27/19 History Potassium Citrate [Urocit-K] 45 meq PO DAILY 08/27/19 08/27/19 History Venlafaxine EXT RELEASE CAP* 75 mg PO TID 08/27/19 08/27/19 History [Effexor Xr CAP*] traZODone TAB* [Desyrel TAB*] 100 mg PO BEDTIME 08/27/19 08/27/19 History Allergies: Allergies Allergy/AdvReac Type Severity Reaction Status Date / Time amoxicillin Allergy Rash Verified 08/27/19 16:44 polyethylene glycol Allergy Headache Verified 08/27/19 16:44 Sulfa (Sulfonamide Allergy Rash Verified 08/27/19 16:44 Antibiotics) terconazole [From Terazol 3] Allergy Rash Verified 08/27/19 16:44 Objective - Vital Signs Vital Signs: Vital Signs 09/01/19 09/01/19 09/01/19 11:15 12:32 15:15 Temperature 98.5 F 99.6 F Pulse Rate 101 98 Respiratory 18 18 18 Rate Blood Pressure 153/78 159/77 (mmHg) O2 Sat by Pulse 97 99 Oximetry 09/01/19 09/01/19 09/01/19 15:41 19:53 20:00 Temperature Pulse Rate Respiratory 18 20 20 Rate Blood Pressure (mmHg) O2 Sat by Pulse Oximetry 09/01/19 09/01/19 09/01/19 20:01 21:26 23:41 Temperature 98.5 F 97.8 F Pulse Rate 98 91 Respiratory 16 20 16 Rate Blood Pressure 159/70 169/80 (mmHg) O2 Sat by Pulse 100 97 Oximetry 09/02/19 09/02/19 09/02/19 03:49 08:00 08:02 Temperature 97.6 F Pulse Rate 93 Respiratory 12 18 20 Rate Blood Pressure 115/49 (mmHg) O2 Sat by Pulse 94 Oximetry - Intake and Output Intake and Output: Intake & Output 08/30/19 08/31/19 09/01/19 09/02/19 11:59 11:59 11:59 11:59 Intake Total 750 3311 337 2308 Output Total 2200 4000 200 Balance 750 -790 -3100 1030 Intake: IV Fluids 40 40 ABX - DOXYCYCLINE 20 ABX - VANCOMYCIN 20 20 NS (0.9%) 20 IVPB 500 500 300 ABX - DOXYCYCLINE 250 ABX - VANCOMYCIN 250 500 250 Rocephin 50 Oral 750 870 360 930 Output: Urine 2200 4000 200 Other: Estimated Void Medium Large Medium # Bowel Movements 1 Estimated Stool Amount Large # Voids 1 4 1 ADLs: Meal Record Start: 08/27/19 22: 07 Freq: DAILY@0900,1400,1800 Status: Active Protocol: Created 08/27/19 22:07 System (Rec: 08/27/19 22:07 System TELE-C05) Document 08/28/19 09:00 [id number] (Rec: 08/28/19 15:27 [id number] TELE-C07) Document 08/28/19 14:00 [id number] (Rec: 08/28/19 15:28 [id number] TELE-C07) Document 08/28/19 18:00 [id number] (Rec: 08/28/19 18:18 [id number] TELE-C09) Document 08/29/19 09:00 [id number] (Rec: 08/29/19 10:18 [id number] TELE-C08) Document 08/29/19 14:00 [id number] (Rec: 08/29/19 14:07 [id number] TELE-C07) Document 08/29/19 18:00 [id number] (Rec: 08/29/19 20:14 [id number] TELE-C07) Document 08/30/19 09:00 [id number] (Rec: 08/30/19 13:23 [id number] MED-M26) Document 08/30/19 14:00 [id number] (Rec: 08/30/19 14:08 [id number] TELE-C09) Document 08/30/19 18:00 [id number] (Rec: 08/30/19 18:36 [id number] TELE-C09) Document 08/31/19 09:00 [id number] (Rec: 08/31/19 14:33 [id number] TELE-C13) Document 08/31/19 14:00 GWY1149 (Rec: 08/31/19 14:34 [id number] TELE-C13) Document 08/31/19 18:00 [id number] (Rec: 08/31/19 22:25 [id number] TELE-C07) Document 09/01/19 09:00 [id number] (Rec: 09/01/19 09:29 [id number] TELE-C01) Document 09/01/19 13:52 [id number] (Rec: 09/01/19 13:54 [id number] TELE-C01) Document 09/01/19 18:00 [id number] (Rec: 09/01/19 18:07 [id number] TELE-C01) Intake and Output Start: 08/27/19 16: 36 Freq: Status: Active Protocol: Created 08/27/19 16:36 System (Rec: 08/27/19 16:36 System ED-C24) Document 08/27/19 22:37 [id number] (Rec: 08/27/19 22:37 [id number] ED-C31) Intake and Output Start: 08/27/19 22: 07 Freq: DAILY@0600,1400,2200 Status: Active Protocol: Created 08/27/19 22:07 System (Rec: 08/27/19 22:07 System TELE-C05) Document 08/28/19 06:00 [id number] (Rec: 08/28/19 06:35 [id number] TELE-C11) Document 08/28/19 14:00 [id number] (Rec: 08/28/19 15:28 [id number] TELE-C07) Document 08/28/19 22:00 [id number] (Rec: 08/28/19 22:02 [id number] TELE-C09) Document 08/29/19 06:00 SYA8935 (Rec: 08/29/19 06:01 [id number] TELE-C09) Document 08/29/19 14:00 [id number] (Rec: 08/29/19 14:07 [id number] TELE-C07) Document 08/29/19 22:00 [id number] (Rec: 08/30/19 03:00 [id number] TELE-C06) Document 08/30/19 06:00 IFT8938 (Rec: 08/30/19 06:15 [id number] TELE-C07) Document 08/30/19 14:00 RIZ9564 (Rec: 08/30/19 14:08 [id number] TELE-C09) Document 08/30/19 22:00 [id number] (Rec: 08/31/19 00:36 [id number] TELE-C07) Document 08/31/19 06:00 OTK8669 (Rec: 08/31/19 06:03 [id number] TELE-C07) Document 08/31/19 14:00 SBA5320 (Rec: 08/31/19 14:36 [id number] TELE-C13) Document 08/31/19 22:00 JOF1754 (Rec: 08/31/19 22:43 IFC8053 TELE-C34) Document 09/01/19 00:43 CLZ4637 (Rec: 09/01/19 00:43 [id number] TELE-C34) Document 09/01/19 02:36 OJQ0200 (Rec: 09/01/19 02:36 [id number] TELE-C34) Document 09/01/19 04:45 QYP0440 (Rec: 09/01/19 04:45 [id number] TELE-C34) Document 09/01/19 05:58 FPV2615 (Rec: 09/01/19 05:59 UKP1908 MED-M02) Document 09/01/19 13:52 DNI1072 (Rec: 09/01/19 13:54 [id number] TELE-C01) Document 09/01/19 22:00 [id number] (Rec: 09/02/19 00:08 [id number] TELE-C05) Document 09/02/19 05:54 [id number] (Rec: 09/02/19 05:54 [id number] TELE-C13) Results - Results Lab Results: Laboratory Results - last 24 hr 08/30/19 09/01/19 09/01/19 05:13 11:29 16:34 POC Glucose (mg/dL) 250 H 149 H Cryptococcus Ag Negative 09/01/19 09/02/19 21:26 07:34 POC Glucose (mg/dL) 173 H 104 H Cryptococcus Ag Assessment - Problem List Assessment: Patient Problems History of lung abscess (Acute) Lung mass (Acute) Pneumonia (Acute) Thrombocytopenia (Acute) Asthma (Chronic) Chronic pain syndrome (Chronic) Depression (Chronic) GERD (gastroesophageal reflux disease) (Chronic) Headache (Chronic) History of DVT (deep vein thrombosis) (Chronic) History of falling (Chronic) History of renal calculi (Chronic) History of urinary retention (Chronic) Memory impairment (Chronic) Osteoporosis (Chronic) Peripheral neuropathy (Chronic) Sleep apnea (Chronic) Type 2 diabetes mellitus (Chronic) Plan: We are awaiting the results of her aspiration from the right lung mass. I will maintain her on her current antibacterials. I am hoping we are able to stop IV antibacterials soon as a prelude to discharge. Her glycemic control has improved. No new issues.
[2019-09-02] MEDS: Vancomycin(*) 1,250 MG in NS 0.9% 250 ML* 250 ML IV SCH ×2 (11:11→23:30)
[2019-09-02] MEDS: cefTRIAXone(*) 1 GM in NS 0.9% 50 ML* 50 ML IVPB SCH (13:46)
[2019-09-02] MEDS: Atorvastatin* 20 MG TAB PO SCH (17:12)
[2019-09-02] MEDS: Gabapentin CAP(*) 300 MG PO SCH (21:37)
[2019-09-02] MEDS: traZODone TAB* 100 MG PO SCH (21:39)
[2019-09-02] MEDS: Sertraline* 50 MG TAB PO SCH (21:39)
[2019-09-03 06:22] LABS: ABS Eosinophils 0.6 10^3/ul (0-0.6); ABS Lymphocytes 1.2 10^3/ul (1.0-4.8); ABS Monocytes 0.6 10^3/ul (0-0.8); ABS Neutrophils 3.2 10^3/ul (1.5-7.7); Eosinophil % 10.1 %; Hematocrit 29 % (35-47); Hemoglobin 10.1 g/dL (12.0-16.0); Lymphocyte % 21.5 %; Mean Corpuscular HGB Conc 35 g/dL (31-36); Mean Corpuscular Hemoglobin 31 pg (27-31); Mean Corpuscular Volume 89 fL (80-97); Mean Platelet Volume 7.6 fL (7.4-10.4); Platelet Count 113 10^3/uL (150-450); Red Blood Count 3.25 10^6 /uL (3.70-4.87); Red Cell Distribution Width 14 % (10-15); White Blood Count 5.5 10^3/uL (3.5-10.8)
[2019-09-03] MEDS: Sucralfate TAB* 1 GM PO SCH ×2 (06:38→16:06)
[2019-09-03 06:41] LABS: BUN/Creatinine Ratio 4.8 (8-20); C Reactive Protein 19.32 mg/L (<8.01); Calcium 8.4 mg/dL (8.6-10.3); EGFR African American 63.2 (>60); EGFR Non-African American 52.2 (>60); Potassium 3.5 mmol/L (3.5-5.0)
[2019-09-03] MEDS: Insulin LISPRO* 1 UNITS UNIT SUBCUT SCH ×4 (07:43→21:11)
[2019-09-03] MEDS: Magnesium Oxide TAB* 400 MG PO SCH ×2 (08:17→21:14)
[2019-09-03] MEDS: Venlafaxine EXT RELEASE CAP* 75 MG PO SCH ×3 (08:17→21:19)
[2019-09-03] MEDS: Ferrous Sulfate TAB* 325 MG PO SCH (08:18)
[2019-09-03] MEDS: Potassium Chlor TAB* 20 MEQ TAB.ER PO SCH (08:18)
[2019-09-03] MEDS: Cyanocobalamin TAB* 500 MCG PO SCH (08:18)
[2019-09-03] MEDS: Insulin GLARGINE(*) 1 UNITS UNIT SUBCUT SCH (08:19)
[2019-09-03] MEDS: Fondaparinux* 2.5 MG/0.5 ML SYRINGE SUBCUT SCH (08:19)
[2019-09-03] MEDS: Mirabegron (NF) 25 MG TAB PO SCH (08:19)
[2019-09-03] MEDS: Pantoprazole TAB * 40 MG TAB PO SCH ×2 (08:19→21:18)
--- NOTE | 2019-09-03 08:28 | PN ---
Subjective - Subjective Reason for Note: Progress Note History: She coughed up some yellow sputum. She has had no chest pain or dyspnea. She is able to walk with a walker without any problems. She has loose stool with x 1 BM per day. She thinks she has yeast vaginitis. Active Problems: Active Problems History of lung abscess (Acute) Z87.09 Lung mass (Acute) R91.8 Pneumonia (Acute) J18.9 Thrombocytopenia (Acute) D69.6 Asthma (Chronic) J45.909 Chronic pain syndrome (Chronic) G89.4 Depression (Chronic) F32.9 GERD (gastroesophageal reflux disease) (Chronic) K21.9 Headache (Chronic) R51 History of DVT (deep vein thrombosis) (Chronic) Z86.718 History of falling (Chronic) Z91.81 History of renal calculi (Chronic) Z87.442 History of urinary retention (Chronic) Z87.898 Memory impairment (Chronic) R41.3 Osteoporosis (Chronic) M81.0 Peripheral neuropathy (Chronic) G62.9 Sleep apnea (Chronic) G47.30 Type 2 diabetes mellitus (Chronic) Current Medications: Current Medications Acetaminophen (Tylenol Tab*) 650 mg PO Q4H PRN PRN Reason: FEVER/PAIN Last Admin: 08/31/19 23:44 Dose: 650 mg Hydrocodone Bitart/Acetaminophen (Auberry 10/325 (Nf)) 1 tab PO Q6H PRN PRN Reason: PAIN - MODERATE Last Admin: 09/02/19 08:02 Dose: 1 tab Alprazolam (Xanax Tab*) 0.5 mg PO Q8H PRN PRN Reason: ANXIETY Last Admin: 08/31/19 08:48 Dose: 0.5 mg Atorvastatin Calcium (Lipitor*) 20 mg PO 1700 [facility] Last Admin: 09/02/19 17:12 Dose: 20 mg Calcium Carbonate (Tums*) 500 mg PO Q4H PRN PRN Reason: INDIGESTION Cyanocobalamin (Vitamin B12 Tab*) 1,000 mcg PO DAILY [facility] Last Admin: 09/03/19 08:18 Dose: 1,000 mcg Dextrose (Dextrose 50% Vial 50 Ml*) 25 ml IV PUSH .FOR FS < 60 - SS PRN PRN Reason: FS < 60 Ferrous Sulfate (Ferrous Sulfate Tab*) 325 mg PO DAILY [facility] Last Admin: 09/03/19 08:18 Dose: 325 mg Fondaparinux (Arixtra*) 2.5 mg SUBCUT DAILY [facility] Last Admin: 09/03/19 08:19 Dose: 2.5 mg Gabapentin (Neurontin Cap(*)) 600 mg PO BEDTIME [facility] Last Admin: 09/02/19 21:37 Dose: 600 mg Vancomycin HCl 1,250 mg/ (Sodium Chloride) 250 mls @ 166.667 mls/hr IV 1100, 2300 [facility] Last Admin: 09/02/19 23:30 Dose: 166.667 mls/hr Ceftriaxone Sodium 1 gm/ (Sodium Chloride) 50 mls @ 100 mls/hr IVPB Q24H [facility] Last Admin: 09/02/19 13:46 Dose: 100 mls/hr Insulin Glargine (Lantus(*)) 8 units SUBCUT Q24H [facility] Last Admin: 09/03/19 08:19 Dose: 8 unit Insulin Human Lispro (Humalog*) 0 units SUBCUT ACHS [facility]; Protocol Last Admin: 09/03/19 07:43 Dose: Not Given Magnesium Oxide (Magox 400 Tab*) 400 mg PO BID [facility] Last Admin: 09/03/19 08:17 Dose: 400 mg Mirabegron (Myrbetriq (Nf)) 25 mg PO DAILY [facility] Last Admin: 09/02/19 08:03 Dose: Not Given Nystatin (Nystatin Suspension*) 500,000 units PO QID PRN PRN Reason: PER PROTOCOL Pantoprazole Sodium (Protonix Tab*) 40 mg PO BID [facility] Last Admin: 09/03/19 08:19 Dose: 40 mg Pharmacy Consult (Vancomycin Per Pharmacy*) 1 note FOLLOW UP .VANC PER PHARMACY [facility]; Protocol Pharmacy Profile Note (Vancomycin Trough Check) 1 note FOLLOW UP .ENTER TIME AND DATE ONE Stop: 09/03/19 10:31 Potassium Chloride (Klor Con Er Tab*) 20 meq PO DAILY [facility] Last Admin: 09/03/19 08:18 Dose: 20 meq Saliva Substitute (Biotene Moisturizing Mouth (Nf)) 1 spray MT Q4H PRN; Protocol PRN Reason: dry mouth Sertraline HCl (Zoloft*) 50 mg PO BEDTIME [facility] Last Admin: 09/02/19 21:39 Dose: 50 mg Sucralfate (Carafate*) 1 gm PO 0630,1600 [facility] Last Admin: 09/03/19 06:38 Dose: 1 gm Tramadol HCl (Ultram*) 25 mg PO Q6HR PRN PRN Reason: PAIN - MILD Last Admin: 09/01/19 12:32 Dose: 25 mg Trazodone HCl (Desyrel Tab*) 100 mg PO BEDTIME [facility] Last Admin: 09/02/19 21:39 Dose: 100 mg Venlafaxine HCl (Effexor Xr Cap*) 75 mg PO TID [facility] Last Admin: 09/03/19 08:17 Dose: 75 mg Home Medications: Home Medications Medication Instructions Recorded Confirmed Type Simvastatin TAB(NF) [Zocor 20 MG 40 mg PO 1700 06/15/13 08/27/19 History (NF)] Sucralfate TAB* [Carafate*] 1 gm PO BID 06/15/13 08/27/19 History Aspirin 81 mg CHEW TAB* 1 tab PO DAILY 08/04/16 08/27/19 History Ferrous Sulfate TAB* 325 mg PO DAILY 08/04/16 08/27/19 History Sertraline* [Zoloft*] 50 mg PO BEDTIME 08/04/16 08/27/19 History Cyanocobalamin TAB* [Vitamin B12 1,000 mcg PO DAILY 02/08/17 08/27/19 History TAB*] Colesevelam(NF) [Welchol(NF)] 625 mg PO DAILY 02/08/18 08/27/19 History Pantoprazole TAB * [Protonix TAB*] 40 mg PO BID 02/08/18 08/27/19 History SitaGLIPtin (NF) [Januvia (NF)] 100 mg PO DAILY 02/08/18 08/27/19 History Acetaminophen TAB* [Tylenol TAB*] 650 mg PO Q4H PRN tab 07/14/18 08/27/19 Rx Saliva Substitute (NF) [Biotene 1 spray MT Q4H PRN btl 07/14/18 08/27/19 Rx Moisturizing Mouth (NF)] Cyclobenzaprine (NF) 5 mg PO TID PRN 12/20/18 08/27/19 History [Cyclobenzaprine 5 MG (NF)] Gabapentin CAP(*) [Neurontin 300 600 mg PO BEDTIME 12/20/18 08/27/19 History CAP(*)] Fluticasone NASAL SPRAY 50MCG* 2 spray BOTH NARES DAILY #1 btl 06/10/19 Rx [Flonase NASAL SPRAY 50MCG*] traMADol TAB* [Ultram*] 25 mg PO Q6HR PRN 06/10/19 08/27/19 History Hemorrhoidal OINT* [Preparation H*] 1 applic UT BID PRN 08/27/19 08/27/19 History Mirabegron (NF) [Myrbetriq (NF)] 25 mg PO DAILY 08/27/19 08/27/19 History Nystatin SUSPENSION* 500,000 units PO QID PRN 08/27/19 08/27/19 History Potassium Citrate [Urocit-K] 45 meq PO DAILY 08/27/19 08/27/19 History Venlafaxine EXT RELEASE CAP* 75 mg PO TID 08/27/19 08/27/19 History [Effexor Xr CAP*] traZODone TAB* [Desyrel TAB*] 100 mg PO BEDTIME 08/27/19 08/27/19 History Allergies: Allergies Allergy/AdvReac Type Severity Reaction Status Date / Time amoxicillin Allergy Rash Verified 08/27/19 16:44 polyethylene glycol Allergy Headache Verified 08/27/19 16:44 Sulfa (Sulfonamide Allergy Rash Verified 08/27/19 16:44 Antibiotics) terconazole [From Terazol 3] Allergy Rash Verified 08/27/19 16:44 Objective - Vital Signs Vital Signs: Vital Signs 09/02/19 09/02/19 09/02/19 10:34 11:15 15:15 Temperature 97.8 F 97.4 F Pulse Rate 88 94 Respiratory 16 16 20 Rate Blood Pressure 152/81 151/68 (mmHg) O2 Sat by Pulse 99 97 Oximetry 09/02/19 09/02/19 09/02/19 19:15 20:00 21:37 Temperature 98.1 F Pulse Rate 102 Respiratory 20 20 20 Rate Blood Pressure 164/80 (mmHg) O2 Sat by Pulse 100 Oximetry 09/02/19 09/02/19 09/03/19 23:35 23:48 02:55 Temperature 99.4 F 98.6 F Pulse Rate 109 99 Respiratory 20 20 20 Rate Blood Pressure 165/70 113/58 (mmHg) O2 Sat by Pulse 97 94 Oximetry 09/03/19 07:27 Temperature Pulse Rate Respiratory 18 Rate Blood Pressure (mmHg) O2 Sat by Pulse Oximetry - Intake and Output Intake and Output: Intake & Output 08/31/19 09/01/19 09/02/19 09/03/19 11:59 11:59 11:59 11:59 Intake Total 8299 996 8836 1585 Output Total 2200 4000 200 0 Balance -790 -3100 1150 1585 Intake: IV Fluids 40 40 15 ABX - DOXYCYCLINE 20 ABX - VANCOMYCIN 20 20 15 NS (0.9%) 20 IVPB 500 500 300 550 ABX - DOXYCYCLINE 250 ABX - VANCOMYCIN 250 500 250 500 Rocephin 50 50 Oral 475 493 7243 1020 Output: Urine 2200 4000 200 0 Other: Estimated Void Medium Large Medium # Bowel Movements 1 Estimated Stool Amount Large # Voids 4 1 ADLs: Meal Record Start: 08/27/19 22: 07 Freq: DAILY@0900,1400,1800 Status: Active Protocol: Created 08/27/19 22:07 System (Rec: 08/27/19 22:07 System TELE-C05) Document 08/28/19 09:00 [id number] (Rec: 08/28/19 15:27 [id number] TELE-C07) Document 08/28/19 14:00 [id number] (Rec: 08/28/19 15:28 [id number] TELE-C07) Document 08/28/19 18:00 [id number] (Rec: 08/28/19 18:18 [id number] TELE-C09) Document 08/29/19 09:00 [id number] (Rec: 08/29/19 10:18 [id number] TELE-C08) Document 08/29/19 14:00 [id number] (Rec: 08/29/19 14:07 [id number] TELE-C07) Document 08/29/19 18:00 KBR7455 (Rec: 08/29/19 20:14 [id number] TELE-C07) Document 08/30/19 09:00 TSH5200 (Rec: 08/30/19 13:23 [id number] MED-M26) Document 08/30/19 14:00 IMS0105 (Rec: 08/30/19 14:08 [id number] TELE-C09) Document 08/30/19 18:00 [id number] (Rec: 08/30/19 18:36 [id number] TELE-C09) Document 08/31/19 09:00 GQI5237 (Rec: 08/31/19 14:33 LWL9857 TELE-C13) Document 08/31/19 14:00 ZKF3674 (Rec: 08/31/19 14:34 [id number] TELE-C13) Document 08/31/19 18:00 LTW9511 (Rec: 08/31/19 22:25 [id number] TELE-C07) Document 09/01/19 09:00 QCV7838 (Rec: 09/01/19 09:29 LSO4905 TELE-C01) Document 09/01/19 13:52 QVK2280 (Rec: 09/01/19 13:54 IUP6671 TELE-C01) Document 09/01/19 18:00 GJY0119 (Rec: 09/01/19 18:07 ORI3943 TELE-C01) Document 09/02/19 09:00 LXU0604 (Rec: 09/02/19 12:54 PLL6523 TELE-C05) Document 09/02/19 13:26 HHV2417 (Rec: 09/02/19 13:26 FPL0326 TELE-C05) Document 09/02/19 18:00 AVF4237 (Rec: 09/02/19 19:54 [id number] TELE-C01) Intake and Output Start: 08/27/19 16: 36 Freq: Status: Active Protocol: Created 08/27/19 16:36 System (Rec: 08/27/19 16:36 System ED-C24) Document 08/27/19 22:37 [id number] (Rec: 08/27/19 22:37 [id number] ED-C31) Intake and Output Start: 08/27/19 22: 07 Freq: DAILY@0600,1400,2200 Status: Active Protocol: Created 08/27/19 22:07 System (Rec: 08/27/19 22:07 System TELE-C05) Document 08/28/19 06:00 [id number] (Rec: 08/28/19 06:35 DJT2275 TELE-C11) Document 08/28/19 14:00 GXU3738 (Rec: 08/28/19 15:28 [id number] TELE-C07) Document 08/28/19 22:00 HJB4606 (Rec: 08/28/19 22:02 SZC3513 TELE-C09) Document 08/29/19 06:00 EOY4289 (Rec: 08/29/19 06:01 PUP7515 TELE-C09) Document 08/29/19 14:00 KRB6635 (Rec: 08/29/19 14:07 [id number] TELE-C07) Document 08/29/19 22:00 XGN5746 (Rec: 08/30/19 03:00 GXG7050 TELE-C06) Document 08/30/19 06:00 GSG0101 (Rec: 08/30/19 06:15 RRB6555 TELE-C07) Document 08/30/19 14:00 GZI6992 (Rec: 08/30/19 14:08 IWR6276 TELE-C09) Document 08/30/19 22:00 KFI8196 (Rec: 08/31/19 00:36 LYP9023 TELE-C07) Document 08/31/19 06:00 QLA9008 (Rec: 08/31/19 06:03 IFI8034 TELE-C07) Document 08/31/19 14:00 FFA4864 (Rec: 08/31/19 14:36 NZP8045 TELE-C13) Document 08/31/19 22:00 WND6674 (Rec: 08/31/19 22:43 CRS4968 TELE-C34) Document 09/01/19 00:43 QEB7607 (Rec: 09/01/19 00:43 WHO6116 TELE-C34) Document 09/01/19 02:36 RGK5391 (Rec: 09/01/19 02:36 HAY3246 TELE-C34) Document 09/01/19 04:45 [id number] (Rec: 09/01/19 04:45 SQI4451 TELE-C34) Document 09/01/19 05:58 VYT2669 (Rec: 09/01/19 05:59 TSH8847 MED-M02) Document 09/01/19 13:52 TLU6192 (Rec: 09/01/19 13:54 ZYV2539 TELE-C01) Document 09/01/19 22:00 FSD1626 (Rec: 09/02/19 00:08 POP8815 TELE-C05) Document 09/02/19 05:54 ERU7127 (Rec: 09/02/19 05:54 KJP1436 TELE-C13) Document 09/02/19 14:00 WPH5253 (Rec: 09/02/19 14:54 BHA0969 TELE-C05) Document 09/02/19 21:53 MTD2031 (Rec: 09/02/19 21:53 FQP0283 TELE-C05) Document 09/03/19 06:00 [id number] (Rec: 09/03/19 06:47 [id number] TELE-C07) - Physical Exam General Physical Exam Comment: Sitting comfortably on the edge of the bed. General: No Cyanosis, Yes Anemia, No Jaundice, No Clubbing Lungs and Chest: Yes: Chest Expansion Full, Chest Expansion Symetrica, Percussion Note Resonant, Vessicular Breath Sounds. No: Crackles, Wheezes Heart Rate and Rhythm: Regular Additional Cardiovascular: Yes: Heart Murmur. No: Pedal Edema Abdominal Exam: Yes: Soft, Bowel Sounds Present. No: Distention, Abdominal Tenderness Results - Results Lab Results: Laboratory Results - last 24 hr 09/02/19 09/02/19 09/02/19 11:30 16:14 20:24 WBC RBC Hgb Hct MCV MCH MCHC RDW Plt Count MPV Neut % (Auto) Lymph % (Auto) Towns % (Auto) Eos % (Auto) Baso % (Auto) Absolute Neuts (auto) Absolute Lymphs (auto) Absolute Monos (auto) Absolute Eos (auto) Absolute Basos (auto) Absolute Nucleated RBC Nucleated RBC % Sodium Potassium Chloride Carbon Dioxide Anion Gap BUN Creatinine Est GFR ( Amer) Est GFR (Non-Af Amer) BUN/Creatinine Ratio Glucose POC Glucose (mg/dL) 241 H 294 H 173 H Calcium C-Reactive Protein 09/03/19 09/03/19 09/03/19 05:57 05:57 07:21 WBC 5.5 RBC 3.25 L Hgb 10.1 L Hct 29 L MCV 89 MCH 31 MCHC 35 RDW 14 Plt Count 113 L MPV 7.6 Neut % (Auto) 57.3 Lymph % (Auto) 21.5 Towns % (Auto) 10.7 Eos % (Auto) 10.1 Baso % (Auto) 0.4 Absolute Neuts (auto) 3.2 Absolute Lymphs (auto) 1.2 Absolute Monos (auto) 0.6 Absolute Eos (auto) 0.6 Absolute Basos (auto) 0.0 Absolute Nucleated RBC 0.0 Nucleated RBC % 0.0 Sodium 140 Potassium 3.5 Chloride 109 Carbon Dioxide 25 Anion Gap 6 BUN 5 L Creatinine 1.04 H Est GFR ( Amer) 63.2 Est GFR (Non-Af Amer) 52.2 BUN/Creatinine Ratio 4.8 L Glucose 101 H POC Glucose (mg/dL) 140 H Calcium 8.4 L C-Reactive Protein 19.32 H Assessment - Problem List Assessment: Patient Problems History of lung abscess (Acute) Lung mass (Acute) Pneumonia (Acute) Thrombocytopenia (Acute) Asthma (Chronic) Chronic pain syndrome (Chronic) Depression (Chronic) GERD (gastroesophageal reflux disease) (Chronic) Headache (Chronic) History of DVT (deep vein thrombosis) (Chronic) History of falling (Chronic) History of renal calculi (Chronic) History of urinary retention (Chronic) Memory impairment (Chronic) Osteoporosis (Chronic) Peripheral neuropathy (Chronic) Sleep apnea (Chronic) Type 2 diabetes mellitus (Chronic) Plan: History of lung abscess (Acute) Lung mass (Acute)Pneumonia (Acute) We are awaiting results from pathology/cytopathology from lung biopsy. According to the department of pathology the sample arrived late Tuesday and it will processed today and reported tomorrow. Her WBC and CRP have come down. I think the bacterial component of the infection is undercontrol - unless there is an abscess. She needs to continue her current Rx until we have a result from pathology Thrombocytopenia (Acute) Her platelets are recovering. Secondary diagnoses Asthma (Chronic) Chronic pain syndrome (Chronic) Depression (Chronic) GERD (gastroesophageal reflux disease) (Chronic) Headache (Chronic) History of DVT (deep vein thrombosis) (Chronic) History of falling (Chronic) History of renal calculi (Chronic) History of urinary retention (Chronic) Memory impairment (Chronic) Osteoporosis (Chronic) Peripheral neuropathy (Chronic) Sleep apnea (Chronic) Type 2 diabetes mellitus (Chronic) I discussed the above with the patient and called her Musa Rodríguez -agree with the plan.
[2019-09-03] MEDS ORDERED: Fluconazole 150 MG TAB PO ONE (08:34)
[2019-09-03] MEDS: Lactobacillus Acidophilus* 1 TAB PO SCH ×2 (09:48→21:20)
[2019-09-03 09:52] LABS: EGFR African American 57.4 (>60); EGFR Non-African American 47.5 (>60)
[2019-09-03 09:53] LABS: Vancomycin Trough 29.4 mcg/mL
[2019-09-03] MEDS ORDERED: Vancomycin Trough Check NOTE FOLLOW UP ONE (10:30)
--- NOTE | 2019-09-03 10:56 | PN ---
Progress Note - Progress Note Date of Service: 09/03/19 SOAP: Subjective: CC: abnormal chest CT HPI: 69 year old woman admitted with encephalopathy and chest pain. No recent cough or shortness of breath. Chest CT showed peripheral right lung mass in similar location to prior abnormality treated as lung abscess June 2018. Had CT guided biopsy, culture NGTD, histology pending. Objective: Vital Signs Temp 36.6 C 09/03/19 07:15 Pulse 87 09/03/19 07:15 Resp 18 09/03/19 07:27 BP 167/73 09/03/19 07:15 Pulse Ox 98 09/03/19 07:15 Intake & Output 09/02/19 09/03/19 09/03/19 18:59 06:59 18:59 Intake Total 780 925 120 Output Total 0 0 Balance 780 925 120 Intake: IV Fluids 15 ABX - VANCOMYCIN 15 IVPB 300 250 ABX - VANCOMYCIN 250 250 Rocephin 50 Oral 480 660 120 Output: Urine 0 0 Gen:awake, no distress Neuro: AAOx3 HEENT: no thrush Heart:Regular no murmur Lungs: no wheeze or rale Abd:+BS NTND soft Skin: no rash Assessment: 1. right lung mass, biopsy results pending. If no malignancy and WBC/CRP both improved on antibiotics, will plan to treat as lung abscess again 2. T2DM 3. Aortic stenosis Plan: 1. continue vancomycin goal tr 10-15, ceftriaxone 1 g daily, day 8/28 w weekly cbc, cmp, crp; repeat chest imaging
[2019-09-03] MEDS: Vancomycin(*) 1,250 MG in NS 0.9% 250 ML* 250 ML IV SCH (11:12)
[2019-09-03] MEDS: cefTRIAXone(*) 1 GM in NS 0.9% 50 ML* 50 ML IVPB SCH (12:08)
[2019-09-03] MEDS: traMADol TAB* 50 MG PO PRN ×2 (12:09→22:59)
[2019-09-03] MEDS: Atorvastatin* 20 MG TAB PO SCH (17:00)
[2019-09-03] MEDS: Sertraline* 50 MG TAB PO SCH (21:15)
[2019-09-03] MEDS: traZODone TAB* 100 MG PO SCH (21:15)
[2019-09-03] MEDS: Gabapentin CAP(*) 300 MG PO SCH (21:16)
[2019-09-04] MEDS: ALPRAZolam TAB* 0.5 MG PO PRN (03:34)
[2019-09-04 05:37] LABS: Vancomycin Random 17.8 mcg/mL
[2019-09-04 05:38] LABS: EGFR African American 59.9 (>60); EGFR Non-African American 49.5 (>60)
[2019-09-04] MEDS: Sucralfate TAB* 1 GM PO SCH (06:19)
[2019-09-04] MEDS ORDERED: traMADol TAB* 50 MG PO PRN (07:42)
--- NOTE | 2019-09-04 07:52 | PN ---
Subjective - Subjective Reason for Note: Discharge Note History: She had a restless night of sleep and was not wearing her CPAP when I entered, but was asleep. She has had ongoing diarrhea. Otherwise, she has had no new symptoms. Active Problems: Active Problems History of lung abscess (Acute) Z87.09 Lung mass (Acute) R91.8 Pneumonia (Acute) J18.9 Squamous cell carcinoma of right lung (Acute) C34.91 Thrombocytopenia (Acute) D69.6 Asthma (Chronic) J45.909 Chronic pain syndrome (Chronic) G89.4 Depression (Chronic) F32.9 GERD (gastroesophageal reflux disease) (Chronic) K21.9 Headache (Chronic) R51 History of DVT (deep vein thrombosis) (Chronic) Z86.718 History of falling (Chronic) Z91.81 History of renal calculi (Chronic) Z87.442 History of urinary retention (Chronic) Z87.898 Memory impairment (Chronic) R41.3 Osteoporosis (Chronic) M81.0 Peripheral neuropathy (Chronic) G62.9 Sleep apnea (Chronic) G47.30 Type 2 diabetes mellitus (Chronic) Current Medications: Current Medications Acetaminophen (Tylenol Tab*) 650 mg PO Q4H PRN PRN Reason: FEVER/PAIN Last Admin: 08/31/19 23:44 Dose: 650 mg Hydrocodone Bitart/Acetaminophen ([place] 10/325 (Nf)) 1 tab PO Q6H PRN PRN Reason: PAIN - MODERATE Last Admin: 09/02/19 08:02 Dose: 1 tab Alprazolam (Xanax Tab*) 0.5 mg PO Q8H PRN PRN Reason: ANXIETY Last Admin: 09/04/19 03:34 Dose: 0.5 mg Atorvastatin Calcium (Lipitor*) 20 mg PO 1700 [place] Last Admin: 09/03/19 17:00 Dose: 20 mg Calcium Carbonate (Tums*) 500 mg PO Q4H PRN PRN Reason: INDIGESTION Cyanocobalamin (Vitamin B12 Tab*) 1,000 mcg PO DAILY [facility] Last Admin: 09/03/19 08:18 Dose: 1,000 mcg Dextrose (Dextrose 50% Vial 50 Ml*) 25 ml IV PUSH .FOR FS < 60 - SS PRN PRN Reason: FS < 60 Ferrous Sulfate (Ferrous Sulfate Tab*) 325 mg PO DAILY [facility] Last Admin: 09/03/19 08:18 Dose: 325 mg Fondaparinux (Arixtra*) 2.5 mg SUBCUT DAILY [facility] Last Admin: 09/03/19 08:19 Dose: 2.5 mg Gabapentin (Neurontin Cap(*)) 600 mg PO BEDTIME [facility] Last Admin: 09/03/19 21:16 Dose: 600 mg Ceftriaxone Sodium 1 gm/ (Sodium Chloride) 50 mls @ 100 mls/hr IVPB Q24H [facility] Last Admin: 09/03/19 12:08 Dose: 100 mls/hr Insulin Glargine (Lantus(*)) 8 units SUBCUT Q24H [facility] Last Admin: 09/03/19 08:19 Dose: 8 unit Insulin Human Lispro (Humalog*) 0 units SUBCUT ACHS [facility]; Protocol Last Admin: 09/03/19 21:11 Dose: Not Given Lactobacillus Rhamnosus (Lactobacillus Acidophilus*) 1 tab PO BID [facility] Last Admin: 09/03/19 21:20 Dose: 1 tab Magnesium Oxide (Magox 400 Tab*) 400 mg PO BID [facility] Last Admin: 09/03/19 21:14 Dose: 400 mg Mirabegron (Myrbetriq (Nf)) 25 mg PO DAILY [facility] Last Admin: 09/03/19 08:19 Dose: Not Given Nystatin (Nystatin Suspension*) 500,000 units PO QID PRN PRN Reason: PER PROTOCOL Pantoprazole Sodium (Protonix Tab*) 40 mg PO BID [facility] Last Admin: 09/03/19 21:18 Dose: 40 mg Pharmacy Consult (Vancomycin Per Pharmacy*) 1 note FOLLOW UP .VANC PER PHARMACY [facility]; Protocol Potassium Chloride (Klor Con Er Tab*) 20 meq PO DAILY [facility] Last Admin: 09/03/19 08:18 Dose: 20 meq Saliva Substitute (Biotene Moisturizing Mouth (Nf)) 1 spray MT Q4H PRN; Protocol PRN Reason: dry mouth Sertraline HCl (Zoloft*) 50 mg PO BEDTIME [facility] Last Admin: 09/03/19 21:15 Dose: 50 mg Sucralfate (Carafate*) 1 gm PO 0630,1600 [facility] Last Admin: 09/04/19 06:19 Dose: 1 gm Tramadol HCl (Ultram*) 50 mg PO Q6H PRN PRN Reason: PAIN - MODERATE Trazodone HCl (Desyrel Tab*) 100 mg PO BEDTIME [facility] Last Admin: 09/03/19 21:15 Dose: 100 mg Venlafaxine HCl (Effexor Xr Cap*) 75 mg PO TID [facility] Last Admin: 09/03/19 21:19 Dose: 75 mg Home Medications: Home Medications Medication Instructions Recorded Confirmed Type Simvastatin TAB(NF) [Zocor 20 MG 40 mg PO 1700 06/15/13 08/27/19 History (NF)] Sucralfate TAB* [Carafate*] 1 gm PO BID 06/15/13 08/27/19 History Aspirin 81 mg CHEW TAB* 1 tab PO DAILY 08/04/16 08/27/19 History Ferrous Sulfate TAB* 325 mg PO DAILY 08/04/16 08/27/19 History Sertraline* [Zoloft*] 50 mg PO BEDTIME 08/04/16 08/27/19 History Cyanocobalamin TAB* [Vitamin B12 1,000 mcg PO DAILY 02/08/17 08/27/19 History TAB*] Colesevelam(NF) [Welchol(NF)] 625 mg PO DAILY 02/08/18 08/27/19 History Pantoprazole TAB * [Protonix TAB*] 40 mg PO BID 02/08/18 08/27/19 History SitaGLIPtin (NF) [Januvia (NF)] 100 mg PO DAILY 02/08/18 08/27/19 History Acetaminophen TAB* [Tylenol TAB*] 650 mg PO Q4H PRN tab 07/14/18 08/27/19 Rx Saliva Substitute (NF) [Biotene 1 spray MT Q4H PRN btl 07/14/18 08/27/19 Rx Moisturizing Mouth (NF)] Cyclobenzaprine (NF) 5 mg PO TID PRN 12/20/18 08/27/19 History [Cyclobenzaprine 5 MG (NF)] Gabapentin CAP(*) [Neurontin 300 600 mg PO BEDTIME 12/20/18 08/27/19 History CAP(*)] Fluticasone NASAL SPRAY 50MCG* 2 spray BOTH NARES DAILY #1 btl 06/10/19 Rx [Flonase NASAL SPRAY 50MCG*] traMADol TAB* [Ultram*] 25 mg PO Q6HR PRN 06/10/19 08/27/19 History Hemorrhoidal OINT* [Preparation H*] 1 applic ID BID PRN 08/27/19 08/27/19 History Mirabegron (NF) [Myrbetriq (NF)] 25 mg PO DAILY 08/27/19 08/27/19 History Nystatin SUSPENSION* 500,000 units PO QID PRN 08/27/19 08/27/19 History Potassium Citrate [Urocit-K] 45 meq PO DAILY 08/27/19 08/27/19 History Venlafaxine EXT RELEASE CAP* 75 mg PO TID 08/27/19 08/27/19 History [Effexor Xr CAP*] traZODone TAB* [Desyrel TAB*] 100 mg PO BEDTIME 08/27/19 08/27/19 History Allergies: Allergies Allergy/AdvReac Type Severity Reaction Status Date / Time amoxicillin Allergy Rash Verified 08/27/19 16:44 polyethylene glycol Allergy Headache Verified 08/27/19 16:44 Sulfa (Sulfonamide Allergy Rash Verified 08/27/19 16:44 Antibiotics) terconazole [From Terazol 3] Allergy Rash Verified 08/27/19 16:44 Objective - Vital Signs Vital Signs: Vital Signs 09/03/19 09/03/19 09/03/19 11:15 12:09 14:51 Temperature 97.8 F Pulse Rate 93 Respiratory 16 20 20 Rate Blood Pressure 141/70 (mmHg) O2 Sat by Pulse 98 Oximetry 09/03/19 09/03/19 09/03/19 15:15 16:43 19:15 Temperature 97.5 F 99.3 F Pulse Rate 95 95 Respiratory 16 20 18 Rate Blood Pressure 118/66 152/71 (mmHg) O2 Sat by Pulse 97 99 Oximetry 09/03/19 09/03/19 09/03/19 20:00 21:16 22:59 Temperature Pulse Rate Respiratory 16 16 16 Rate Blood Pressure (mmHg) O2 Sat by Pulse Oximetry 09/03/19 09/03/19 09/04/19 23:15 23:30 03:15 Temperature 96.7 F 99.1 F Pulse Rate 89 89 Respiratory 14 16 18 Rate Blood Pressure 150/72 159/69 (mmHg) O2 Sat by Pulse 100 98 Oximetry 09/04/19 09/04/19 09/04/19 03:34 03:55 06:22 Temperature Pulse Rate Respiratory 16 16 16 Rate Blood Pressure (mmHg) O2 Sat by Pulse Oximetry - Intake and Output Intake and Output: Intake & Output 09/01/19 09/02/19 09/03/19 09/04/19 11:59 11:59 11:59 11:59 Intake Total 900 1350 1705 410 Output Total 4000 200 0 Balance -3100 1150 1705 410 Intake: IV Fluids 40 15 ABX - VANCOMYCIN 20 15 NS (0.9%) 20 IVPB 500 300 550 50 ABX - VANCOMYCIN 500 250 500 Rocephin 50 50 50 Oral 360 1050 1140 360 Output: Urine 4000 200 0 Other: Estimated Void Large Medium # Bowel Movements 1 Estimated Stool Amount Large # Voids 4 1 1 ADLs: Meal Record Start: 08/27/19 22: 07 Freq: DAILY@0900,1400,1800 Status: Active Protocol: Created 08/27/19 22:07 System (Rec: 08/27/19 22:07 System TELE-C05) Document 08/28/19 09:00 [id number] (Rec: 08/28/19 15:27 IJV3213 TELE-C07) Document 08/28/19 14:00 TSS8294 (Rec: 08/28/19 15:28 ZIJ7500 TELE-C07) Document 08/28/19 18:00 [id number] (Rec: 08/28/19 18:18 YZH6350 TELE-C09) Document 08/29/19 09:00 FAW2468 (Rec: 08/29/19 10:18 OWW1040 TELE-C08) Document 08/29/19 14:00 NPC2252 (Rec: 08/29/19 14:07 NEM4656 TELE-C07) Document 08/29/19 18:00 GIP3008 (Rec: 08/29/19 20:14 PCI4506 TELE-C07) Document 08/30/19 09:00 VML2697 (Rec: 08/30/19 13:23 VSY6591 MED-M26) Document 08/30/19 14:00 SMP0475 (Rec: 08/30/19 14:08 WUM2728 TELE-C09) Document 08/30/19 18:00 RAG6712 (Rec: 08/30/19 18:36 SIL0297 TELE-C09) Document 08/31/19 09:00 FBF0227 (Rec: 08/31/19 14:33 SWR6248 TELE-C13) Document 08/31/19 14:00 ROZ2694 (Rec: 08/31/19 14:34 QFX0083 TELE-C13) Document 08/31/19 18:00 YTY9118 (Rec: 08/31/19 22:25 XYE6909 TELE-C07) Document 09/01/19 09:00 CQW6446 (Rec: 09/01/19 09:29 DCR7277 TELE-C01) Document 09/01/19 13:52 KKA2018 (Rec: 09/01/19 13:54 HFT4865 TELE-C01) Document 09/01/19 18:00 AFO0277 (Rec: 09/01/19 18:07 BHX0814 TELE-C01) Document 09/02/19 09:00 JIO0181 (Rec: 09/02/19 12:54 ZBS4678 TELE-C05) Document 09/02/19 13:26 FMI6629 (Rec: 09/02/19 13:26 VRO0107 TELE-C05) Document 09/02/19 18:00 XUT5027 (Rec: 09/02/19 19:54 OYG6115 TELE-C01) Document 09/03/19 09:00 AYR8799 (Rec: 09/03/19 09:55 YTR0586 TELE-C07) Document 09/03/19 14:00 SYW2744 (Rec: 09/03/19 14:35 GJV3381 TELE-C07) Document 09/03/19 18:00 TEO7330 (Rec: 09/03/19 22:44 UIT7166 TELE-C05) Intake and Output Start: 08/27/19 16: 36 Freq: Status: Active Protocol: Created 08/27/19 16:36 System (Rec: 08/27/19 16:36 System ED-C24) Document 08/27/19 22:37 [id number] (Rec: 08/27/19 22:37 OVE3425 ED-C31) Intake and Output Start: 08/27/19 22: 07 Freq: DAILY@0600,1400,2200 Status: Active Protocol: Created 08/27/19 22:07 System (Rec: 12/16/19 22:07 System TELE-C05) Document 08/28/19 06:00 NIX6972 (Rec: 08/28/19 06:35 JRH4639 TELE-C11) Document 08/28/19 14:00 KPC2644 (Rec: 08/28/19 15:28 SGA4533 TELE-C07) Document 08/28/19 22:00 LBG3858 (Rec: 08/28/19 22:02 FZA7798 TELE-C09) Document 08/29/19 06:00 RSR9395 (Rec: 08/29/19 06:01 YEO8457 TELE-C09) Document 08/29/19 14:00 DEB3323 (Rec: 08/29/19 14:07 GHG5806 TELE-C07) Document 08/29/19 22:00 CHH7822 (Rec: 08/30/19 03:00 JHM2946 TELE-C06) Document 08/30/19 06:00 PXF8000 (Rec: 08/30/19 06:15 JAJ9955 TELE-C07) Document 08/30/19 14:00 FGY9552 (Rec: 08/30/19 14:08 TMO7948 TELE-C09) Document 08/30/19 22:00 SNF1758 (Rec: 08/31/19 00:36 NIW6546 TELE-C07) Document 08/31/19 06:00 BGG7766 (Rec: 08/31/19 06:03 DNV4718 TELE-C07) Document 08/31/19 14:00 PWK1459 (Rec: 08/31/19 14:36 KYQ7783 TELE-C13) Document 08/31/19 22:00 OPH6517 (Rec: 08/31/19 22:43 KVH8661 TELE-C34) Document 09/01/19 00:43 BLY2564 (Rec: 09/01/19 00:43 HCT2268 TELE-C34) Document 09/01/19 02:36 REH8431 (Rec: 09/01/19 02:36 AEX1591 TELE-C34) Document 09/01/19 04:45 OAG4627 (Rec: 09/01/19 04:45 UXO9995 TELE-C34) Document 09/01/19 05:58 OKP4303 (Rec: 09/01/19 05:59 NTK2462 [facility]-2) Document 09/01/19 13:52 IHB2298 (Rec: 09/01/19 13:54 QDE0757 TELE-C01) Document 09/01/19 22:00 IGZ7652 (Rec: 09/02/19 00:08 VFU3241 TELE-C05) Document 09/02/19 05:54 KZW2393 (Rec: 09/02/19 05:54 QPH9941 TELE-C13) Document 09/02/19 14:00 YMB5795 (Rec: 09/02/19 14:54 OGO4535 TELE-C05) Document 09/02/19 21:53 RVS2694 (Rec: 09/02/19 21:53 YYC9755 TELE-C05) Document 09/03/19 06:00 RLK2718 (Rec: 09/03/19 06:47 JUY8494 TELE-C07) Document 09/03/19 14:00 ROQ7327 (Rec: 09/03/19 14:40 KNX1970 TELE-C07) Document 09/04/19 06:00 SIS1355 (Rec: 09/04/19 06:33 PFD1548 TELE-C13) - Physical Exam General: No Cyanosis, Yes Anemia, No Jaundice, No Clubbing Lungs and Chest: Yes: Chest Expansion Full, Chest Expansion Symetrica, Percussion Note Resonant, Vessicular Breath Sounds. No: Crackles, Wheezes Heart Rate and Rhythm: Regular JVP: Not Elevated Additional Cardiovascular: Yes: Normal Heart Sounds, Heart Murmur. No: Pedal Edema Abdominal Exam: Yes: Soft, Bowel Sounds Present. No: Distention, Abdominal Tenderness Results - Results Lab Results: Laboratory Results - last 24 hr 08/31/19 09/03/19 09/03/19 00:02 09:01 11:19 BUN 5 L Creatinine 1.13 H Est GFR ( Amer) 57.4 Est GFR (Non-Af Amer) 47.5 POC Glucose (mg/dL) 261 H Vancomycin Trough 29.4 Random Vancomycin Urine Histoplasma Ag Negative U Histoplasma Ag Index 0.00 09/03/19 09/03/19 09/04/19 16:11 21:08 05:02 BUN 7 Creatinine 1.09 H Est GFR ( Amer) 59.9 Est GFR (Non-Af Amer) 49.5 POC Glucose (mg/dL) 213 H 111 H Vancomycin Trough Random Vancomycin 17.8 Urine Histoplasma Ag U Histoplasma Ag Index 09/04/19 07:15 BUN Creatinine Est GFR ( Amer) Est GFR (Non-Af Amer) POC Glucose (mg/dL) 157 H Vancomycin Trough Random Vancomycin Urine Histoplasma Ag U Histoplasma Ag Index Other Results/Reports: VERÓNICA RODRÍGUEZ 1950 [id number] VERÓNICA RODRÍGUEZ [id number] Page: 2 of 2 [place] [address] Ph.#: [phone] Fax#: [phone] CLIA # [id number] Blair López M.D. Director of Laboratories [facility] PATHOLOGY REPORT RIKA RODRÍGUEZEUN [place] [id number] Page: 1 of 2 Patient Name: VERÓNICA RODRÍGUEZ Pathology Number: [id number] Med.Rec. #: [id number] Collection Date: 08/31/19 Acct. Number#: [id number] Received Date: 08/31/19 : 1950 Location: [address] [place] [address] Gender: F Submitting Physician: Haim Messer MD Other Physician: Myels Rioz MD Other Physician: Tavon Chao MD FINAL DIAGNOSIS Lung, right, CT guided fine needle aspiration: -- Malignant. -- Squamous cell carcinoma. Preliminary Signed by and Reported on: TARA Carrera (ASCP) 09/03/19 0940 Electronically Signed by and Reported on: Blair López MD 09/03/19 1127 Comment: Additional immunohistochemical stains for PDL 1 and ALK on formalin fixed cell block material, as well as gene sequencing studies for targeted therapies at [facility] ([facility] close (are pending on air dried smears and will be reported in an addendum. A cell block was prepared in the evaluation of this specimen. Smears and cell block reveal similar findings. Assessment - Problem List Assessment: Patient Problems History of lung abscess (Acute) Lung mass (Acute) Pneumonia (Acute) Squamous cell carcinoma of right lung (Acute) Thrombocytopenia (Acute) Asthma (Chronic) Chronic pain syndrome (Chronic) Depression (Chronic) GERD (gastroesophageal reflux disease) (Chronic) Headache (Chronic) History of DVT (deep vein thrombosis) (Chronic) History of falling (Chronic) History of renal calculi (Chronic) History of urinary retention (Chronic) Memory impairment (Chronic) Osteoporosis (Chronic) Peripheral neuropathy (Chronic) Sleep apnea (Chronic) Type 2 diabetes mellitus (Chronic) Plan: Squamous cell carcinoma of right lung (Acute) This is the underlying pathology of the right lung opacity. * I spoke to Musa Rodríguez by phone and told him the diagnosis * I spoke with Dr. Ag Mcdonald who will consult with oncology and hopefully will discharge her home for X-mas and treat her as an outpatient * I spoke with Verónica Rodríguez and disclosed the diagnosis. She asked appropriate questions and was accepting of the diagnosis. * I discussed this with Dr. Myles Rizo - she can take oral cefdinir for another 2 weeks. History of lung abscess (Acute) Lung mass (Acute) Pneumonia (Acute) I will continue her on cefdinir Secondary diagnoses: Thrombocytopenia (Acute) Asthma (Chronic) Chronic pain syndrome (Chronic) Depression (Chronic) GERD (gastroesophageal reflux disease) (Chronic) Headache (Chronic) History of DVT (deep vein thrombosis) (Chronic) History of falling (Chronic) History of renal calculi (Chronic) History of urinary retention (Chronic) Memory impairment (Chronic) Osteoporosis (Chronic) Peripheral neuropathy (Chronic) Sleep apnea (Chronic) Type 2 diabetes mellitus (Chronic) I will dictate a discharge summary. condition: stable Disposition: Home.
[2019-09-04] MEDS: Insulin LISPRO* 1 UNITS UNIT SUBCUT SCH ×2 (08:39→12:04)
[2019-09-04] MEDS: Insulin GLARGINE(*) 1 UNITS UNIT SUBCUT SCH (08:40)
[2019-09-04] MEDS: Magnesium Oxide TAB* 400 MG PO SCH (08:48)
[2019-09-04] MEDS: Cyanocobalamin TAB* 500 MCG PO SCH (08:48)
[2019-09-04] MEDS: Lactobacillus Acidophilus* 1 TAB PO SCH (08:49)
[2019-09-04] MEDS: Fondaparinux* 2.5 MG/0.5 ML SYRINGE SUBCUT SCH (08:49)
[2019-09-04] MEDS: Ferrous Sulfate TAB* 325 MG PO SCH (08:49)
[2019-09-04] MEDS: Venlafaxine EXT RELEASE CAP* 75 MG PO SCH (08:49)
[2019-09-04] MEDS: Pantoprazole TAB * 40 MG TAB PO SCH (08:49)
[2019-09-04] MEDS: Potassium Chlor TAB* 20 MEQ TAB.ER PO SCH (08:49)
[2019-09-04] MEDS: Mirabegron (NF) 25 MG TAB PO SCH (08:50)
--- NOTE | 2019-09-04 10:52 | DS ---
CC: Dr. Ag Mcdonald; Dr. Myles Rizo; Dr. Krystin Matias* DISCHARGE SUMMARY: DATE OF ADMISSION: 08/27/19 DATE OF DISCHARGE: 09/04/19 DISCHARGE DIAGNOSES: 1. Newly diagnosed squamous cell carcinoma of the right lung. 2. Pneumonia. 3. Ground-glass infiltrates of left upper lobe of lung. 4. Altered mental state. 5. Comorbidities. 6. Type 2 diabetes mellitus. 7. Thrombocytopenia exacerbated by heparin. SECONDARY DIAGNOSES: 1. Sleep apnea. 2. Peripheral neuropathy. 3. Osteoporosis. 4. Memory impairment, which is mild. 5. History of urinary retention. 6. History of right upper lobe lung abscess June 2018. 7. History of renal calculi. 8. History of falling. 9. History of deep vein thrombosis in the distant past. 10. Chronic pain syndrome. 11. Depression. 12. Anxiety. 13. Gastroesophageal reflux disease. HISTORY: Verónica Rodríguez is a 69-year-old female, her presentation is documented in Dr. Tavon Chao's admitting history and physical. In short, in June 2018, she had an admission with a right necrotizing lung abscess was treated for at least a month on IV antibacterials. She had improved after this , took some time for her weight to return towards normal. She presented on this occasion with a rapid onset of disorientation, cough, some chest pain. The cough was nonproductive. The chest pain had no radiation and was related to coughing. She may have had some carolyn at home and she was unsteady of gait and was nauseated and anorectic. PHYSICAL EXAMINATION: Temperature 39.7 degrees Celsius, pulse 121, respirations 28, blood pressure 130/67, oxygen saturation 89% to 93%. The chest was clear to auscultation and percussion. She had a 2/6 systolic murmur. INITIAL INVESTIGATIONS: Sodium 137, potassium 3.1, chloride 102, bicarbonate 27 , BUN 5 and creatinine 0.72, glucose 198, calcium 8.9, INR 1.33, lactic acid 1.7 , normal LFTs. White count 11.2, hemoglobin 12, hematocrit 35%, platelets 97. Troponin I 0.03, which went up to 0.05 on repeat. Urinalysis was negative. Chest x-ray showed right upper lobe density. CT scan showed a 5x4.5 cm mass in the apex of the right lung and there was some upper left lobe ground-glass infiltrate. Initial impression was sepsis with abscess versus neoplasm with a postobstructive pneumonia. She was started on ceftriaxone, vancomycin, and doxycycline. CONSULTATION: On 08/28/19 Dr. Krystin Matias for Pulmonology noted a remote history of smoking and the history of pneumonia a year ago with now a mass lesion in the same area, again she felt it could be infectious versus neoplastic and recommended a CT-guided biopsy. She was also seen in consultation during the stay by both Maribeth Vital and Dr. Myles Rizo for Infectious Diseases, they agreed with the CT-guided lung biopsy. We had to stop her aspirin prior to the biopsy as she has low platelets and we stopped the enoxaparin because her platelets were even low with this medication. She had a procedure on 08/31/19, she had a percutaneous CT-guided lung biopsy, which was uneventful. Pathology, which was available 09/04/19, showed a malignant squamous cell carcinoma right upper lobe mass. HOSPITAL COURSE: Verónica Rodríguez responded well to the antibiotic treatment. Her a percent neutrophils went from 85.2% down to 57.3. C-reactive protein peaked at 83 on 08/29/19 and on 09/03/19 was done to 19. Clinical course also improved alongside the improvement in her infection and mental state improved. At first I started her on insulin as she had stress related hyperglycemia with her diabetes. She is usually on oral medications. For the last few days in the hospital she was awake, alert, and unable to walk with a walker and to go to the bathroom and shower with just observation. On the day of discharge, I disclosed to the patient her diagnosis and arranged for a consultation with Dr. Ag Mcdonald for Oncology, which is pending. She has some mild diarrhea from the antibiotic treatments, but otherwise on the day of discharge she is feeling stable. She has no dyspnea, chest pain. She continues to have some cough. She is not bringing up any phlegm or blood. She continues to have some anorexia, but she is eating and drinking better. She is feeling close to baseline in terms of strength. PHYSICAL EXAMINATION ON THE DAY OF DISCHARGE: Vital Signs: Temperature 99.1 degrees Fahrenheit, heart rate 89, respirations 18, oxygen saturation 98% on room, blood pressure 159/69. She has no cyanosis, edema, jaundice, clubbing or lymphadenopathy. Cardiovascular system pulse is regular, normal character and volume. Venous pressure not elevated. Heart sounds are normal. 3/6 systolic, ejection murmur aortic area in the sternal edge. No pedal edema. Respiratory System: Chest expansion full, symmetrical. Percussion note resonant. Breath sounds vesicular. No crackles or wheezes. Abdominal Examination: No distention, masses, tenderness or organomegaly. Nervous Systems: She is alert and orientated, conversational, understands the situation. Cranial Nerves: II to XII intact. Speech normal, moving her arms and legs. ASSESSMENT AND PLAN: 1. Squamous cell carcinoma of the right lung apex. This will be evaluated by Dr. Ag Mcdonald and managed as an outpatient. 2. Pneumonia. This appears to be both in the right and left side of her lungs. This is mostly recovered. Dr. Myles Rizo recommends that she should stay on oral antibiotics for another [address] her on cefdinir. 3. Type 2 diabetes mellitus. I will stop the insulin therapy and restart her on Januvia. SECONDARY DIAGNOSES: 1. Depression and anxiety. She is on her usual medications and at the time I disclosed the diagnosis to her, she appeared calm. 2. Peripheral neuropathy. This pain is under control with gabapentin. 3. Memory impairment, this is mild. She may require several discussions concerning the lung cancer for it just to sink in. 4. History of urinary retention. She appears not to be in retention at the present time. 5. History of fall. She will use a walker at home. 6. History of deep vein thrombosis. This is distant and does not need anticoagulation. 7. Gastroesophageal reflux disease. We will keep her on her usual medication. 8. Sleep apnea. She will use a CPAP. DISCHARGE MEDICATIONS: 1. Cefdinir 300 mg twice daily for 2 weeks. 2. Simvastatin 40 mg q.h.s. 3. Sucralfate 1 g orally twice daily. 4. Aspirin 81 mg a day. 5. Sertraline 50 mg q.h.s. 6. Ferrous sulfate 325 mg a day. 7. Vitamin B12 tablets 1000 mcg a day. 8. Sitagliptin 100 mg a day. 9. Pantoprazole 40 mg twice daily. 10. Acetaminophen 650 mg every 4 as needed for pain or for fever. 11. Saliva substitute as needed. 12. Gabapentin 600 mg q.h.s. 13. Cyclobenzaprine 5 mg t.i.d. as needed for muscle spasm. 14. Tramadol 25 mg every 6 hours as needed for pain. 15. Fluticasone nasal spray 50 mcg 2 sprays both nostrils each day. 16. Myrbetriq 25 mg daily. 17. Trazodone 100 mg q.h.s. 18. Potassium citrate 45 mg q. daily. 19. Venlafaxine 75 mg t.i.d. [id number]/[facility] #: [id number] [facility]
[2019-09-04] MEDS ORDERED: Vancomycin(*) 750 MG in NS 0.9% 250 ML* 250 ML IVPB SCH (11:00)
[2019-09-04 12:02] VITALS: BP 160/76
[2019-09-06] MEDS ORDERED: Vancomycin Trough Check NOTE FOLLOW UP ONE (11:00)
[2019-09-28 14:06] LABS: LNGPR Specimen Cells; LNGPR Tissue ID CN19-1545
== END 2019-09-04 14:39 | disposition home or self-care (01) | DRG 871 ==
LOC: ED 16:26 → MEDTELE 21:15
PROVIDERS: ADMIT Internal Medicine; ATTEND Internal Medicine
PROC: 0BBC3ZX Excision of Right Upper Lung Lobe, Percutaneous Approach, Diagnostic (ICD-10-PCS; principal; 2019-08-27)
DX: A41.9 Sepsis, unspecified organism (principal); J18.9 Pneumonia, unspecified organism; C34.11 Malignant neoplasm of upper lobe, right bronchus or lung; G93.40 Encephalopathy, unspecified; E78.00 Pure hypercholesterolemia, unspecified; I10 Essential (primary) hypertension; F03.90 Unspecified dementia, unspecified severity, without behavioral disturbance, psychotic disturbance, mood disturbance, and anxiety; G43.909 Migraine, unspecified, not intractable, without status migrainosus; F41.9 Anxiety disorder, unspecified; F32.9 Major depressive disorder, single episode, unspecified; J45.909 Unspecified asthma, uncomplicated; E87.6 Hypokalemia; R79.89 Other specified abnormal findings of blood chemistry; E78.5 Hyperlipidemia, unspecified; I35.0 Nonrheumatic aortic (valve) stenosis; E11.319 Type 2 diabetes mellitus with unspecified diabetic retinopathy without macular edema; E11.42 Type 2 diabetes mellitus with diabetic polyneuropathy; M81.0 Age-related osteoporosis without current pathological fracture; G89.4 Chronic pain syndrome; G47.30 Sleep apnea, unspecified; E11.65 Type 2 diabetes mellitus with hyperglycemia; R33.9 Retention of urine, unspecified; R32 Unspecified urinary incontinence; D69.6 Thrombocytopenia, unspecified; K21.9 Gastro-esophageal reflux disease without esophagitis; Z87.891 Personal history of nicotine dependence; Z88.0 Allergy status to penicillin; Z88.8 Allergy status to other drugs, medicaments and biological substances; Z88.2 Allergy status to sulfonamides; Z86.718 Personal history of other venous thrombosis and embolism; Z79.84 Long term (current) use of oral hypoglycemic drugs; Z79.82 Long term (current) use of aspirin; Z79.899 Other long term (current) drug therapy
CPT/HCPCS: 10009; 36415; 71045; 71260; 77012; 80048; 80053; 80076; 80202; 81003; 81445; 82565; 83605; 83735; 84484; 84520; 85025; 85049; 85610; 85730; 86140; 87040; 87070; 87102; 87116; 87205; 87206; 87385; 87899; 88172; 88173; 88305; 88312; 88341; 88342; 88360; 93005; 93306; 96365; 99284; A9270-GY; G8978-GP-CK; G8979-GP-CI; J0696; J1650; J2060; J2310; J3010; J3370; J3475; J3480; Q9967

== ENCOUNTER 2019-10-22 11:31 | Day surgery (SDC) | payer MEDICARE, BC ==
[~2019-10-22 11:31] MED LIST: Buffered Lidocaine 1% SYRIN* 1 ML/SYRINGE INTRADERM ONE; Lactated Ringers 1000 ML Bag* 1,000 ML IV SCH
[2019-10-22] MEDS ORDERED: Buffered Lidocaine 1% SYRIN* 1 ML/SYRINGE INTRADERM ONE (11:50)
[2019-10-22] MEDS ORDERED: Lidocaine 1% w EPI 1:100,000* MDV 20 ML VIAL ONE (13:09)
[2019-10-22] MEDS ORDERED: fentaNYL* 50 MCG/ML 2 ML VIAL (100 MCG VIAL) ONE ×2 (13:18→13:37)
[2019-10-22] MEDS ORDERED: Midazolam* 1 MG/ML 2 ML VIAL (2 MG) ONE ×2 (13:18→13:37)
[2019-10-22] MEDS ORDERED: Levalbuterol 0.63MG/3ML NEB* UNIT OF USE INH PRN (13:34)
[2019-10-22] MEDS ORDERED: Acetaminophen TAB* 325 MG PO PRN (13:34)
[2019-10-22] MEDS ORDERED: Naloxone* 0.4 MG/ML 1 ML VIAL IV PRN (13:34)
[2019-10-22] MEDS ORDERED: Ondansetron INJ* 2 MG/ML VIAL IV PRN (13:34)
[2019-10-22] MEDS ORDERED: ceFAZolin 2 GM PREMIX in ORs 2 GM/50 ML BAG ONE (13:37)
[2019-10-22] MEDS ORDERED: Propofol* 10 MG/ML 20 ML BTL ONE (13:43)
[2019-10-22] MEDS ORDERED: Lidocaine 2% PF * 5 ML VIAL ONE (13:43)
--- NOTE | 2019-10-22 14:25 | OP ---
Operative Report - Blank - Operative Report Date of Operation: 10/22/19 Note: Pre-OP Diagnoses: lung Ca Post-op Diagnosis: same Procedure: Insertion of powerport Surgeon: Titus Asst: none Anethesia: local, MAC EBL: minimal IVF: minimal Specimen: none Drains: none 8Fr single lumen power port via L SCV
[2019-10-22 16:21] VITALS: BP 123/67
--- NOTE | 2019-10-23 03:28 | OP ---
CC: Dr. Haim Messer; [facility] * DATE OF OPERATION: 10/22/19 - [facility] DATE OF : 46 SURGEON: Otto Qureshi MD LEAD MINER BLASTING: None. ANESTHESIOLOGIST: Dr. Hernandez. ANESTHESIA: Local MAC. PRE-OP DIAGNOSIS: Lung cancer. POST-OP DIAGNOSIS: Lung cancer. OPERATIVE PROCEDURE: Insertion of PowerPort. ESTIMATED BLOOD LOSS: Minimal. FLUIDS: Minimal crystalloid fluid given. INSTRUMENT: An 8-Tunisian single lumen PowerPort catheter placed via the left subclavian vein. DESCRIPTION OF PROCEDURE: The patient was identified in the preoperative area. She was marked accordingly. Consent was signed. She was taken to the operating room and placed on the operating table in supine position. Preoperative antibiotics were given. Sequential devices were placed in bilateral lower extremities. General sedation was given. The patient's left upper neck and chest were prepped and draped in a standard surgical fashion. A time-out was performed. The left subclavian was accessed and a wire inserted. A pocket was made inferior to this stick site and under fluoroscopy, we assured the placement of the wire. This wire was then brought into the separate incision and the vein dilated with the given dilators under fluoroscopy. The Isbell catheter inserted and the 8-Tunisian tubing placed, this was cut to size and attached to the pre- flushed PowerPort, which was dropped into the pocket and sutured with 0 Prolene sutures laterally and medially. The wound was then irrigated and reapproximated in the standard fashion. The port was accessed with a Stewart needle and I injected saline followed by heparinized saline after good aspiration of blood. Sterile dressing was applied. The patient tolerated the procedure well. [id number]/[facility] #: [id number] [facility]
== END 2019-10-22 16:10 | disposition home or self-care (01) ==
LOC: OR 11:31
PROVIDERS: ATTEND Surgery
DX: C34.90 Malignant neoplasm of unspecified part of unspecified bronchus or lung (principal); R53.82 Chronic fatigue, unspecified; K21.9 Gastro-esophageal reflux disease without esophagitis; F41.8 Other specified anxiety disorders; E11.319 Type 2 diabetes mellitus with unspecified diabetic retinopathy without macular edema; Z79.84 Long term (current) use of oral hypoglycemic drugs; Z87.891 Personal history of nicotine dependence; G47.33 Obstructive sleep apnea (adult) (pediatric)
CPT/HCPCS: 76000; C1788; J0690; J1642; J2250; J2704; J3010

== ENCOUNTER 2019-12-03 09:55 | Inpatient (IN) | payer MEDICARE, BC ==
[~2019-12-03 09:55] MED LIST changes: -Buffered Lidocaine 1% SYRIN* 1 ML/SYRINGE INTRADERM ONE; +CARBOPLATIN IVPB SCH; +DIPHENHYDRAMINE SLOW PUSH SCH; +Dexamethasone IV* 8 MG in PREMIX* 0 ML IV SCH; +Famotidine IV * 20 MG in PREMIX* 0 ML IV SLOW PU SCH; -Lactated Ringers 1000 ML Bag* 1,000 ML IV SCH; +NS 0.9% IVPB SCH; +PACLITAXEL IVPB SCH
[2019-12-03 10:26] LABS: ABS Eosinophils 0.2 10^3/ul (0-0.6); ABS Lymphocytes 0.3 10^3/ul (1.0-4.8); ABS Monocytes 0.2 10^3/ul (0-0.8); ABS Neutrophils 2.4 10^3/ul (1.5-7.7); Eosinophil % 5.1 %; Hematocrit 16 % (35-47); Hemoglobin 5.5 g/dL (12.0-16.0); Lymphocyte % 8.3 %; Mean Corpuscular HGB Conc 35 g/dL (31-36); Mean Corpuscular Hemoglobin 32 pg (27-31); Mean Corpuscular Volume 92 fL (80-97); Mean Platelet Volume 7.8 fL (7.4-10.4); Nucleated Red Blood Cells % 0.1; Platelet Count 51 10^3/uL (150-450); Red Blood Count 1.69 10^6 /uL (3.70-4.87); Red Cell Distribution Width 14 % (10-15)
[2019-12-03 10:43] LABS: Albumin/Globulin Ratio 1.2 (1-3); BUN/Creatinine Ratio 17.3 (8-20); Calcium 8.5 mg/dL (8.6-10.3); EGFR African American 92.2 (>60); EGFR Non-African American 76.2 (>60); Globulin 2.5 g/dL (2-4); Magnesium 1.5 mg/dL (1.9-2.7); Potassium 3.9 mmol/L (3.5-5.0); Total Bilirubin 0.4 mg/dL (0.2-1.0); Total Protein 5.5 g/dL (6.4-8.9)
[2019-12-03] MEDS ORDERED: ALPRAZolam TAB* 0.25 MG PO PRN (12:44)
[2019-12-03] MEDS ORDERED: Cetirizine* 10 MG TAB PO PRN (12:44)
[2019-12-03] MEDS ORDERED: Ondansetron TAB* 4 MG PO PRN (12:44)
[2019-12-03] MEDS ORDERED: Magnesium Sulfate 2 GM IV* 2 GM/50 ML BAG IVPB ONE (13:47)
[2019-12-03] MEDS: Sucralfate TAB* 1 GM PO SCH (17:00)
[2019-12-03] MEDS: Pantoprazole IV* 40 MG IV SCH (17:03)
--- NOTE | 2019-12-03 17:23 | CONS ---
CC: Kath Wood NP CONSULTATION REPORT: DATE OF CONSULT: 12/03/19 REQUESTING PROVIDER: Kath Wood NP INDICATION: Melena, anemia. NARRATIVE: Ms. Rodríguez is a very pleasant 69-year-old female with a diagnosis of non-small cell lung cancer that was diagnosed towards the end of 2018, initially was thought to be pneumonia. She has b een undergoing chemotherapy. It is a T3N2M0 lung cancer. Chemotherapy and radiation started approxi mately a month ago. She has developed cytopenias due to the chemotherapy and it had to be held on we ek 3. Her hemoglobin has been slowly drifting down, in August of 2019 it was 10.1, by 10/26/19 it w as 9, by 11/19/19 it was 7 and today it was 5.5. The patient did go to the infusion center and recei karan 2 units of blood prior to coming into the hospital for direct admission. She states that she is fatigued but not that bad. She does admit to seeing both black stools and occasional bright red blood per rectum, she often has to push or strain. She feels constipated at times. She tells me that she believes her last colonoscopy was 10 years ago down in [place], [place] and they found hemorrh oids at that time. She does take a baby aspirin every day. She denies any other nonsteroidals. She does have nausea, but no vomiting from the chemo. She does feel queasy after eating. She has never had GI bleeding in the past. PAST MEDICAL HISTORY: Significant for obstructive sleep apnea, mild dementia, hypertension, GERD, ty pe 2 diabetes, depression, chronic fatigue, lung cancer, asthma, and anxiety. PAST SURGICAL HISTORY: Includes back surgery, a pessary. CURRENT MEDICATIONS: Include: 1. Alprazolam. 2. Aspirin 81 mg. 3. Iron. 4. Gabapentin. 5. Januvia. 6. Magnesium. 7. Marinol. 8. Zofran. 9. Pantoprazole. 10. Sertraline. 11. Simvastatin. 12. Trazodone. ALLERGIES: SULFA MEDICATIONS. FAMILY HISTORY: Significant for throat cancer, breast cancer, lung cancer. SOCIAL HISTORY: No tobacco. No alcohol. She lives with her . REVIEW OF SYSTEMS: Twelve systems were reviewed and other than that mentioned in the HPI were unrema rkable. PHYSICAL EXAM: Temperature is 97.5, blood pressure is 131/69, pulse is 98, respiratory rate of 18, O 2 sat is 100%. General: Chronically ill-appearing female, in no apparent distress, alert, oriented, pleasant and fluent. HEENT: Hair is very thin. Dentition is poor. Neck is supple. Trachea is mid line. Heart: Regular rate and rhythm. Lungs: Clear to auscultation. Abdomen: Positive bowel sound s. Soft, nontender, nondistended. No hepatosplenomegaly, masses, rebound, or guarding. Psych: Nor mal affect, good insight. Neuro: No asterixis. Musculoskeletal: No CVA or spinal tenderness to pa lpation. DIAGNOSTIC STUDIES/LAB DATA: Of note, white count is 3, hemoglobin is 5.5 prior to 2 unit blood kwan sfusion today, platelet count of 51. Sodium is 133, glucose is 299, bilirubin is 0.4, albumin is 3. ASSESSMENT AND PLAN: Ms. Rodríguez is a very pleasant 69-year-old female undergoing chemo and radiatio n for lung cancer, likely her anemia is multifactorial from both her underlying malignancy and result ing chemo and then potentially gastrointestinal bleed. She tells me that she does have both black st ools, given the fact that she is on aspirin every day, I do wonder about peptic ulcer disease and she has bright red blood with a known history of hemorrhoids. At this point, I would like to begin her evaluation with both an upper endoscopy to evaluate the melena and peptic ulcer disease and a flexibl e sigmoidoscopy to evaluate for her hemorrhoids. She is understanding and agreeable. Further workup will be determined by the results. [id number]/[facility] #: [id number]
[2019-12-03 17:35] LABS: ABS Eosinophils 0.1 10^3/ul (0-0.6); ABS Lymphocytes 0.3 10^3/ul (1.0-4.8); ABS Monocytes 0.2 10^3/ul (0-0.8); ABS Neutrophils 1.7 10^3/ul (1.5-7.7); Eosinophil % 5.9 %; Hematocrit 17 % (35-47); Hemoglobin 5.8 g/dL (12.0-16.0); Mean Corpuscular HGB Conc 35 g/dL (31-36); Mean Corpuscular Hemoglobin 31 pg (27-31); Mean Corpuscular Volume 90 fL (80-97); Mean Platelet Volume 7.8 fL (7.4-10.4); Nucleated Red Blood Cells % 0.2; Platelet Count 38 10^3/uL (150-450); Red Blood Count 1.87 10^6 /uL (3.70-4.87); Red Cell Distribution Width 15 % (10-15); White Blood Count 2.3 10^3/uL (3.5-10.8)
[2019-12-03] MEDS: Gabapentin CAP(*) 300 MG PO SCH (20:25)
[2019-12-03] MEDS: Sertraline* 50 MG TAB PO SCH (20:25)
[2019-12-03] MEDS: Venlafaxine EXT RELEASE CAP* 75 MG PO SCH (20:25)
[2019-12-03] MEDS: Dronabinol CAP* 2.5 MG PO SCH (20:27)
[2019-12-03] MEDS: traZODone TAB* 100 MG PO SCH (20:27)
[2019-12-03 22:00] LABS: ABS Eosinophils 0.1 10^3/ul (0-0.6); ABS Lymphocytes 0.2 10^3/ul (1.0-4.8); ABS Monocytes 0.1 10^3/ul (0-0.8); ABS Neutrophils 1.6 10^3/ul (1.5-7.7); Eosinophil % 5.5 %; Hematocrit 21 % (35-47); Hemoglobin 7.2 g/dL (12.0-16.0); Lymphocyte % 10.6 %; Mean Corpuscular HGB Conc 34 g/dL (31-36); Mean Corpuscular Hemoglobin 31 pg (27-31); Mean Corpuscular Volume 91 fL (80-97); Mean Platelet Volume 7.5 fL (7.4-10.4); Platelet Count 38 10^3/uL (150-450); Red Blood Count 2.31 10^6 /uL (3.70-4.87); Red Cell Distribution Width 15 % (10-15); White Blood Count 2.1 10^3/uL (3.5-10.8)
[2019-12-03] MEDS ORDERED: diPHENhydraMINE PO* 25 MG PO ONE (22:00)
[2019-12-04 04:12] LABS: ABS Eosinophils 0.1 10^3/ul (0-0.6); ABS Lymphocytes 0.2 10^3/ul (1.0-4.8); ABS Monocytes 0.1 10^3/ul (0-0.8); ABS Neutrophils 1.2 10^3/ul (1.5-7.7); Eosinophil % 6.4 %; Hematocrit 19 % (35-47); Hemoglobin 6.7 g/dL (12.0-16.0); Lymphocyte % 13.5 %; Mean Corpuscular HGB Conc 35 g/dL (31-36); Mean Corpuscular Hemoglobin 32 pg (27-31); Mean Corpuscular Volume 91 fL (80-97); Mean Platelet Volume 7.8 fL (7.4-10.4); Nucleated Red Blood Cells % 0.3; Platelet Count 38 10^3/uL (150-450); Red Blood Count 2.14 10^6 /uL (3.70-4.87); Red Cell Distribution Width 15 % (10-15); White Blood Count 1.7 10^3/uL (3.5-10.8)
[2019-12-04 04:24] LABS: Albumin 2.6 g/dL (3.2-5.2); Albumin/Globulin Ratio 1.1 (1-3); BUN/Creatinine Ratio 14.1 (8-20); Calcium 8.2 mg/dL (8.6-10.3); EGFR African American 110.7 (>60); EGFR Non-African American 91.5 (>60); Globulin 2.3 g/dL (2-4); Magnesium 1.9 mg/dL (1.9-2.7); Potassium 3.6 mmol/L (3.5-5.0); Total Bilirubin 0.5 mg/dL (0.2-1.0); Total Protein 4.9 g/dL (6.4-8.9)
[2019-12-04] MEDS ORDERED: Midazolam* 1 MG/ML 10 ML VIAL (10 MG) ONE (09:39)
[2019-12-04] MEDS ORDERED: fentaNYL* 50 MCG/ML 2 ML VIAL (100 MCG VIAL) ONE (09:39)
--- NOTE | 2019-12-04 10:23 | PN ---
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 No fresh blood. scattered old blood D: Radiation enteritis diffuse, scattered avms in d3-d4 non bleeding Flex sig to 35cm likely proximal sigmoid No fresh blood Views poor but no large lesions. Scattered non bleeding avms Int and Ext hemorrhoids Rec: Diffuse radiation enteritis and increased AVM burden is likely contributing partially to her anemia. Difficult to treat due to diffuse nature and severe thrombocytopenia today (APC would cause more harm than good). Best option is optimization of iron stores IV if necessary, PRN transfusion. Could consider octreotide LAR as was helpful in limited studies in blood loss due to AVMs. If she develops hemodynamically significant bleed could consider EGD with platelets but yield is likely low and there are likely numerous throughout the small bowel. Ok for diet. Call with questions Haim Briceno DO 12/04/19 1546
--- NOTE | 2019-12-04 11:18 | PN ---
Progress Note - Progress Note Date of Service: 12/04/19 SOAP: Subjective: []EGD & Flex sig this AM with diffuse gastritis. Case discussed with Lazara, daily films do NOT appear to include the stomach. May be a multi-factorial process. Verónica tells me she feels well with no significant change and "maybe a little better" than yesterday. She is looking forward to eating. Medications: Alprazolam (Xanax Tab*) 0.25 mg PO TID PRN PRN Reason: AGITATION Dronabinol (Marinol Cap*) 2.5 mg PO BID [facility] Last Admin: 12/03/19 20:27 Dose: 2.5 mg Famotidine (Pepcid Iv*) 20 mg IV SLOW PU BID [facility] Gabapentin (Neurontin Cap(*)) 300 mg PO BID [facility] Last Admin: 12/03/19 20:25 Dose: 300 mg Heparin Sodium (Porcine) (Heparin Flush Port (Ivad)) 5 ml FLUSH DAILY [facility]; Protocol Mirabegron (Myrbetriq (Nf)) 25 mg PO DAILY [facility] Ondansetron HCl (Zofran Tab*) 4 mg PO Q6H PRN PRN Reason: NAUSEA Pantoprazole Sodium (Protonix Iv*) 40 mg IV Q24H [facility] Last Admin: 12/03/19 17:03 Dose: 40 mg Prochlorperazine (Compazine 10 Mg Tab) 10 mg PO Q6H PRN PRN Reason: NAUSEA Sertraline HCl (Zoloft*) 50 mg PO BEDTIME [facility] Last Admin: 12/03/19 20:25 Dose: 50 mg Sitagliptin Phosphate (Januvia (Nf)) 100 mg PO DAILY [facility] Sucralfate (Carafate*) 1 gm PO BID AC [facility] Last Admin: 12/03/19 17:00 Dose: 1 gm Trazodone HCl (Desyrel Tab*) 100 mg PO BEDTIME [facility] Last Admin: 12/03/19 20:27 Dose: 100 mg Venlafaxine HCl (Effexor Xr Cap*) 75 mg PO BID [facility] Last Admin: 12/03/19 20:25 Dose: 75 mg Objective: [] Vital Signs Temp Pulse Resp BP Pulse Ox 98.5 F 100 18 125/63 95 12/04/19 07:33 12/04/19 07:33 12/04/19 07:33 12/04/19 07:33 12/04/19 07:33 A&Ox3, EOMI, involved in care, forgetful HRR, SR on tele LS clear +BS, abd. soft and non-tender Laboratory Results - last 24 hr 12/03/19 12/03/19 12/03/19 10:14 17:20 21:36 WBC 2.3 L 2.1 L RBC 1.87 L 2.31 L Hgb 5.8 L* 7.2 L Hct 17 L 21 L MCV 90 91 MCH 31 31 MCHC 35 34 RDW 15 15 Plt Count 38 L 38 L MPV 7.8 7.5 Neut % (Auto) 75.4 76.6 Lymph % (Auto) 11.0 10.6 [place] % (Auto) 7.3 7.0 Eos % (Auto) 5.9 5.5 Baso % (Auto) 0.4 0.3 Absolute Neuts (auto) 1.7 1.6 Absolute Lymphs (auto) 0.3 L 0.2 L Absolute Monos (auto) 0.2 0.1 Absolute Eos (auto) 0.1 0.1 Absolute Basos (auto) 0.0 0.0 Absolute Nucleated RBC 0.0 0.0 Nucleated RBC % 0.2 0.0 Sodium Potassium Chloride Carbon Dioxide Anion Gap BUN Creatinine Est GFR ( Amer) Est GFR (Non-Af Amer) BUN/Creatinine Ratio Glucose Calcium Magnesium Iron TIBC % Saturation Unsat Iron Binding Transferrin Ferritin Total Bilirubin AST ALT Alkaline Phosphatase Total Protein Albumin Globulin Albumin/Globulin Ratio Blood Type O Positive Antibody Screen Negative Crossmatch See Detail Transfusion React Rpt Donor Unit # Post-Trans Blood Type Post-Trans VIKTORIYA 12/03/19 12/04/19 12/04/19 21:36 03:53 03:53 WBC 1.7 L RBC 2.14 L Hgb 6.7 L Hct 19 L MCV 91 MCH 32 H MCHC 35 RDW 15 Plt Count 38 L MPV 7.8 Neut % (Auto) 71.5 Lymph % (Auto) 13.5 [place] % (Auto) 8.2 Eos % (Auto) 6.4 Baso % (Auto) 0.4 Absolute Neuts (auto) 1.2 L Absolute Lymphs (auto) 0.2 L Absolute Monos (auto) 0.1 Absolute Eos (auto) 0.1 Absolute Basos (auto) 0.0 Absolute Nucleated RBC 0.0 Nucleated RBC % 0.3 Sodium 141 D Potassium 3.6 Chloride 111 Carbon Dioxide 26 Anion Gap 4 BUN 9 Creatinine 0.64 Est GFR ( Amer) 110.7 Est GFR (Non-Af Amer) 91.5 BUN/Creatinine Ratio 14.1 Glucose 180 H Calcium 8.2 L Magnesium 1.9 Iron Cancelled TIBC Cancelled % Saturation Cancelled Unsat Iron Binding Cancelled Transferrin Cancelled Ferritin Cancelled Total Bilirubin 0.50 AST 16 ALT 9 Alkaline Phosphatase 63 Total Protein 4.9 L Albumin 2.6 L Globulin 2.3 Albumin/Globulin Ratio 1.1 Blood Type Antibody Screen Crossmatch Transfusion React Rpt Donor Unit # [id number] Post-Trans Blood Type O Positive Post-Trans VIKTORIYA Negative Assessment: []69 yo female currently receiving definitive therapy for locally advanced NSCLC of the right upper lobe admitted yesterday with GI bleed. EGD today revealing diffuse gastritis. Plan: []1. GI Bleed: diffuse gastritis on EGD, no lower GI bleeding - appreciate GI input - cont. IV protonix, PO carafate, and add IV Famotidine as she is high risk for recurent bleeding with thrombocytopenia - diet Ok'd per GI, follow - add on iron levels and consider IV iron - repeat labs in AM 2. Panctyopenia: secondary to chemotherapy - follow daily labs - transfuse 1 unit PRBCs d/t persisten anemia with hmg < 7 - transfuse plt. < 10K or <15K if recurrent bleeding evident - week 5 skipped yesterday will re-eval. final dose of chemo (week 6 due 12/09) next week 3. NSCLC: on definitive chemo/XRT - reviewed with RadOnc and would cont. RT as long as they agree - chemo held this week and will re-assess this week - avoid all steroids for now dispo: inpt. d/t concern for recurrent bleeding, if counts improved and PO intake stable can consider d/c tomorrow
[2019-12-04] MEDS: Sucralfate TAB* 1 GM PO SCH ×2 (11:44→16:48)
[2019-12-04] MEDS: MIRABEGRON 25 MG PO SCH (11:45)
[2019-12-04] MEDS: Venlafaxine EXT RELEASE CAP* 75 MG PO SCH ×2 (11:59→22:05)
[2019-12-04] MEDS: Dronabinol CAP* 2.5 MG PO SCH ×2 (12:02→22:02)
[2019-12-04] MEDS: CMC: SitaGLIPtin (NF) 100 MG TAB PO SCH (12:02)
[2019-12-04] MEDS: Pantoprazole IV* 40 MG IV SCH (12:06)
[2019-12-04] MEDS: Famotidine IV* 10 MG/ML 2 ML (20 mg) IV SLOW PU SCH ×2 (12:06→22:02)
[2019-12-04] MEDS: Gabapentin CAP(*) 300 MG PO SCH ×2 (12:30→22:03)
--- NOTE | 2019-12-04 14:04 | PRO ---
CC: Dr. Ag Mcdonald; Dr. Haim Messer* ESOPHAGOGASTRODUODENOSCOPY AND FLEXIBLE SIGMOIDOSCOPY REPORT: DATE OF PROCEDURE: 12/04/19 INDICATION FOR PROCEDURE: Melena, acute blood loss anemia. PROCEDURE PERFORMED: Complete esophagogastroduodenoscopy and flexible sigmoidoscopy to the proximal sigmoid colon. MEDICATIONS GIVEN: Include: 1. 6.5 mg IV midazolam. 2. 25 mcg IV fentanyl. DESCRIPTION OF THE PROCEDURE: After the EGD and flexible sigmoidoscopy procedure including the risks, benefits, and alternatives with the risks not limited to perforation, surgery, missed lesions, and/or were explained to the patient, written informed consent was obtained, IV medication was given, and a bite-block was placed between the teeth. The adult Olympus gastroscope was then inserted into the patient's oropharynx into the tubular esophagus. Tubular esophagus was normal in appearance. The scope was advanced to the lower esophageal sphincter into the stomach. There was GAVE and increased vascularity within the antrum of the stomach, diffuse in nature, no distinct foci or active ooze. There was some scattered old blood in the stomach, but no distinct lesion. On retroflexion, a small sliding hiatal hernia was appreciated. The scope was then advanced through the widely patent pylorus into the duodenal bulb, C-loop, distal duodenum. Within the duodenal bulb, there was pronounced increased vascularity and duodenal radiation enteritis. No active bleeding. The scope was then advanced into D3 and D4 where some scattered AVMs were visualized without any fresh or old blood. The scope was then removed from the patient. She was then rotated, given additional IV sedation medication. A rectal exam was performed. The rectal exam revealed external hemorrhoid. The adult gastroscope was then inserted into the patient' s rectum, advanced to above the proximal portion of the sigmoid colon at about 35 to 40 cm. The prep was poor; however, I was able to get decent views by moving some stool around. A few scattered AVMs were visualized. No large masses were seen in the area visualized. I returned to the rectum. Direct views were normal. On retroflexion, grade 1 internal hemorrhoids were appreciated. The scope was then removed from the patient. She tolerated the procedure well. She returned to the recovery room in stable condition. IMPRESSION: 1. Complete esophagogastroduodenoscopy with biopsies. 2. Radiation gastritis and enteritis, but no distinct foci to treat. 3. Arteriovenous malformations throughout. 4. Grade 1 internal hemorrhoids. 5. Poor prep. RECOMMENDATIONS: No distinct area to target for treatment for her anemia. She has diffuse enteritis throughout the antrum and the first portion of the small bowel. She also has AVMs that are clear in the small bowel and then also within the colon. This is all likely contributing to her anemia. Due to her severe thrombocytopenia, any APC would likely cause more harm than good. I think the best option at this point is optimization of her IV iron stores, if necessary p.r.n. transfusion. One could consider octreotide LAR as this has been helpful in limited studies to slow the blood loss from AVMs. If she develops a hemodynamically significant GI bleed, I could consider EGD with platelets, but I feel that the yield of this is low and it would be difficult to say if the bleed is coming from somewhere within the small bowel, the upper GI system or the colon given there are likely lesions within all. The patient is okay for diet. Call the GI service with any questions. [id number]/[facility] #: [id number] JAKE
[2019-12-04 14:40] LABS: % Iron Saturation 18 % (15-55); Iron 60 ug/dL (50-212); Total Iron Binding Capacity 330 mcg/dL (250-450); Transferrin 236 mg/dL (203-362)
[2019-12-04 14:59] LABS: Ferritin 91.5 ng/mL (11-307)
[2019-12-04] MEDS: traZODone TAB* 100 MG PO SCH (22:03)
[2019-12-04] MEDS: Sertraline* 50 MG TAB PO SCH (22:03)
[2019-12-04] MEDS ORDERED: diPHENhydraMINE PO* 25 MG PO ONE (23:00)
[2019-12-05 05:30] LABS: Albumin 2.8 g/dL (3.2-5.2); Albumin/Globulin Ratio 1.2 (1-3); BUN/Creatinine Ratio 11.5 (8-20); Calcium 7.8 mg/dL (8.6-10.3); EGFR Non-African American 96.7 (>60); Globulin 2.4 g/dL (2-4); Magnesium 1.6 mg/dL (1.9-2.7); Potassium 3.3 mmol/L (3.5-5.0); Total Bilirubin 0.4 mg/dL (0.2-1.0); Total Protein 5.2 g/dL (6.4-8.9)
[2019-12-05 05:37] LABS: Hematocrit 23 % (35-47); Hemoglobin 8.1 g/dL (12.0-16.0); Mean Corpuscular HGB Conc 35 g/dL (31-36); Mean Corpuscular Hemoglobin 32 pg (27-31); Mean Corpuscular Volume 92 fL (80-97); Mean Platelet Volume 7.6 fL (7.4-10.4); Platelet Count 39 10^3/uL (150-450); Red Blood Count 2.54 10^6 /uL (3.70-4.87); Red Cell Distribution Width 15 % (10-15)
[2019-12-05] MEDS ORDERED: Magnesium Sulf 4 GM/100 ML IV* 4,000 MG/100 ML BAG IVPB ONE (09:07)
[2019-12-05] MEDS ORDERED: diPHENhydraMINE PO* 25 MG PO ONE (10:02)
[2019-12-05] MEDS: Gabapentin CAP(*) 300 MG PO SCH (10:08)
[2019-12-05] MEDS: Sucralfate TAB* 1 GM PO SCH (10:08)
[2019-12-05] MEDS: CMC: SitaGLIPtin (NF) 100 MG TAB PO SCH (10:08)
[2019-12-05] MEDS: Venlafaxine EXT RELEASE CAP* 75 MG PO SCH (10:09)
[2019-12-05] MEDS: KCL 20 MEQ/100 ML IVPREMIX* 20 MEQ/100 ML BAG IV SCH ×2 (10:09→12:25)
[2019-12-05] MEDS: Famotidine IV* 10 MG/ML 2 ML (20 mg) IV SLOW PU SCH (10:09)
[2019-12-05] MEDS: Pantoprazole IV* 40 MG IV SCH (10:09)
[2019-12-05] MEDS: Dronabinol CAP* 2.5 MG PO SCH (10:09)
[2019-12-05] MEDS: MIRABEGRON 25 MG PO SCH (10:10)
--- NOTE | 2019-12-05 11:12 | DS ---
- Discharge Summary Date of Admission: 12/03/2019 Date of Discharge: 12/05/2019 Diagnoses: 1. GI bleed -diffuse gastritis on EGD. -internal/external hemorrhoids, scattered non-bleeding AVM on sigmoidoscopy. -continue PPI (switch to Lansoprazole 30mg twice daily per formulary). -continue carafate -continue ferrous sulfate 2. Pancytopenia secondary to chemotherapy -Hgb 8.1, Plt 39. -week 5 chemotherapy carboplatin/paclitaxel held, due for week 6 on 12/09. 3. NSCLC -continue definitive XRT/chemotherapy -plan reassess continue with week 6 as per schedule as outpatient. -Follow-up in clinic with Dr. Mcdonald on Wednesday 12/06 at 1540. Medication List: Simvastatin TAB(NF) [Zocor 20 MG (NF)] 40 mg PO QAM 06/15/13 [History Confirmed 12/03/19] Sucralfate TAB* [Carafate*] 1 gm PO BID 06/15/13 [History Confirmed 12/03/19] Ferrous Sulfate TAB* 325 mg PO QAM 08/04/16 [History Confirmed 12/03/19] Sertraline* [Zoloft*] 50 mg PO BEDTIME 08/04/16 [History Confirmed 12/03/19] Colesevelam(NF) [Welchol(NF)] 625 mg PO BID 02/08/18 [History Confirmed 12/03/19 ] Gabapentin CAP(*) [Neurontin 300 CAP(*)] 300 mg PO BID 12/20/18 [History Confirmed 12/03/19] Venlafaxine EXT RELEASE CAP* [Effexor Xr CAP*] 75 mg PO BID 08/27/19 [History Confirmed 12/03/19] traZODone TAB* [Desyrel TAB*] 100 mg PO BEDTIME 08/27/19 [History Confirmed ] Calcium 600+D Plus Minerals Tb 1,000 mcg PO QPM 10/19/19 [History Confirmed ] Cetirizine* [ZyrTEC 10 MG TAB*] 10 mg PO QPM PRN 10/19/19 [History Confirmed ] ALPRAZolam TAB* [Xanax TAB*] 0.25 mg PO TID PRN 12/03/19 [History Confirmed ] Cholecalciferol (Vitamin D3) [Vitamin D3] 25 mcg PO DAILY 12/03/19 [History Confirmed 12/03/19] Dronabinol CAP* [Marinol CAP*] 2.5 mg PO BID 12/03/19 [History Confirmed ] Ferrous Sulfate TAB* 325 mg PO DAILY 12/03/19 [History Confirmed 12/03/19] Januvia 100 mg PO DAILY 12/03/19 [History Confirmed 12/03/19] Magnesium Oxide [Magnesium] 400 mg PO DAILY 12/03/19 [History Confirmed 12/03/19 ] Mecobalamin [B12 Active] 1,000 mcg PO DAILY 12/03/19 [History Confirmed 12/03/19 ] Mirabegron [Myrbetriq] 25 mg PO DAILY 12/03/19 [History Confirmed 12/03/19] Ondansetron TAB* [Zofran 4 MG Tab*] 4 mg PO Q6H PRN 12/03/19 [History Confirmed 12/03/19] Prochlorperazine 10 mg TAB [Compazine 10 mg TAB] 10 mg PO Q6H PRN 12/03/19 [ History Confirmed 12/03/19] diphenhydrAMINE HCl [Benadryl Allergy] 25 mg PO BEDTIME PRN 12/03/19 [History Confirmed 12/03/19] Lansoprazole [Prevacid] 30 mg PO BID #60 capsule. 12/05/19 [Rx] Potassium Citrate [Urocit-K] 15 meq PO BID #60 tablet.er 12/05/19 [Rx] Hospital Course: Mrs. Rodríguez is a pleasant 69 year old female who was admitted on 12/03/2019 as result of anemia/melena. She found to have hgb of 5.5 and was given 2U PRBC. At that time she reported intermittent dark, tarry stools and bright red blood per rectum. She was also complaining of fatigue and nausea. She was seen by GI to rule out GI bleed. She had an EGD and sigmoidoscopy performed that revealed diffuse gastritis as well as internal/external hemorrhoids. Also noted on sigmoidoscopy were scattered non-bleeding AVMs. Mrs. Rodríguez continues to have intermittent dark stools and BRBPR as well as nausea. She was able to tolerate po intake yesterday. Her labs are stable with hemoglobin up to 8.1 and platelets 39. She should continue with PPI at home (Lansoprazole 30mg twice daily), carafate and ferrous sulfate. She should hold her daily baby aspirin. Laboratory Results - last 24 hr 12/03/19 12/03/19 12/04/19 10:14 21:36 13:21 WBC RBC Hgb Hct MCV MCH MCHC RDW Plt Count MPV Sodium Potassium Chloride Carbon Dioxide Anion Gap BUN Creatinine Est GFR ( Amer) Est GFR (Non-Af Amer) BUN/Creatinine Ratio Glucose Calcium Magnesium Iron 60 TIBC 330 % Saturation 18 Unsat Iron Binding < 315 Transferrin 236 Ferritin 91.5 Total Bilirubin AST ALT Alkaline Phosphatase Total Protein Albumin Globulin Albumin/Globulin Ratio Blood Type O Positive Antibody Screen Negative Crossmatch See Detail Reaction Interpretation 12/05/19 12/05/19 04:45 04:45 WBC 2.0 L RBC 2.54 L Hgb 8.1 L Hct 23 L MCV 92 MCH 32 H MCHC 35 RDW 15 Plt Count 39 L MPV 7.6 Sodium 134 L Potassium 3.3 L Chloride 105 Carbon Dioxide 23 Anion Gap 6 BUN 7 Creatinine 0.61 Est GFR ( Amer) 117.0 Est GFR (Non-Af Amer) 96.7 BUN/Creatinine Ratio 11.5 Glucose 293 H Calcium 7.8 L Magnesium 1.6 L Iron TIBC % Saturation Unsat Iron Binding Transferrin Ferritin Total Bilirubin 0.40 AST 26 ALT 14 Alkaline Phosphatase 91 Total Protein 5.2 L Albumin 2.8 L Globulin 2.4 Albumin/Globulin Ratio 1.2 Blood Type Antibody Screen Crossmatch Reaction Interpretation Disposition: Home Condition at Discharge: Stable Diet: As tolerated Activity: As tolerated. Fall precautions. Would recommend use of assistive device such as walker per PT. Mrs. Rodríguez would also benefit from home PT for strengthening. Follow-up plans: Follow-up in clinic on 12/06 to discuss resuming chemotherapy treatment and to repeat labs (CBC,CMP).
[2019-12-05] MEDS ORDERED: CMCS:diPHENhydraMINE CREAM 2%(NF) 28 gm TUBE TOPICAL ONE (12:01)
[2019-12-05 12:36] VITALS: BP 143/72
== END 2019-12-05 15:09 | disposition home or self-care (01) | DRG 377 ==
LOC: CHOA 09:55 → MED 11:10 → MEDTELE 12:50 → OBSVTOIN 12-04 11:10
PROVIDERS: ADMIT Internal Medicine Hematology & Oncology; ATTEND Internal Medicine Hematology & Oncology
PROC: 0DJ08ZZ Inspection of Upper Intestinal Tract, Via Natural or Artificial Opening Endoscopic (ICD-10-PCS; principal; 2019-12-04)
PROC: 0DJD8ZZ Inspection of Lower Intestinal Tract, Via Natural or Artificial Opening Endoscopic (ICD-10-PCS; 2019-12-04)
PROC: 30233N1 Transfusion of Nonautologous Red Blood Cells into Peripheral Vein, Percutaneous Approach (ICD-10-PCS; 2019-12-04)
DX: K29.61 Other gastritis with bleeding (principal); D61.810 Antineoplastic chemotherapy induced pancytopenia; D62 Acute posthemorrhagic anemia; K52.0 Gastroenteritis and colitis due to radiation; C34.90 Malignant neoplasm of unspecified part of unspecified bronchus or lung; C34.11 Malignant neoplasm of upper lobe, right bronchus or lung; K44.9 Diaphragmatic hernia without obstruction or gangrene; K64.4 Residual hemorrhoidal skin tags; K64.0 First degree hemorrhoids; K55.20 Angiodysplasia of colon without hemorrhage; Y84.2 Radiological procedure and radiotherapy as the cause of abnormal reaction of the patient, or of later complication, without mention of misadventure at the time of the procedure; G47.33 Obstructive sleep apnea (adult) (pediatric); F03.90 Unspecified dementia, unspecified severity, without behavioral disturbance, psychotic disturbance, mood disturbance, and anxiety; I10 Essential (primary) hypertension; K21.9 Gastro-esophageal reflux disease without esophagitis; E11.9 Type 2 diabetes mellitus without complications; F32.9 Major depressive disorder, single episode, unspecified; R53.82 Chronic fatigue, unspecified; J45.909 Unspecified asthma, uncomplicated; F41.9 Anxiety disorder, unspecified; T45.1X5A Adverse effect of antineoplastic and immunosuppressive drugs, initial encounter; F09 Unspecified mental disorder due to known physiological condition; Z88.2 Allergy status to sulfonamides; Y92.9 Unspecified place or not applicable; Z92.21 Personal history of antineoplastic chemotherapy; Z92.3 Personal history of irradiation
CPT/HCPCS: 36415; 36430; 80053; 82272; 82728; 83540; 83550; 83735; 85025; 85027; 86078; 86850; 86900; 86901; 86922; 96365; 96375; 99156; 99157; 99219; A9270-GY; G0378; J1100; J1200; J1642; J2250; J3010; J3475; J3480; J9045; J9267; P9040

== ENCOUNTER 2020-02-27 22:08 | Inpatient (IN) ==
[2020-02-27] MEDS ORDERED: NS 0.9% 1000 ml BAG 1,000 ML IV ONE (23:03)
[2020-02-27] MEDS ORDERED: cefTRIAXone 1 gm/50 mL NS BAG 1 GM/50 ML BAG IV ONE (23:56)
[2020-02-28] MEDS ORDERED: Iodixanol (CONTRAST) 320 MG/ML 100 ML SDV IV ONE (00:16)
[2020-02-28 00:35] LABS: ABS Eosinophils 0.4 10^3/ul (0-0.6); ABS Lymphocytes 0.6 10^3/ul (1.0-4.8); ABS Monocytes 0.6 10^3/ul (0-0.8); Eosinophil % 6.8 %; Hematocrit 29 % (35-47); Hemoglobin 9.8 g/dL (12.0-16.0); Lymphocyte % 10.1 %; Mean Corpuscular HGB Conc 34 g/dL (31-36); Mean Corpuscular Hemoglobin 31 pg (27-31); Mean Corpuscular Volume 91 fL (80-97); Platelet Count 107 10^3/uL (150-450); Red Blood Count 3.17 10^6 /uL (3.70-4.87); Red Cell Distribution Width 14 % (10-15); White Blood Count 5.9 10^3/uL (3.5-10.8)
[2020-02-28 00:52] LABS: ALT 175 U/L (7-52); AST 274 U/L (13-39); Albumin 2.8 g/dL (3.2-5.2); Albumin/Globulin Ratio 0.9 (1-3); Alkaline Phosphatase 111 U/L (34-104); Anion Gap 4 mmol/L (2-11); BUN/Creatinine Ratio 17.4 (8-20); Blood Urea Nitrogen 12 mg/dL (6-24); C Reactive Protein 20.01 mg/L (<8.01); CO2 Carbon Dioxide 31 mmol/L (22-32); Calcium 8.5 mg/dL (8.6-10.3); Chloride 98 mmol/L (101-111); EGFR African American 101.5 (>60); EGFR Non-African American 83.9 (>60); Globulin 3.2 g/dL (2-4); Glucose 132 mg/dL (70-100); Magnesium 1.7 mg/dL (1.9-2.7); Potassium 4.3 mmol/L (3.5-5.0); Sodium 133 mmol/L (135-145)
[2020-02-28 01:08] LABS: TSH (Thyroid Stimulating Horm) 4.89 mcIU/mL (0.34-5.60)
[2020-02-28] MEDS ORDERED: Piperacillin/Tazobac ADVAN(*) 3.375 GM in NS 0.9% 100 ml BAG 100 ML IVPB ONE (02:09)
[2020-02-28] MEDS ORDERED: Ondansetron 4 mg VIAL 2 MG/ML 2 ml VIAL IV PRN (02:09)
[2020-02-28] MEDS ORDERED: Magnesium Sulfate 2 gm BAG 2 GM/50 ML BAG IVPB ONE (02:09)
[2020-02-28] MEDS ORDERED: Dextrose 50% Syringe 50 ml 25 GM/50 ML SYRINGE IV PUSH PRN (02:22)
[2020-02-28] MEDS ORDERED: hydrALAZINE 20 mg/ml 1 ML Vial IV IV SLOW PU PRN (02:22)
[2020-02-28 02:23] LABS: Urine Appearance Cloudy; Urine Bilirubin Negative (Negative); Urine Blood 1+ (Negative); Urine Color Yellow; Urine Glucose Negative (Negative); Urine Ketones Negative (Negative); Urine Nitrite Negative (Negative); Urine Protein Negative (Negative); Urine Specific Gravity 1.027 (1.010-1.030); Urine Urobilinogen Negative (Negative)
[2020-02-28 02:25] LABS: Troponin I 0.44 ng/mL (<0.03)
[2020-02-28 02:26] LABS: Urine Bacteria 1+ (Absent); Urine Red Blood Cell Trace(0-2/hpf) (Absent); Urine Squamous Epithelial Cell Present (Absent); Urine White Blood Cell Trace(0-5/hpf) (Absent)
[2020-02-28 02:39] LABS: Urine Benzodiazepine Screen None Detected (None Detect); Urine Opiates Screen None Detected (None Detect)
[2020-02-28] MEDS ORDERED: Zosyn per Pharmacy NOTE FOLLOW UP SCH (03:00)
[2020-02-28 03:13] LABS: Troponin I 0.61 ng/mL (<0.03)
[2020-02-28] MEDS ORDERED: Enoxaparin 60 MG/0.6 ML SYR(*) SUBCUT ONE (03:16)
[2020-02-28] MEDS: NS 0.9% 1000 ml BAG 1,000 ML IV SCH (04:10)
[2020-02-28 05:27] LABS: ABS Eosinophils 0.4 10^3/ul (0-0.6); ABS Lymphocytes 0.6 10^3/ul (1.0-4.8); ABS Monocytes 0.6 10^3/ul (0-0.8); Eosinophil % 7.1 %; Hematocrit 27 % (35-47); Hemoglobin 9.3 g/dL (12.0-16.0); Lymphocyte % 9.9 %; Mean Corpuscular HGB Conc 34 g/dL (31-36); Mean Corpuscular Hemoglobin 31 pg (27-31); Mean Corpuscular Volume 90 fL (80-97); Mean Platelet Volume 7.3 fL (7.4-10.4); Platelet Count 105 10^3/uL (150-450); Red Blood Count 3.03 10^6 /uL (3.70-4.87); Red Cell Distribution Width 13 % (10-15); White Blood Count 5.8 10^3/uL (3.5-10.8)
[2020-02-28 05:40] LABS: INR 1.37 (0.82-1.09)
[2020-02-28 05:49] LABS: ALT 157 U/L (7-52); AST 239 U/L (13-39); Albumin 2.4 g/dL (3.2-5.2); Albumin/Globulin Ratio 0.8 (1-3); Alkaline Phosphatase 83 U/L (34-104); Anion Gap 5 mmol/L (2-11); BUN/Creatinine Ratio 16.1 (8-20); Blood Urea Nitrogen 10 mg/dL (6-24); CO2 Carbon Dioxide 27 mmol/L (22-32); Chloride 100 mmol/L (101-111); EGFR African American 114.8 (>60); EGFR Non-African American 94.9 (>60); Globulin 2.9 g/dL (2-4); Glucose 157 mg/dL (70-100); Indirect Bilirubin 0.2 mg/dL (0.3-1.0); Potassium 4.1 mmol/L (3.5-5.0); Sodium 132 mmol/L (135-145); Total Protein 5.3 g/dL (6.4-8.9)
[2020-02-28 05:56] LABS: Troponin I 0.48 ng/mL (<0.03)
[2020-02-28] MEDS ORDERED: Heparin 5000 UNITS/ML VIAL(*) 1 ml vial SUBCUT SCH (06:00)
[2020-02-28] MEDS ORDERED: Insulin LISPRO 100 units/ml(*) SUBCUT SCH (06:00)
[2020-02-28 06:14] LABS: Urine Appearance Cloudy; Urine Bilirubin Negative (Negative); Urine Blood 1+ (Negative); Urine Color Yellow; Urine Glucose Negative (Negative); Urine Ketones Negative (Negative); Urine Nitrite Negative (Negative); Urine Protein Negative (Negative); Urine Specific Gravity 1.027 (1.010-1.030); Urine Urobilinogen Negative (Negative)
[2020-02-28 06:46] LABS: Urine Bacteria 1+ (Absent); Urine Red Blood Cell Trace(0-2/hpf) (Absent); Urine Squamous Epithelial Cell Present (Absent); Urine White Blood Cell 1+(6-10/hpf) (Absent)
[2020-02-28] MEDS: Insulin LISPRO 100 units/ml(*) SUBCUT SCH ×3 (10:16→17:12)
[2020-02-28] MEDS: ZOSYN 3.375 GM Q8H per EXTENDED INFUSION IV SCH ×2 (10:20→17:27)
[2020-02-28] MEDS: Venlafaxine XR 75 mg PO SCH ×2 (10:26→19:35)
[2020-02-28] MEDS: Aspirin EC 81 mg TAB.EC (enteric coated) PO SCH (10:27)
[2020-02-28] MEDS: Colesevelam 625 mg TAB (NF) PO SCH ×2 (10:30→19:35)
[2020-02-28] MEDS: Mirabegron 25 mg TAB (NF) PO SCH (10:31)
[2020-02-28 12:12] LABS: Hepatitis B Surface Antigen Nonreactive (Nonreactive)
[2020-02-28 12:15] LABS: Prealbumin 8 mg/dL (18-38)
[2020-02-28 12:29] LABS: Hepatitis C Antibody Negative (Negative)
[2020-02-29] MEDS: ZOSYN 3.375 GM Q8H per EXTENDED INFUSION IV SCH ×3 (00:30→17:59)
[2020-02-29 05:06] LABS: ABS Eosinophils 0.5 10^3/ul (0-0.6); ABS Lymphocytes 0.5 10^3/ul (1.0-4.8); ABS Monocytes 0.4 10^3/ul (0-0.8); Eosinophil % 9.9 %; Hematocrit 26 % (35-47); Hemoglobin 9.1 g/dL (12.0-16.0); Lymphocyte % 9.8 %; Mean Corpuscular HGB Conc 35 g/dL (31-36); Mean Corpuscular Hemoglobin 32 pg (27-31); Mean Corpuscular Volume 91 fL (80-97); Mean Platelet Volume 7.8 fL (7.4-10.4); Platelet Count 107 10^3/uL (150-450); Red Blood Count 2.89 10^6 /uL (3.70-4.87); Red Cell Distribution Width 14 % (10-15); White Blood Count 4.7 10^3/uL (3.5-10.8)
[2020-02-29 05:16] LABS: Albumin 2.4 g/dL (3.2-5.2); Albumin/Globulin Ratio 0.9 (1-3); BUN/Creatinine Ratio 14.9 (8-20); Calcium 8.2 mg/dL (8.6-10.3); EGFR Non-African American 86.8 (>60); Globulin 2.8 g/dL (2-4); Magnesium 1.7 mg/dL (1.9-2.7); Potassium 3.9 mmol/L (3.5-5.0); Total Bilirubin 0.4 mg/dL (0.2-1.0); Total Protein 5.2 g/dL (6.4-8.9)
[2020-02-29] MEDS: NS 0.9% 1000 ml BAG 1,000 ML IV SCH ×3 (06:51→21:00)
[2020-02-29] MEDS ORDERED: Magnesium Sulfate IV 3 GM in NS 0.9% 100 ml BAG 100 ML IVPB ONE (08:50)
[2020-02-29] MEDS: Venlafaxine XR 75 mg PO SCH ×2 (08:52→20:18)
[2020-02-29] MEDS: Aspirin EC 81 mg TAB.EC (enteric coated) PO SCH (08:53)
[2020-02-29] MEDS: Insulin LISPRO 100 units/ml(*) SUBCUT SCH ×3 (08:57→18:01)
[2020-02-29] MEDS: Enoxaparin 40 MG/0.4 ML SYR(*) SUBCUT SCH (08:58)
[2020-02-29] MEDS: Colesevelam 625 mg TAB (NF) PO SCH ×2 (09:33→20:18)
[2020-02-29] MEDS: Mirabegron 25 mg TAB (NF) PO SCH (09:33)
[2020-02-29] MEDS ORDERED: Iodixanol (CONTRAST) 320 MG/ML 100 ML SDV IV ONE (09:46)
[2020-03-01] MEDS: ZOSYN 3.375 GM Q8H per EXTENDED INFUSION IV SCH ×3 (01:18→16:48)
[2020-03-01 04:57] LABS: ABS Eosinophils 0.4 10^3/ul (0-0.6); ABS Lymphocytes 0.5 10^3/ul (1.0-4.8); ABS Monocytes 0.5 10^3/ul (0-0.8); Eosinophil % 8.2 %; Hematocrit 27 % (35-47); Hemoglobin 9.2 g/dL (12.0-16.0); Lymphocyte % 9.5 %; Mean Corpuscular HGB Conc 34 g/dL (31-36); Mean Corpuscular Hemoglobin 31 pg (27-31); Mean Corpuscular Volume 90 fL (80-97); Mean Platelet Volume 7.5 fL (7.4-10.4); Platelet Count 103 10^3/uL (150-450); Red Blood Count 3.02 10^6 /uL (3.70-4.87); Red Cell Distribution Width 13 % (10-15); White Blood Count 5.1 10^3/uL (3.5-10.8)
[2020-03-01 05:13] LABS: Albumin 2.5 g/dL (3.2-5.2); Albumin/Globulin Ratio 0.9 (1-3); BUN/Creatinine Ratio 12.5 (8-20); Calcium 7.9 mg/dL (8.6-10.3); EGFR African American 129.1 (>60); EGFR Non-African American 106.7 (>60); Globulin 2.9 g/dL (2-4); Potassium 3.4 mmol/L (3.5-5.0); Total Bilirubin 0.4 mg/dL (0.2-1.0); Total Protein 5.4 g/dL (6.4-8.9)
[2020-03-01] MEDS ORDERED: KCL 20 MEQ/100 ML IVPREMIX 20 MEQ/100 ML BAG IV ONE (06:36)
[2020-03-01] MEDS ORDERED: NS 0.9% IVPB ONE (07:30)
[2020-03-01] MEDS ORDERED: METHYLPREDNISOLONE SOD SUCC IVPB ONE (07:30)
[2020-03-01] MEDS: Mirabegron 25 mg TAB (NF) PO SCH (07:44)
[2020-03-01] MEDS: Colesevelam 625 mg TAB (NF) PO SCH ×2 (07:44→22:12)
[2020-03-01] MEDS: Aspirin EC 81 mg TAB.EC (enteric coated) PO SCH (08:19)
[2020-03-01] MEDS: Venlafaxine XR 75 mg PO SCH ×2 (08:19→22:16)
[2020-03-01] MEDS: Enoxaparin 40 MG/0.4 ML SYR(*) SUBCUT SCH (08:19)
[2020-03-01] MEDS: Insulin LISPRO 100 units/ml(*) SUBCUT SCH ×3 (08:42→16:47)
[2020-03-01 09:00] LABS: Magnesium 1.6 mg/dL (1.9-2.7)
[2020-03-01] MEDS ORDERED: Magnesium Sulfate 2 gm BAG 2 GM/50 ML BAG IVPB ONE (09:08)
[2020-03-02] MEDS: ZOSYN 3.375 GM Q8H per EXTENDED INFUSION IV SCH ×3 (00:59→16:59)
[2020-03-02] MEDS: NS 0.9% 1000 ml BAG 1,000 ML IV SCH (00:59)
[2020-03-02 05:15] LABS: ABS Eosinophils 0.1 10^3/ul (0-0.6); ABS Lymphocytes 0.4 10^3/ul (1.0-4.8); ABS Monocytes 0.6 10^3/ul (0-0.8); Eosinophil % 2.3 %; Hematocrit 26 % (35-47); Hemoglobin 8.7 g/dL (12.0-16.0); Lymphocyte % 8.2 %; Mean Corpuscular HGB Conc 34 g/dL (31-36); Mean Corpuscular Hemoglobin 30 pg (27-31); Mean Corpuscular Volume 90 fL (80-97); Mean Platelet Volume 7.5 fL (7.4-10.4); Platelet Count 107 10^3/uL (150-450); Red Blood Count 2.85 10^6 /uL (3.70-4.87); Red Cell Distribution Width 13 % (10-15); White Blood Count 5.5 10^3/uL (3.5-10.8)
[2020-03-02 05:32] LABS: Albumin 2.3 g/dL (3.2-5.2); Albumin/Globulin Ratio 0.9 (1-3); BUN/Creatinine Ratio 12.5 (8-20); Calcium 8.1 mg/dL (8.6-10.3); EGFR African American 129.1 (>60); EGFR Non-African American 106.7 (>60); Globulin 2.7 g/dL (2-4); Magnesium 1.7 mg/dL (1.9-2.7); Potassium 3.1 mmol/L (3.5-5.0); Total Bilirubin 0.4 mg/dL (0.2-1.0)
[2020-03-02] MEDS ORDERED: KCL 20 MEQ/100 ML IVPREMIX 20 MEQ/100 ML BAG IV ONE (07:11)
[2020-03-02] MEDS ORDERED: Magnesium Sulfate 2 gm BAG 2 GM/50 ML BAG IVPB ONE (07:12)
[2020-03-02] MEDS: Insulin LISPRO 100 units/ml(*) SUBCUT SCH ×3 (07:47→16:59)
[2020-03-02] MEDS: Potassium Chlor 10 meq TAB PO SCH ×2 (07:59→08:06)
[2020-03-02] MEDS: Enoxaparin 40 MG/0.4 ML SYR(*) SUBCUT SCH (07:59)
[2020-03-02] MEDS: Aspirin EC 81 mg TAB.EC (enteric coated) PO SCH (08:00)
[2020-03-02] MEDS: Venlafaxine XR 75 mg PO SCH ×2 (08:00→21:13)
[2020-03-02] MEDS: Mirabegron 25 mg TAB (NF) PO SCH (08:01)
[2020-03-02] MEDS: Colesevelam 625 mg TAB (NF) PO SCH ×2 (08:01→21:11)
[2020-03-02] MEDS: METHYLPREDNISOLONE SOD SUCC IVPB SCH (10:07)
[2020-03-02] MEDS: NS 0.9% IVPB SCH (10:07)
[2020-03-03] MEDS: ZOSYN 3.375 GM Q8H per EXTENDED INFUSION IV SCH ×3 (01:26→18:21)
[2020-03-03 05:58] LABS: ABS Eosinophils 0.2 10^3/ul (0-0.6); ABS Lymphocytes 0.4 10^3/ul (1.0-4.8); ABS Monocytes 0.4 10^3/ul (0-0.8); Eosinophil % 3.1 %; Hematocrit 24 % (35-47); Hemoglobin 8.3 g/dL (12.0-16.0); Lymphocyte % 7.8 %; Mean Corpuscular HGB Conc 34 g/dL (31-36); Mean Corpuscular Hemoglobin 31 pg (27-31); Mean Corpuscular Volume 90 fL (80-97); Mean Platelet Volume 7.4 fL (7.4-10.4); Platelet Count 99 10^3/uL (150-450); Red Blood Count 2.68 10^6 /uL (3.70-4.87); Red Cell Distribution Width 14 % (10-15); White Blood Count 5.6 10^3/uL (3.5-10.8)
[2020-03-03 06:05] LABS: Albumin 2.4 g/dL (3.2-5.2); Albumin/Globulin Ratio 0.9 (1-3); BUN/Creatinine Ratio 10.5 (8-20); Calcium 8.1 mg/dL (8.6-10.3); EGFR African American 126.5 (>60); EGFR Non-African American 104.6 (>60); Globulin 2.6 g/dL (2-4); Magnesium 1.6 mg/dL (1.9-2.7); Potassium 3.3 mmol/L (3.5-5.0); Total Bilirubin 0.3 mg/dL (0.2-1.0)
[2020-03-03] MEDS: Insulin LISPRO 100 units/ml(*) SUBCUT SCH ×3 (08:55→17:37)
[2020-03-03] MEDS: METHYLPREDNISOLONE SOD SUCC IVPB SCH (09:26)
[2020-03-03] MEDS: NS 0.9% IVPB SCH (09:26)
[2020-03-03] MEDS: Venlafaxine XR 75 mg PO SCH ×2 (09:34→20:12)
[2020-03-03] MEDS: Aspirin EC 81 mg TAB.EC (enteric coated) PO SCH (09:34)
[2020-03-03] MEDS: Enoxaparin 40 MG/0.4 ML SYR(*) SUBCUT SCH (09:35)
[2020-03-03] MEDS: Potassium Chlor 10 meq TAB PO SCH (09:36)
[2020-03-03] MEDS: Colesevelam 625 mg TAB (NF) PO SCH ×2 (09:36→20:16)
[2020-03-03] MEDS: Mirabegron 25 mg TAB (NF) PO SCH (09:36)
[2020-03-03] MEDS ORDERED: Magnesium Sulf 4 GM/100 ML IV 4,000 MG/100 ML BAG IVPB ONE (11:13)
[2020-03-03] MEDS: KCL 10 MEQ/50 ML IVPREMIX 10 MEQ/50 ML BAG IV SCH ×3 (13:54→18:21)
[2020-03-04] MEDS: ZOSYN 3.375 GM Q8H per EXTENDED INFUSION IV SCH ×3 (02:19→17:41)
[2020-03-04 05:58] LABS: ABS Eosinophils 0.2 10^3/ul (0-0.6); ABS Lymphocytes 0.5 10^3/ul (1.0-4.8); ABS Monocytes 0.6 10^3/ul (0-0.8); Eosinophil % 2.9 %; Hematocrit 28 % (35-47); Hemoglobin 9.5 g/dL (12.0-16.0); Lymphocyte % 7.6 %; Mean Corpuscular HGB Conc 34 g/dL (31-36); Mean Corpuscular Hemoglobin 31 pg (27-31); Mean Corpuscular Volume 90 fL (80-97); Mean Platelet Volume 7.2 fL (7.4-10.4); Nucleated Red Blood Cells % 0.1; Platelet Count 111 10^3/uL (150-450); Red Blood Count 3.09 10^6 /uL (3.70-4.87); Red Cell Distribution Width 14 % (10-15); White Blood Count 7.2 10^3/uL (3.5-10.8)
[2020-03-04 06:16] LABS: Albumin 2.7 g/dL (3.2-5.2); BUN/Creatinine Ratio 10.5 (8-20); Calcium 7.9 mg/dL (8.6-10.3); EGFR African American 126.5 (>60); EGFR Non-African American 104.6 (>60); Globulin 2.8 g/dL (2-4); Magnesium 1.8 mg/dL (1.9-2.7); Potassium 3.4 mmol/L (3.5-5.0); Total Bilirubin 0.4 mg/dL (0.2-1.0); Total Protein 5.5 g/dL (6.4-8.9)
[2020-03-04] MEDS: Aspirin EC 81 mg TAB.EC (enteric coated) PO SCH (08:02)
[2020-03-04] MEDS: Potassium Chlor 10 meq TAB PO SCH (08:03)
[2020-03-04] MEDS: Mirabegron 25 mg TAB (NF) PO SCH (08:03)
[2020-03-04] MEDS: Colesevelam 625 mg TAB (NF) PO SCH ×2 (08:04→20:08)
[2020-03-04] MEDS: Enoxaparin 40 MG/0.4 ML SYR(*) SUBCUT SCH (08:04)
[2020-03-04] MEDS: Venlafaxine XR 75 mg PO SCH ×2 (08:05→20:41)
[2020-03-04] MEDS: Insulin LISPRO 100 units/ml(*) SUBCUT SCH ×3 (08:34→17:42)
[2020-03-04] MEDS: NS 0.9% IVPB SCH (09:54)
[2020-03-04] MEDS: METHYLPREDNISOLONE SOD SUCC IVPB SCH (09:54)
[2020-03-05] MEDS: ZOSYN 3.375 GM Q8H per EXTENDED INFUSION IV SCH ×2 (01:23→09:38)
[2020-03-05 06:55] LABS: ABS Eosinophils 0.1 10^3/ul (0-0.6); ABS Lymphocytes 0.5 10^3/ul (1.0-4.8); ABS Monocytes 0.6 10^3/ul (0-0.8); Hematocrit 26 % (35-47); Hemoglobin 9.1 g/dL (12.0-16.0); Mean Corpuscular HGB Conc 35 g/dL (31-36); Mean Corpuscular Hemoglobin 31 pg (27-31); Mean Corpuscular Volume 89 fL (80-97); Mean Platelet Volume 7.5 fL (7.4-10.4); Platelet Count 108 10^3/uL (150-450); Red Blood Count 2.91 10^6 /uL (3.70-4.87); Red Cell Distribution Width 13 % (10-15); White Blood Count 6.5 10^3/uL (3.5-10.8)
[2020-03-05 07:12] LABS: Albumin 2.6 g/dL (3.2-5.2); Albumin/Globulin Ratio 0.9 (1-3); BUN/Creatinine Ratio 12.5 (8-20); Calcium 8.2 mg/dL (8.6-10.3); EGFR African American 129.1 (>60); EGFR Non-African American 106.7 (>60); Globulin 2.8 g/dL (2-4); Potassium 3.2 mmol/L (3.5-5.0); Total Bilirubin 0.4 mg/dL (0.2-1.0); Total Protein 5.4 g/dL (6.4-8.9)
[2020-03-05 08:09] LABS: Magnesium 1.6 mg/dL (1.9-2.7)
[2020-03-05] MEDS: Insulin LISPRO 100 units/ml(*) SUBCUT SCH ×2 (08:09→12:46)
[2020-03-05] MEDS ORDERED: Magnesium Sulf 4 GM/100 ML IV 4,000 MG/100 ML BAG IVPB ONE (08:18)
[2020-03-05] MEDS: Venlafaxine XR 75 mg PO SCH (09:37)
[2020-03-05] MEDS: Potassium Chlor 10 meq TAB PO SCH (09:37)
[2020-03-05] MEDS: Aspirin EC 81 mg TAB.EC (enteric coated) PO SCH (09:37)
[2020-03-05] MEDS: Enoxaparin 40 MG/0.4 ML SYR(*) SUBCUT SCH (09:37)
[2020-03-05] MEDS: KCL 20 MEQ/100 ML IVPREMIX 20 MEQ/100 ML BAG IV SCH ×2 (09:38→20:47)
[2020-03-05] MEDS: Colesevelam 625 mg TAB (NF) PO SCH (09:39)
[2020-03-05] MEDS: Mirabegron 25 mg TAB (NF) PO SCH (09:39)
[2020-03-05 13:17] VITALS: BP 164/68
== END 2020-03-05 19:00 | disposition home health service (06) | DRG 206 ==
LOC: ED 22:08 → MEDTELE 02-28 02:04
PROVIDERS: ADMIT Nurse Practitioner Family; ATTEND Internal Medicine Hematology & Oncology

== ENCOUNTER 2020-03-10 23:03 | Observation (INO) ==
[2020-03-11 00:18] LABS: ABS Lymphocytes 0.3 10^3/ul (1.0-4.8); ABS Monocytes 0.5 10^3/ul (0-0.8); Eosinophil % 0.3 %; Hematocrit 32 % (35-47); Hemoglobin 10.9 g/dL (12.0-16.0); Lymphocyte % 3.2 %; Mean Corpuscular HGB Conc 34 g/dL (31-36); Mean Corpuscular Hemoglobin 31 pg (27-31); Mean Corpuscular Volume 91 fL (80-97); Mean Platelet Volume 7.8 fL (7.4-10.4); Platelet Count 104 10^3/uL (150-450); Red Blood Count 3.56 10^6 /uL (3.70-4.87); Red Cell Distribution Width 14 % (10-15); White Blood Count 8.6 10^3/uL (3.5-10.8)
[2020-03-11 00:25] LABS: INR 1.38 (0.82-1.09)
[2020-03-11 00:42] LABS: ALT 225 U/L (7-52); AST 209 U/L (13-39); Albumin 2.9 g/dL (3.2-5.2); Albumin/Globulin Ratio 0.9 (1-3); Alkaline Phosphatase 118 U/L (34-104); Anion Gap 5 mmol/L (2-11); BUN/Creatinine Ratio 20.3 (8-20); Blood Urea Nitrogen 13 mg/dL (6-24); C Reactive Protein 21.39 mg/L (<8.01); CO2 Carbon Dioxide 32 mmol/L (22-32); Calcium 8.9 mg/dL (8.6-10.3); Chloride 97 mmol/L (101-111); EGFR African American 110.4 (>60); EGFR Non-African American 91.2 (>60); Globulin 3.2 g/dL (2-4); Glucose 359 mg/dL (70-100); Potassium 3.8 mmol/L (3.5-5.0); Sodium 134 mmol/L (135-145); Total Protein 6.1 g/dL (6.4-8.9)
[2020-03-11 00:46] LABS: Troponin I 1.17 ng/mL (<0.03)
[2020-03-11] MEDS ORDERED: Morphine 2 MG/ML SYRINGE IV PRN (02:10)
[2020-03-11] MEDS ORDERED: NS 0.9% 1000 ml BAG 1,000 ML IV SCH (02:15)
[2020-03-11] MEDS ORDERED: Piperacillin/Tazobac ADVAN(*) 3.375 GM in NS 0.9% 100 ml BAG 100 ML IVPB ONE (02:15)
[2020-03-11] MEDS ORDERED: LORazepam 2 mg VIAL 1 ml IV PUSH PRN ×2 (02:42→14:17)
[2020-03-11] MEDS ORDERED: Lorazepam PYXIS KEY PRN (02:42)
[2020-03-11] MEDS ORDERED: Zosyn per Pharmacy NOTE FOLLOW UP SCH (03:00)
[2020-03-11] MEDS: methylPREDNISolone SOD 40 mg/ml 1 ml VIAL IV SCH (04:33)
[2020-03-11] MEDS: Heparin 5000 UNITS/ML VIAL(*) 1 ml vial SUBCUT SCH ×3 (04:33→21:32)
[2020-03-11 05:26] LABS: Urine Appearance Turbid; Urine Bilirubin Negative (Negative); Urine Blood 2+ (Negative); Urine Color Yellow; Urine Glucose 3+(>=500 mg/dL) (Negative); Urine Ketones Negative (Negative); Urine Nitrite Negative (Negative); Urine Protein 1+(30 mg/dL) (Negative); Urine Specific Gravity 1.013 (1.010-1.030); Urine Urobilinogen Negative (Negative)
[2020-03-11] MEDS: ZOSYN 3.375 GM Q8H per EXTENDED INFUSION IV SCH ×3 (06:16→21:46)
[2020-03-11 06:34] LABS: Urine Bacteria 1+ (Absent); Urine Red Blood Cell 1+(3-5/hpf) (Absent); Urine Squamous Epithelial Cell Present (Absent); Urine White Blood Cell 3+(>20/hpf) (Absent)
[2020-03-11] MEDS: Pantoprazole VIAL 40 MG VIAL IV SCH (08:54)
[2020-03-11] MEDS: Fluticasone NASAL SPRAY 50MCG 16 gm SPRAY BTL INTRANASAL SCH (09:12)
[2020-03-11] MEDS: Nystatin TOP POWDER 15 GM BTL TOPICAL SCH (09:13)
[2020-03-11] MEDS: LORazepam 2 mg VIAL 1 ml IV PUSH PRN (19:57)
[2020-03-11] MEDS: Morphine 2 MG/ML SYRINGE IV PRN (20:02)
[2020-03-12] MEDS: Morphine 2 MG/ML SYRINGE IV PRN ×2 (00:38→04:07)
[2020-03-12] MEDS: LORazepam 2 mg VIAL 1 ml IV PUSH PRN ×3 (00:39→07:35)
[2020-03-12] MEDS: methylPREDNISolone SOD 40 mg/ml 1 ml VIAL IV SCH (03:03)
[2020-03-12] MEDS: Heparin 5000 UNITS/ML VIAL(*) 1 ml vial SUBCUT SCH (06:02)
[2020-03-12] MEDS: ZOSYN 3.375 GM Q8H per EXTENDED INFUSION IV SCH (06:18)
[2020-03-12] MEDS: Pantoprazole VIAL 40 MG VIAL IV SCH (07:35)
[2020-03-12] MEDS: Nystatin TOP POWDER 15 GM BTL TOPICAL SCH (07:36)
[2020-03-12] MEDS: Fluticasone NASAL SPRAY 50MCG 16 gm SPRAY BTL INTRANASAL SCH (07:36)
[2020-03-12 08:39] VITALS: BP 145/76
== END 2020-03-12 09:30 | disposition hospice, inpatient (51) ==
LOC: MED 23:03 → ED 23:03 → MED 03-11 03:23
PROVIDERS: ADMIT Internal Medicine; ATTEND Internal Medicine